=== PATIENT | male | born 1965 | race Caucasian/White ===

== ENCOUNTER → 2016-12-10 | Emergency (ER) | payer SELFPAY ==
[~2016-12-10] VITALS: Ht 172.7 cm; Wt 74.8 kg
[~2016-12-10] MED LIST: ATN50T; ATOR10TA PO; DEXAMETHASONE PF 10 MG/ML (DECADRON) VIAL IV ONE; ESOM5SUS PO; GBPN100C; INDERAL; LEXAPRO; LSRT50T; NS IV 1000 ML 1,000 ML IV SCH; ONDA8TAB9 PO; PRD20T PO; PRILOSEC OTC PO; PROC10TA23; PROCHLORPERAZINE 10 MG/2ML INJ (COMPAZINE) IV ONE; PROZAC; TRM50T PO; VRP80T; ZYPREXA PO; diphenhydrAMINE 50 MG/ML INJ (BENADRYL) IVP ONE; fentaNYL INJECTION 100 MCG/2 ML AMP IVP ONE
--- NOTE | 2016-12-10 17:06 | ED Headache ---
General Chief Complaint: Head/Cervical Problems Stated Complaint: MIGRANE Source: patient Exam Limitations: no limitations History of Present Illness Time seen by provider: 17:04 Initial Comments To ER with a global headache for 4 days worse in the frontal region. He has a history of chronic migraines and states that he has a headache nearly every day however this is worse than usual rated at 10 out of 10. The location and onset are typical of his past headaches. No fevers or chills. No head injury. He saw [facility] yesterday and received Toradol and Phenergan injection without any relief. Timing/Duration: other (4 days) Severity/Quality: severe Location: frontal, global Prior Headaches/Recent Trauma: frequent headaches Associated Symptoms: No confusion Allergies and Home Medications Allergies Coded Allergies: No Known Drug Allergies (Unverified , 08/09/13) Home Medications Atorvastatin Calcium 10 Mg Tablet, 10 MG PO DAILY, (Reported) Esomeprazole Magnesium 5 Mg Suspdr.pkt, 5 MG PO DAILY, (Reported) Ondansetron 8 Mg Tab.rapdis, 8 MG PO Q6H PRN for NAUSEA/VOMITING-2ND LINE, #30 Prescribed by: ALE ACEVEDO on 12/10/161822 [Inderal] , (Reported) [Prozac] , (Reported) [Zyprexa] , 10 MG PO BID, (Reported) Constitutional: see HPI Eyes: No Symptoms Reported Ears, Nose, Mouth, Throat: no symptoms reported Respiratory: no symptoms reported Cardiovascular: no symptoms reported Genitourinary: no symptoms reported Musculoskeletal: no symptoms reported Skin: no symptoms reported Psychiatric/Neurological: No Symptoms Reported Past Hebwsrl-Iwghjg-Twsytl Hx Patient Social History Recent Foreign Travel: No Contact w/Someone Who Travel: No Surgeries HX Surgeries: No Respiratory Hx Respiratory Disorders: Yes Respiratory Disorders: Pneumonia Cardiovascular Hx Cardiac Disorders: No Neurological Hx Neurological Disorders: Yes Reproductive System Hx Reproductive Disorders: No Genitourinary Hx Genitourinary Disorders: No Gastrointestinal Hx Gastrointestinal Disorders: No Musculoskeletal Hx Musculoskeletal Disorders: No Endocrine Hx Endocrine Disorders: No HEENT HX ENT Disorders: No Cancer Hx Cancer: No Psychosocial Hx Psychiatric Problems: Yes Blood Transfusions Hx Blood Disorders: No Physical Exam Vital Signs Vital Sign - Last 12Hours 12/10/16 17:17 Temp 98.1 Capillary Refill : General Appearance: WD/WN, no apparent distress HEENT: PERRL/EOMI, normal ENT inspection, TMs normal Neck: non-tender, full range of motion Respiratory: normal breath sounds, no respiratory distress, no accessory muscle use Gastrointestinal: normal bowel sounds, non tender, soft Extremities: normal range of motion, non-tender Psychiatric: alert, oriented x 3 Crainal Nerves: normal hearing, normal speech, PERRL Skin: normal color, warm/dry Progress/Results/Core Measures Results/Orders My Orders Orders - ALE ACEVEDO APRN Saline Lock/Iv-Start (12/10/16 17:02) Prochlorperazine Injection (Compazine In (12/10/16 17:15) Diphenhydramine Injection (Benadryl Inje (12/10/16 17:15) Ns Iv 1000 Ml (Sodium Chloride 0.9%) (12/10/16 17:15) Dexamethasone Pf Injection (Decadron Pf (12/10/16 17:15) Fentanyl Injection (Sublimaze Injection (12/10/16 17:15) Medications Given in ED Current Medications Medications Dose Ordered Sig/Bernard Route Start Time Stop Time Status Last Admin Dose Admin Dexamethasone Sodium Phosphate 10 mg ONCE ONCE IV 12/10/16 17:15 12/10/16 17:16 DC 12/10/16 17:18 10 MG Diphenhydramine HCl 25 mg ONCE ONCE IVP 12/10/16 17:15 12/10/16 17:16 DC 12/10/16 17:18 25 MG Fentanyl Citrate 50 mcg ONCE ONCE IVP 12/10/16 17:15 12/10/16 17:16 DC 12/10/16 17:17 50 MCG Prochlorperazine Edisylate 10 mg ONCE ONCE IV 12/10/16 17:15 12/10/16 17:16 DC 12/10/16 17:17 10 MG Vital Signs/I&O Vital Sign - Last 12Hours 12/10/16 17:17 Temp 98.1 Departure Communication Progress Notes 1824-patient states his headache is better in fact well enough that he would like to go home now. Impression Impression: Primary Impression: Headache Disposition: 01 HOME, SELF-CARE Condition: Improved Departure-Patient Inst. Decision time for Depature: 17:05 Referrals: [facility] (PCP/Family) Primary Care Physician Patient Instructions: Headache, Adult (DC) Add. Discharge Instructions: 1. Return to ER for any concerns 2. See your doctor next week All discharge instructions reviewed with patient and/or family. Voiced understanding. Scripts Ondansetron (Zofran Odt) 8 Mg Tab.rapdis 8 MG PO Q6H Y for NAUSEA/VOMITING-2ND LINE, #30 TAB Prov: ALE ACEVEDO APRN 12/10/16 Work/School Note: Work Release Form Date Seen in the Emergency Department: December 10, 2016 Return to Work: December 11, 2016 ALE ACEVEDO APRN December 10, 2016 17:05
[2016-12-10 18:50] VITALS: BP 128/72
== END | disposition home or self-care (01) ==
LOC: EDUNIT# 16:17 → ER 16:18
DX: R51 Headache (principal)
CPT/HCPCS: 96374; 96375

== ENCOUNTER 2019-02-21 14:19 | Emergency (ER) | payer SELFPAY, OTHER | END 2019-02-21 15:29 | disposition home or self-care (01) | LOC: ER 14:19 ==

== ENCOUNTER 2019-06-18 00:26 | Inpatient (IN) | payer SELFPAY ==
[~2019-06-18] VITALS: Ht 167 cm; Wt 61.1 kg
[2019-06-18] VITALS (8 sets, daily range): BP systolic 105–125; BP diastolic 63–88
[~2019-06-18 00:26] MED LIST changes: -DEXAMETHASONE PF 10 MG/ML (DECADRON) VIAL IV ONE; -NS IV 1000 ML 1,000 ML IV SCH; -PROCHLORPERAZINE 10 MG/2ML INJ (COMPAZINE) IV ONE; -diphenhydrAMINE 50 MG/ML INJ (BENADRYL) IVP ONE; -fentaNYL INJECTION 100 MCG/2 ML AMP IVP ONE
[2019-06-18] MEDS ORDERED: LACTATED RINGERS 1,000 ML IV ONE ×2 (02:07→03:56)
[2019-06-18] MEDS ORDERED: THIAMINE 100 MG (VITAMIN B-1) TAB PO ONE (02:15)
[2019-06-18] MEDS ORDERED: FOLIC ACID 1 MG TAB PO ONE (02:15)
[2019-06-18] MEDS ORDERED: ACETAMINOPHEN 500 MG TAB (TYLENOL) PO ONE (02:15)
--- NOTE | 2019-06-18 02:19 | ED Headache ---
General Chief Complaint: General Problems/Pain Stated Complaint: EAR PAIN, NECK AND BACK PAIN Source: patient Exam Limitations: no limitations History of Present Illness Date Seen by Provider: Jun 18, 2019 Time Seen by Provider: 01:56 Initial Comments Patient presents to ER by private conveyance with her significant other and chief complaint that she for the past month has been experiencing intermittent progressively worsening confusion headaches with a background history of migraines and nausea vomiting. He is not having any nausea now. He was recently put on Reglan by his primary care doctor, Darinel for his nausea and irritable bowel disease. He is on Bentyl. He's not having any abdominal pain, diarrhea presently or dysuria. He does complain of a sharp 89 out of 10 headache in the back of his neck radiating up into his occiput. This is different from his normal migraines. He's not having aura or photophobia/phonophobia. He frequently has sinus infection and sinus headaches and is having some axillary pain with discharge of a very dark mucus for the past week. He said the headache and sinus headache came on in the past week. His caregiver says last night when she was taking care of the first time she noticed that he was very confused and wanting to move the car to get out of their way but he was parked in front of them and he was not making any sense. They have not brought this up to primary care. He is not taking any opiates or benzos. He does use ibuprofen 800 mg every 4 hours and occasionally uses Tylenol. His last dose ibuprofen was at midnight. He does endorse night sweats the past week. No history of HIV, tuberculosis, hepatitis. No history of recent falls or trauma. No syncope weakness or weight loss. He is a daily drinker and and usually about a fifth a day. For the past 3 days he has not had any drinks. Allergies and Home Medications Allergies Coded Allergies: No Known Drug Allergies (Unverified , 08/09/13) Home Medications Atorvastatin Calcium 10 Mg Tablet, 10 MG PO DAILY, (Reported) Esomeprazole Magnesium 5 Mg Suspdr.pkt, 5 MG PO DAILY, (Reported) Ondansetron 8 Mg Tab.rapdis, 8 MG PO Q6H PRN for NAUSEA/VOMITING-2ND LINE Prescribed by: ALE ACEVEDO on 12/10/161822 [Zyprexa] , 10 MG PO BID, (Reported) Patient Home Medication List Home Medication List Reviewed: Yes Review of Systems Review of Systems Constitutional: No chills; diaphoresis; No fever; malaise Eyes: Denies Blindness, Denies Blurred Vision Ears, Nose, Mouth, Throat: denies ear pain, denies ear discharge Respiratory: cough; No phlegm, No short of breath, No wheezing Cardiovascular: No chest pain, No edema, No Hx of Intervention, No palpitations Gastrointestinal: No abdominal pain, No constipation, No diarrhea Genitourinary: No discharge, No dysuria Musculoskeletal: see HPI; No back pain; neck pain All Other Systems Reviewed Negative Unless Noted: Yes Past Qwnqlll-Fcxcfi-Xbtawj Hx Patient Social History Type Used: Cigarettes 2nd Hand Smoke Exposure: Yes Recent Foreign Travel: No Contact w/Someone Who Travel: No Recent Hopitalizations: Yes Seasonal Allergies Seasonal Allergies: Yes Past Medical History Surgeries: No Respiratory: Yes Pneumonia Cardiac: No Neurological: Yes Reproductive Disorders: No Gastrointestinal: No Musculoskeletal: No Endocrine: No Cancer: No Psychosocial: Yes Blood Disorders: No Physical Exam Vital Signs Vital Signs - First Documented 06/18/19 01:03 Temp 36.7 Pulse 116 Resp 18 B/P (MAP) 122/74 (90) Pulse Ox 97 O2 Delivery Room Air Capillary Refill : Height, Weight, BMI Height: 5'8.00" Weight: 165lbs. 0.2oz. 74.570089el; 32.48 BMI Method:Estimated General Appearance: mild distress, thin HEENT: PERRL/EOMI, normal ENT inspection, TMs normal, pharynx normal Neck: full range of motion, supple, normal inspection, tender lateral, tender midline Cardiovascular: normal peripheral pulses, regular rate, rhythm Respiratory: chest non-tender, lungs clear, normal breath sounds, no respiratory distress, no accessory muscle use Gastrointestinal: normal bowel sounds, non tender, soft Psychiatric: alert, oriented x 3 Crainal Nerves: normal hearing, normal speech, PERRL Coordination/Gait: normal finger to nose, normal gait Motor/Sensory: no motor deficit, no sensory deficit Skin: normal color, warm/dry Progress/Results/Core Measures Results/Orders Lab Results Laboratory Tests Test 06/18/19 02:33 06/18/19 02:40 06/18/19 04:00 Range/Units Urine Color YELLOW Urine Clarity CLEAR Urine pH 6.0 5-9 Urine Specific [place] 1.025 H 1.016-1.022 Urine Protein 2+ H NEGATIVE Urine Glucose (UA) NEGATIVE NEGATIVE Urine Ketones 2+ H NEGATIVE Urine Nitrite NEGATIVE NEGATIVE Urine Bilirubin 3+ H NEGATIVE Urine Urobilinogen 1.0 < = 1.0 MG/DL Urine Leukocyte Esterase NEGATIVE NEGATIVE Urine RBC (Auto) 2+ H NEGATIVE Urine RBC 10-25 H /HPF Urine WBC 0-2 /HPF Urine Squamous Epithelial Cells 0-2 /HPF Urine Crystals NONE /LPF Urine Bacteria FEW H /HPF Urine Casts NONE /LPF Urine Mucus SMALL H /LPF Urine Culture Indicated NO White Blood Count 27.0 H 4.3-11.0 10^3/uL Red Blood Count 3.68 L 4.35-5.85 10^6/uL Hemoglobin 12.3 L 13.3-17.7 G/DL Hematocrit 34 L 40-54 % Mean Corpuscular Volume 94 80-99 FL Mean Corpuscular Hemoglobin 33 25-34 PG Mean Corpuscular Hemoglobin Concent 36 32-36 G/DL Red Cell Distribution Width 15.2 H 10.0-14.5 % Platelet Count 290 130-400 10^3/uL Mean Platelet Volume 9.9 7.4-10.4 FL Neutrophils (%) (Auto) 90 H 42-75 % Lymphocytes (%) (Auto) 4 L 12-44 % Monocytes (%) (Auto) 6 0-12 % Eosinophils (%) (Auto) 0 0-10 % Basophils (%) (Auto) 0 0-10 % Neutrophils # (Auto) 24.3 H 1.8-7.8 X 10^3 Lymphocytes # (Auto) 1.1 1.0-4.0 X 10^3 Monocytes # (Auto) 1.6 H 0.0-1.0 X 10^3 Eosinophils # (Auto) 0.0 0.0-0.3 10^3/uL Basophils # (Auto) 0.0 0.0-0.1 10^3/uL Prothrombin Time 18.3 H 12.2-14.7 SEC INR Comment 1.5 H 0.8-1.4 Activated Partial Thromboplast Time 48 H 24-35 SEC Sodium Level 135 135-145 MMOL/L Potassium Level 2.8 L 3.6-5.0 MMOL/L Chloride Level 102 98-107 MMOL/L Carbon Dioxide Level 17 L 21-32 MMOL/L Anion Gap 16 H 5-14 MMOL/L Blood Urea Nitrogen 12 7-18 MG/DL Creatinine 0.90 0.60-1.30 MG/DL Estimat Glomerular Filtration Rate > 60 BUN/Creatinine Ratio 13 Glucose Level 157 H 70-105 MG/DL Calcium Level 10.1 8.5-10.1 MG/DL Corrected Calcium 10.5 H 8.5-10.1 MG/DL Total Bilirubin 0.8 0.1-1.0 MG/DL Aspartate Amino Transf (AST/SGOT) 44 H 5-34 U/L Alanine Aminotransferase (ALT/SGPT) 47 0-55 U/L Alkaline Phosphatase 197 H 40-136 U/L C-Reactive Protein High Sensitivity > 16.00 H 0.00-0.50 MG/DL Total Protein 7.7 6.4-8.2 GM/DL Albumin 3.5 3.2-4.5 GM/DL Lipase 49 8-78 U/L Lactic Acid Level 0.97 0.50-2.00 MMOL/L My Orders Orders - ALMAZ HUTCHINSON Chest Pa/Lat (2 View) (06/18/19 02:07) Ed Iv/Invasive Line Start (06/18/19 02:07) Lactated Ringers (Lr 1000 Ml Iv Solution (06/18/19 02:07) Thiamine Tablet (Vitamin B-1 Tablet) (06/18/19 02:15) Folic Acid Tablet (Folic Acid Tablet) (06/18/19 02:15) Acetaminophen Tablet (Tylenol Tablet) (06/18/19 02:15) Cbc With Automated Diff (06/18/19 02:07) Comprehensive Metabolic Panel (06/18/19 02:07) Lipase (06/18/19 02:07) Hs C Reactive Protein (06/18/19 02:07) Ua Culture If Indicated (06/18/19 02:07) Manual Differential (06/18/19 02:40) Ceftriaxone For Iv Use (Rocephin For I (06/18/19 04:00) Azithromycin Injection (Zithromax Inject (06/18/19 04:00) Ed Iv/Invasive Line Start (06/18/19 03:56) Lactated Ringers (Lr 1000 Ml Iv Solution (06/18/19 03:56) Fentanyl Injection (Sublimaze Injection (06/18/19 04:00) Blood Culture (06/18/19 03:56) Lactic Acid Analyzer (06/18/19 03:56) Sputum Culture (06/18/19 03:56) Urine Culture (06/18/19 03:56) Protime With Inr (06/18/19 03:56) Partial Thromboplastin Time (06/18/19 03:56) Ed Iv/Invasive Line Start (06/18/19 03:56) Vital Signs Adult Sepsis Patie Q15M (06/18/19 03:56) O2 (06/18/19 03:56) Remove Rings In Anticipation O (06/18/19 03:56) Potassium Chloride (Tablet) (K Dur Table (06/18/19 04:15) Potassium Cl 10meq/50ml Ivpb (Kcl 10 Meq (06/18/19 04:15) Medications Given in ED Current Medications Medications Dose Ordered Sig/Bernard Route Start Time Stop Time Status Last Admin Dose Admin Acetaminophen 1,000 mg ONCE ONCE PO 06/18/19 02:15 06/18/19 02:16 DC 06/18/19 04:09 1,000 MG Azithromycin 500 mg/Sodium Chloride 250 ml @ 250 mls/hr ONCE ONCE IV 06/18/19 04:00 06/18/19 04:59 DC 06/18/19 04:09 250 MLS/HR Ceftriaxone Sodium 1000 mg/ Sterile Water 10 ml @ 200 mls/hr ONCE ONCE IV 06/18/19 04:00 06/18/19 04:02 DC 06/18/19 04:09 200 MLS/HR Fentanyl Citrate 50 mcg ONCE ONCE IVP 06/18/19 04:00 06/18/19 04:01 DC 06/18/19 04:09 50 MCG Folic Acid 1 mg ONCE ONCE PO 06/18/19 02:15 06/18/19 02:16 DC 06/18/19 02:49 1 MG Lactated Ringer's 1,000 ml @ 0 mls/hr Q0M ONCE IV 06/18/19 02:07 06/18/19 02:13 DC 06/18/19 02:49 1,000 MLS/HR Lactated Ringer's 1,000 ml @ 0 mls/hr Q0M ONCE IV 06/18/19 03:56 06/18/19 03:59 DC 06/18/19 04:09 0 MLS/HR Thiamine HCl 100 mg ONCE ONCE PO 06/18/19 02:15 06/18/19 02:16 DC 06/18/19 02:49 100 MG Vital Signs/I&O 06/18/19 01:03 Temp 36.7 Pulse 116 Resp 18 B/P (MAP) 122/74 (90) Pulse Ox 97 O2 Delivery Room Air Progress Progress Note #1: Time: 02:19 Progress Note Clinically he appears to be mildly dry. We'll give him a liter fluid some folate and thiamine and if that does not improve his tachycardia we can try benzos since he's not been drinking over the past 3 days. We will get some labs and urinalysis to look for any signs of infection or blood disorders. Hyponatremia could explain his confusion. Progress Note #2: Time: 04:00 Progress Note Patient's white count is 27,000 and he has a large right pulmonary infiltrate. It could be contributing to his neck pain if it's body ache related. He is oriented plenty of NSAIDs so were going to give him some fentanyl and another liter fluids to bring him up over 30 mL/kg and Rocephin and azithromycin since he has no recent hospitalizations in the last 90 days. Blood cultures and septic workup. 10 of potassium IV and 20 oral. Diagnostic Imaging Diagonstic Imaging: Xray Plain Films/CT/US/NM/MRI: chest (2v) Comments Right infiltrate cannot rule out possible underlying malignancy. Reviewed: Reviewed by Me Departure Communication (Admissions) Time/Spoke to Admitting Phy: 04:10 Discussed case lab imaging's with Dr. Obrien and she agrees to admit the patient for sepsis, pneumonia, hypokalemia. Lactic is pending. Impression Primary Impression: Pneumonia Qualified Codes: J18.1 - Lobar pneumonia, unspecified organism Additional Impressions: Hypokalemia Myalgia Liver injury Qualified Codes: S36.119A - Unspecified injury of liver, initial encounter Severe sepsis Disposition: ADMITTED INPATIENT Condition: Stable Admissions Decision to Admit Reason: Admit from ER (General) Decision to Admit/Date: Jun 18, 2019 Time/Decision to Admit Time: 04:00 Departure-Patient Inst. Referrals: [facility] (PCP) Primary Care Physician EZEKIEL QUINTANA (Family) Primary Care Physician Focused Exam Sepsis Stage: Severe Sepsis Possible Source: Pulmonary Lactate Level 06/18/19 04:00: Lactic Acid Level 0.97 Time of Focused Exam: 04:46 Respiratory: No Accessory Muscle Use, No Respiratory Distress, Crackles (bilateral bases) Cardiovascular: Regular Rate, Rhythm, No Edema, Normal Peripheral Pulses Capillary Refill: Less Than 3 Seconds Peripheral Pulses: 2+ Radial Pulses (R), 2+ Radial Pulses (L) Skin: normal color, warm/dry Lactic Acid Level Laboratory Tests Test 06/18/19 04:00 Lactic Acid Level 0.97 MMOL/L (0.50-2.00) Within 3hrs of presentation: Admin fluids, Admin ABX, Blood cultures prior to ABX's, Focus exam, Lactate level, Other (severe sepsis because of evidence of liver dysfunction by elevated PT INR) ALMAZ HUTCHINSON Jun 18, 2019 02:19 POS
[2019-06-18 02:57] LABS: BASOPHILS % (AUTO) 0 % (0-10); EOSINOPHILS % (AUTO) 0 % (0-10); HEMATOCRIT 34 % (40-54); HEMOGLOBIN 12.3 G/DL (13.3-17.7); LYMPHOCYTES # (AUTO) 1.1 X 10^3 (1.0-4.0); LYMPHOCYTES % (AUTO) 4 % (12-44); MEAN CORPUSCULAR HEMOGLOBIN 33 PG (25-34); MEAN CORPUSCULAR HGB CONC 36 G/DL (32-36); MEAN CORPUSCULAR VOLUME 94 FL (80-99); MEAN PLATELET VOLUME 9.9 FL (7.4-10.4); MONOCYTES # (AUTO) 1.6 X 10^3 (0.0-1.0); MONOCYTES % (AUTO) 6 % (0-12); NEUTROPHILS # (AUTO) 24.3 X 10^3 (1.8-7.8); NEUTROPHILS % (AUTO) 90 % (42-75); PLATELET COUNT 290 10^3/uL (130-400); RED CELL DISTRIBUTION WIDTH 15.2 % (10.0-14.5)
[2019-06-18 03:00] LABS: CLARITY,URINE CLEAR; COLOR,URINE YELLOW; GLUCOSE, URINE (UA) NEGATIVE (NEGATIVE); KETONES,URINE 2+ (NEGATIVE); LEUKOCYTE ESTERASE ,URINE NEGATIVE (NEGATIVE); NITRITE,URINE NEGATIVE (NEGATIVE); PROTEIN,URINE 2+ (NEGATIVE)
[2019-06-18 03:16] LABS: ALANINE AMINOTRANSFERASE 47 U/L (0-55); ALBUMIN 3.5 GM/DL (3.2-4.5); ALKALINE PHOSPHATASE 197 U/L (40-136); BILIRUBIN,TOTAL 0.8 MG/DL (0.1-1.0); BUN/CREATININE RATIO 13; CALCIUM 10.1 MG/DL (8.5-10.1); CARBON DIOXIDE 17 MMOL/L (21-32); CHLORIDE 102 MMOL/L (98-107); GFR ESTIMATED > 60; GLUCOSE 157 MG/DL (70-105); LIPASE 49 U/L (8-78); POTASSIUM 2.8 MMOL/L (3.6-5.0); SODIUM 135 MMOL/L (135-145); TOTAL PROTEIN 7.7 GM/DL (6.4-8.2)
[2019-06-18 03:19] LABS: BILIRUBIN,URINE 3+ (NEGATIVE)
[2019-06-18 03:20] LABS: BACTERIA,URINE FEW /HPF; SQUAMOUS EPITHELIAL CELL,UR 0-2 /HPF; WBC,URINE 0-2 /HPF
[2019-06-18] MEDS ORDERED: AZITHROMYCIN INJECTION 500 MG in NS (IVPB) 250 ML IV ONE (04:00)
[2019-06-18] MEDS ORDERED: cefTRIAXone FOR IV USE 1,000 MG in WATER (STERILE) FOR INJECTION 10 ML IV ONE (04:00)
[2019-06-18] MEDS ORDERED: fentaNYL INJECTION 100 MCG/2 ML AMP IVP ONE (04:00)
[2019-06-18 04:11] LABS: INR 1.5 (0.8-1.4); PROTHROMBIN TIME PATIENT 18.3 SEC (12.2-14.7)
[2019-06-18] MEDS ORDERED: KCL 20 MEQ TAB (K-DUR) PO ONE (04:15)
[2019-06-18] MEDS ORDERED: POTASSIUM CL 10MEQ/50ML IVPB 50 ML IV ONE ×2 (04:15→21:15)
[2019-06-18] MEDS ORDERED: ACETAMINOPHEN 500 MG TAB (TYLENOL) PO PRN (06:00)
[2019-06-18] MEDS ORDERED: ONDANSETRON 4 MG/2 ML (SDV) Z0FRAN IV PRN (06:00)
[2019-06-18] MEDS ORDERED: ANTACID SUSP 30 ML UDC (MYLANTA) PO PRN (06:00)
--- NOTE | 2019-06-18 06:37 | Pulmonary Consultation ---
History of Present Illness History of Present Illness Date of Consultation 06/18/19 06:31 Date of Admission Allergies and Home Medications Allergies Coded Allergies: No Known Drug Allergies (Unverified , 08/09/13) Home Medications Atorvastatin Calcium 10 Mg Tablet, 10 MG PO DAILY, (Reported) Esomeprazole Magnesium 5 Mg Suspdr.pkt, 5 MG PO DAILY, (Reported) Ondansetron 8 Mg Tab.rapdis, 8 MG PO Q6H PRN for NAUSEA/VOMITING-2ND LINE Prescribed by: ALE ACEVEDO on 12/10/16 182 [Zyprexa] , 10 MG PO BID, (Reported) Past Rbhyuqf-Kvjsfe-Yvstef Hx Patient Social History Alcohol Use: Regular Use Alcohol Beverage of Choice: [place] Recreational Drug Use: No Smoking Status: Current Everyday Smoker Type Used: Cigarettes 2nd Hand Smoke Exposure: Yes Recent Foreign Travel: No Contact w/Someone Who Travel: No Recent Infectious Disease Expo: No Recent Hopitalizations: Yes Physical Abuse: No Sexual Abuse: No Mistreated: No Fear: No Immunizations Up To Date Tetanus Booster (TDap): Unknown PED Vaccines UTD: Yes Seasonal Allergies Seasonal Allergies: Yes Past Medical History Surgeries: No Respiratory: Yes Pneumonia Cardiac: No Neurological: Yes Reproductive Disorders: No Genitourinary: No Gastrointestinal: No Musculoskeletal: No Endocrine: No HEENT: No Cancer: No Psychosocial: Yes Anxiety Integumentary: No Blood Disorders: No Sepsis Event Evaluation Height, Weight, BMI Height: 5'8.00" Weight: 165lbs. 0.2oz. 74.613804jj; 22.26 BMI Method:Estimated Exam Exam Vital Signs Date Time Temp Pulse Resp B/P (MAP) Pulse Ox O2 Delivery O2 Flow Rate FiO2 06/18/19 06:00 88 32 105/85 (92) 96 Room Air 06/18/19 05:35 97 Room Air 06/18/19 05:16 37.1 92 26 109/63 97 Room Air 06/18/19 05:15 91 20 109/63 (78) 97 Room Air 06/18/19 05:15 91 06/18/19 04:09 36.7 06/18/19 04:09 36.7 06/18/19 01:03 36.7 116 18 122/74 (90) 97 Room Air I & O 06/18/19 07:00 Intake Total 2110 ml Output Total 0 ml Balance 2110 ml Height & Weight Height: 5'8.00" Weight: 165lbs. 0.2oz. 74.420374ia; 22.26 BMI Method:Estimated Respiratory: No Accessory Muscle Use, No Respiratory Distress, Crackles (bilateral bases) Cardiovascular: Regular Rate, Rhythm, No Edema, Normal Peripheral Pulses Capillary Refill: Less Than 3 Seconds Peripheral Pulses: 2+ Radial Pulses (R), 2+ Radial Pulses (L) Gastrointestinal: normal bowel sounds, non tender, soft Results Lab Laboratory Tests 06/18/19 02:40 Assessment/Plan Assessment/Plan Pneumonia with severe sepsis -Continue Rocephin Hypokalemia -Replace Severe HENAO with neck pain -Check CT of head and neck without and with contrast -Consider lumbar puncture Metabolic lactic acidosis -IVF LORNA SINGH DO Jun 18, 2019 06:37 POS
[2019-06-18] MEDS: LACTATED RINGERS 1,000 ML IV SCH ×4 (06:46→23:44)
[2019-06-18 06:48] LABS: LYMPHOCYTES % (MANUAL) 9 %; NEUTROPHILS % (MANUAL) 87 %
[2019-06-18 06:49] LABS: MONOCYTES % (MANUAL) 4 %
[2019-06-18 06:55] LABS: BASOPHILS % (AUTO) 0 % (0-10); EOSINOPHILS % (AUTO) 0 % (0-10); HEMATOCRIT 30 % (40-54); HEMOGLOBIN 10.8 G/DL (13.3-17.7); LYMPHOCYTES # (AUTO) 1.4 X 10^3 (1.0-4.0); LYMPHOCYTES % (AUTO) 6 % (12-44); MEAN CORPUSCULAR HEMOGLOBIN 34 PG (25-34); MEAN CORPUSCULAR HGB CONC 36 G/DL (32-36); MEAN CORPUSCULAR VOLUME 93 FL (80-99); MEAN PLATELET VOLUME 9.7 FL (7.4-10.4); MONOCYTES # (AUTO) 1.6 X 10^3 (0.0-1.0); MONOCYTES % (AUTO) 7 % (0-12); NEUTROPHILS # (AUTO) 20.4 X 10^3 (1.8-7.8); NEUTROPHILS % (AUTO) 87 % (42-75); PLATELET COUNT 248 10^3/uL (130-400); RED CELL DISTRIBUTION WIDTH 14.9 % (10.0-14.5); WHITE BLOOD COUNT 23.5 10^3/uL (4.3-11.0)
[2019-06-18 07:21] LABS: ALANINE AMINOTRANSFERASE 41 U/L (0-55); ALBUMIN 2.8 GM/DL (3.2-4.5); ALKALINE PHOSPHATASE 155 U/L (40-136); BILIRUBIN,TOTAL 0.5 MG/DL (0.1-1.0); BUN/CREATININE RATIO 16; CARBON DIOXIDE 17 MMOL/L (21-32); CHLORIDE 107 MMOL/L (98-107); CREATININE SERUM 0.67 MG/DL (0.60-1.30); GFR ESTIMATED > 60; GLUCOSE 115 MG/DL (70-105); MAGNESIUM 1.8 MG/DL (1.6-2.4); PHOSPHORUS 3.4 MG/DL (2.3-4.7); POTASSIUM 2.7 MMOL/L (3.6-5.0); SODIUM 136 MMOL/L (135-145); TOTAL PROTEIN 6.1 GM/DL (6.4-8.2)
--- NOTE | 2019-06-18 07:21 | Diagnostic Imaging Report ---
INDICATION: Ear, back and neck pain PA and lateral views of the chest are obtained with comparison made to study of 07/09/2008. There has been development of consolidation in the right middle lobe. Heart size and pulmonary vascularity are within normal limits. There is no evidence of pneumothorax or pleural fluid. IMPRESSION: Right middle lobe pneumonia. Radiographic follow-up would be useful to document resolution. Dictated by: Dictated on workstation # [id number]
[2019-06-18] MEDS ORDERED: NS 100 ML (IVPB) BAG IV ONE (07:45)
[2019-06-18] MEDS ORDERED: HOLD METFORMIN - RECEIVED CONTRAST 20 ML VIAL IV SCH (07:45)
[2019-06-18] MEDS ORDERED: IOHEXOL 350 MG/ML 100 ML (OMNIPAQUE 350) VIAL IV ONE (07:45)
[2019-06-18] MEDS ORDERED: CATHETER FLUSH 10 ML SYR IV PRN (07:45)
[2019-06-18] MEDS: fentaNYL INJECTION 100 MCG/2 ML AMP IV PRN ×2 (08:14→21:21)
[2019-06-18] MEDS: KCL 20 MEQ TAB (K-DUR) PO SCH ×2 (08:14→16:51)
[2019-06-18] MEDS: IBUPROFEN 800 MG (MOTRIN) TAB PO PRN ×2 (08:14→23:44)
--- NOTE | 2019-06-18 08:14 | Diagnostic Imaging Report ---
PROCEDURE: CT head with and without contrast. TECHNIQUE: Multiple contiguous axial images were obtained through the brain before and after the administration of intravenous contrast. Auto Exposure Controls were utilized during the CT exam to meet ALARA standards for radiation dose reduction. INDICATION: Severe headache and neck pain Comparison is made to study of 07/19/2014. Ventricles and sulci are within normal limits for size. There is no evidence of hemorrhage. There is no abnormal mass effect or shift of midline structures. After intravenous contrast administration, there is no evidence of abnormal contrast enhancement. IMPRESSION: Unremarkable CTof the brain Dictated by: Dictated on workstation # [id number]
[2019-06-18 08:15] LABS: AMPHETAMINE SCREEN, URINE NEGATIVE (NEGATIVE); BARBITURATE SCREEN URINE NEGATIVE (NEGATIVE); BENZODIAZEPINES SCREEN URINE POSITIVE (NEGATIVE); CANNABINOID SCREEN, URINE NEGATIVE (NEGATIVE); COCAINE SCREEN URINE NEGATIVE (NEGATIVE); METHADONE STAT NEGATIVE (NEGATIVE); METHAMPHETAMINE SCREEN URINE S NEGATIVE (NEGATIVE); OPIATE SCREEN URINE NEGATIVE (NEGATIVE); OXYCODONE STAT NEGATIVE (NEGATIVE); PROPOXYPHENE STAT NEGATIVE (NEGATIVE); TRICYCLIC ANTIDEPRESSANTS SCRE NEGATIVE (NEGATIVE)
[2019-06-18] MEDS ORDERED: RT-ALBUTEROL/IPRATROPIUM 3 ML (DUONEB) VIAL INH PRN (08:30)
[2019-06-18] MEDS ORDERED: PANTOPRAZOLE 40 MG (PROTONIX) TAB PO SCH (09:00)
--- NOTE | 2019-06-18 09:09 | Diagnostic Imaging Report ---
PROCEDURE: CT cervical spine without contrast. TECHNIQUE: Multiple contiguous axial images were obtained through the cervical spine without the use of intravenous contrast. Sagittal and coronal reformations were then performed. Auto Exposure Controls were utilized during the CT exam to meet ALARA standards for radiation dose reduction. INDICATION: Neck pain. Headache. COMPARISON: None FINDINGS: Evaluation static alignment shows straightening of normal lordotic curvature of cervical spine. There is however no significant anteroretrolisthesis. There is no evidence of jumped facets. Findings may be on the basis of underlying spasm, as well as patient positioning. Vertebral body heights are preserved. There is no acute fracture. No bony fragments are seen within the spinal canal. There are moderate multilevel degenerative changes consistent with intervertebral disc height loss with anterior posterior disc osteophyte complex formations. These changes appear greatest at the C5-C6 and C6-C7 levels. Pre and paravertebral soft tissue structures are unremarkable. Included portions of the lung bases are clear. IMPRESSION: 1. No acute fracture or dislocation of the cervical spine. 2. Moderate multilevel degenerative changes. Dictated by: Dictated on workstation # [id number]
[2019-06-18] MEDS: RT-ALBUTEROL/IPRATROPIUM 3 ML (DUONEB) VIAL INH SCH ×3 (09:35→20:17)
[2019-06-18] MEDS: POTASSIUM CL 10MEQ/50ML IVPB 50 ML IV SCH ×6 (10:42→23:38)
--- NOTE | 2019-06-18 10:49 | History & Physical ---
HPI History of Present Illness: 53 yo male presented to ER due to severe headache and body aches. Date seen by provider: Jun 18, 2019 Time Seen by Provider: 10:40 Attending Physician Sobia Brown MD [facility] Consult Date of Admission Jun 18, 2019 at 04:05 Home Medications Home Medications Reviewed patient Home Medication Reconciliation performed by pharmacy medication reconciliations classroom technology technician and/or nursing. Patients Allergies have been reviewed. Allergies Coded Allergies: No Known Drug Allergies (Unverified , 08/09/13) TLA-Fdexow-Zwnufw Hx Patient Social History Alcohol Use: Regular Use Recreational Drug Use: No Smoking Status: Current Everyday Smoker Type Used: Cigarettes 2nd Hand Smoke Exposure: Yes Recent Foreign Travel: No Contact w/other who traveled: No Recent Hopitalizations: Yes Recent Infectious Disease Expo: No Immunizations Up To Date Tetanus Booster (TDap): Unknown Past Medical History PMHx: IBS HTN Anxiety Review of Systems (CHC) Constitutional: malaise Gastrointestinal: vomiting Genitourinary: No hematuria Musculoskeletal: back pain, muscle pain Skin: no symptoms reported Psychiatric/Neurological: No Symptoms Reported Reviewed Test Results Reviewed Test Results Lab Laboratory Tests Test 06/18/19 02:33 06/18/19 02:40 06/18/19 04:00 06/18/19 06:40 Range/Units Urine Color YELLOW Urine Clarity CLEAR Urine pH 6.0 5-9 Urine Specific [place] 1.025 H 1.016-1.022 Urine Protein 2+ H NEGATIVE Urine Glucose (UA) NEGATIVE NEGATIVE Urine Ketones 2+ H NEGATIVE Urine Nitrite NEGATIVE NEGATIVE Urine Bilirubin 3+ H NEGATIVE Urine Urobilinogen 1.0 < = 1.0 MG/DL Urine Leukocyte Esterase NEGATIVE NEGATIVE Urine RBC (Auto) 2+ H NEGATIVE Urine RBC 10-25 H /HPF Urine WBC 0-2 /HPF Urine Squamous Epithelial Cells 0-2 /HPF Urine Crystals NONE /LPF Urine Bacteria FEW H /HPF Urine Casts NONE /LPF Urine Mucus SMALL H /LPF Urine Culture Indicated NO White Blood Count 27.0 H 23.5 H 4.3-11.0 10^3/uL Red Blood Count 3.68 L 3.21 L 4.35-5.85 10^6/uL Hemoglobin 12.3 L 10.8 L 13.3-17.7 G/DL Hematocrit 34 L 30 L 40-54 % Mean Corpuscular Volume 94 93 80-99 FL Mean Corpuscular Hemoglobin 33 34 25-34 PG Mean Corpuscular Hemoglobin Concent 36 36 32-36 G/DL Red Cell Distribution Width 15.2 H 14.9 H 10.0-14.5 % Platelet Count 290 248 130-400 10^3/uL Mean Platelet Volume 9.9 9.7 7.4-10.4 FL Neutrophils (%) (Auto) 90 H 87 H 42-75 % Lymphocytes (%) (Auto) 4 L 6 L 12-44 % Monocytes (%) (Auto) 6 7 0-12 % Eosinophils (%) (Auto) 0 0 0-10 % Basophils (%) (Auto) 0 0 0-10 % Neutrophils # (Auto) 24.3 H 20.4 H 1.8-7.8 X 10^3 Lymphocytes # (Auto) 1.1 1.4 1.0-4.0 X 10^3 Monocytes # (Auto) 1.6 H 1.6 H 0.0-1.0 X 10^3 Eosinophils # (Auto) 0.0 0.0 0.0-0.3 10^3/uL Basophils # (Auto) 0.0 0.0 0.0-0.1 10^3/uL Neutrophils % (Manual) 87 % Lymphocytes % (Manual) 9 % Monocytes % (Manual) 4 % Prothrombin Time 18.3 H 12.2-14.7 SEC INR Comment 1.5 H 0.8-1.4 Activated Partial Thromboplast Time 48 H 24-35 SEC Sodium Level 135 136 135-145 MMOL/L Potassium Level 2.8 L 2.7 L 3.6-5.0 MMOL/L Chloride Level 102 107 98-107 MMOL/L Carbon Dioxide Level 17 L 17 L 21-32 MMOL/L Anion Gap 16 H 12 5-14 MMOL/L Blood Urea Nitrogen 12 11 7-18 MG/DL Creatinine 0.90 0.67 0.60-1.30 MG/DL Estimat Glomerular Filtration Rate > 60 > 60 BUN/Creatinine Ratio 13 16 Glucose Level 157 H 115 H 70-105 MG/DL Calcium Level 10.1 9.0 8.5-10.1 MG/DL Corrected Calcium 10.5 H 10.0 8.5-10.1 MG/DL Total Bilirubin 0.8 0.5 0.1-1.0 MG/DL Aspartate Amino Transf (AST/SGOT) 44 H 40 H 5-34 U/L Alanine Aminotransferase (ALT/SGPT) 47 41 0-55 U/L Alkaline Phosphatase 197 H 155 H 40-136 U/L C-Reactive Protein High Sensitivity > 16.00 H 0.00-0.50 MG/DL Total Protein 7.7 6.1 L 6.4-8.2 GM/DL Albumin 3.5 2.8 L 3.2-4.5 GM/DL Lipase 49 8-78 U/L Lactic Acid Level 0.97 0.50-2.00 MMOL/L Phosphorus Level 3.4 2.3-4.7 MG/DL Magnesium Level 1.8 1.6-2.4 MG/DL B-Type Natriuretic Peptide 184.7 H <100.0 PG/ML Test 06/18/19 06:50 06/18/19 08:13 Range/Units Urine Opiates Screen NEGATIVE NEGATIVE Urine Oxycodone Screen NEGATIVE NEGATIVE Urine Methadone Screen NEGATIVE NEGATIVE Urine Propoxyphene Screen NEGATIVE NEGATIVE Urine Barbiturates Screen NEGATIVE NEGATIVE Ur Tricyclic Antidepressants Screen NEGATIVE NEGATIVE Urine Phencyclidine Screen NEGATIVE NEGATIVE Urine Amphetamines Screen NEGATIVE NEGATIVE Urine Methamphetamines Screen NEGATIVE NEGATIVE Urine Benzodiazepines Screen POSITIVE H NEGATIVE Urine Cocaine Screen NEGATIVE NEGATIVE Urine Cannabinoids Screen NEGATIVE NEGATIVE Lactic Acid Level 0.60 0.50-2.00 MMOL/L Radiology CXR 06/17- RML infiltrate CT head 06/17- no acute abnormalities CT cervical spine 06/17- moderate multilevel degenerative changes Physical Exam-(CHC) Physical Exam Vital Signs VS - Last 72 Hours, by Label POS 06/18/19 06/18/19 06/18/19 06/18/19 01:03 04:00 04:09 04:09 Temp 36.7 36.7 36.7 36.7 Pulse 116 116 Resp 18 18 B/P (MAP) 122/74 (90) 122/74 Pulse Ox 97 97 O2 Delivery Room Air 06/18/19 06/18/19 06/18/19 06/18/19 05:15 05:15 05:15 05:16 Temp 36.9 37.1 Pulse 100 91 91 92 Resp 26 20 26 B/P (MAP) 113/70 109/63 (78) 109/63 Pulse Ox 98 97 97 O2 Delivery Room Air Room Air Room Air 06/18/19 06/18/19 06/18/19 06/18/19 05:35 06:00 07:00 08:00 Pulse 88 87 Resp 32 B/P (MAP) 105/85 (92) Pulse Ox 97 96 98 O2 Delivery Room Air Room Air 06/18/19 06/18/19 06/18/19 06/18/19 08:00 09:00 09:35 12:00 Pulse 98 Resp 19 B/P (MAP) 117/88 (98) Pulse Ox 99 96 96 98 O2 Delivery Room Air Room Air Room Air Room Air 06/18/19 12:30 Pulse 80 Resp 20 B/P (MAP) 112/67 (82) O2 Delivery Room Air Capillary Refill : Less Than 3 Seconds General Appearance: WD/WN, no apparent distress Respiratory: lungs clear, normal breath sounds Cardiovascular: regular rate, rhythm, no murmur Gastrointestinal: normal bowel sounds, non tender, soft Neurologic/Psychiatric: alert, normal mood/affect Skin: normal color, warm/dry Assessment/Plan Assessment/Plan Admission Dx Severe sepsis Admission Status: Inpatient Order (span 2 midnights) Reason for Inpatient Admission: Severe sepsis with pneumonia, will require 2 nights or more for treatment. (1) Severe sepsis Status: Acute Assessment & Plan: Secondary to pneumonia. On azithromycin and ceftriaxone. (2) Headache Status: Acute Assessment & Plan: Has been being treated for chronic migraine and tension headaches outpatient, recently restarted on Reglan. Will hold reglan due to interaction with SSRI. (3) Liver injury Status: Acute Assessment & Plan: Elevated AST and INR, will check hep panel and liver US as well as CK given his myalgias and statin use. May be sepsis related. Qualifiers: Qualified Codes: S36.119A - Unspecified injury of liver, initial encounter (4) Myalgia Status: Acute Assessment & Plan: Check CK. (5) Hypokalemia Status: Acute Assessment & Plan: Replace and recheck. (6) Hematuria Status: Acute Assessment & Plan: Urine culture pending. Qualifiers: Qualified Codes: R31.21 - Asymptomatic microscopic hematuria (7) Pneumonia Status: Acute Qualifiers: Qualified Codes: J18.1 - Lobar pneumonia, unspecified organism (8) Confusion Status: Acute Assessment & Plan: Intermittent per report. Hold home ambien. CT head okay. (9) Neck pain Status: Acute Assessment & Plan: CT neck with moderate degenerative changes. (10) DVT prophylaxis Status: Acute Assessment & Plan: Enoxaparin Clinical Quality Measures DVT/VTE Risk/Contraindication: Risk Factor Score Per Nursin RFS Level Per Nursing on Admit: 3=High SOBIA BROWN MD Jun 18, 2019 10:48 POS
[2019-06-18] MEDS ORDERED: ONDA4TAB10 PO (14:05)
[2019-06-18] MEDS ORDERED: OMEP40CA36 PO (14:05)
[2019-06-18] MEDS ORDERED: FERR325T18 PO (14:05)
[2019-06-18] MEDS ORDERED: OMEG-160 PO (14:05)
[2019-06-18] MEDS ORDERED: ASEN10TA9 SL (14:05)
[2019-06-18] MEDS ORDERED: METO-395 PO (14:05)
[2019-06-18] MEDS ORDERED: ZOLP5TAB PO (14:05)
[2019-06-18] MEDS ORDERED: METO-310 PO (14:05)
[2019-06-18] MEDS ORDERED: DICY20TA10 PO (14:05)
[2019-06-18] MEDS ORDERED: TOPI100T PO (14:05)
[2019-06-18] MEDS ORDERED: SERT100T8 PO (14:05)
[2019-06-18] MEDS ORDERED: ATOR40TA70 PO (14:05)
[2019-06-18] MEDS ORDERED: RT-ALBUINH INH (14:05)
[2019-06-18 14:41] LABS: BUN/CREATININE RATIO 17; CALCIUM 8.8 MG/DL (8.5-10.1); CARBON DIOXIDE 16 MMOL/L (21-32); CHLORIDE 112 MMOL/L (98-107); CREATINE KINASE 62 U/L (30-200); CREATININE SERUM 0.59 MG/DL (0.60-1.30); GFR ESTIMATED > 60; GLUCOSE 108 MG/DL (70-105); POTASSIUM 3.2 MMOL/L (3.6-5.0); SODIUM 138 MMOL/L (135-145)
[2019-06-18] MEDS: ENOXAPARIN 40 MG/0.4 ML (LOVENOX) SYR SQ SCH (16:50)
[2019-06-18] MEDS: DICYCLOMINE 10 MG (BENTYL) CAP PO SCH ×2 (16:51→20:34)
[2019-06-18] MEDS ORDERED: NON-FORMULARY MEDICATION 1 EA EA (Dicyclomine HCl 20 MG) PO SCH (17:00)
[2019-06-18] MEDS: PANTOPRAZOLE 40 MG (PROTONIX) TAB PO SCH (20:34)
[2019-06-18] MEDS: toPIRamate 100 MG (TOPAMAX) TAB PO SCH (20:34)
[2019-06-18] MEDS ORDERED: TOPIRAMATE 100 MG PO SCH (21:00)
[2019-06-18] MEDS ORDERED: NON-FORMULARY MEDICATION 1 EA EA (Omeprazole 40 MG) PO SCH (21:00)
[2019-06-19] MEDS: POTASSIUM CL 10MEQ/50ML IVPB 50 ML IV SCH (00:45)
[2019-06-19 04:00] VITALS: BP 127/73
[2019-06-19] MEDS ORDERED: cefTRIAXone 1,000 MG IV (ROCEPHIN) VIAL ONE (05:00)
[2019-06-19] MEDS ORDERED: WATER (STERILE) FOR INJECTION 10 ML ONE (05:00)
[2019-06-19 05:02] LABS: BASOPHILS % (AUTO) 0 % (0-10); EOSINOPHILS # (AUTO) 0.1 10^3/uL (0.0-0.3); EOSINOPHILS % (AUTO) 0 % (0-10); HEMATOCRIT 26 % (40-54); LYMPHOCYTES # (AUTO) 2.1 X 10^3 (1.0-4.0); LYMPHOCYTES % (AUTO) 11 % (12-44); MEAN CORPUSCULAR HEMOGLOBIN 34 PG (25-34); MEAN CORPUSCULAR HGB CONC 35 G/DL (32-36); MEAN CORPUSCULAR VOLUME 96 FL (80-99); MEAN PLATELET VOLUME 10.1 FL (7.4-10.4); MONOCYTES # (AUTO) 0.8 X 10^3 (0.0-1.0); MONOCYTES % (AUTO) 4 % (0-12); NEUTROPHILS # (AUTO) 16.5 X 10^3 (1.8-7.8); NEUTROPHILS % (AUTO) 85 % (42-75); PLATELET COUNT 330 10^3/uL (130-400); RED CELL DISTRIBUTION WIDTH 15.4 % (10.0-14.5); WHITE BLOOD COUNT 19.5 10^3/uL (4.3-11.0)
[2019-06-19] MEDS: cefTRIAXone 1,000 MG/SWFI 10 ML IV PUSH IV SCH ×2 (05:09)
[2019-06-19 05:23] LABS: ALANINE AMINOTRANSFERASE 25 U/L (0-55); ALBUMIN 2.6 GM/DL (3.2-4.5); ALKALINE PHOSPHATASE 157 U/L (40-136); BILIRUBIN,DIRECT 0.2 MG/DL (0.0-0.3); BILIRUBIN,INDIRECT 0.1 MG/DL; BILIRUBIN,TOTAL 0.3 MG/DL (0.1-1.0); BUN/CREATININE RATIO 14; CALCIUM 8.7 MG/DL (8.5-10.1); CARBON DIOXIDE 15 MMOL/L (21-32); CHLORIDE 112 MMOL/L (98-107); CREATININE SERUM 0.59 MG/DL (0.60-1.30); GFR ESTIMATED > 60; GLUCOSE 86 MG/DL (70-105); MAGNESIUM 1.8 MG/DL (1.6-2.4); PHOSPHORUS 2.9 MG/DL (2.3-4.7); POTASSIUM 3.2 MMOL/L (3.6-5.0); SODIUM 139 MMOL/L (135-145); TOTAL PROTEIN 5.7 GM/DL (6.4-8.2)
--- NOTE | 2019-06-19 05:36 | Pulmonary Progress Note ---
BENJAMIN MCMAHON MED STUDENT 06/19/19 0536: Subjective Date Seen by a Provider: Jun 19, 2019 Time Seen by a Provider: 06:23 Subjective/Events-last exam No acute events overnight. Patient states that his headache and neck pain persist, despite pain medications provided. He states that his cough does seem to be worse today but denies that production of sputum and shortness of breath. He denies visual changes including double vision and blurred vision, fever, and chills. Sepsis Event Evaluation Height, Weight, BMI Height: 5'8.00" Weight: 165lbs. 0.2oz. 74.617191ye; 22.26 BMI Method:Estimated Focused Exam Lactate Level 06/18/19 04:00: Lactic Acid Level 0.97 06/18/19 08:13: Lactic Acid Level 0.60 Time of Focused Exam: 04:46 Exam Exam Vital Signs Date Time Temp Pulse Resp B/P (MAP) Pulse Ox O2 Delivery O2 Flow Rate FiO2 06/19/19 04:00 36.2 73 20 127/73 (91) 99 Room Air 06/18/19 23:59 36.1 83 18 125/72 (89) 99 Room Air 06/18/19 22:00 36.2 06/18/19 20:30 Room Air 06/18/19 20:18 96 Room Air 06/18/19 19:17 36.2 87 20 121/71 (88) 99 Room Air 06/18/19 16:00 36.0 72 20 116/69 (85) 99 Room Air 06/18/19 16:00 98 Room Air 06/18/19 14:54 96 Room Air 06/18/19 13:00 75 06/18/19 12:30 80 20 112/67 (82) Room Air 06/18/19 12:00 98 Room Air 06/18/19 09:35 96 Room Air 06/18/19 09:00 96 Room Air 06/18/19 08:00 98 19 117/88 (98) 99 Room Air 06/18/19 08:00 98 06/18/19 07:00 87 06/18/19 06:00 88 32 105/85 (92) 96 Room Air 06/18/19 05:35 97 Room Air I & O 06/19/19 07:00 Intake Total 1750 ml Balance 1750 ml Height & Weight Height: 5'8.00" Weight: 165lbs. 0.2oz. 74.937477hb; 22.26 BMI Method:Estimated General Appearance: No Apparent Distress, WD/WN HEENT: PERRL/EOMI, Normal ENT Inspection, Pharynx Normal Respiratory: No Accessory Muscle Use, No Respiratory Distress, Rhonci, Wheezing Cardiovascular: Regular Rate, Rhythm, No Edema, Normal Peripheral Pulses Capillary Refill: Less Than 3 Seconds Peripheral Pulses: 2+ Radial Pulses (R), 2+ Radial Pulses (L) Gastrointestinal: normal bowel sounds, non tender, soft Extremity: Normal Inspection, Normal Range of Motion, No Pedal Edema Results Lab Laboratory Tests 06/18/19 02:40 06/18/19 06:40 06/18/19 14:05 06/19/19 04:35 Radiology Chest Xray 06/18/19 IMPRESSION: Right middle lobe pneumonia. Radiographic follow-up would be useful to document resolution. CT Cervical Spine w/o contrast 06/18/19 IMPRESSION: 1. No acute fracture or dislocation of the cervical spine. 2. Moderate multilevel degenerative changes CT Head with and without contrast 06/18/19 IMPRESSION: Unremarkable CT of the brain. Assessment/Plan Assessment/Plan Pneumonia with severe sepsis -Continue Rocephin and Azithro -Blood cultures NGTD x2 -Pending Legionella and pneumo urine antigen Hypokalemia -Replace Severe HENAO with neck pain -CT head and neck 06/18/19 unremarkable -Motrin 800mg, Acetaminophen 1000mg Q8H PRN for mild pain -Fentanyl Q4H PRN for severe pain -Consider LP Metabolic lactic acidosis, improving -IVF LORNA BLUM DO 06/19/19 0733: Subjective Subjective/Events-last exam Still complains of HENAO. SOB is stable. Exam Exam General Appearance: No Apparent Distress, WD/WN HEENT: PERRL/EOMI, Normal ENT Inspection, Pharynx Normal Respiratory: No Accessory Muscle Use, No Respiratory Distress, Rhonci, Wheezing Cardiovascular: Regular Rate, Rhythm, No Edema, Normal Peripheral Pulses Gastrointestinal: normal bowel sounds, non tender, soft Extremity: Normal Inspection, Normal Range of Motion, No Pedal Edema Neurologic/Psychiatric: Alert, Oriented x3 Skin: Normal Color, Warm/Dry Assessment/Plan Assessment/Plan Pneumonia with severe sepsis -Continue Rocephin and Azithro -Blood cultures NGTD x2 -Pending Legionella and pneumo urine antigen Hypokalemia -Replace Severe HENAO with neck pain -CT head and neck 06/18/19 unremarkable -Motrin 800mg, Acetaminophen 1000mg Q8H PRN for mild pain -Consider LP Metabolic lactic acidosis, improving -IVF Supervisory-Addendum Brief Verification & Attestation Participated in pt care: history Personally performed: exam, history Care discussed with: Medical Student Procedures: n/a Verification and Attestation of Medical Student E/M Service A medical student performed and documented this service in my presence. I reviewed and verified all information documented by the medical student and made modifications to such information, when appropriate. I personally performed the physical exam and medical decision making. Lorna Blum, Jun 19, 2019,07:32 BENJAMIN MCMAHON MED STUDENT Jun 19, 2019 05:36 LORNA VICK DO Jun 19, 2019 07:33 POS
[2019-06-19] MEDS: KCL 20 MEQ TAB (K-DUR) PO SCH ×2 (06:36→18:23)
[2019-06-19] MEDS: PANTOPRAZOLE 40 MG (PROTONIX) TAB PO SCH ×2 (06:36→21:27)
[2019-06-19] MEDS: LACTATED RINGERS 1,000 ML IV SCH (06:36)
[2019-06-19] MEDS: RT-ALBUTEROL/IPRATROPIUM 3 ML (DUONEB) VIAL INH SCH ×3 (07:14→19:32)
[2019-06-19] MEDS ORDERED: KCL 20 MEQ TAB (K-DUR) PO ONE ×2 (07:30→08:30)
[2019-06-19 08:30] VITALS: BP 126/68
--- NOTE | 2019-06-19 08:42 | NUR ---
CALLED [facility] FOR A LIST OF RECENTLY FILLED MEDICATIONS. I WENT OVER THAT LIST WITH THE PATIENT AND HE VERIFIED HOW HE TAKES THEM. [facility] FILLED: 06-13-19 AMBIEN 5MG HS #28 06-13-19 REGLAN 10MG TID #90 (TAKES SCHEDULED) 06-13-19 ZOFRAN 4MG BID #60 (TAKES SCHEDULED) 06-13-19 DICYCLOMINE 20MG QID #360 (TAKES SCHEDULED) 06-05-19 TOPAMAX 100MG BID #60 05-18-19 METOPROLOL SUCCINATE 100MG DAILY #30 05-15-19 ZOLOFT 100MG DAILY #30 05-15-19 OMEPRAZOLE 40MG BID #60 04-18-19 LIPITOR 40MG DAILY #30 (ADMITS HE HAS BEEN OUT) 02-20-19 FERROUS SULFATE 325MG #55 (ADMITS HE HAS BEEN OUT, STATES HE DOES NOT BUY OTC) [facility] ALSO HAS A SCRIPT ON HOLD FOR SAPHRIS 10MG DAILY. THEY HAVE NOT DISPENSED ANYTHING THROUGH PALS. PATIENT STATES HE WAS GIVEN THE FIRST MONTH OF THIS MEDICATION IN THE OFFICE AND DID TAKE IT BUT HAS NOT BEEN ABLE TO GET IT THROUGH PATIENT ASSISTANCE YET AND ADMITS HE HAS BEEN OUT FOR A FEW WEEKS. HE TAKES FISH OIL OTC.
[2019-06-19] MEDS ORDERED: ASENAPINE MALEATE 10 MG SL SCH (09:00)
[2019-06-19] MEDS: AZITHROMYCIN 250 MG TAB (ZITHROMAX) PO SCH (09:04)
[2019-06-19] MEDS: DICYCLOMINE 10 MG (BENTYL) CAP PO SCH ×4 (09:05→21:30)
[2019-06-19] MEDS: toPIRamate 100 MG (TOPAMAX) TAB PO SCH ×2 (09:05→21:27)
[2019-06-19] MEDS: meTOprolol SUCCINATE 100 MG (TOPROL XL) TAB PO SCH (09:06)
[2019-06-19] MEDS: SERTRALINE 100 MG (ZOLOFT) TAB PO SCH (09:08)
[2019-06-19] MEDS: fentaNYL INJECTION 100 MCG/2 ML AMP IV PRN ×3 (09:09→21:31)
[2019-06-19] MEDS: 1/2 NS IV SOLUTION 1,000 ML IV SCH ×2 (09:10→19:18)
--- NOTE | 2019-06-19 09:29 | Diagnostic Imaging Report ---
INDICATION: Elevated liver function tests TECHNIQUE: Multiple grayscale sonographic images were obtained of the right upper quadrant of the abdomen. CORRELATION STUDY: None FINDINGS: LIVER: There is uniform echotexture within the visualized portions of the liver. There is normal, hepatopedal direction of flow within the main portal vein. Liver length 17 cm. GALLBLADDER: The gallbladder demonstrates no definitive shadowing gallstones. There is presence of abnormal gallbladder wall thickening at 4 mm. COMMON BILE DUCT: Nondilated at 4-5. PANCREAS: Visualized portions appearing unremarkable. RIGHT KIDNEY: Measures 11.1 x 5.0 x 6.0 cm. No hydronephrosis. AORTA/IVC: Not well visualized. OTHER: None. IMPRESSION: 1. Unremarkable ultrasound evaluation of the liver. 2. Abnormal gallbladder wall thickening without definitive shadowing stones or sludge. Nonspecific to etiology and/or significance. Dictated by: Dictated on workstation # [id number]
[2019-06-19 11:37] VITALS: BP 122/70
[2019-06-19 11:50] LABS: INR 1.6 (0.8-1.4); PROTHROMBIN TIME PATIENT 19.2 SEC (12.2-14.7)
--- NOTE | 2019-06-19 11:58 | NUR ---
DISCHARGE PLANNING: Visited with patient regarding possible needs at discharge..he reported that he is scheduled for a lumbar puncture today. He does not yet know of needs post discharge.
[2019-06-19] MEDS: ENOXAPARIN 40 MG/0.4 ML (LOVENOX) SYR SQ SCH (13:28)
[2019-06-19] MEDS: LOPERAMIDE 2 MG (IMODIUM) TABLET PO PRN ×2 (13:29→21:27)
[2019-06-19 13:54] LABS: HEPATITIS C ANTIBODY C Non-Reactive (Non-Reactive)
--- NOTE | 2019-06-19 14:41 | NUR ---
Initial visit by Desk Officerrobby Zuluaga: engaged is rapport building and introduced Spiritual Care services. No spiritual affiliation.
--- NOTE | 2019-06-19 14:49 | Progress Note ---
Subjective Subjective/Events-last exam Seen at 1025. Afebrile, no hypoxia. Continues to have severe headache and neck pain that he is concerned about. Also having diarrhea. Focused Exam Lactate Level 06/18/19 04:00: Lactic Acid Level 0.97 06/18/19 08:13: Lactic Acid Level 0.60 Time of Focused Exam: 04:46 Objective Exam Last Set of Vital Signs Vital Signs Date Time Temp Pulse Resp B/P (MAP) Pulse Ox O2 Delivery O2 Flow Rate FiO2 06/19/19 13:42 97 Room Air 06/19/19 11:37 36.2 80 20 122/70 (87) Capillary Refill : Less Than 3 Seconds I&O Intake and Output 06/19/19 00:00 Intake Total 3860 ml Output Total 0 ml Balance 3860 ml Intake Oral 1600 ml IV Total 2260 ml Output Urine Total 0 ml # Voids 9 # Bowel Movements 8 Daily Weight Change No No General: Alert, No Acute Distress HEENT: PERRLA, EOMI Lungs: Clear to Auscultation, Normal Air Movement Heart: Regular Rate, No Murmurs Neuro: Normal Speech, Strength at 5/5 X4 Ext, Cranial Nerves 3-12 NL Psych/Mental Status: Mental Status NL Results/Procedures Lab Laboratory Tests 06/19/19 04:35: White Blood Count 19.5H, Red Blood Count 2.67L, Hemoglobin 9.0L, Hematocrit 26L, Mean Corpuscular Volume 96, Mean Corpuscular Hemoglobin 34, Mean Corpuscular Hemoglobin Concent 35, Red Cell Distribution Width 15.4H, Platelet Count 330, Mean Platelet Volume 10.1, Neutrophils (%) (Auto) 85H, Lymphocytes (%) (Auto) 11L, Monocytes (%) (Auto) 4, Eosinophils (%) (Auto) 0, Basophils (%) (Auto) 0, Neutrophils # (Auto) 16.5H, Lymphocytes # (Auto) 2.1, Monocytes # (Auto) 0.8, Eosinophils # (Auto) 0.1, Basophils # (Auto) 0.0, Prothrombin Time 19.2H, INR Comment 1.6H, Sodium Level 139, Potassium Level 3.2L, Chloride Level 112H, Carbon Dioxide Level 15L, Anion Gap 12, Blood Urea Nitrogen 8, Creatinine 0.59L, Estimat Glomerular Filtration Rate > 60, BUN/Creatinine Ratio 14, Glucose Level 86, Calcium Level 8.7, Phosphorus Level 2.9, Magnesium Level 1.8, Total Bilirubin 0.3, Direct Bilirubin 0.2, Indirect Bilirubin 0.1, Aspartate Amino Tr ansf (AST/SGOT) 26, Alanine Aminotransferase (ALT/SGPT) 25, Alkaline Phosphatase 157H, Total Protein 5.7L, Albumin 2.6L Microbiology 06/18/19 Blood Culture - Preliminary, Resulted No growth 06/18/19 Urine Culture - Final, Complete 3 or more isolates Radiology CXR 06/17- RML infiltrate CT head 06/17- no acute abnormalities CT cervical spine 06/17- moderate multilevel degenerative changes Assessment/Plan Assessment/Plan (1) Severe sepsis Status: Acute Assessment & Plan: Secondary to pneumonia. On azithromycin and ceftriaxone. (2) Headache Status: Acute Assessment & Plan: Has been being treated for chronic migraine and tension headaches outpatient, recently restarted on Reglan. Will hold reglan due to interaction with SSRI. CT head okay. 06/19- persistent and severe along with neck pain, will consult Anesthesia for LP. (3) Liver injury Status: Acute Assessment & Plan: Elevated AST and INR, will check hep panel and liver US as well as CK given his myalgias and statin use. May be sepsis related. 06/19 Hep panel and liver US pending. CK okay. Qualifiers: Qualified Codes: S36.119A - Unspecified injury of liver, initial encounter (4) Myalgia Status: Acute Assessment & Plan: Check CK- normal. (5) Hypokalemia Status: Acute Assessment & Plan: Replace and recheck. (6) Hematuria Status: Acute Assessment & Plan: Urine culture pending. Qualifiers: Qualified Codes: R31.21 - Asymptomatic microscopic hematuria (7) Pneumonia Status: Acute Qualifiers: Qualified Codes: J18.1 - Lobar pneumonia, unspecified organism (8) Confusion Status: Acute Assessment & Plan: Intermittent per report. Hold home ambien. CT head okay. (9) Neck pain Status: Acute Assessment & Plan: CT neck with moderate degenerative changes. (10) DVT prophylaxis Status: Acute Assessment & Plan: 06/19 holding enoxaparin for LP Clinical Quality Measures DVT/VTE Risk/Contraindication: Risk Factor Score Per Nursin RFS Level Per Nursing on Admit: 3=High SOBIA SANCHEZ MD Jun 19, 2019 14:49 POS
[2019-06-19 16:00] VITALS: BP 120/65
[2019-06-19 19:59] VITALS: BP 125/79
[2019-06-19 23:25] VITALS: BP 147/77
[2019-06-20] MEDS ORDERED: WATER (STERILE) FOR INJECTION 10 ML ONE (04:28)
[2019-06-20] MEDS ORDERED: cefTRIAXone 1,000 MG IV (ROCEPHIN) VIAL ONE (04:28)
[2019-06-20] MEDS: cefTRIAXone 1,000 MG/SWFI 10 ML IV PUSH IV SCH ×2 (04:42)
[2019-06-20] MEDS: 1/2 NS IV SOLUTION 1,000 ML IV SCH (04:42)
[2019-06-20] MEDS: fentaNYL INJECTION 100 MCG/2 ML AMP IV PRN (05:08)
[2019-06-20 05:15] LABS: BASOPHILS % (AUTO) 0 % (0-10); EOSINOPHILS # (AUTO) 0.1 10^3/uL (0.0-0.3); EOSINOPHILS % (AUTO) 1 % (0-10); HEMATOCRIT 32 % (40-54); HEMOGLOBIN 10.9 G/DL (13.3-17.7); LYMPHOCYTES # (AUTO) 1.7 X 10^3 (1.0-4.0); LYMPHOCYTES % (AUTO) 17 % (12-44); MEAN CORPUSCULAR HEMOGLOBIN 33 PG (25-34); MEAN CORPUSCULAR HGB CONC 34 G/DL (32-36); MEAN CORPUSCULAR VOLUME 95 FL (80-99); MONOCYTES # (AUTO) 0.4 X 10^3 (0.0-1.0); MONOCYTES % (AUTO) 4 % (0-12); NEUTROPHILS # (AUTO) 7.9 X 10^3 (1.8-7.8); NEUTROPHILS % (AUTO) 78 % (42-75); PLATELET COUNT 309 10^3/uL (130-400); RED CELL DISTRIBUTION WIDTH 15.7 % (10.0-14.5); WHITE BLOOD COUNT 10.1 10^3/uL (4.3-11.0)
[2019-06-20 05:35] LABS: BUN/CREATININE RATIO 13; CALCIUM 8.9 MG/DL (8.5-10.1); CARBON DIOXIDE 14 MMOL/L (21-32); CHLORIDE 111 MMOL/L (98-107); CREATININE SERUM 0.54 MG/DL (0.60-1.30); GFR ESTIMATED > 60; GLUCOSE 78 MG/DL (70-105); MAGNESIUM 1.8 MG/DL (1.6-2.4); PHOSPHORUS 3.3 MG/DL (2.3-4.7); POTASSIUM 3.3 MMOL/L (3.6-5.0); SODIUM 137 MMOL/L (135-145)
--- NOTE | 2019-06-20 06:04 | Pulmonary Progress Note ---
VICKY SCHAEFER A MEDICAL STUDENT 06/20/19 0604: Subjective Date Seen by a Provider: Jun 20, 2019 Time Seen by a Provider: 05:59 Subjective/Events-last exam No acute events, overnight. Pt states that he gets slightly short of breath when he walks to the bathroom and has been having a continued non-productive cough. Pt states that he has continued to have neck pain and stiffness. Anesthesia was consulted for LP, lovonox was held yesterday. Sepsis Event Evaluation Height, Weight, BMI Height: 5'8.00" Weight: 165lbs. 0.2oz. 74.312263so; 22.26 BMI Method:Estimated Focused Exam Lactate Level 06/18/19 04:00: Lactic Acid Level 0.97 06/18/19 08:13: Lactic Acid Level 0.60 Time of Focused Exam: 04:46 Exam Exam Vital Signs Date Time Temp Pulse Resp B/P (MAP) Pulse Ox O2 Delivery O2 Flow Rate FiO2 06/19/19 23:25 36.4 74 20 147/77 (100) 99 Room Air 06/19/19 21:00 Room Air 06/19/19 19:59 36.0 75 20 125/79 (94) 100 Room Air 06/19/19 19:32 97 Room Air 06/19/19 16:00 36.5 72 20 120/65 (83) 97 Room Air 06/19/19 13:42 97 Room Air 06/19/19 11:37 36.2 80 20 122/70 (87) 99 Room Air 06/19/19 09:00 Room Air 06/19/19 08:30 36.4 96 20 126/68 (87) 99 Room Air 06/19/19 07:15 97 Room Air I & O 06/20/19 07:00 Intake Total 3600 ml Balance 3600 ml Height & Weight Height: 5'8.00" Weight: 165lbs. 0.2oz. 74.968508vb; 22.26 BMI Method:Estimated General Appearance: No Apparent Distress, WD/WN HEENT: PERRL/EOMI, Normal ENT Inspection, Pharynx Normal Neck: Full Range of Motion, Supple, Other (diffuse tenderness) Respiratory: No Accessory Muscle Use, No Respiratory Distress, Rhonci, Wheezing Cardiovascular: Regular Rate, Rhythm, No Edema, Normal Peripheral Pulses Capillary Refill: Less Than 3 Seconds Peripheral Pulses: 2+ Radial Pulses (R), 2+ Radial Pulses (L) Gastrointestinal: normal bowel sounds, non tender, soft Extremity: Normal Inspection, Normal Range of Motion, No Pedal Edema Neurologic/Psychiatric: Alert, Oriented x3 Skin: Normal Color, Warm/Dry Results Lab Laboratory Tests 06/18/19 06:40 06/18/19 14:05 06/19/19 04:35 06/20/19 04:50 Assessment/Plan Assessment/Plan Pneumonia with severe sepsis -Continue Rocephin and Azithro -Blood cultures NGTD x2 -Legionella and pneumo urine antigen negative Hypokalemia -Replace Severe HENAO with neck pain -CT head and neck 06/18/19 unremarkable -Motrin 800mg, Acetaminophen 1000mg Q8H PRN for mild pain -Lovonox held yesterday(06/19) for LP today (06/20) Metabolic lactic acidosis, resolved -Lactic 0.6 -IVF LORNA SINGH DO 06/20/19 0635: Assessment/Plan Assessment/Plan Pneumonia with severe sepsis - Rocephin and Azithro -Blood cultures NGTD x2 -Legionella and pneumo urine antigen negative Hypokalemia -Replace Severe HENAO with neck pain -CT head and neck 06/18/19 unremarkable -Motrin 800mg, Acetaminophen 1000mg Q8H PRN for mild pain -Lovonox held yesterday(06/19) for LP today (06/20) Metabolic lactic acidosis, resolved -Lactic 0.6 -IVF VICKY SCHAEFER MEDICAL STUDENT Jun 20, 2019 06:04 LORNA VICK DO Jun 20, 2019 06:35 POS
[2019-06-20] MEDS: PANTOPRAZOLE 40 MG (PROTONIX) TAB PO SCH (06:10)
[2019-06-20] MEDS: KCL 20 MEQ TAB (K-DUR) PO SCH (06:10)
[2019-06-20] MEDS: POTASSIUM CL 10MEQ/50ML IVPB 50 ML IV SCH ×6 (06:59→12:12)
[2019-06-20 08:00] VITALS: BP 143/79
[2019-06-20 08:20] LABS: INR 1.3 (0.8-1.4); PROTHROMBIN TIME PATIENT 16.9 SEC (12.2-14.7)
[2019-06-20] MEDS: SERTRALINE 100 MG (ZOLOFT) TAB PO SCH (08:32)
[2019-06-20] MEDS: meTOprolol SUCCINATE 100 MG (TOPROL XL) TAB PO SCH (08:32)
[2019-06-20] MEDS: toPIRamate 100 MG (TOPAMAX) TAB PO SCH (08:41)
[2019-06-20] MEDS: DICYCLOMINE 10 MG (BENTYL) CAP PO SCH ×2 (08:41→13:04)
[2019-06-20] MEDS: AZITHROMYCIN 250 MG TAB (ZITHROMAX) PO SCH (08:41)
[2019-06-20] MEDS: RT-ALBUTEROL/IPRATROPIUM 3 ML (DUONEB) VIAL INH SCH (09:44)
[2019-06-20] MEDS ORDERED: LIDOCAINE 1% INJ 20 ML 20 ML VIAL ONE (10:26)
--- NOTE | 2019-06-20 11:12 | Anesthesia-Procedure Note ---
Procedures/Interventions Procedure Start/Stop/Diagnosis Date of Procedure: Jun 20, 2019 Start Time: 10:30 Referring Physician: Kevin Preprocedural Diagnosis: Headache, neck pain Brief History Consulted by Dr. Brown for Lumbar Puncture for pt with c/o neck pain and H/A. Brief hx obtained from chart and RN. Verified pt's Lovenox dose was held yesterday and INR normal. Consent obtained after lengthy discussion. Pt turned to Rt side. Lumbar area prepped with betadine x3 and sterile drape applied. 3cc 1%lidocaine to skin. #22 G pencil point spinal needle attempted by SRNA x1 attempt without success. DIRECTOR EHS X1 attempt. Clear spinal fluid noted with opening pressure of 14.5 mmHG. 4 samples of fluid obtained and labeled. Needle withdrawn and site covered with band-aid. Advised pt to rest in bed for a few hours. VSS no complaints reported. Report to RN. ASA3 Stop Time: 10:50 Lumbar Puncture Discussed Risk,Benefits: Yes Patient Consents: Yes Position: Lying, L3-4, Right Sterile Technique: Yes Opening Pressure: 14.5 Fluid Color: clear, light yellow Spinal Needle Used: 22g Carey 3 1/2 inch GEORGE AVENDANO DIRECTOR EHS Jun 20, 2019 11:12 POS
--- NOTE | 2019-06-20 11:26 | NUR ---
CALLED DR. SANCHEZ TO SPECIFY WHICH LABS SHE WANTS ORDERED ON SPECIMEN FROM LUMBAR PUNCTURE. TO PUT IN ORDERS
[2019-06-20 11:42] LABS: APPEARANCE,CSF CLEAR; COLOR,CSF COLORLESS; CSF TUBE NUMBER 4; RED BLOOD CELL,CSF 0 CELLS (0-0)
[2019-06-20 11:43] LABS: WHITE BLOOD CELL,CSF 0 CELLS (0-5)
[2019-06-20] MEDS ORDERED: TIZA4TAB4 PO (11:50)
[2019-06-20] MEDS ORDERED: LOPE2CAP PO (11:50)
[2019-06-20] MEDS ORDERED: CEFD300C3 PO (11:50)
[2019-06-20] MEDS ORDERED: LACT1CAP7 PO (11:50)
[2019-06-20 11:59] LABS: CSF GLUCOSE 51 MG/DL (50-80); CSF TOTAL PROTEIN 61 MG/DL (15-40)
[2019-06-20] MEDS ORDERED: LACTOBACILLUS ACIDOPHILUS (PROBIOTIC) CAPSULE PO SCH (12:00)
--- NOTE | 2019-06-20 13:11 | Discharge Summary ---
Discharge Summary Hospital Course Problems/Diagnosis: (1) Severe sepsis Status: Resolved Resolution Date/Time: 06/20/19 @ 13:07 Assessment & Plan: Secondary to pneumonia. On azithromycin and ceftriaxone. Discharged on cefdinir to complete course of treatment for pneumonia. (2) Headache Status: Resolved Resolution Date/Time: 06/20/19 @ 13:08 Assessment & Plan: Has been being treated for chronic migraine and tension headaches outpatient, recently restarted on Reglan. Will hold reglan due to interaction with SSRI. CT head okay. 06/19- persistent and severe along with neck pain, will consult Anesthesia for LP. 06/20- LP done and had 0 WBC and nml glucose, slightly elevated protein. (3) Liver injury Status: Resolved Resolution Date/Time: 06/20/19 @ 13:08 Assessment & Plan: Elevated AST and INR, will check hep panel and liver US as well as CK given his myalgias and statin use. May be sepsis related. 06/19 Hep panel and liver US pending. CK okay. 06/20 hep negative, US showed gall bladder wall thickening without stones that will need further follow up outpatient. Qualifiers: Qualified Codes: S36.119A - Unspecified injury of liver, initial encounter (4) Myalgia Status: Resolved Resolution Date/Time: 06/20/19 @ 13:09 Assessment & Plan: Check CK- normal. (5) Hypokalemia Status: Resolved Resolution Date/Time: 06/20/19 @ 13:09 Assessment & Plan: Replace and recheck. (6) Hematuria Status: Acute Assessment & Plan: Urine culture with 3 or more isolates, recommend further work-up outpatient. Qualifiers: Qualified Codes: R31.21 - Asymptomatic microscopic hematuria (7) Pneumonia Status: Acute Qualifiers: Qualified Codes: J18.1 - Lobar pneumonia, unspecified organism (8) Confusion Status: Resolved Resolution Date/Time: 06/20/19 @ 13:09 Assessment & Plan: Intermittent per report. Hold home ambien. CT head okay. (9) Neck pain Status: Acute Assessment & Plan: CT neck with moderate degenerative changes. Started tizanidine due to persistent pain with essentially unremarkable LP. Hospital Course Date of Admission: Jun 18, 2019 at 04:05 Admission Diagnosis : See problem list Family Physician/Provider: Nelli Singer Date of Discharge: 06/20/19 Discharge Diagnosis: See problem list Hospital Course: See problem list Labs and Pending Lab Test: Laboratory Tests 06/20/19 04:50: White Blood Count 10.1, Red Blood Count 3.35L, Hemoglobin 10.9#L, Hematocrit 32L , Mean Corpuscular Volume 95, Mean Corpuscular Hemoglobin 33, Mean Corpuscular Hemoglobin Concent 34, Red Cell Distribution Width 15.7H, Platelet Count 309, Mean Platelet Volume 10.0, Neutrophils (%) (Auto) 78H, Lymphocytes (%) (Auto) 17, Monocytes (%) (Auto) 4, Eosinophils (%) (Auto) 1, Basophils (%) (Auto) 0, Neutrophils # (Auto) 7.9H, Lymphocytes # (Auto) 1.7, Monocytes # (Auto) 0.4, Eosinophils # (Auto) 0.1, Basophils # (Auto) 0.0, Prothrombin Time 16.9H, INR Comment 1.3, Sodium Level 137, Potassium Level 3.3L, Chloride Level 111H, Carbon Dioxide Level 14L, Anion Gap 12, Blood Urea Nitrogen 7, Creatinine 0.54L, Estimat Glomerular Filtration Rate > 60, BUN/Creatinine Ratio 13, Glucose Level 78, Calcium Level 8.9, Phosphorus Level 3.3, Magnesium Level 1.8 06/20/19 10:45: CSF Tube Number 4, CSF Appearance CLEAR, CSF Color COLORLESS, CSF WBC 0, CSF RBC 0, CSF Lymphocytes , CSF Mononuclear WBCs , CSF Polynuclear WBCs , CSF Glucose 51, CSF Total Protein 61H Microbiology 06/18/19 Blood Culture - Preliminary, Resulted No growth 06/20/19 Gram Stain - Final, Resulted 06/20/19 CSF Culture, Resulted Pending 06/18/19 Urine Culture - Final, Complete 3 or more isolates Home Meds Active Acidophilus-Pectin Capsule (Lactobacillus Acidophilus/Pect) 1 Each Capsule 2 Each PO TIDWM Cefdinir 300 Mg Capsule 300 Mg PO BID Loperamide (Loperamide HCl) 2 Mg Capsule 2 Mg PO NEEDED PRN Tizanidine HCl 4 Mg Tablet 4 Mg PO BID PRN Reported Ondansetron HCl 4 Mg Tablet 4 Mg PO BID Omeprazole 40 Mg Capsule.dr 40 Mg PO BID Ambien (Zolpidem Tartrate) 5 Mg Tablet 5 Mg PO HS Saphris (Asenapine Maleate) 10 Mg Tab.subl 10 Mg SL DAILY RECEIVED SAMPLES OF FIRST MONTH, HAS NOT BEEN ABLE TO GET PATIENT ASSISTANCE YET, HAS BEEN OUT FOR A FEW WEEKS. Sertraline HCl 100 Mg Tablet 100 Mg PO DAILY Topamax (Topiramate) 100 Mg Tablet 100 Mg PO BID Ferrous Sulfate 325 Mg Tablet 325 Mg PO BID LAST FILLED #55 02-20-19 Fish Oil 1,000 mg Softgel ([place]-3/Dha/Epa/Fish Oil) 1 Each Capsule 1,000 Mg PO BID Reglan (Metoclopramide HCl) 10 Mg Tablet 10 Mg PO TID Metoprolol Succinate 100 Mg Tab.er.24h 100 Mg PO DAILY Dicyclomine HCl 20 Mg Tablet 20 Mg PO QID Atorvastatin Calcium 40 Mg Tablet 40 Mg PO DAILY LAST FILLED #30 04-18-19 Assessment/Pt DC Instructions Follow up with Nelli Singer APRN on 06/25 at 1:20 pm. Orders-Post D/C & Referrals Pneu Vac Indicated: Yes Discharge Physical Examination Allergies: Coded Allergies: No Known Drug Allergies (Unverified , 08/09/13) General Appearance: No Apparent Distress, WD/WN Respiratory: Lungs Clear, Normal Breath Sounds Cardiovascular: Regular Rate, Rhythm, No Murmur Gastrointestinal: Normal Bowel Sounds, Non Tender, Soft Skin: Normal Color, Warm/Dry Neurologic/Psychiatric: Alert, Normal Mood/Affect Copy Copies To 1: Nelli Singer APRN Discharge Summary Date of Admission Jun 18, 2019 at 04:05 Date of Discharge Discharge Date: Jun 20, 2019 Clinical Quality Measures DVT/VTE Risk/Contraindication: Risk Factor Score Per Nursin RFS Level Per Nursing on Admit: 3=High SOBIA SANCHEZ MD Jun 20, 2019 13:11 POS
--- NOTE | 2019-06-20 14:37 | NUR ---
"RD ASSESSMENT PMHx: HTN; IBS PT INTERACTION: Pt was awake and pleasant during nutrition assessment. Pt states current appetite is horrible and has been for the last week and a half. Note pt avg PO intake of 38% x2d, per chart review. Pt states following a regular diet at home and currently has no issues with chewing/swallowing food. Pt states some issues with nausea but not vomiting over the last week. Pt states episodes of diarrhea during this timeframe as well. Pt states no recent wt changes. Note unable to determine recent wt hx, per chart review. ABNORMAL NUTRITION-RELATED LAB VALUES: K 3.3 (L); cr 0.59 (L); Cl 111 (H) Est. kcal needs: 7076-9963 kcal (25-30 kcal/kg) Est. Pro needs: 61-73 g Pro (1.0-1.2 g Pro/kg) PES STATEMENT: Inadequate oral intake (NI-2.1) related to loss of appetite | nausea | diarrhea as evidenced by pt interview | avg PO intake 38% x2d INTERVENTION: Continue with current diet order of Regular diet. Encouraged pt to eat when able. MONITOR/EVALUATE: PO Intake; Plan of Care; Hydration Status; Weight Status; Lab Values Jd Corcoran, MS, RD, LD"
== END 2019-06-20 14:10 | disposition home or self-care (01) | DRG 871 ==
LOC: EDUNIT# 00:26 → ER 00:28 → ICU 04:05 → 4TH 15:44
PROVIDERS: ADMIT Internal Medicine; ATTEND Family Medicine
PROC: 009U3ZX Drainage of Spinal Canal, Percutaneous Approach, Diagnostic (ICD-10-PCS; principal; 2019-06-20)
DX: A41.9 Sepsis, unspecified organism (principal); R65.20 Severe sepsis without septic shock; J18.1 Lobar pneumonia, unspecified organism; E87.2 Acidosis; K76.9 Liver disease, unspecified; I10 Essential (primary) hypertension; K58.9 Irritable bowel syndrome, unspecified; F17.210 Nicotine dependence, cigarettes, uncomplicated; E87.6 Hypokalemia; G43.909 Migraine, unspecified, not intractable, without status migrainosus; G44.209 Tension-type headache, unspecified, not intractable; F41.9 Anxiety disorder, unspecified; R31.21 Asymptomatic microscopic hematuria; R41.0 Disorientation, unspecified; M54.2 Cervicalgia; J30.2 Other seasonal allergic rhinitis; M79.10 Myalgia, unspecified site
CPT/HCPCS: 36415; 70470; 71046; 72125; 76705; 80048; 80053; 80074; 80076; 80306; 81000; 82550; 82945; 83605; 83690; 83735; 83880; 84100; 84157; 85007; 85025; 85027; 85610; 85730; 86141; 87040; 87070; 87088; 87205; 87449; 87899; 89051; 94640; 94664; 94760; 96361; 96374; 96375

== ENCOUNTER 2019-06-29 01:05 | Emergency (ER) | payer SELFPAY ==
[~2019-06-29] VITALS: Ht 167.7 cm; Wt 58.0 kg
[~2019-06-29 01:05] MED LIST changes: +ASEN10TA9 SL; +ATOR40TA70 PO; +CEFD300C3 PO; +DICY20TA10 PO; +FERR325T18 PO; +LACT1CAP7 PO; +LOPE2CAP PO; +METO-310 PO; +METO-395 PO; +OMEG-160 PO; +OMEP40CA36 PO; +ONDA4TAB10 PO; +RT-ALBUINH INH; +SERT100T8 PO; +TIZA4TAB4 PO; +TOPI100T PO; +ZOLP5TAB PO
[2019-06-29 01:25] LABS: BASOPHILS % (AUTO) 0 % (0-10); EOSINOPHILS % (AUTO) 0 % (0-10); HEMATOCRIT 41 % (40-54); HEMOGLOBIN 13.9 G/DL (13.3-17.7); LYMPHOCYTES # (AUTO) 4.2 X 10^3 (1.0-4.0); LYMPHOCYTES % (AUTO) 26 % (12-44); MEAN CORPUSCULAR HEMOGLOBIN 34 PG (25-34); MEAN CORPUSCULAR HGB CONC 34 G/DL (32-36); MEAN CORPUSCULAR VOLUME 98 FL (80-99); MEAN PLATELET VOLUME 8.7 FL (7.4-10.4); MONOCYTES # (AUTO) 0.7 X 10^3 (0.0-1.0); MONOCYTES % (AUTO) 5 % (0-12); NEUTROPHILS # (AUTO) 11.1 X 10^3 (1.8-7.8); NEUTROPHILS % (AUTO) 69 % (42-75); PLATELET COUNT 564 10^3/uL (130-400); RED CELL DISTRIBUTION WIDTH 14.8 % (10.0-14.5)
--- NOTE | 2019-06-29 01:27 | ED Chest Pain ---
General Stated Complaint: ABD PAIN, SHOOTING PAIN IN CHEST,SOB,BACK PAIN,NEC Source: patient, old records History of Present Illness Date Seen by Provider: Jun 29, 2019 Time Seen by Provider: 01:09 Initial Comments PT ARRIVES VIA POV FROM HOME C/O RIGHT MID CHEST PAIN THAT RADIATES TO MID STERNUM ALSO HAVING BILATERAL UPPER ABDOMINAL PAIN AND EPIGASTRIC PAIN PAIN BEGAN AROUND 2200 TONIGHT NOTHING WORSENS OR IMPROVES PAIN RATES PAIN "A TEN" SLIGHT SHORTNESS OF BREATH PT WAS ADMITTED LAST WEEK--CAME IN FOR CHRONIC NECK PAIN, BUT WAS DX WITH PNEUMONIA. ADMITTED 06/18/19-06/21/19 NO SIGNIFICANT COUGH NO FEVER NECK PAIN IS BETTER DENIES BACK PAIN NO PALPITATIONS NO SWEATS NO SWELLING IN LEGS/FEET OR PAIN IN CALVES STATES HE HAS BEEN OFF UNKNOWN ANTIBIOTIC FOR 2 DAYS--CEFDINIR, PER OLD CHART SAW MADELIN QUINTANA ON Tuesday06/25/19 FOR FOLLOW UP, NO MEDICATION CHANGES. AND HAS ANOTHER APPOINTMENT NEXT Tuesday07/02/19 DENIES ANY HISTORY OF CARDIAC OR OTHER LUNG PROBLEMS HAS NEVER HAD PNEUMONIA BEFORE PT HAS CHRONIC NAUSEA AND IS NO DIFFERENT TONIGHT HAS CHRONIC DIARRHEA AND IS NO DIFFERENT THAN NORMAL PT STATES HE HAS IBS-D PT SMOKES 1 1/2-2 PPD PT ALSO DRINKS AT LEAST A PINT TO A FIFTH OF LIQUOR/DAY. STATES HE "HASN'T HAD ANY" SINCE HE WAS HOSPITALIZED. LATER STATES HE HAD "1 DRINK" TONIGHT DENIES HISTORY OF ULCERS OR PANCREATITIS PCP: [facility], MADELIN QUINTANA Allergies and Home Medications Allergies Coded Allergies: No Known Drug Allergies (Unverified , 08/09/13) Home Medications Asenapine Maleate 10 Mg Tab.subl, 10 MG SL DAILY, (Reported) RECEIVED SAMPLES OF FIRST MONTH, HAS NOT BEEN ABLE TO GET PATIENT ASSISTANCE YET, HAS BEEN OUT FOR A FEW WEEKS. Atorvastatin Calcium 40 Mg Tablet, 40 MG PO DAILY, (Reported) LAST FILLED #30 04-18-19 Cefdinir 300 Mg Capsule, 300 MG PO BID Prescribed by: SOBIA SANCHEZ on 06/20/19 1150 Dicyclomine HCl 20 Mg Tablet, 20 MG PO QID, (Reported) Ferrous Sulfate 325 Mg Tablet, 325 MG PO BID, (Reported) LAST FILLED #55 02-20-19 Lactobacillus Acidophilus/Pect 1 Each Capsule, 2 EACH PO TIDWM Prescribed by: SOBIA SANCHEZ on 06/20/19 115 Loperamide HCl 2 Mg Capsule, 2 MG PO NEEDED PRN for DIARRHEA Prescribed by: SOBIA SANCHEZ on 06/20/19 1150 Metoclopramide HCl 10 Mg Tablet, 10 MG PO TID, (Reported) Metoprolol Succinate 100 Mg Tab.er.24h, 100 MG PO DAILY, (Reported) [place]-3/Dha/Epa/Fish Oil 1 Each Capsule, 1,000 MG PO BID, (Reported) Omeprazole 40 Mg Capsule.dr, 40 MG PO BID, (Reported) Ondansetron HCl 4 Mg Tablet, 4 MG PO BID, (Reported) Sertraline HCl 100 Mg Tablet, 100 MG PO DAILY, (Reported) Tizanidine HCl 4 Mg Tablet, 4 MG PO BID PRN for MUSCLE SPASMS Prescribed by: SOBIA SANCHEZ on 06/20/19 115 Topiramate 100 Mg Tablet, 100 MG PO BID, (Reported) Zolpidem Tartrate 5 Mg Tablet, 5 MG PO HS, (Reported) Patient Home Medication List Home Medication List Reviewed: Yes Review of Systems Review of Systems Constitutional: no symptoms reported; No chills, No diaphoresis, No dizziness, No fever EENTM: No Symptoms Reported Respiratory: See HPI, Shortness of Air Cardiovascular: See HPI, Chest Pain; Denies Edema, Denies Lightheadedness, Denies Palpitations, Denies Syncope Gastrointestinal: See HPI, Abdominal Pain, Diarrhea, Nausea; Denies Vomiting Genitourinary: No Symptoms Reported Musculoskeletal: see HPI; No back pain; neck pain Skin: no symptoms reported Psychiatric/Neurological: No Symptoms Reported; Denies Headache, Denies Numbness, Denies Paresthesia Endocrine: No Symptoms Reported Hematologic/Lymphatic: No Symptoms Reported Past Ibtuwpn-Vgsrnw-Qwqese Hx Patient Social History Alcohol Use: Regular Use (AT LEAST A PINT TO A FIFTH OF LIQUOR / DAY) Alcohol Beverage of Choice: [place] Recreational Drug Use: No Smoking Status: Current Everyday Smoker (1 1/2 - 2 PPD NOW, HAS SMOKED 4 PPD MOST OF LIFE) Type Used: Cigarettes (1 1/2 - 2 PPD NOW, BUT SMOKED 4 PPD MOST OF LIFE) 2nd Hand Smoke Exposure: Yes Recent Foreign Travel: No Contact w/Someone Who Travel: No Recent Hopitalizations: Yes Immunizations Up To Date Tetanus Booster (TDap): Unknown PED Vaccines UTD: Yes Seasonal Allergies Seasonal Allergies: Yes Past Medical History Surgeries: Yes (EGD 2006) Tonsillectomy Respiratory: Yes Pneumonia Cardiac: Yes Hypertension Neurological: Yes (CHRONIC DAILY HEADACHES) Headaches /Migraines Reproductive Disorders: No Genitourinary: No Gastrointestinal: Yes (CHRONIC NAUSEA, DIARRHEA, ABDOMINAL PAIN--SEEN MULTIPLE SPECIALISTS, INCLUDING [facility]--YET PT CLAIMS HE HAS NEVER HAD EGD OR COLONOSCOPY--PT HAD EGD HERE [address] BUENO--GASTRITIS; ) Gastroesophageal Reflux, Chronic Diarrhea, Irritable Bowel Musculoskeletal: Yes (CHRONIC NECK/BACK PAIN ) Chronic Back Pain Endocrine: No HEENT: Yes (CHRONIC SINUS PROBLEMS) Cancer: No Psychosocial: Yes Anxiety Integumentary: No Blood Disorders: No Physical Exam Vital Signs Vital Signs - First Documented 06/29/19 01:24 Temp 36.7 Pulse 86 Resp 18 B/P (MAP) 150/94 (112) Pulse Ox 96 O2 Delivery Room Air Capillary Refill : Height, Weight, BMI Height: 5'8.00" Weight: 165lbs. 0.2oz. 74.452165jl; 22.26 BMI Method:Estimated General Appearance: No Apparent Distress, WD/WN, Anxious, Other (CONSTANT MOVEMENTS, ESPECIALLY OF FEET) Neck: Full Range of Motion, Normal Inspection, Non Tender, Supple; No Carotid Bruit, No JVD Respiratory: Chest Non Tender, Normal Breath Sounds, No Accessory Muscle Use, No Respiratory Distress Cardiovascular: Regular Rate, Rhythm, No Edema, No JVD, No Murmur, Normal Peripheral Pulses Gastrointestinal: Normal Bowel Sounds, No Organomegaly, No Pulsatile Mass, Soft, Tenderness (DIFFUSE UPPER ABDOMINAL TENDERNESS) Extremity: Normal Capillary Refill, Normal Inspection, Normal Range of Motion, Non Tender, No Calf Tenderness, No Pedal Edema Neurologic/Psychiatric: Alert, Oriented x3, No Motor/Sensory Deficits, 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 Norm as Tested Skin: Normal Color, Warm/Dry; No Rash Focused Exam Lactate Level 06/29/19 04:20: Lactic Acid Level 0.78 Lactic Acid Level Laboratory Tests Test 06/29/19 04:20 Lactic Acid Level 0.78 MMOL/L (0.50-2.00) Progress/Results/Core Measures Results/Orders Lab Results Laboratory Tests Test 06/29/19 01:19 06/29/19 01:35 06/29/19 04:20 Range/Units White Blood Count 16.0 H 4.3-11.0 10^3/uL Red Blood Count 4.13 L 4.35-5.85 10^6/uL Hemoglobin 13.9 13.3-17.7 G/DL Hematocrit 41 40-54 % Mean Corpuscular Volume 98 80-99 FL Mean Corpuscular Hemoglobin 34 25-34 PG Mean Corpuscular Hemoglobin Concent 34 32-36 G/DL Red Cell Distribution Width 14.8 H 10.0-14.5 % Platelet Count 564 H 130-400 10^3/uL Mean Platelet Volume 8.7 7.4-10.4 FL Neutrophils (%) (Auto) 69 42-75 % Lymphocytes (%) (Auto) 26 12-44 % Monocytes (%) (Auto) 5 0-12 % Eosinophils (%) (Auto) 0 0-10 % Basophils (%) (Auto) 0 0-10 % Neutrophils # (Auto) 11.1 H 1.8-7.8 X 10^3 Lymphocytes # (Auto) 4.2 H 1.0-4.0 X 10^3 Monocytes # (Auto) 0.7 0.0-1.0 X 10^3 Eosinophils # (Auto) 0.0 0.0-0.3 10^3/uL Basophils # (Auto) 0.0 0.0-0.1 10^3/uL Neutrophils % (Manual) 71 % Lymphocytes % (Manual) 26 % Monocytes % (Manual) 3 % Prothrombin Time 12.6 12.2-14.7 SEC INR Comment 0.9 0.8-1.4 Activated Partial Thromboplast Time 28 24-35 SEC Sodium Level 141 135-145 MMOL/L Potassium Level 3.5 L 3.6-5.0 MMOL/L Chloride Level 107 98-107 MMOL/L Carbon Dioxide Level 19 L 21-32 MMOL/L Anion Gap 15 H 5-14 MMOL/L Blood Urea Nitrogen 20 H 7-18 MG/DL Creatinine 0.70 0.60-1.30 MG/DL Estimat Glomerular Filtration Rate > 60 BUN/Creatinine Ratio 29 Glucose Level 106 H 70-105 MG/DL Calcium Level 9.6 8.5-10.1 MG/DL Corrected Calcium 9.3 8.5-10.1 MG/DL Magnesium Level 2.2 1.6-2.4 MG/DL Total Bilirubin 0.1 0.1-1.0 MG/DL Aspartate Amino Transf (AST/SGOT) 20 5-34 U/L Alanine Aminotransferase (ALT/SGPT) 32 0-55 U/L Alkaline Phosphatase 108 40-136 U/L Total Creatine Kinase 9 L 30-200 U/L Creatine Kinase MB 0.8 <6.6 NG/ML Myoglobin 12.8 10.0-92.0 NG/ML Troponin I < 0.028 <0.028 NG/ML B-Type Natriuretic Peptide 35.0 <100.0 PG/ML Total Protein 7.8 6.4-8.2 GM/DL Albumin 4.4 3.2-4.5 GM/DL Amylase Level 2152 H 25-125 U/L Lipase 93893 H 8-78 U/L Serum Alcohol 41 H <10 MG/DL Urine Color YELLOW Urine Clarity CLEAR Urine pH 6.0 5-9 Urine Specific [place] 1.015 L 1.016-1.022 Urine Protein NEGATIVE NEGATIVE Urine Glucose (UA) NEGATIVE NEGATIVE Urine Ketones NEGATIVE NEGATIVE Urine Nitrite NEGATIVE NEGATIVE Urine Bilirubin NEGATIVE NEGATIVE Urine Urobilinogen 0.2 < = 1.0 MG/DL Urine Leukocyte Esterase NEGATIVE NEGATIVE Urine RBC (Auto) 1+ H NEGATIVE Urine RBC 0-2 /HPF Urine WBC NONE /HPF Urine Squamous Epithelial Cells RARE /HPF Urine Crystals NONE /LPF Urine Bacteria FEW H /HPF Urine Casts NONE /LPF Urine Mucus NEGATIVE /LPF Urine Culture Indicated NO Urine Opiates Screen NEGATIVE NEGATIVE Urine Oxycodone Screen NEGATIVE NEGATIVE Urine Methadone Screen NEGATIVE NEGATIVE Urine Propoxyphene Screen NEGATIVE NEGATIVE Urine Barbiturates Screen NEGATIVE NEGATIVE Ur Tricyclic Antidepressants Screen POSITIVE H NEGATIVE Urine Phencyclidine Screen NEGATIVE NEGATIVE Urine Amphetamines Screen NEGATIVE NEGATIVE Urine Methamphetamines Screen NEGATIVE NEGATIVE Urine Benzodiazepines Screen NEGATIVE NEGATIVE Urine Cocaine Screen NEGATIVE NEGATIVE Urine Cannabinoids Screen NEGATIVE NEGATIVE Lactic Acid Level 0.78 0.50-2.00 MMOL/L Micro Results Microbiology 06/29/19 Influenza Types A,B Antigen (BARBY) - Final, Complete My Orders Orders - RUSLAN MORRIS DO Cbc With Automated Diff (06/29/19 01:19) Magnesium (06/29/19 01:19) Chest 1 View, Ap/Pa Only (06/29/19:19) Ekg Tracing (06/29/19:19) Comprehensive Metabolic Panel (06/29/19:) Myoglobin Serum (06/29/19:) Protime With Inr (06/29/19:) Partial Thromboplastin Time (06/29/19:19) O2 (06/29/19:) Monitor-Rhythm Ecg Trace Only (06/29/19:) Lipid Panel (06/30/19 06:00) Ed Iv/Invasive Line Start (06/29/19:19) Creatine Kinase (06/29/19:) Creatine Kinase Mb (06/29/19) Lipase (06/29/19:) Amylase (06/29/19:) BNP (06/29/19:) Nitroglycerin 0.4 Mg Btl 25's (Nitrostat (06/29/19 01:30) Aspirin Chewable Tablet (Baby Aspirin Ch (06/29/19 01:30) Drug Screen Stat (Urine) (06/29/19:19) Ua Culture If Indicated (06/29/19:19) Alcohol (06/29/19:) Troponin I (06/29/19:) Manual Differential (06/29/19:19) Pantoprazole Injection (Protonix Injecti (06/29/19 02:00) Hyoscyamine Sl Tablet (Levsin Sl Tablet) (06/29/19 02:00) Ct Cira Chest/Noang Abd-Pelv W (06/29/19 01:54) Iohexol Injection (Omnipaque 350 Mg/Ml 1 (06/29/19 02:15) Received Contrast (Hold Metformin- Contr (06/29/19 02:15) Ns (Ivpb) (Sodium Chloride 0.9% Ivpb Bag (06/29/19 02:15) Piperacillin/Tazobactam (Bulk) (Zosyn In (06/29/19 03:15) Fentanyl Injection (Sublimaze Injection (06/29/19 03:15) Piperacillin Sodium/Tazobactam (Zosyn Vi (06/29/19 03:10) Lactic Acid Analyzer (06/29/19 03:26) Blood Culture (06/29/19 03:26) Influenza A And B Antigens (06/29/19 03:26) Medications Given in ED Current Medications Medications Dose Ordered Sig/Bernard Route Start Time Stop Time Status Last Admin Dose Admin Aspirin 324 mg ONCE ONCE PO 06/29/19 01:30 06/29/19 01:31 DC 06/29/19 01:37 324 MG Fentanyl Citrate 50 mcg ONCE ONCE IVP 06/29/19 03:15 06/29/19 03:16 DC 06/29/19 03:23 50 MCG Hyoscyamine Sulfate 0.25 mg ONCE ONCE PO 06/29/19 02:00 06/29/19 02:01 DC 06/29/19 02:36 0.25 MG Iohexol 100 ml ONCE ONCE IV 06/29/19 02:15 06/29/19 02:16 DC 06/29/19 02:15 100 ML Nitroglycerin 0.4 mg UD PRN SL 06/29/19 01:30 06/29/19 01:37 0.4 MG Pantoprazole 40 mg ONCE ONCE IV 06/29/19 02:00 06/29/19 02:01 DC 06/29/19 02:34 40 MG Piperacillin Sod/ Tazobactam Sod 4.5 gm/Sodium Chloride 120 ml @ 240 mls/hr ONCE ONCE IV 06/29/19 03:15 06/29/19 03:44 DC 06/29/19 03:23 240 MLS/HR Sodium Chloride 100 ml ONCE ONCE IV 06/29/19 02:15 06/29/19 02:16 DC 06/29/19 02:15 80 ML Vital Signs/I&O 06/29/19 06/29/19 01:24 01:31 Temp 36.7 Pulse 86 Resp 18 B/P (MAP) 150/94 (112) Pulse Ox 96 96 O2 Delivery Room Air Room Air Progress Progress Note : Progress Note GIVEN ASPIRIN AND NTG X 1--STATES HIS CHEST PAIN IS GONE, BUT STILL HAS "SEVERE" PAIN IN ABDOMEN--RATES PAIN 5/10 NO DETERIORATION IN PT'S CONDITION DURING ER STAY VITALS REMAINED STABLE ABDOMINAL PAIN IMPROVED WITH FENTANYL AND LEVSIN NAUSEA IMPROVED WITH ZOFRAN GIVEN ZOSYN Initial ECG Impression Date: Jun 29, 2019 Initial ECG Impression Time: 01:14 Initial ECG Rate: 81 Initial ECG Rhythm: Normal Sinus Diagnostic Imaging Comments CXR--RLL INFILTRATE, PENDING RADIOLOGIST REVIEW CT CHEST ANGIOGRAM/ ABDOMEN-PELVIS--NO P.E. OR DISSECTION. + RML INFILTRATE. PANCREATITIS, NO ABSCESS OR PSEUDOCYST. PER [facility] VIA FAX AT [id number] Reviewed: Reviewed by Oh Departure Communication (Admissions) 031--SPOKE WITH DR. VALENTIN, HOSPITALIST FOR [facility]. ADVISES TO TRANSFER, WE ARE ON ICU DIVERSION 322--CALLED [facility] HOSPITALIST 032--SPOKE WITH DR. CERVANTES, ACCEPTS PT FOR ADMIT/TRANSFER Impression Primary Impression: Pancreatitis Additional Impressions: PERSISTENT RLL PNEUMONIA Chest pain Alcoholism Very heavy cigarette smoker (40 or more per day) Disposition: 02 XFER SHT-TRM HOSP Condition: Stable Transfer Transfer Reason: Diversion (ICU DIVERSION) Transfer Facility: [facility] Method of Transfer: EMS Departure-Patient Inst. Referrals: [facility] (PCP) Primary Care Physician EZEKIEL QUINTANA (Family) Primary Care Physician RUSLAN MORRIS DO Jun 29, 2019 01:27 POS
[2019-06-29] MEDS ORDERED: NITROGLYCERIN 0.4 MG SL TABS BTL 25'S SL PRN (01:30)
[2019-06-29] MEDS ORDERED: ASPIRIN 81 MG CHEW (CHILDREN'S ASA) PO ONE (01:30)
[2019-06-29 01:40] LABS: INR 0.9 (0.8-1.4); PROTHROMBIN TIME PATIENT 12.6 SEC (12.2-14.7)
[2019-06-29 01:44] LABS: BILIRUBIN,URINE NEGATIVE (NEGATIVE); CLARITY,URINE CLEAR; COLOR,URINE YELLOW; GLUCOSE, URINE (UA) NEGATIVE (NEGATIVE); KETONES,URINE NEGATIVE (NEGATIVE); LEUKOCYTE ESTERASE ,URINE NEGATIVE (NEGATIVE); NITRITE,URINE NEGATIVE (NEGATIVE); PROTEIN,URINE NEGATIVE (NEGATIVE)
[2019-06-29 01:50] LABS: ALANINE AMINOTRANSFERASE 32 U/L (0-55); ALBUMIN 4.4 GM/DL (3.2-4.5); ALKALINE PHOSPHATASE 108 U/L (40-136); AMYLASE 2152 U/L (25-125); BILIRUBIN,TOTAL 0.1 MG/DL (0.1-1.0); BUN/CREATININE RATIO 29; CALCIUM 9.6 MG/DL (8.5-10.1); CARBON DIOXIDE 19 MMOL/L (21-32); CHLORIDE 107 MMOL/L (98-107); CREATINE KINASE 9 U/L (30-200); GFR ESTIMATED > 60; GLUCOSE 106 MG/DL (70-105); MAGNESIUM 2.2 MG/DL (1.6-2.4); POTASSIUM 3.5 MMOL/L (3.6-5.0); SODIUM 141 MMOL/L (135-145); TOTAL PROTEIN 7.8 GM/DL (6.4-8.2)
[2019-06-29 01:56] LABS: AMPHETAMINE SCREEN, URINE NEGATIVE (NEGATIVE); BACTERIA,URINE FEW /HPF; BARBITURATE SCREEN URINE NEGATIVE (NEGATIVE); BENZODIAZEPINES SCREEN URINE NEGATIVE (NEGATIVE); CANNABINOID SCREEN, URINE NEGATIVE (NEGATIVE); COCAINE SCREEN URINE NEGATIVE (NEGATIVE); METHAMPHETAMINE SCREEN URINE S NEGATIVE (NEGATIVE); OPIATE SCREEN URINE NEGATIVE (NEGATIVE); RBC,URINE 0-2 /HPF; SQUAMOUS EPITHELIAL CELL,UR RARE /HPF
[2019-06-29 01:57] LABS: METHADONE STAT NEGATIVE (NEGATIVE); OXYCODONE STAT NEGATIVE (NEGATIVE); PROPOXYPHENE STAT NEGATIVE (NEGATIVE); TRICYCLIC ANTIDEPRESSANTS SCRE POSITIVE (NEGATIVE)
[2019-06-29 01:58] LABS: CREATINE KINASE MB 0.8 NG/ML (<6.6)
[2019-06-29] MEDS ORDERED: PANTOPRAZOLE 40 MG (PROTONIX) VIAL IV ONE (02:00)
[2019-06-29] MEDS ORDERED: HYOSCYAMINE 0.125 MG (LEVSIN) TAB PO ONE (02:00)
[2019-06-29] MEDS ORDERED: IOHEXOL 350 MG/ML 100 ML (OMNIPAQUE 350) VIAL IV ONE (02:15)
[2019-06-29] MEDS ORDERED: HOLD METFORMIN - RECEIVED CONTRAST 20 ML VIAL IV SCH (02:15)
[2019-06-29] MEDS ORDERED: NS 100 ML (IVPB) BAG IV ONE (02:15)
[2019-06-29] MEDS ORDERED: PIPERACILLIN/TAZO 4.5 GM VIAL (ZOSYN) IV ONE (03:10)
[2019-06-29] MEDS ORDERED: fentaNYL INJECTION 100 MCG/2 ML AMP IVP ONE (03:15)
[2019-06-29] MEDS ORDERED: PIPERACILLIN/TAZOBACTAM (BULK) 4.5 GM in NS (IVPB) 100 ML IV ONE (03:15)
[2019-06-29 03:17] LABS: LIPASE 11550 U/L (8-78)
[2019-06-29 04:45] LABS: LYMPHOCYTES % (MANUAL) 26 %; MONOCYTES % (MANUAL) 3 %; NEUTROPHILS % (MANUAL) 71 %
[2019-06-29 05:20] VITALS: BP 155/77
--- NOTE | 2019-06-29 07:07 | Diagnostic Imaging Report ---
INDICATION: Right lower lobe infiltrate follow-up Portable chest 2:26 AM The previously described infiltrate from chest x-ray 06/18/2019 has nearly completely resolved. Left lung is clear. There is no effusion or pneumothorax. IMPRESSION: Near-complete resolution of the previously seen right lower lobe infiltrate. Dictated by: Dictated on workstation # [id number]
--- NOTE | 2019-06-29 07:09 | Diagnostic Imaging Report ---
INDICATION: Chest pain and shortness of breath. TECHNIQUE: Multiple contiguous axial images were obtained through the chest, abdomen and pelvis after the uneventful bolus administration of intravenous contrast. MIP reconstructions were then performed. No prior examination available for comparison. FINDINGS: There is some right middle lobe atelectasis and/or pneumonitis. There is no pleural or pericardial fluid. There is no pneumothorax. Thoracic aorta is normal in caliber without evidence of dissection. There are no filling defects within the pulmonary arteries to suggest pulmonary embolism. There is no pathologically enlarged adenopathy in the chest. There are mild degenerative changes in the spine. The liver is normal in size without focal lesions. Gallbladder is unremarkable. There is no biliary ductal dilatation. Spleen is normal. There is some mild peripancreatic stranding particularly the pancreatic head which is nonspecific. The adrenal glands are unremarkable. Kidneys normal in appearance. Aorta is nonaneurysmal. Bowel gas pattern is nonspecific. There is no free air. No ascites. Bladder is normal. There is no pelvic mass, adenopathy or free fluid. The osseous structures are unremarkable. There is no pathologically enlarged central retroperitoneal mesenteric adenopathy. IMPRESSION: No evidence of pulmonary embolism or aortic dissection. Right middle lobe atelectasis and/or pneumonitis. Questionable mild inflammatory stranding about the pancreatic head. Early pancreatitis cannot be excluded. Recommend clinical correlation. No other acute abnormality in the abdomen or pelvis. Dictated by: Dictated on workstation # [id number]
== END 2019-06-29 05:25 | disposition short-term general hospital (02) ==
LOC: EDUNIT# 01:05 → ER 01:08
DX: K85.90 Acute pancreatitis without necrosis or infection, unspecified (principal); J18.1 Lobar pneumonia, unspecified organism; R07.9 Chest pain, unspecified; I10 Essential (primary) hypertension; G43.909 Migraine, unspecified, not intractable, without status migrainosus; K21.9 Gastro-esophageal reflux disease without esophagitis; K58.9 Irritable bowel syndrome, unspecified; F41.9 Anxiety disorder, unspecified; F10.20 Alcohol dependence, uncomplicated; F17.210 Nicotine dependence, cigarettes, uncomplicated; Z90.89 Acquired absence of other organs
CPT/HCPCS: 36415; 71045; 71275; 74177; 80053; 80306; 80320; 81000; 82150; 82550; 82553; 83605; 83690; 83735; 83874; 83880; 84484; 85007; 85027; 85610; 85730; 87040; 87804; 93005; 93041; 96365; 96375

== ENCOUNTER 2019-11-09 19:09 | Emergency (ER) | payer SELFPAY ==
[~2019-11-09] VITALS: Ht 165 cm; Wt 58.0 kg
[~2019-11-09 19:09] MED LIST changes: -METO-395 PO; +MTP100TCR PO; +OMEP40CA27 PO; -OMEP40CA36 PO; +ONDA-105 PO; -ONDA4TAB10 PO
--- OUTSIDE RECORDS SUMMARY | 2019-11-09 19:14 | XMS REPORT | Clinical Summary ---
Author Author [facility] Organization [facility] Address Unknown Phone Unavailable Care Team Providers Care Geophysical Computer Name Role Phone Unverified, Unverified PCP Unavailable Marcus Marin MD Unavailable Source Comments Some departments are not documenting in the electronic medical record. If you d o not see the information that you expected, contact Release of Information in [facility] Health Information Management department at [phone] for further assistan ce in locating additional records.[facility] Allergies Not on File Medications Not on file Active Problems Not on file Social History Date Tobacco Use Types Packs/Day Years Used Never Assessed Sex Assigned at Date Recorded Not on file Industry Job Start Date Occupation Not on file Not on file Not on file Travel End Travel History Travel Start No recent travel history available. Last Filed Vital Signs Not on file Plan of Treatment Health Maintenance Due Date Last Done Comments HEPATITIS C SCREENING 1964 DTAP/TDAP VACCINES (1 - 1975 Tdap) HIV SCREENING 1979 PHYSICAL (COMPREHENSIVE) 1982 EXAM COLORECTAL CANCER 2014 SCREENING SHINGLES RECOMBINANT 2014 VACCINE (1 of 2) INFLUENZA VACCINE 03/08/2019 Results Not on filefrom Last 3 Months
[2019-11-09] MEDS ORDERED: ASPIRIN 81 MG CHEW (CHILDREN'S ASA) PO ONE (19:15)
[2019-11-09] MEDS ORDERED: ANTACID SUSP 30 ML UDC (MYLANTA) PO ONE (19:15)
[2019-11-09] MEDS ORDERED: LIDOCAINE 2% VISCOUS 15 ML UDC PO ONE (19:15)
--- OUTSIDE RECORDS SUMMARY | 2019-11-09 19:17 | XMS REPORT ---
Author Author Waqas QUINTANA Organization [facility] Address [address] [place] [address] Care Team Providers Care Supervisor Kennel Name Role Phone EZEKIEL QUINTANA Unavailable PROBLEMS Type Condition ICD9-CM Code [id number] Code Onset Dates Condition S tatus SNOMED Code Problem Mild intermittent asthma, uncomplicated J45.20 Active 014883041 Problem Gastro-esophageal reflux disease without esophagitis K21.9 Active 407065089 Problem Migraine without aura, intractable, with status migrainosu s G43.011 Active 01139192 Problem Insomnia, unspecified G47.00 Active 912777991 Problem Hypertriglyceridemia E78.1 Active 489221541 Problem Microcytic anemia D50.9 Active 23 3704466 Problem Dysthymia F34.1 Active 96454100 Problem Essential hypertension I10 Active 34022510 Problem Tension headache G44.209 Active 398 205488 Problem Chronic fatigue R53.82 Active 5270 2003 Problem Primary insomnia F51.01 Active 397 2004 Problem Psychophysiological insomnia F51.04 A ctive 954698503 Problem Seasonal allergic rhinitis due to pollen J30.1 Active 83909931 Problem Anxiety F41.9 Active 96832773 Problem Other chronic gastritis without hemorrhage K29.50 Active 3420261 Problem Environmental allergies Z91.09 Active 113284998 Problem Seasonal allergies J30.2 Active 4 45201273 Problem Irritable bowel syndrome with diarrhea K58.0 Active 328681582 Problem Night terrors, adult F51.4 Active 39999188 ALLERGIES No Information ENCOUNTERS Encounter Location Date Diagnosis [facility] [address] [id number] [place] [address] Nov, [facility] [address] [id number] [place] [id number] Oct, [facility] [address] [id number] Oct, Dental examination Z01.20 and Caries K02 .9 [place] [address] [address] Sep, Seasonal allergic rhinitis due to pollen J30.1 [place] [address] [address] Jul, [place] [address] [address] Jul, [place] [address] [place] [address] Jul, [place] [address] [address] Jun, Anxiety F41.9 [place] [address] [address] Jun, Alcohol-induced acute pancreatitis, unsp ecified complication status K85.20 and Insomnia, unspecified G47.00 [place] [address] [address] Jun, Pneumonia due to infectious organism, un specified laterality, unspecified part of lung J18.9 ; Cervicalgia M54.2 ; Sudden idiopathic hearing loss of left ear with restricted hearing of right ear H91.22 ; Impacted cerumen, right ear H61.21 ; Generalized abdominal pain R10.84 and Psychophysiological insomnia F51.04 [place] [address] [address] Jun, [facility] [address] [facility] [id number] [address] [place] [address] Jun, Bilateral impacted cerumen H 61.23 and Tobacco abuse Z72.[address] [address] Jun, Nausea R11.0 and Insomnia, unspecified G 47.00 [place] [address] [address] Jun, [place] [address] [address] May, [facility] [address] [place] [address] May, [place] [address] [address] Apr, Seasonal allergies J30.[address] [address] Apr, Hematuria R31.9 [place] [address] [address] Apr, [address] [address] Apr, [address] [address] Apr, Anxiety F41.9 ; Polyuria R35.8 ; General ized abdominal pain R10.84 and Psychophysiological insomnia F51.[address] [address] Apr, [address] [address] Apr, Anxiety F41.9 ; Generalized abdominal pa in R10.84 ; Psychophysiological insomnia F51.04 and Polyuria R35.[address] [address] Mar, [address] [address] Feb, Lateral epicondylitis of left elbow M77. 12 and Night terrors, adult F51.[address] [address] Jan, Seasonal allergies J30.2 ; Acute non-rec urrent maxillary sinusitis J01.00 ; Acute gastritis without hemorrhage, unspecified gastritis type K29.00 and Irritable bowel syndrome with diarrhea K58.0 [address] [place] [address] December, [place] [address] [address] Nov, Nausea R11.0 [place] [address] [address] Sep, [place] [address] [address] Sep, Cough R05 ; Functional diarrhea K59.1 ; Primary insomnia F51.01 and Gastro-esophageal reflux disease without esophagitis K21.9 [place] [address] [address] Jul, Costochondral chest pain R07.1 ; Acute b ilateral low back pain without sciatica M54.5 and Essential hypertension I10 [place] [address] [address] Jul, [place] [address] [address] Jul, Microcytic anemia D50.9 [place] [address] [address] Jul, [place] [address] [address] Jun, Microcytic anemia D50.9 and LUQ abdomina l pain R10.12 [place] [address] [address] Jun, Microcytic anemia D50.9 [place] [address] [address] Jun, Microcytic anemia D50.9 and LUQ abdomina l pain R10.12 [place] [address] [address] Jun, [place] [address] [address] Jun, Essential hypertension I10 ; Tension hea dache G44.209 ; Nausea R11.0 ; Left upper quadrant abdominal pain of unknown etiology R10.12 and Chronic fatigue R53.82 [place] [address] [place] [id number] May, Gastro-esophageal reflux disease without esophagitis K21.9 [place] [address] [address] 17 Apr, 2018 Seasonal allergic rhinitis due to pollen J30.1 ; Migraine without aura, intractable, with status migrainosus G43.011 and Gastro-esophageal reflux disease without esophagitis K21.9 [place] [address] [address] Nov, Other chronic gastritis without hemorrha ge K29.50 [place] [address] [address] 12 Sep, 2017 Sinus congestion R09.81 ; Bilateral impa cted cerumen H61.23 ; Insomnia, unspecified G47.00 and Nausea R11.0 [place] [address] [address] Aug, Insomnia, unspecified G47.00 [place] [address] [address] Aug, Bronchitis J40 [facility] [address] [facility] [id number] [address] [place] [address] Jul, Acute non-recurrent pansinus itis J01.40 [place] [address] [address] Jul, Insomnia, unspecified G47.00 [place] [address] [address] Jul, Insomnia, unspecified G47.00 ; Migraine without aura, intractable, with status migrainosus G43.011 and Nausea R11.0 [place] [address] [address] Jun, [place] [address] [address] May, [place] [address] [address] Feb, Hypertriglyceridemia E78.1 [place] [address] [address] Jan, Migraine without aura, intractable, with status migrainosus G43.011 ; Hypertriglyceridemia E78.1 ; Nausea R11.0 ; Essential hypertension I10 ; Insomnia, unspecified G47.00 ; Gastro-esophageal reflux disease without esophagitis K21.9 and Dysthymia F34.1 [place] [address] [address] Jan, Acute back pain, unspecified back locati on, unspecified back pain laterality M54.9 [place] [address] [address] Jan, Bronchitis J40 and Wheezing R06.2 [place] [address] [address] December, Migraine without aura, intractable, with status migrainosus G43.011 [place] [address] [address] December, [place] [address] [address] Nov, [place] [address] [address] Nov, Bronchitis J40 [place] [address] [address] Sep, Nausea R11.0 and Acute bronchitis, unspe cified organism J20.9 [place] [address] [address] Aug, [place] [address] [address] Jun, Bronchitis J40 [place] [address] [place] [id number] [place] [address] May, Acute back pain, unspecified back locati on, unspecified back pain laterality M54.9 [facility] [address] [address] Apr, [facility] [address] [address] Apr, [facility] [address] [address] Mar, [facility] [address] [address] Mar, [facility] [address] [address] Jan, Migraine without aura, intractable, with status migrainosus G43.011 [facility] [address] [address] December, [facility] [address] [address] Oct, [facility] [address] [address] Sep, Upper respiratory infection J06.9 [facility] [address] [address] Aug, [facility] [address] [address] Jul, Cough R05 and Intractable migraine with status migrainosus, unspecified migraine type G43.911 [facility] [address] [address] Jul, [facility] [address] [address] Jul, [facility] [address] [address] Jul, [facility] [address] [address] May, [facility] [address] [address] May, Migraine without aura, intractable, with status migrainosus G43.011 [facility] [address] [place] [id number] [place] [address] May, Migraine without aura, intractable, with status migrainosus G43.011 ; Migraine 346.90 and Hypertriglyceridemia E78.1 [facility] [address] [address] Apr, [facility] [address] [address] Apr, Migraine 346.90 [facility] [address] [address] Mar, [facility] [address] [address] Mar, [facility] [address] [address] Mar, [facility] [address] [address] Feb, Sinusitis 473.9 and Migraine 346.90 [facility] [address] [address] Jan, [facility] [address] [address] Jan, Sinusitis 473.9 ; Insomnia 780.52 and Mi graine 346.90 [facility] [address] [address] December, [facility] [address] [address] December, [facility] [address] [address] December, [facility] [address] [address] 30 Nov, 2014 [facility] [place] [facility] [address] [facility] [id number] [facility] [place] [address] 14 Nov, 2014 [facility] [place] [facility] [address] [facility] [id number] [facility] [place] [address] 13 Nov, 2014 [facility] [place] [facility] [address] [facility] [id number] [facility] [place] [address] 30 Oct, 2014 [facility] [place] [facility] [address] [facility] [id number] [facility] [place] [address] 30 Oct, 2014 [facility] [place] [facility] [address] [facility] [id number] [place] [address] Oct, [facility] [place] [facility] [address] [id number] [facility] [place] [address] Oct, [facility] [place] [facility] [address] [id number] [place] [address] Oct, [facility] [place] [facility] [address] [id number] [place] [address] Oct, [facility] [place] [facility] [address] [facility] [id number] [facility] [place] [address] Oct, [facility] [place] [facility] [address] [id number] [place] [address] Oct, [facility] [place] [facility] [address] [id number] [place] [address] Oct, [facility] [place] [facility] [address] [id number] [place] [address] Oct, [facility] [place] [facility] [address] [facility] [id number] [facility] [place] [address] Sep, [facility] [place] [facility] [address] [facility] [id number] [place] [address] Sep, [facility] [place] [facility] [address] [facility] [id number] [place] [address] Sep, [facility] [place] [facility] [address] [id number] [place] [address] Sep, [facility] [place] [facility] [address] [id number] [place] [address] Aug, [facility] [place] [facility] [address] [id number] [place] [address] Aug, [facility] [place] [facility] [address] [id number] [place] [address] Aug, [facility] [place] [facility] [address] [id number] [place] [address] 15 Aug, 2014 [facility] [place] [facility] [address] [id number] [place] [address] Aug, [facility] [place] [facility] [address] [id number] [place] [address] Aug, [facility] [place] [facility] [address] [id number] [place] [address] Aug, [facility] [place] [facility] [address] [id number] [place] [address] Jul, [facility] [place] [facility] [address] [id number] [place] [address] Jul, [facility] [place] [facility] [address] [id number] [place] [address] Jul, [facility] [place] [facility] [address] [id number] [place] [address] Jul, [facility] [place] [facility] [address] [id number] [place] [address] Jul, [facility] [place] [facility] [address] [id number] [place] [address] Jul, [facility] [place] [facility] [address] [id number] [place] [address] Jun, [facility] [place] [facility] [address] [id number] [place] [address] Jun, [facility] [place] [facility] [address] [id number] [place] [address] Jun, [facility] [place] [facility] [address] [id number] [place] [address] Jun, [facility] [place] [facility] [address] [facility] [id number] [place] [address] Jun, [facility] [place] [facility] [address] [id number] [place] [address] Jun, [facility] [place] [facility] [address] [id number] [place] [address] May, [facility] [place] [facility] [address] [id number] [place] [address] May, [facility] [place] [facility] [address] [facility] [id number] [place] [address] May, [facility] [place] [facility] [address] [id number] [place] [address] May, [facility] [place] [facility] [address] [id number] [place] [address] May, [facility] [place] [facility] [address] [id number] [place] [address] 24 Apr, 2014 [facility] [place] [facility] [address] [id number] [place] [address] 24 Apr, 2014 [facility] [place] [facility] [address] [id number] [place] [address] 16 Apr, 2014 [facility] [place] [facility] [address] [id number] [place] [address] 16 Apr, 2014 [facility] [place] [facility] [address] [id number] [place] [address] 10 Apr, 2014 [facility] [place] [facility] [address] [id number] [place] [address] Apr, [facility] [place] [facility] [address] [id number] [place] [address] Mar, [facility] [place] [facility] [address] [id number] [place] [address] Mar, [facility] [place] [facility] [address] [id number] [place] [address] Mar, [facility] [place] [facility] [address] [id number] [place] [address] Mar, [facility] [place] [facility] [address] [facility] [id number] [place] [address] Jan, [facility] [place] [facility] [address] [facility] [id number] [place] [address] Jan, [facility] [place] [facility] [address] [id number] [place] [address] Jan, [facility] [place] [facility] [address] [id number] [place] [address] Jan, [facility] [place] [facility] [address] [facility] [id number] [place] [address] December, [facility] [place] [facility] [address] [id number] [place] [address] December, [facility] [place] [facility] [address] [id number] [place] [address] December, [facility] [place] [facility] [address] [id number] [place] [address] December, [facility] [place] [facility] [address] [id number] [place] [address] December, [facility] [place] [facility] [address] [id number] [place] [address] December, [facility] [place] [facility] [address] [id number] [place] [address] December, [facility] [place] [facility] [address] [id number] [place] [address] December, [facility] [place] [facility] [address] [id number] [place] [address] Nov, [facility] [place] [facility] [address] [id number] [place] [address] Nov, [facility] [place] [facility] [address] [id number] [place] [address] Oct, [facility] [place] [facility] [address] [id number] [place] [address] Oct, [facility] [place] [facility] [address] [id number] [place] [address] Sep, [facility] [place] [facility] [address] [facility] [id number] [place] [address] Sep, [facility] [place] [facility] [address] [id number] [place] [address] Aug, [facility] [place] [facility] [address] [id number] [place] [address] Aug, [facility] [place] [facility] [address] [id number] [place] [address] Aug, [facility] [place] [facility] [address] [id number] [place] [address] Aug, [facility] [place] [facility] [address] [id number] [place] [address] Jun, [facility] [place] [facility] [address] [id number] [place] [address] Jun, [facility] [place] [facility] [address] [id number] [place] [address] Jun, [facility] [place] [facility] [address] [id number] [place] [address] Jun, [facility] [place] [facility] [address] [id number] [place] [address] May, [facility] [place] [facility] [address] [id number] [place] [address] May, [facility] [place] [facility] [address] [id number] [place] [address] May, [facility] [place] [facility] [address] [id number] [place] [address] May, [facility] [place] [facility] [address] [id number] [place] [address] May, [facility] [place] [facility] [address] [id number] [place] [address] Mar, [facility] [place] [facility] [address] [id number] [place] [address] Mar, [facility] [address] [id number] [place] [address] Feb, [facility] [place] [facility] [address] [id number] [place] [address] Jan, [facility] [place] [facility] [address] [id number] [place] [address] December, [facility] [place] [facility] [address] [id number] [place] [address] December, [facility] [place] [facility] [address] [id number] [place] [address] Oct, [facility] [place] [facility] [address] [id number] [place] [address] Aug, [facility] [place] [facility] [address] [id number] [place] [address] Aug, [facility] [id number] [place] [address] Aug, [facility] [address] [id number] [place] [address] Aug, [facility] [address] [id number] [place] [address] Aug, [facility] [address] [id number] [place] [address] Jul, [facility] [address] [id number] [place] [address] Jul, [facility] [address] [id number] [place] [address] Jun, [facility] [address] [id number] [place] [address] Jun, [facility] [address] [id number] [place] [address] Jun, [facility] [address] [id number] [place] [address] Jun, [facility] [address] [id number] [place] [address] 16 May, 2012 [facility] [address] [facility] [id number] [place] [address] May, [facility] [address] [id number] [place] [address] May, [facility] [address] [id number] [place] [address] Apr, [facility] [address] [id number] [place] [address] Mar, [facility] [address] [facility] [id number] [facility] [place] [address] Mar, [facility] [address] [id number] [place] [address] Mar, [facility] [address] [id number] [place] [address] Mar, [facility] [address] [id number] [place] [address] Nov, [facility] [address] [id number] [place] [address] Nov, [facility] [address] [id number] [place] [address] Jul, [facility] [address] [id number] [place] [address] Jun, [facility] [address] [id number] [place] [address] Jul, [facility] [address] [id number] [place] [address] May, [facility] [address] [id number] [place] [address] Mar, [facility] [address] [id number] [place] [address] Jul, [facility] [address] [id number] [place] [address] Jul, [facility] [address] [id number] [place] [address] Jun, [facility] [address] [id number] [place] [address] Jun, [facility] [id number] [place] [address] Jun, [facility] [id number] [place] [address] May, [facility] [id number] [place] [address] May, [facility] [id number] [place] [address] May, [facility] [id number] [place] [address] May, [facility] [id number] [place] [address] May, [facility] [id number] [place] [address] Apr, [facility] [id number] [place] [address] Sep, [facility] [id number] [place] [address] Jul, [facility] [id number] [place] [address] May, IMMUNIZATIONS No Known Immunizations SOCIAL HISTORY Never Assessed REASON FOR VISIT PLAN OF CARE VITAL SIGNS Height 66 in 2013-08-30 Weight 165 lbs 2013-08-30 Temperature 97.6 degrees Fahrenheit 2013-08-30 Heart Rate 72 bpm 2013-08-30 Respiratory Rate 20 2013-08-30 Blood pressure systolic 132 mmHg 2013-08-30 Blood pressure diastolic 90 mmHg 2013-08-30 MEDICATIONS Unknown Medications RESULTS No Results PROCEDURES No Known procedures INSTRUCTIONS MEDICATIONS ADMINISTERED No Known Medications MEDICAL (GENERAL) HISTORY Type Description Date Medical History Reflux Medical History Hypertension Medical History Asthma Medical History Migraine Medical History Hyperlipidemia Medical History lower back pain Medical History chest pain Medical History History of Sepsis Medical History Hypokalemia Medical History Hematuria Surgical History tonsillectomy Hospitalization History surgery Hospitalization History right lobe pn 06/17-06/20 Hospitalization History pancreatitis 06/28-07/01
--- OUTSIDE RECORDS SUMMARY | 2019-11-09 19:17 | XMS REPORT ---
Author Author Waqas QUINTANA Organization [facility] Address [address] [place] [address] Care Team Providers Care Steeler Name Role Phone EZEKIEL QUINTANA Unavailable PROBLEMS Type Condition ICD9-CM Code OPY81-CQ Code Onset Dates Condition S tatus SNOMED Code Problem Mild intermittent asthma, uncomplicated J45.20 Active 847131630 Problem Gastro-esophageal reflux disease without esophagitis K21.9 Active 207703186 Problem Migraine without aura, intractable, with status migrainosu s G43.011 Active 89557880 Problem Insomnia, unspecified G47.00 Active 514388966 Problem Hypertriglyceridemia E78.1 Active 747084673 Problem Microcytic anemia D50.9 Active 23 8471178 Problem Dysthymia F34.1 Active 07614707 Problem Essential hypertension I10 Active 22444374 Problem Tension headache G44.209 Active 398 283277 Problem Chronic fatigue R53.82 Active 5270 2003 Problem Primary insomnia F51.01 Active 397 2004 Problem Psychophysiological insomnia F51.04 A ctive 668169294 Problem Seasonal allergic rhinitis due to pollen J30.1 Active 06738376 Problem Anxiety F41.9 Active 88960922 Problem Other chronic gastritis without hemorrhage K29.50 Active 4918468 Problem Environmental allergies Z91.09 Active 608998874 Problem Seasonal allergies J30.2 Active 4 67609620 Problem Irritable bowel syndrome with diarrhea K58.0 Active 437900833 Problem Night terrors, adult F51.4 Active 83907880 ALLERGIES No Information ENCOUNTERS Encounter Location Date Diagnosis [facility] [address] [id number] [place] [address] Nov, [facility] [address] [id number] [place] [id number] Oct, Caries K02.9 and Pulpal necrosis K04.1 [facility] [address] [id number] [place] [id number] Oct, Dental examination Z01.20 and Caries K02 .9 [place] [address] [address] Sep, Seasonal allergic rhinitis due to pollen J30.1 [place] [address] [place] [id number] [place] [address] Jul, [place] [address] [address] Jul, [place] [address] [address] Jul, [place] [address] [address] Jun, Anxiety F41.[address] [address] Jun, Alcohol-induced acute pancreatitis, unsp ecified complication status K85.20 and Insomnia, unspecified G47.[address] [address] Jun, Pneumonia due to infectious organism, un specified laterality, unspecified part of lung J18.9 ; Cervicalgia M54.2 ; Sudden idiopathic hearing loss of left ear with restricted hearing of right ear H91.22 ; Impacted cerumen, right ear H61.21 ; Generalized abdominal pain R10.84 and Psychophysiological insomnia F51.04 [place] [id number] [place] [address] Jun, [facility] [address] [id number] [place] [address] Jun, Bilateral impacted cerumen H 61.23 and Tobacco abuse Z72.[address] [address] Jun, Nausea R11.0 and Insomnia, unspecified G 47.[address] [address] Jun, [place] [address] [address] May, [facility] [address] [place] [address] May, [facility] [address] [address] Apr, Seasonal allergies J30.2 [place] [address] [address] Apr, Hematuria R31.9 [place] [address] [address] Apr, [address] [address] Apr, [place] [address] [address] Apr, Anxiety F41.9 ; Polyuria R35.8 ; General ized abdominal pain R10.84 and Psychophysiological insomnia F51.04 [place] [address] [address] Apr, [address] [address] Apr, Anxiety F41.9 ; Generalized abdominal pa in R10.84 ; Psychophysiological insomnia F51.04 and Polyuria R35.[address] [address] Mar, [address] [address] Feb, Lateral epicondylitis of left elbow M77. 12 and Night terrors, adult F51.[address] [address] Jan, Seasonal allergies J30.2 ; Acute non-rec urrent maxillary sinusitis J01.00 ; Acute gastritis without hemorrhage, unspecified gastritis type K29.00 and Irritable bowel syndrome with diarrhea K58.0 [place] [address] [address] December, [place] [address] [address] Nov, Nausea R11.0 [place] [address] [address] Sep, [place] [address] [address] Sep, Cough R05 ; Functional diarrhea K59.1 ; Primary insomnia F51.01 and Gastro-esophageal reflux disease without esophagitis K21.9 [place] [address] [address] Jul, Costochondral chest pain R07.1 ; Acute b ilateral low back pain without sciatica M54.5 and Essential hypertension I10 [place] [address] [address] Jul, [place] [address] [address] Jul, Microcytic anemia D50.9 [place] [address] [address] Jul, [place] [address] [address] Jun, Microcytic anemia D50.9 and LUQ abdomina l pain R10.12 [place] [address] [address] Jun, Microcytic anemia D50.9 [place] [address] [address] Jun, Microcytic anemia D50.9 and LUQ abdomina l pain R10.12 [place] [address] [address] Jun, [place] [address] [address] Jun, Essential hypertension I10 ; Tension hea dache G44.209 ; Nausea R11.0 ; Left upper quadrant abdominal pain of unknown etiology R10.12 and Chronic fatigue R53.82 [place] [address] [place] [id number] May, Gastro-esophageal reflux disease without esophagitis K21.9 [place] [address] [address] 17 Apr, 2018 Seasonal allergic rhinitis due to pollen J30.1 ; Migraine without aura, intractable, with status migrainosus G43.011 and Gastro-esophageal reflux disease without esophagitis K21.9 [place] [address] [place] [id number] Nov, Other chronic gastritis without hemorrha ge K29.50 [place] [address] [address] 12 Sep, 2017 Sinus congestion R09.81 ; Bilateral impa cted cerumen H61.23 ; Insomnia, unspecified G47.00 and Nausea R11.0 [place] [address] [address] Aug, Insomnia, unspecified G47.00 [place] [address] [address] Aug, Bronchitis J40 [facility] [address] [facility] [id number] [address] [place] [address] Jul, Acute non-recurrent pansinus itis J01.40 [place] [address] [address] Jul, Insomnia, unspecified G47.00 [place] [address] [address] Jul, Insomnia, unspecified G47.00 ; Migraine without aura, intractable, with status migrainosus G43.011 and Nausea R11.0 [place] [address] [address] Jun, [place] [address] [address] May, [place] [address] [place] [id number] Feb, Hypertriglyceridemia E78.1 [place] [address] [address] Jan, Migraine without aura, intractable, with status migrainosus G43.011 ; Hypertriglyceridemia E78.1 ; Nausea R11.0 ; Essential hypertension I10 ; Insomnia, unspecified G47.00 ; Gastro-esophageal reflux disease without esophagitis K21.9 and Dysthymia F34.1 [place] [address] [address] Jan, 2017 Acute back pain, unspecified back locati on, unspecified back pain laterality M54.9 [place] [address] [address] Jan, Bronchitis J40 and Wheezing R06.[address] [address] December, Migraine without aura, intractable, with status migrainosus G43.011 [place] [address] [address] December, [place] [address] [address] Nov, [place] [address] [address] Nov, Bronchitis J40 [address] [address] Sep, Nausea R11.0 and Acute bronchitis, unspe cified organism J20.9 [place] [address] [address] Aug, [place] [address] [address] Jun, Bronchitis J40 [facility] [address] [address] May, Acute back pain, unspecified back locati on, unspecified back pain laterality M54.9 [facility] [address] [address] Apr, [facility] [address] [address] Apr, [facility] [address] [address] Mar, [facility] [address] [address] Mar, [facility] [address] [address] Jan, Migraine without aura, intractable, with status migrainosus G43.011 [facility] [address] [address] December, [facility] [address] [address] Oct, [facility] [address] [address] Sep, Upper respiratory infection J06.9 [facility] [address] [address] Aug, [facility] [address] [address] Jul, Cough R05 and Intractable migraine with status migrainosus, unspecified migraine type G43.911 [facility] [address] [address] Jul, [facility] [address] [address] Jul, [facility] [address] [address] Jul, [facility] [address] [address] May, [facility] [address] [address] May, Migraine without aura, intractable, with status migrainosus G43.011 [facility] [address] [address] May, Migraine without aura, intractable, with status migrainosus G43.011 ; Migraine 346.90 and Hypertriglyceridemia E78.1 [facility] [address] [address] Apr, [facility] [address] [address] Apr, Migraine 346.90 [facility] [address] [address] Mar, [facility] [address] [address] Mar, [facility] [address] [address] Mar, [facility] [address] [address] Feb, Sinusitis 473.9 and Migraine 346.90 [facility] [address] [address] Jan, [facility] [address] [address] Jan, Sinusitis 473.9 ; Insomnia 780.52 and Mi graine 346.90 [facility] [address] [address] December, [facility] [address] [address] December, [facility] [address] [address] December, [facility] [address] [place] [place] [address] 30 Nov, 2014 [facility] [address] [facility] [id number] [facility] [address] 14 Nov, 2014 [facility] [address] [id number] [place] [address] 13 Nov, 2014 [facility] [address] [id number] [place] [address] 30 Oct, 2014 [facility] [address] [id number] [place] [address] 30 Oct, 2014 [facility] [address] [id number] [place] [address] Oct, [facility] [address] [id number] [place] [address] Oct, [facility] [address] [id number] [place] [address] Oct, [facility] [address] [id number] [place] [address] Oct, [facility] [address] [id number] [place] [address] Oct, [facility] [address] [id number] [place] [address] Oct, [facility] [address] [id number] [place] [address] Oct, [facility] [address] [id number] [place] [address] Oct, [facility] [address] [id number] [place] [address] Sep, [facility] [address] [id number] [place] [address] Sep, [facility] [address] [id number] [place] [address] Sep, [facility] [address] [id number] [place] [address] Sep, [facility] [address] [id number] [place] [address] Aug, [facility] [address] [id number] [place] [address] Aug, [facility] [address] [id number] [place] [address] Aug, [facility] [address] [id number] [place] [address] Aug, [facility] [address] [id number] [place] [address] Aug, [facility] [address] [id number] [place] [address] Aug, [facility] [address] [id number] [place] [address] Aug, [facility] [address] [id number] [place] [address] Jul, [facility] [address] [id number] [place] [address] Jul, [facility] [address] [id number] [place] [address] Jul, [facility] [address] [id number] [place] [address] Jul, [facility] [address] [id number] [place] [address] Jul, [facility] [address] [id number] [place] [address] Jul, [facility] [address] [id number] [place] [address] Jun, [facility] [address] [id number] [place] [address] Jun, [facility] [address] [id number] [place] [address] Jun, [facility] [address] [id number] [place] [address] Jun, [facility] [address] [id number] [place] [address] Jun, [facility] [address] [facility] [id number] [place] [address] Jun, [facility] [address] [id number] [place] [address] May, [facility] [address] [facility] [id number] [place] [address] May, [facility] [address] [facility] [facility] [id number] [place] [address] May, [facility] [address] [id number] [place] [address] May, [facility] [address] [id number] [place] [address] May, [facility] [address] [id number] [place] [address] 24 Apr, 2014 [facility] [address] [facility] [id number] [place] [address] 24 Apr, 2014 [facility] [address] [id number] [place] [address] 16 Apr, 2014 [facility] [address] [id number] [place] [address] 16 Apr, 2014 [facility] [address] [id number] [place] [address] 10 Apr, 2014 [facility] [address] [facility] [id number] [place] [address] Apr, [facility] [address] [id number] [place] [address] Mar, [facility] [address] [id number] [place] [address] Mar, [facility] [address] [id number] [place] [address] Mar, [facility] [address] [facility] [id number] [place] [address] Mar, [facility] [address] [id number] [place] [address] Jan, [facility] [address] [facility] [id number] [place] [address] Jan, [facility] [address] [id number] [place] [address] Jan, [facility] [address] [facility] [id number] [place] [address] Jan, [facility] [address] [id number] [place] [address] December, [facility] [address] [id number] [place] [address] December, [facility] [address] [id number] [place] [address] December, [facility] [address] [id number] [place] [address] December, [facility] [address] [id number] [place] [address] December, [facility] [address] [id number] [place] [address] December, [facility] [address] [id number] [place] [address] December, [facility] [address] [id number] [place] [address] December, [facility] [address] [facility] [id number] [place] [address] Nov, [facility] [address] [id number] [place] [address] Nov, [facility] [address] [id number] [place] [address] Oct, [facility] [address] [id number] [place] [address] Oct, [facility] [address] [id number] [place] [address] Sep, [facility] [address] [id number] [place] [address] Sep, [facility] [address] [id number] [place] [address] Aug, [facility] [address] [id number] [place] [address] Aug, [facility] [address] [id number] [place] [address] Aug, [facility] [address] [id number] [place] [address] Aug, [facility] [address] [id number] [place] [address] Jun, [facility] [address] [id number] [place] [address] Jun, [facility] [address] [id number] [place] [address] Jun, [facility] [address] [id number] [place] [address] Jun, [facility] [address] [id number] [place] [address] May, [facility] [address] [id number] [place] [address] May, [facility] [address] [id number] [place] [address] May, [facility] [address] [id number] [place] [address] May, [facility] [address] [id number] [place] [address] May, [facility] [address] [id number] [place] [address] Mar, [facility] [address] [id number] [place] [address] Mar, [facility] [address] [facility] [id number] [facility] [place] [address] Feb, [facility] [address] [id number] [place] [address] Jan, [facility] [address] [id number] [place] [address] December, [facility] [address] [id number] [place] [address] December, [facility] [address] [id number] [place] [address] Oct, [facility] [address] [id number] [place] [address] Aug, [facility] [address] [id number] [place] [address] Aug, [facility] [address] [id number] [place] [address] Aug, [facility] [address] [id number] [place] [address] Aug, [facility] [address] [id number] [place] [address] Aug, [facility] [address] [id number] [place] [address] Jul, [facility] [address] [id number] [place] [address] Jul, [facility] [address] [id number] [place] [address] Jun, [facility] [address] [id number] [place] [address] Jun, [facility] [address] [id number] [place] [address] Jun, [facility] [address] [id number] [place] [address] Jun, [facility] [address] [id number] [place] [address] 16 May, 2012 [facility] [address] [id number] [place] [address] 16 May, 2012 [facility] [address] [id number] [place] [address] 09 May, 2012 [facility] [address] [id number] [place] [address] Apr, [facility] [address] [id number] [place] [address] Mar, [facility] [address] [id number] [place] [address] Mar, [facility] [address] [id number] [place] [address] Mar, [facility] [address] [id number] [place] [address] Mar, [facility] [address] [id number] [place] [address] Nov, [facility] [address] [id number] [place] [address] Nov, [facility] [address] [id number] [place] [address] Jul, [facility] [address] [id number] [place] [address] Jun, [facility] [address] [id number] [place] [address] 30 Jul, 2010 [facility] [address] [id number] [place] [address] May, [facility] [address] [id number] [place] [address] Mar, [facility] [address] [id number] [place] [address] Jul, [facility] [address] [id number] [place] [address] Jul, [facility] [address] [id number] [place] [address] Jun, [facility] [address] [id number] [place] [address] Jun, [facility] [address] [id number] [place] [address] Jun, [facility] [address] [id number] [place] [address] May, [facility] [address] [id number] [place] [address] May, [facility] [id number] [place] [address] May, [facility] [address] [id number] [place] [address] May, [facility] [id number] [place] [address] May, [facility] [address] [id number] [place] [address] Apr, [facility] [address] [id number] [place] [address] Sep, [facility] [address] [id number] [place] [address] Jul, [facility] [address] [id number] [place] [address] May, IMMUNIZATIONS No Known Immunizations SOCIAL HISTORY Never Assessed REASON FOR VISIT PLAN OF CARE VITAL SIGNS MEDICATIONS Unknown Medications RESULTS No Results PROCEDURES [...]
--- OUTSIDE RECORDS SUMMARY | 2019-11-09 19:17 | XMS REPORT ---
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 Name Role Phone EZEKIEL QUINTANA Unavailable PROBLEMS Type Condition ICD9-CM Code FYQ23-OZ Code Onset Dates Condition S tatus SNOMED Code Problem Mild intermittent asthma, uncomplicated J45.20 Active 537347186 Problem Gastro-esophageal reflux disease without esophagitis K21.9 Active 666072272 Problem Migraine without aura, intractable, with status migrainosu s G43.011 Active 23071506 Problem Insomnia, unspecified G47.00 Active 959214635 Problem Hypertriglyceridemia E78.1 Active 726669809 Problem Microcytic anemia D50.9 Active 23 7509823 Problem Dysthymia F34.1 Active 27848037 Problem Essential hypertension I10 Active 17283983 Problem Tension headache G44.209 Active 398 907014 Problem Chronic fatigue R53.82 Active 5270 2003 Problem Primary insomnia F51.01 Active 397 2004 Problem Psychophysiological insomnia F51.04 A ctive 919110620 Problem Seasonal allergic rhinitis due to pollen J30.1 Active 86848761 Problem Anxiety F41.9 Active 40914980 Problem Other chronic gastritis without hemorrhage K29.50 Active 9667051 Problem Environmental allergies Z91.09 Active 687261188 Problem Seasonal allergies J30.2 Active 4 08715897 Problem Irritable bowel syndrome with diarrhea K58.0 Active 396943756 Problem Night terrors, adult F51.4 Active 81243161 ALLERGIES No Information ENCOUNTERS Encounter Location Date Diagnosis [facility] [address] [id number] [place] [address] Sep, Seasonal allergic rhinitis due to pollen J30.1 [facility] [address] [facility] [id number] [place] [address] Jul, [facility] [id number] [place] [address] Jul, [facility] [address] [address] Jul, [facility] [address] [address] Jun, Anxiety F41.9 [facility] [address] [address] Jun, Alcohol-induced acute pancreatitis, unsp ecified complication status K85.20 and Insomnia, unspecified G47.00 [place] [address] [address] Jun, Pneumonia due to infectious organism, un specified laterality, unspecified part of lung J18.9 ; Cervicalgia M54.2 ; Sudden idiopathic hearing loss of left ear with restricted hearing of right ear H91.22 ; Impacted cerumen, right ear H61.21 ; Generalized abdominal pain R10.84 and Psychophysiological insomnia F51.04 [place] [id number] [place] [address] Jun, [facility] [address] [facility] [id number] [place] [address] Jun, Bilateral impacted cerumen H 61.23 and Tobacco abuse Z72.0 [place] [id number] [place] [address] Jun, Nausea R11.0 and Insomnia, unspecified G 47.00 [place] [id number] [place] [address] Jun, [facility] [address] [address] May, [place] [place] [address] May, [facility] [id number] [place] [address] Apr, Seasonal allergies J30.2 [place] [address] [address] Apr, Hematuria R31.9 [facility] [address] [address] Apr, [facility] [address] [address] Apr, [facility] [address] [address] Apr, Anxiety F41.9 ; Polyuria R35.8 ; General ized abdominal pain R10.84 and Psychophysiological insomnia F51.04 [place] [address] [address] Apr, [place] [address] [address] Apr, Anxiety F41.9 ; Generalized abdominal pa in R10.84 ; Psychophysiological insomnia F51.04 and Polyuria R35.8 [place] [address] [address] Mar, [place] [address] [address] Feb, Lateral epicondylitis of left elbow M77. 12 and Night terrors, adult F51.4 [place] [address] [address] Jan, Seasonal allergies J30.2 ; Acute non-rec urrent maxillary sinusitis J01.00 ; Acute gastritis without hemorrhage, unspecified gastritis type K29.00 and Irritable bowel syndrome with diarrhea K58.0 [place] [address] [address] December, [place] [address] [address] Nov, Nausea R11.0 [place] [address] [address] Sep, [place] [address] [address] 11 Sep, 2018 Cough R05 ; Functional diarrhea K59.1 ; Primary insomnia F51.01 and Gastro-esophageal reflux disease without esophagitis K21.9 [place] [address] [place] [id number] Jul, Costochondral chest pain R07.1 ; Acute b ilateral low back pain without sciatica M54.5 and Essential hypertension I10 [place] [address] [address] Jul, [place] [address] [place] [address] Jul, Microcytic anemia D50.9 [place] [address] [address] Jul, [place] [address] [address] Jun, Microcytic anemia D50.9 and LUQ abdomina l pain R10.12 [place] [address] [address] Jun, Microcytic anemia D50.9 [place] [address] [address] Jun, Microcytic anemia D50.9 and LUQ abdomina l pain R10.12 [place] [address] [address] Jun, [address] [address] Jun, Essential hypertension I10 ; Tension hea dache G44.209 ; Nausea R11.0 ; Left upper quadrant abdominal pain of unknown etiology R10.12 and Chronic fatigue R53.[address] [address] May, Gastro-esophageal reflux disease without esophagitis K21.9 [place] [address] [address] Apr, Seasonal allergic rhinitis due to pollen J30.1 ; Migraine without aura, intractable, with status migrainosus G43.011 and Gastro-esophageal reflux disease without esophagitis K21.9 [place] [address] [place] [id number] Nov, Other chronic gastritis without hemorrha ge K29.50 [place] [address] [address] Sep, Sinus congestion R09.81 ; Bilateral impa cted cerumen H61.23 ; Insomnia, unspecified G47.00 and Nausea R11.0 [place] [address] [address] Aug, Insomnia, unspecified G47.00 [place] [address] [address] Aug, Bronchitis J40 [facility] [address] [facility]NOTE [address]] [id number] [address] [address] Jul, Acute non-recurrent pansinus itis J01.40 [place] [address] [address] Jul, Insomnia, unspecified G47.[address] [address] Jul, Insomnia, unspecified G47.00 ; Migraine without aura, intractable, with status migrainosus G43.011 and Nausea R11.0 [place] [address] [address] Jun, [address] [address] May, [address] [address] Feb, Hypertriglyceridemia E78.[address] [address] Jan, Migraine without aura, intractable, with status migrainosus G43.011 ; Hypertriglyceridemia E78.1 ; Nausea R11.0 ; Essential hypertension I10 ; Insomnia, unspecified G47.00 ; Gastro-esophageal reflux disease without esophagitis K21.9 and Dysthymia F34.1 [place] [address] [address] 15 Jan, 2017 Acute back pain, unspecified back locati on, unspecified back pain laterality M54.9 [place] [address] [address] 07 Jan, 2017 Bronchitis J40 and Wheezing R06.[address] [address] December, Migraine without aura, intractable, with status migrainosus G43.011 [place] [address] [address] December, [address] [address] Nov, [place] [address] [address] Nov, Bronchitis J40 [address] [address] 02 Sep, 2016 Nausea R11.0 and Acute bronchitis, unspe cified organism J20.[address] [address] Aug, [address] [address] Jun, Bronchitis J40 [address] [address] May, Acute back pain, unspecified back locati on, unspecified back pain laterality M54.9 [place] [address] [address] Apr, [address] [address] Apr, [facility] [id number] [place] [address] Mar, [facility] [address] [address] Mar, [facility] [address] [address] Jan, Migraine without aura, intractable, with status migrainosus G43.011 [facility] [address] [address] December, [facility] [address] [address] Oct, [facility] [address] [address] Sep, Upper respiratory infection J06.9 [facility] [address] [address] Aug, [facility] [address] [address] Jul, Cough R05 and Intractable migraine with status migrainosus, unspecified migraine type G43.911 [facility] [address] [address] Jul, [facility] [address] [address] Jul, [facility] [address] [address] Jul, [facility] [address] [address] May, [facility] [address] [address] May, Migraine without aura, intractable, with status migrainosus G43.011 [facility] [address] [address] May, Migraine without aura, intractable, with status migrainosus G43.011 ; Migraine 346.90 and Hypertriglyceridemia E78.1 [facility] [id number] [place] [address] Apr, [facility] [address] [address] Apr, Migraine 346.90 [facility] [address] [address] Mar, [facility] [address] [address] Mar, [facility] [address] [address] Mar, [facility] [address] [address] Feb, Sinusitis 473.9 and Migraine 346.90 [facility] [address] [address] Jan, [facility] [address] [address] Jan, Sinusitis 473.9 ; Insomnia 780.52 and Mi graine 346.90 [facility] [address] [address] December, [facility] [address] [address] December, [facility] [address] [address] December, [facility] [address] [address] Nov, [facility] [address] [address] Nov, [facility] [address] [address] Nov, [facility] [address] [address] Oct, [facility] [address] [facility]] [id number] [place] [address] Oct, [facility] [address] [id number] [place] [address] Oct, [facility] [address] [id number] [place] [address] Oct, [facility] [address] [id number] [place] [address] Oct, [facility] [address] [id number] [place] [address] Oct, [facility] [address] [id number] [place] [address] Oct, [facility] [address] [id number] [place] [address] Oct, [facility] [address] [id number] [place] [address] Oct, [facility] [address] [id number] [place] [address] Oct, [facility] [address] [id number] [place] [address] Sep, [facility] [address] [id number] [place] [address] Sep, [facility] [address] [id number] [place] [address] Sep, [facility] [address] [id number] [place] [address] Sep, [facility] [address] [facility] [address]] [id number] [place] [address] Aug, [facility] [address] [id number] [place] [address] Aug, [facility] [address] [id number] [place] [address] Aug, [facility] [address] [id number] [place] [address] 15 Aug, 2014 [facility] [address] [id number] [place] [address] Aug, [facility] [address] [id number] [place] [address] Aug, [facility] [address] [id number] [place] [address] Aug, [facility] [address] [id number] [place] [address] Jul, [facility] [address] [id number] [place] [address] Jul, [facility] [address] [id number] [place] [address] Jul, [facility] [address] [id number] [place] [address] Jul, [facility] [address] [id number] [place] [address] Jul, [facility] [address] [id number] [place] [address] Jul, [facility] [address] [id number] [place] [address] Jun, [facility] [address] [id number] [place] [address] Jun, [facility] [address] [id number] [place] [address] Jun, [facility] [address] [id number] [place] [address] Jun, [facility] [address] [id number] [place] [address] Jun, [facility] [address] [id number] [place] [address] Jun, [facility] [address] [id number] [place] [address] May, [facility] [address] [id number] [place] [address] 31 May, 2014 [facility] [address] [id number] [place] [address] May, [facility] [address] [facility] [address]] [id number] [place] [address] May, [facility] [address] [facility]] [id number] [place] [address] May, [facility] [address] [facility]] [id number] [place] [address] 24 Apr, 2014 [facility] [address] [facility] [address]] [id number] [place] [address] 24 Apr, 2014 [facility] [address] [id number] [place] [address] 16 Apr, 2014 [facility] [address] [id number] [place] [address] 16 Apr, 2014 [facility] [address] [id number] [place] [address] Apr, [facility] [address] [facility] [address]] [id number] [place] [address] Apr, [facility] [address] [id number] [place] [address] Mar, [facility] [address] [id number] [place] [address] Mar, [facility] [address] [id number] [place] [address] Mar, [facility] [address] [facility] [address]] [id number] [place] [address] Mar, [facility] [address] [id number] [place] [address] Jan, [facility] [address] [id number] [place] [address] Jan, [facility] [address] [id number] [place] [address] Jan, [facility] [address] [id number] [place] [address] Jan, [facility] [address] [id number] [place] [address] December, [facility] [address] [id number] [place] [address] December, [facility] [address] [id number] [place] [address] December, [facility] [address] [id number] [place] [address] December, [facility] [address] [id number] [place] [address] December, [facility] [address] [id number] [place] [address] December, [facility] [address] [id number] [place] [address] December, [facility] [address] [id number] [place] [address] December, [facility] [address] [id number] [place] [address] Nov, [facility] [address] [id number] [place] [address] Nov, [facility] [address] [id number] [place] [address] Oct, [facility] [address] [id number] [place] [address] Oct, [facility] [address] [id number] [place] [address] Sep, [facility] [address] [id number] [place] [address] Sep, [facility] [address] [id number] [place] [address] Aug, [facility] [address] [id number] [place] [address] Aug, [facility] [address] [facility]] [id number] [place] [address] Aug, [facility] [address] [id number] [place] [address] Aug, [facility] [address] [id number] [place] [address] Jun, [facility] [address] [id number] [place] [address] Jun, [facility] [address] [id number] [place] [address] Jun, [facility] [address] [id number] [place] [address] Jun, [facility] [address] [id number] [place] [address] May, [facility] [address] [id number] [place] [address] May, [facility] [address] [id number] [place] [address] May, [facility] [address] [id number] [place] [address] May, [facility] [address] [id number] [place] [address] May, [facility] [address] [id number] [place] [address] Mar, [facility] [address] [id number] [place] [address] Mar, [facility] [address] [id number] [place] [address] Feb, [facility] [address] [id number] [place] [address] Jan, [facility] [address] [id number] [place] [address] December, [facility] [address] [id number] [place] [address] December, [facility] [address] [id number] [place] [address] Oct, [facility] [address] [id number] [place] [address] Aug, [facility] [address] [id number] [place] [address] Aug, [facility] [address] [id number] [place] [address] Aug, [facility] [address] [id number] [place] [address] Aug, [facility] [address] [id number] [place] [address] Aug, [facility] [address] [id number] [place] [address] 10 Jul, 2012 [facility] [address] [id number] [place] [address] Jul, [facility] [address] [id number] [place] [address] Jun, [facility] [address] [id number] [place] [address] Jun, [facility] [address] [id number] [place] [address] Jun, [facility] [address] [id number] [place] [address] Jun, [facility] [address] [id number] [place] [address] May, [facility] [id number] [place] [address] May, [facility] [address] [id number] [place] [address] May, [facility] [address] [id number] [place] [address] Apr, [facility] [address] [id number] [place] [address] Mar, [facility] [address] [id number] [place] [address] Mar, [facility] [address] [id number] [place] [address] Mar, [facility] [address] [id number] [place] [address] Mar, [facility] [address] [id number] [place] [address] Nov, [facility] [address] [id number] [place] [address] Nov, [facility] [address] [id number] [place] [address] Jul, [facility] [address] [id number] [place] [address] Jun, [facility] [address] [id number] [place] [address] Jul, [facility] [address] [id number] [place] [address] May, [facility] [address] [id number] [place] [address] Mar, [facility] [address] [id number] [place] [address] Jul, [facility] [address] [id number] [place] [address] Jul, [facility] [address] [id number] [place] [address] 24 Jun, 2009 [facility] [address] [id number] [place] [address] Jun, [facility] [address] [id number] [place] [address] Jun, [facility] [address] [id number] [place] [address] May, [facility] [address] [id number] [place] [address] May, [facility] [address] [facility] [id number] [place] [address] May, [facility] [address] [id number] [place] [address] 15 May, 2009 [facility] [address] [id number] [place] [address] May, [facility] [address] [id number] [place] [address] Apr, [facility] [address] [id number] [place] [address] Sep, [facility] [address] [facility] [id number] [place] [address] Jul, [facility] [address] [id number] [place] [address] May, IMMUNIZATIONS No Known Immunizations SOCIAL HISTORY [...]
--- OUTSIDE RECORDS SUMMARY | 2019-11-09 19:17 | XMS REPORT ---
Author Author Waqas QUINTANA Organization [facility] Address [address] [place] [address] Care Team Providers Care Senior Project Architect Name Role Phone EZEKIEL QUINTANA Unavailable PROBLEMS Type Condition ICD9-CM Code EKH99-KC Code Onset Dates Condition S tatus SNOMED Code Problem Mild intermittent asthma, uncomplicated J45.20 Active 841613029 Problem Gastro-esophageal reflux disease without esophagitis K21.9 Active 714855157 Problem Migraine without aura, intractable, with status migrainosu s G43.011 Active 46457671 Problem Insomnia, unspecified G47.00 Active 103545993 Problem Hypertriglyceridemia E78.1 Active 919075999 Problem Microcytic anemia D50.9 Active 23 0805038 Problem Dysthymia F34.1 Active 15683809 Problem Essential hypertension I10 Active 05096832 Problem Tension headache G44.209 Active 398 821750 Problem Chronic fatigue R53.82 Active 5270 2003 Problem Primary insomnia F51.01 Active 397 2004 Problem Psychophysiological insomnia F51.04 A ctive 331828676 Problem Seasonal allergic rhinitis due to pollen J30.1 Active 21437194 Problem Anxiety F41.9 Active 56203769 Problem Other chronic gastritis without hemorrhage K29.50 Active 2363993 Problem Environmental allergies Z91.09 Active 459062127 Problem Seasonal allergies J30.2 Active 4 98561477 Problem Irritable bowel syndrome with diarrhea K58.0 Active 233206500 Problem Night terrors, adult F51.4 Active 83832811 ALLERGIES No Information ENCOUNTERS Encounter Location Date Diagnosis [facility] [address] [id number] [place] [address] Nov, [facility] [address] [id number] [place], [place] [id number] Oct, Caries K02.9 and Pulpal necrosis K04.1 [facility] [address] [id number] [place] [id number] Oct, Dental examination Z01.20 and Caries K02 .9 [place] [address] [address] Sep, Seasonal allergic rhinitis due to pollen J30.1 [place] [address] [id number] [place] [address] Jul, [place] [address] [address] Jul, [place] [address] [address] Jul, [place] [address] [address] Jun, Anxiety F41.[address] [address] Jun, Alcohol-induced acute pancreatitis, unsp ecified complication status K85.20 and Insomnia, unspecified G47.[address] [address] Jun, Pneumonia due to infectious organism, un specified laterality, unspecified part of lung J18.9 ; Cervicalgia M54.2 ; Sudden idiopathic hearing loss of left ear with restricted hearing of right ear H91.22 ; Impacted cerumen, right ear H61.21 ; Generalized abdominal pain R10.84 and Psychophysiological insomnia F51.04 [place] [id number] [place] [address] Jun, [facility] [address] [facility] [id number] [address] [place] [address] Jun, Bilateral impacted cerumen H 61.23 and Tobacco abuse Z72.[address] [address] Jun, Nausea R11.0 and Insomnia, unspecified G 47.[address] [address] Jun, [place] [address] [address] May, [facility] [address] [place] [address] May, [facility] [address] [address] Apr, Seasonal allergies J30.2 [place] [address] [address] Apr, Hematuria R31.9 [place] [address] [address] Apr, [address] [address] Apr, [place] [address] [address] Apr, Anxiety F41.9 ; Polyuria R35.8 ; General ized abdominal pain R10.84 and Psychophysiological insomnia F51.04 [place] [address] [address] Apr, [address] [address] Apr, Anxiety F41.9 ; Generalized abdominal pa in R10.84 ; Psychophysiological insomnia F51.04 and Polyuria R35.[address] [address] Mar, [address] [address] Feb, Lateral epicondylitis of left elbow M77. 12 and Night terrors, adult F51.[address] [address] Jan, Seasonal allergies J30.2 ; Acute non-rec urrent maxillary sinusitis J01.00 ; Acute gastritis without hemorrhage, unspecified gastritis type K29.00 and Irritable bowel syndrome with diarrhea K58.0 [place] [address] [address] December, [place] [address] [address] Nov, Nausea R11.0 [place] [address] [address] Sep, [place] [address] [address] Sep, Cough R05 ; Functional diarrhea K59.1 ; Primary insomnia F51.01 and Gastro-esophageal reflux disease without esophagitis K21.9 [place] [address] [address] Jul, Costochondral chest pain R07.1 ; Acute b ilateral low back pain without sciatica M54.5 and Essential hypertension I10 [place] [address] [address] Jul, [place] [address] [address] Jul, Microcytic anemia D50.9 [place] [address] [address] Jul, [place] [address] [address] Jun, Microcytic anemia D50.9 and LUQ abdomina l pain R10.12 [place] [address] [address] Jun, Microcytic anemia D50.9 [place] [address] [address] Jun, Microcytic anemia D50.9 and LUQ abdomina l pain R10.12 [place] [address] [address] Jun, [place] [address] [address] Jun, Essential hypertension I10 ; Tension hea dache G44.209 ; Nausea R11.0 ; Left upper quadrant abdominal pain of unknown etiology R10.12 and Chronic fatigue R53.82 [place] [address] [place] [id number] May, Gastro-esophageal reflux disease without esophagitis K21.9 [place] [address] [address] 17 Apr, 2018 Seasonal allergic rhinitis due to pollen J30.1 ; Migraine without aura, intractable, with status migrainosus G43.011 and Gastro-esophageal reflux disease without esophagitis K21.9 [place] [address] [place] [id number] Nov, Other chronic gastritis without hemorrha ge K29.50 [place] [address] [address] 12 Sep, 2017 Sinus congestion R09.81 ; Bilateral impa cted cerumen H61.23 ; Insomnia, unspecified G47.00 and Nausea R11.0 [place] [address] [address] Aug, Insomnia, unspecified G47.00 [place] [address] [address] Aug, Bronchitis J40 [facility] [address] [facility] [id number] [address] [place] [address] Jul, Acute non-recurrent pansinus itis J01.40 [place] [address] [address] Jul, Insomnia, unspecified G47.00 [place] [address] [address] Jul, Insomnia, unspecified G47.00 ; Migraine without aura, intractable, with status migrainosus G43.011 and Nausea R11.0 [place] [address] [address] Jun, [place] [address] [address] May, [place] [address] [place] [id number] Feb, Hypertriglyceridemia E78.1 [place] [address] [address] Jan, Migraine without aura, intractable, with status migrainosus G43.011 ; Hypertriglyceridemia E78.1 ; Nausea R11.0 ; Essential hypertension I10 ; Insomnia, unspecified G47.00 ; Gastro-esophageal reflux disease without esophagitis K21.9 and Dysthymia F34.1 [place] [address] [address] 15 Jan, 2017 Acute back pain, unspecified back locati on, unspecified back pain laterality M54.9 [place] [address] [address] Jan, Bronchitis J40 and Wheezing R06.[address] [address] December, Migraine without aura, intractable, with status migrainosus G43.011 [place] [address] [address] December, [place] [address] [address] Nov, [place] [address] [address] Nov, Bronchitis J40 [address] [address] Sep, Nausea R11.0 and Acute bronchitis, unspe cified organism J20.9 [place] [address] [address] Aug, [place] [address] [address] Jun, Bronchitis J40 [facility] [address] [address] May, Acute back pain, unspecified back locati on, unspecified back pain laterality M54.9 [facility] [address] [address] Apr, [facility] [address] [address] Apr, [facility] [address] [address] Mar, [facility] [address] [address] Mar, [facility] [address] [address] Jan, Migraine without aura, intractable, with status migrainosus G43.011 [facility] [address] [address] December, [facility] [address] [address] Oct, [facility] [address] [address] Sep, Upper respiratory infection J06.9 [facility] [address] [address] Aug, [facility] [address] [address] Jul, Cough R05 and Intractable migraine with status migrainosus, unspecified migraine type G43.911 [facility] [address] [address] Jul, [facility] [address] [address] Jul, [facility] [address] [address] Jul, [facility] [address] [address] May, [facility] [address] [address] May, Migraine without aura, intractable, with status migrainosus G43.011 [facility] [address] [address] May, Migraine without aura, intractable, with status migrainosus G43.011 ; Migraine 346.90 and Hypertriglyceridemia E78.1 [facility] [address] [address] Apr, [facility] [address] [address] Apr, Migraine 346.90 [facility] [address] [address] Mar, [facility] [address] [address] Mar, [facility] [address] [address] Mar, [facility] [address] [address] Feb, Sinusitis 473.9 and Migraine 346.90 [facility] [address] [address] Jan, [facility] [address] [address] Jan, Sinusitis 473.9 ; Insomnia 780.52 and Mi graine 346.90 [facility] [address] [address] December, [facility] [address] [address] December, [facility] [address] [address] December, [facility] [address] [place] [address] [place] [address] 30 Nov, 2014 [facility] [address] [facility] [id number] [place] [address] 14 Nov, 2014 [facility] [address] [id number] [place] [address] 13 Nov, 2014 [facility] [address] [id number] [place] [address] 30 Oct, 2014 [facility] [address] [id number] [place] [address] 30 Oct, 2014 [facility] [address] [id number] [place] [address] Oct, [facility] [address] [id number] [place] [address] Oct, [facility] [address] [id number] [place] [address] Oct, [facility] [address] [id number] [place] [address] Oct, [facility] [address] [id number] [place] [address] Oct, [facility] [address] [id number] [place] [address] Oct, [facility] [address] [id number] [place] [address] Oct, [facility] [address] [id number] [place] [address] Oct, [facility] [address] [id number] [place] [address] Sep, [facility] [address] [id number] [place] [address] Sep, [facility] [address] [id number] [place] [address] Sep, [facility] [address] [id number] [place] [address] Sep, [facility] [address] [id number] [place] [address] Aug, [facility] [address] [id number] [place] [address] Aug, [facility] [address] [id number] [place] [address] Aug, [facility] [address] [id number] [place] [address] Aug, [facility] [address] [id number] [place] [address] Aug, [facility] [address] [id number] [place] [address] Aug, [facility] [address] [id number] [place] [address] Aug, [facility] [address] [id number] [place] [address] Jul, [facility] [address] [id number] [place] [address] Jul, [facility] [address] [id number] [place] [address] Jul, [facility] [address] [id number] [place] [address] Jul, [facility] [address] [id number] [place] [address] Jul, [facility] [address] [id number] [place] [address] Jul, [facility] [address] [id number] [place] [address] Jun, [facility] [address] [id number] [place] [address] Jun, [facility] [address] [id number] [place] [address] Jun, [facility] [address] [id number] [place] [address] Jun, [facility] [address] [facility] [id number] [place] [address] Jun, [facility] [address] [facility] [id number] [place] [address] Jun, [facility] [address] [id number] [place] [address] May, [facility] [address] [facility] [id number] [place] [address] May, [facility] [address] [facility] [id number] [place] [address] May, [facility] [address] [id number] [place] [address] May, [facility] [address] [id number] [place] [address] May, [facility] [address] [id number] [place] [address] 24 Apr, 2014 [facility] [address] [facility] [id number] [place] [address] 24 Apr, 2014 [facility] [address] [id number] [place] [address] 16 Apr, 2014 [facility] [address] [id number] [place] [address] 16 Apr, 2014 [facility] [address] [id number] [place] [address] 10 Apr, 2014 [facility] [address] [facility] [id number] [place] [address] Apr, [facility] [address] [id number] [place] [address] Mar, [facility] [address] [id number] [place] [address] Mar, [facility] [address] [id number] [place] [address] Mar, [facility] [address] [facility] [id number] [place] [address] Mar, [facility] [address] [id number] [place] [address] Jan, [facility] [address] [facility] [id number] [place] [address] Jan, [facility] [address] [id number] [place] [address] Jan, [facility] [address] [facility] [id number] [place] [address] Jan, [facility] [address] [id number] [place] [address] December, [facility] [address] [id number] [place] [address] December, [facility] [address] [id number] [place] [address] December, [facility] [address] [id number] [place] [address] December, [facility] [address] [id number] [place] [address] December, [facility] [address] [id number] [place] [address] December, [facility] [address] [id number] [place] [address] December, [facility] [address] [id number] [place] [address] December, [facility] [address] [facility] [id number] [place] [address] Nov, [facility] [address] [id number] [place] [address] Nov, [facility] [address] [id number] [place] [address] Oct, [facility] [address] [id number] [place] [address] Oct, [facility] [address] [id number] [place] [address] Sep, [facility] [address] [id number] [place] [address] Sep, [facility] [address] [id number] [place] [address] Aug, [facility] [address] [id number] [place] [address] Aug, [facility] [address] [id number] [place] [address] Aug, [facility] [address] [id number] [place] [address] Aug, [facility] [address] [id number] [place] [address] Jun, [facility] [address] [place] [id number] [place] [address] Jun, [facility] [address] [id number] [place] [address] Jun, [facility] [address] [id number] [place] [address] Jun, [facility] [address] [id number] [place] [address] May, [facility] [address] [id number] [place] [address] May, [facility] [address] [id number] [place] [address] May, [facility] [address] [id number] [place] [address] May, [facility] [address] [id number] [place] [address] May, [facility] [address] [id number] [place] [address] Mar, [facility] [address] [id number] [place] [address] Mar, [facility] [address] [facility] [id number] [place] [address] Feb, [facility] [address] [id number] [place] [address] Jan, [facility] [address] [id number] [place] [address] December, [facility] [address] [id number] [place] [address] December, [facility] [address] [id number] [place] [address] Oct, [facility] [address] [id number] [place] [address] Aug, [facility] [address] [id number] [place] [address] Aug, [facility] [address] [id number] [place] [address] Aug, [facility] [address] [id number] [place] [address] Aug, [facility] [address] [id number] [place] [address] Aug, [facility] [address] [id number] [place] [address] Jul, [facility] [address] [id number] [place] [address] Jul, [facility] [address] [id number] [place] [address] Jun, [facility] [address] [id number] [place] [address] Jun, [facility] [address] [id number] [place] [address] Jun, [facility] [address] [id number] [place] [address] Jun, [facility] [address] [id number] [place] [address] 16 May, 2012 [facility] [address] [id number] [place] [address] 16 May, 2012 [facility] [address] [id number] [place] [address] 09 May, 2012 [facility] [address] [id number] [place] [address] Apr, [facility] [address] [id number] [place] [address] Mar, [facility] [address] [id number] [place] [address] Mar, [facility] [address] [id number] [place] [address] Mar, [facility] [address] [id number] [place] [address] Mar, [facility] [address] [id number] [place] [address] Nov, [facility] [address] [id number] [place] [address] Nov, [facility] [address] [id number] [place] [address] Jul, [facility] [address] [id number] [place] [address] Jun, [facility] [address] [id number] [place] [address] 30 Jul, 2010 [facility] [address] [id number] [place] [address] May, [facility] [address] [id number] [place] [address] Mar, [facility] [address] [id number] [place] [address] Jul, [facility] [address] [id number] [place] [address] Jul, [facility] [address] [id number] [place] [address] Jun, [facility] [address] [id number] [place] [address] Jun, [facility] [address] [id number] [place] [address] Jun, [facility] [id number] [place] [address] May, [facility] [address] [id number] [place] [address] May, [facility] [id number] [place] [address] May, [facility] [address] [id number] [place] [address] May, [facility] [id number] [place] [address] May, [facility] [address] [id number] [place] [address] Apr, [facility] [address] [id number] [place] [address] Sep, [facility] [address] [id number] [place] [address] Jul, [facility] [address] [id number] [place] [address] May, IMMUNIZATIONS No Known Immunizations SOCIAL HISTORY [...]
--- OUTSIDE RECORDS SUMMARY | 2019-11-09 19:18 | XMS REPORT ---
Author Author Waqas QUINTANA Organization [facility] Address [address] [place] [address] Care Team Providers Care Aquatics Manager Name Role Phone EZEKIEL QUINTANA Unavailable PROBLEMS Type Condition ICD9-CM Code [id number] Code Onset Dates Condition S tatus SNOMED Code Problem Mild intermittent asthma, uncomplicated J45.20 Active 451881497 Problem Gastro-esophageal reflux disease without esophagitis K21.9 Active 619036361 Problem Migraine without aura, intractable, with status migrainosu s G43.011 Active 13648107 Problem Insomnia, unspecified G47.00 Active 204586780 Problem Hypertriglyceridemia E78.1 Active 065913146 Problem Microcytic anemia D50.9 Active 23 5797224 Problem Dysthymia F34.1 Active 05324730 Problem Essential hypertension I10 Active 12638715 Problem Tension headache G44.209 Active 398 901551 Problem Chronic fatigue R53.82 Active 5270 2003 Problem Primary insomnia F51.01 Active 397 2004 Problem Psychophysiological insomnia F51.04 A ctive 903209111 Problem Seasonal allergic rhinitis due to pollen J30.1 Active 07949321 Problem Anxiety F41.9 Active 04964117 Problem Other chronic gastritis without hemorrhage K29.50 Active 8795280 Problem Environmental allergies Z91.09 Active 595593163 Problem Seasonal allergies J30.2 Active 4 84294792 Problem Irritable bowel syndrome with diarrhea K58.0 Active 077011264 Problem Night terrors, adult F51.4 Active 96644621 ALLERGIES No Information ENCOUNTERS Encounter Location Date Diagnosis [facility] [address] [facility] [id number] [place] [address] 18 Sep, 2019 [facility] [address] [facility] [id number] [place] [address] Jul, [facility] [address] [facility] [id number] [place] [address] Jul, [place] [address] [address] Jul, [place] [address] [address] Jun, Anxiety F41.9 [place] [address] [address] Jun, Alcohol-induced acute pancreatitis, unsp ecified complication status K85.20 and Insomnia, unspecified G47.00 [place] [address] [address] Jun, Pneumonia due to infectious organism, un specified laterality, unspecified part of lung J18.9 ; Cervicalgia M54.2 ; Sudden idiopathic hearing loss of left ear with restricted hearing of right ear H91.22 ; Impacted cerumen, right ear H61.21 ; Generalized abdominal pain R10.84 and Psychophysiological insomnia F51.04 [place] [address] [address] Jun, [facility] [address] [facility] [id number] [address] [place] [address] Jun, Bilateral impacted cerumen H 61.23 and Tobacco abuse Z72.0 [place] [id number] [place] [address] Jun, Nausea R11.0 and Insomnia, unspecified G 47.00 [place] [address] [address] Jun, [place] [address] [address] May, [place] [address] [place] [address] May, [place] [address] [place] [id number] [place] [address] Apr, Seasonal allergies J30.[address] [address] Apr, Hematuria R31.9 [place] [address] [address] Apr, [place] [address] [address] Apr, [place] [address] [address] Apr, Anxiety F41.9 ; Polyuria R35.8 ; General ized abdominal pain R10.84 and Psychophysiological insomnia F51.04 [place] [address] [address] Apr, [place] [address] [address] Apr, Anxiety F41.9 ; Generalized abdominal pa in R10.84 ; Psychophysiological insomnia F51.04 and Polyuria R35.8 [place] [address] [address] Mar, [place] [address] [address] Feb, Lateral epicondylitis of left elbow M77. 12 and Night terrors, adult F51.[address] [address] Jan, Seasonal allergies J30.2 ; Acute non-rec urrent maxillary sinusitis J01.00 ; Acute gastritis without hemorrhage, unspecified gastritis type K29.00 and Irritable bowel syndrome with diarrhea K58.0 [place] [address] [address] December, [place] [address] [address] Nov, Nausea R11.0 [place] [address] [address] Sep, [place] [address] [address] Sep, Cough R05 ; Functional diarrhea K59.1 ; Primary insomnia F51.01 and Gastro-esophageal reflux disease without esophagitis K21.9 [place] [address] [place] [id number] Jul, Costochondral chest pain R07.1 ; Acute b ilateral low back pain without sciatica M54.5 and Essential hypertension I10 [place] [address] [place] [id number] Jul, [place] [address] [place] [address] Jul, Microcytic anemia D50.9 [place] [address] [address] Jul, [place] [address] [address] Jun, Microcytic anemia D50.9 and LUQ abdomina l pain R10.12 [place] [address] [address] Jun, Microcytic anemia D50.9 [place] [address] [address] Jun, Microcytic anemia D50.9 and LUQ abdomina l pain R10.12 [place] [address] [address] Jun, [address] [address] Jun, Essential hypertension I10 ; Tension hea dache G44.209 ; Nausea R11.0 ; Left upper quadrant abdominal pain of unknown etiology R10.12 and Chronic fatigue R53.[address] [address] May, Gastro-esophageal reflux disease without esophagitis K21.9 [place] [address] [address] 17 Sep, 2018 Seasonal allergic rhinitis due to pollen J30.1 ; Migraine without aura, intractable, with status migrainosus G43.011 and Gastro-esophageal reflux disease without esophagitis K21.9 [place] [address] [place] [id number] Nov, Other chronic gastritis without hemorrha ge K29.50 [place] [address] [address] Sep, Sinus congestion R09.81 ; Bilateral impa cted cerumen H61.23 ; Insomnia, unspecified G47.00 and Nausea R11.0 [place] [address] [address] Aug, Insomnia, unspecified G47.00 [place] [address] [address] Aug, Bronchitis J40 [facility] [address] [facility] [id number] [address] [address] Jul, Acute non-recurrent pansinus itis J01.40 [place] [address] [address] Jul, Insomnia, unspecified G47.00 [place] [address] [address] Jul, Insomnia, unspecified G47.00 ; Migraine without aura, intractable, with status migrainosus G43.011 and Nausea R11.0 [place] [address] [address] Jun, [place] [address] [address] May, [address] [address] Feb, Hypertriglyceridemia E78.1 [place] [address] [address] Jan, Migraine without aura, intractable, with status migrainosus G43.011 ; Hypertriglyceridemia E78.1 ; Nausea R11.0 ; Essential hypertension I10 ; Insomnia, unspecified G47.00 ; Gastro-esophageal reflux disease without esophagitis K21.9 and Dysthymia F34.1 [place] [address] [address] 15 Jan, 2017 Acute back pain, unspecified back locati on, unspecified back pain laterality M54.9 [place] [address] [address] Jan, Bronchitis J40 and Wheezing R06.[address] [address] December, Migraine without aura, intractable, with status migrainosus G43.011 [place] [address] [address] December, [place] [address] [address] Nov, [place] [address] [address] Nov, Bronchitis J40 [place] [address] [address] 02 Sep, 2016 Nausea R11.0 and Acute bronchitis, unspe cified organism J20.9 [place] [address] [address] Aug, [address] [address] Jun, Bronchitis J40 [place] [address] [address] May, Acute back pain, unspecified back locati on, unspecified back pain laterality M54.9 [place] [address] [address] Apr, [place] [address] [address] Apr, [facility] [address] [place] [id number] [place] [address] Mar, [facility] [address] [address] Mar, [facility] [address] [address] Jan, Migraine without aura, intractable, with status migrainosus G43.011 [facility] [address] [address] December, [facility] [address] [address] Oct, [facility] [address] [address] Sep, Upper respiratory infection J06.9 [facility] [address] [address] Aug, [facility] [address] [address] Jul, Cough R05 and Intractable migraine with status migrainosus, unspecified migraine type G43.911 [facility] [address] [address] Jul, [facility] [address] [address] Jul, [facility] [address] [address] Jul, [facility] [address] [address] May, [facility] [address] [address] May, Migraine without aura, intractable, with status migrainosus G43.011 [facility] [address] [address] 05 May, 2015 Migraine without aura, intractable, with status migrainosus G43.011 ; Migraine 346.90 and Hypertriglyceridemia E78.1 [facility] [address] [place] [id number] [place] [address] Apr, [facility] [address] [place] [id number] [place] [address] Apr, Migraine 346.90 [facility] [address] [place] [id number] [place] [address] Mar, [facility] [address] [place] [id number] [place] [address] Mar, [facility] [address] [place] [address] [id number] [place] [address] Mar, [facility] [address] [place] [id number] [place] [address] Feb, Sinusitis 473.9 and Migraine 346.90 [facility] [address] [place] [id number] [place] [address] Jan, [facility] [address] [place] [address] [id number] [place] [address] Jan, Sinusitis 473.9 ; Insomnia 780.52 and Mi graine 346.90 [facility] [address] [place] [id number] [place] [address] December, [facility] [address] [place] [address] [id number] [place] [address] December, [facility] [address] [id number] [place] [address] December, [facility] [address] [place] [address] [id number] [place] [address] Nov, [facility] [address] [address] [id number] [place] [address] Nov, [facility] [address] [place] [address] [id number] [place] [address] Nov, [facility] [address] [address] [id number] [place] [address] Oct, [facility] [address] [address] [id number] [place] [address] Oct, [facility] [address] [facility] [id number] [place] [address] Oct, [facility] [address] [facility] [id number] [place] [address] Oct, [facility] [address] [id number] [place] [address] Oct, [facility] [address] [id number] [place] [address] Oct, [facility] [address] [id number] [place] [address] Oct, [facility] [address] [id number] [place] [address] Oct, [facility] [address] [id number] [place] [address] Oct, [facility] [address] [id number] [place] [address] Oct, [facility] [address] [id number] [place] [address] Sep, [facility] [address] [id number] [place] [address] Sep, [facility] [address] [id number] [place] [address] Sep, [facility] [address] [id number] [place] [address] Sep, [facility] [address] [id number] [place] [address] Aug, [facility] [address] [id number] [place] [address] Aug, [facility] [address] [id number] [place] [address] Aug, [facility] [address] [id number] [place] [address] Aug, [facility] [address] [id number] [place] [address] Aug, [facility] [address] [id number] [place] [address] Aug, [facility] [address] [facility] [id number] [place] [address] Aug, [facility] [address] [id number] [place] [address] Jul, [facility] [address] [id number] [place] [address] Jul, [facility] [address] [id number] [place] [address] Jul, [facility] [address] [id number] [place] [address] Jul, [facility] [address] [place] [id number] [place] [address] Jul, [facility] [address] [facility] [id number] [place] [address] Jul, [facility] [address] [facility] [id number] [place] [address] Jun, [facility] [address] [id number] [place] [address] Jun, [facility] [address] [facility] [id number] [place] [address] Jun, [facility] [address] [facility] [id number] [place] [address] Jun, [facility] [address] [id number] [place] [address] Jun, [facility] [address] [facility] [id number] [place] [address] Jun, [facility] [address] [facility] [id number] [place] [address] May, [facility] [address] [facility] [id number] [place] [address] May, [facility] [address] [facility] [id number] [place] [address] May, [facility] [address] [facility] [facility] [id number] [facility] [place] [address] May, [facility] [address] [facility] [id number] [place] [address] May, [facility] [address] [facility] [id number] [facility] [place] [address] Apr, [facility] [address] [facility] [facility] [id number] [facility] [place] [address] Apr, [facility] [address] [facility] [id number] [place] [address] Apr, [facility] [address] [facility] [id number] [place] [address] Apr, [facility] [address] [id number] [place] [address] Apr, [facility] [address] [facility] [id number] [place] [address] Apr, [facility] [address] [facility] [id number] [place] [address] Mar, [facility] [address] [facility] [id number] [place] [address] Mar, [facility] [address] [facility] [id number] [place] [address] Mar, [facility] [address] [facility] [id number] [place] [address] Mar, [facility] [address] [facility] [id number] [place] [address] Jan, [facility] [address] [facility] [id number] [place] [address] Jan, [facility] [address] [facility] [id number] [place] [address] Jan, [facility] [address] [facility] [id number] [place] [address] Jan, [facility] [address] [id number] [place] [address] December, [facility] [address] [facility] [id number] [place] [address] December, [facility] [address] [id number] [place] [address] December, [facility] [address] [facility] [id number] [place] [address] December, [facility] [address] [facility] [id number] [place] [address] December, [facility] [address] [id number] [place] [address] December, [facility] [address] [id number] [place] [address] December, [facility] [address] [id number] [place] [address] December, [facility] [address] [id number] [place] [address] Nov, [facility] [address] [id number] [place] [address] Nov, [facility] [address] [id number] [place] [address] Oct, [facility] [address] [id number] [place] [address] Oct, [facility] [address] [facility] [id number] [place] [address] Sep, [facility] [address] [id number] [place] [address] Sep, [facility] [address] [id number] [place] [address] Aug, [facility] [address] [id number] [place] [address] Aug, [facility] [address] [id number] [place] [address] Aug, [facility] [address] [id number] [place] [address] Aug, [facility] [address] [id number] [place] [address] Jun, [facility] [address] [id number] [place] [address] Jun, [facility] [address] [id number] [place] [address] Jun, [facility] [address] [id number] [place] [address] Jun, [facility] [address] [id number] [place] [address] May, [facility] [address] [id number] [place] [address] May, [facility] [address] [id number] [place] [address] May, [facility] [address] [id number] [place] [address] May, [facility] [address] [id number] [place] [address] May, [facility] [address] [id number] [place] [address] Mar, [facility] [address] [id number] [place] [address] Mar, [facility] [address] [id number] [place] [address] Feb, [facility] [address] [id number] [place] [address] Jan, [facility] [address] [id number] [place] [address] December, [facility] [address] [id number] [place] [address] December, [facility] [address] [id number] [place] [address] Oct, [facility] [address] [id number] [place] [address] Aug, [facility] [address] [id number] [place] [address] Aug, [facility] [address] [id number] [place] [address] Aug, [facility] [address] [id number] [place] [address] Aug, [facility] [address] [id number] [place] [address] Aug, [facility] [address] [id number] [place] [address] Jul, [facility] [address] [id number] [place] [address] Jul, [facility] [address] [id number] [place] [address] Jun, [facility] [address] [id number] [place] [address] Jun, [facility] [address] [id number] [place] [address] Jun, [facility] [address] [id number] [place] [address] Jun, [facility] [address] [id number] [place] [address] May, [facility] [address] [id number] [place] [address] May, [facility] [address] [id number] [place] [address] May, [facility] [address] [id number] [place] [address] Apr, [facility] [address] [id number] [place] [address] Mar, [facility] [address] [id number] [place] [address] Mar, [facility] [address] [id number] [place] [address] Mar, [facility] [address] [id number] [place] [address] Mar, [facility] [address] [id number] [place] [address] Nov, [facility] [address] [id number] [place] [address] Nov, [facility] [address] [id number] [place] [address] Jul, [facility] [address] [id number] [place] [address] Jun, [facility] [address] [id number] [place] [address] 30 Jul, 2010 [facility] [address] [id number] [place] [address] May, [facility] [address] [id number] [place] [address] Mar, [facility] [address] [id number] [place] [address] Jul, [facility] [address] [id number] [place] [address] Jul, [facility] [address] [id number] [place] [address] Jun, [facility] [address] [id number] [place] [address] Jun, [facility] [address] [id number] [place] [address] Jun, [facility] [address] [id number] [place] [address] May, [facility] [address] [id number] [place] [address] May, [facility] [address] [id number] [place] [address] May, [facility] [address] [id number] [place] [address] May, [facility] [id number] [place] [address] May, [facility] [address] [id number] [place] [address] Apr, [facility] [id number] [place] [address] Sep, [facility] [address] [id number] [place] [address] Jul, [facility] [address] [id number] [place] [address] May, IMMUNIZATIONS No Known Immunizations SOCIAL HISTORY Never Assessed REASON FOR VISIT PLAN OF CARE VITAL SIGNS MEDICATIONS Unknown Medications RESULTS No Results PROCEDURES Procedure Date Ordered Result Body Site COMPLETE CBC W/AUTO DIFF WBC December 18, 2013 LIPID PANEL December 18, 2013 COMPREHEN METABOLIC PANEL December 18, 2013 VENIPUNCT, ROUTINE* December 18, 2013 INSTRUCTIONS MEDICATIONS ADMINISTERED No Known Medications MEDICAL [...]
--- OUTSIDE RECORDS SUMMARY | 2019-11-09 19:18 | XMS REPORT ---
Author Author Waqas QUINTANA Organization [facility] Address [address] [place] [address] Care Team Providers Care Scientist Engineer Name Role Phone EZEKIEL QUINTANA Unavailable PROBLEMS Type Condition ICD9-CM Code [id number] Code Onset Dates Condition S tatus SNOMED Code Problem Mild intermittent asthma, uncomplicated J45.20 Active 114869862 Problem Gastro-esophageal reflux disease without esophagitis K21.9 Active 633438582 Problem Migraine without aura, intractable, with status migrainosu s G43.011 Active 72382980 Problem Insomnia, unspecified G47.00 Active 130772235 Problem Hypertriglyceridemia E78.1 Active 152318299 Problem Microcytic anemia D50.9 Active 23 8153442 Problem Dysthymia F34.1 Active 69186687 Problem Essential hypertension I10 Active 62305955 Problem Tension headache G44.209 Active 398 019634 Problem Chronic fatigue R53.82 Active 5270 2003 Problem Primary insomnia F51.01 Active 397 2004 Problem Psychophysiological insomnia F51.04 A ctive 946843661 Problem Seasonal allergic rhinitis due to pollen J30.1 Active 55696334 Problem Anxiety F41.9 Active 52547779 Problem Other chronic gastritis without hemorrhage K29.50 Active 9178520 Problem Environmental allergies Z91.09 Active 636313941 Problem Seasonal allergies J30.2 Active 4 16737013 Problem Irritable bowel syndrome with diarrhea K58.0 Active 580119903 Problem Night terrors, adult F51.4 Active 39514253 ALLERGIES No Information ENCOUNTERS Encounter Location Date Diagnosis [facility] [address] [id number] [place] [address] Sep, Seasonal allergic rhinitis due to pollen J30.1 [facility] [address] [id number] [place] [address] Jul, [facility] [id number] [place] [address] Jul, [facility] [address] [address] Jul, [facility] [address] [address] Jun, Anxiety F41.9 [facility] [address] [address] Jun, Alcohol-induced acute pancreatitis, unsp ecified complication status K85.20 and Insomnia, unspecified G47.00 [place] [address] [address] Jun, Pneumonia due to infectious organism, un specified laterality, unspecified part of lung J18.9 ; Cervicalgia M54.2 ; Sudden idiopathic hearing loss of left ear with restricted hearing of right ear H91.22 ; Impacted cerumen, right ear H61.21 ; Generalized abdominal pain R10.84 and Psychophysiological insomnia F51.04 [place] [id number] [place] [address] Jun, [facility] [address] [facility] [id number] [address] [place] [address] Jun, Bilateral impacted cerumen H 61.23 and Tobacco abuse Z72.0 [place] [id number] [place] [address] Jun, Nausea R11.0 and Insomnia, unspecified G 47.00 [place] [id number] [place] [address] Jun, [facility] [address] [address] May, [place] [address] [place] [address] May, [facility] [id number] [place] [address] Apr, Seasonal allergies J30.2 [place] [address] [address] Apr, Hematuria R31.9 [facility] [address] [address] Apr, [facility] [address] [address] Apr, [facility] [address] [address] Apr, Anxiety F41.9 ; Polyuria R35.8 ; General ized abdominal pain R10.84 and Psychophysiological insomnia F51.04 [place] [address] [address] Apr, [place] [address] [address] Apr, Anxiety F41.9 ; Generalized abdominal pa in R10.84 ; Psychophysiological insomnia F51.04 and Polyuria R35.8 [place] [address] [address] Mar, [place] [address] [address] Feb, Lateral epicondylitis of left elbow M77. 12 and Night terrors, adult F51.4 [place] [address] [address] Jan, Seasonal allergies J30.2 ; Acute non-rec urrent maxillary sinusitis J01.00 ; Acute gastritis without hemorrhage, unspecified gastritis type K29.00 and Irritable bowel syndrome with diarrhea K58.0 [place] [address] [address] December, [place] [address] [address] Nov, Nausea R11.0 [place] [address] [address] Sep, [place] [address] [address] 11 Sep, 2018 Cough R05 ; Functional diarrhea K59.1 ; Primary insomnia F51.01 and Gastro-esophageal reflux disease without esophagitis K21.9 [place] [address] [place] [address] [id number] Jul, Costochondral chest pain R07.1 ; Acute b ilateral low back pain without sciatica M54.5 and Essential hypertension I10 [place] [address] [address] Jul, [place] [address] [place] [address] Jul, Microcytic anemia D50.9 [place] [address] [address] Jul, [place] [address] [address] Jun, Microcytic anemia D50.9 and LUQ abdomina l pain R10.12 [place] [address] [address] Jun, Microcytic anemia D50.9 [place] [address] [address] Jun, Microcytic anemia D50.9 and LUQ abdomina l pain R10.12 [place] [address] [address] Jun, [address] [address] Jun, Essential hypertension I10 ; Tension hea dache G44.209 ; Nausea R11.0 ; Left upper quadrant abdominal pain of unknown etiology R10.12 and Chronic fatigue R53.[address] [address] May, Gastro-esophageal reflux disease without esophagitis K21.9 [place] [address] [address] Apr, Seasonal allergic rhinitis due to pollen J30.1 ; Migraine without aura, intractable, with status migrainosus G43.011 and Gastro-esophageal reflux disease without esophagitis K21.9 [place] [address] [place] [id number] Nov, Other chronic gastritis without hemorrha ge K29.50 [place] [address] [address] Sep, Sinus congestion R09.81 ; Bilateral impa cted cerumen H61.23 ; Insomnia, unspecified G47.00 and Nausea R11.0 [place] [address] [address] Aug, Insomnia, unspecified G47.00 [place] [address] [address] Aug, Bronchitis J40 [facility] [address] [facility] [id number] [place] [address] Jul, Acute non-recurrent pansinus itis J01.40 [place] [address] [address] Jul, Insomnia, unspecified G47.[address] [address] Jul, Insomnia, unspecified G47.00 ; Migraine without aura, intractable, with status migrainosus G43.011 and Nausea R11.0 [place] [address] [address] Jun, [address] [address] May, [address] [address] Feb, Hypertriglyceridemia E78.[address] [address] Jan, Migraine without aura, intractable, with status migrainosus G43.011 ; Hypertriglyceridemia E78.1 ; Nausea R11.0 ; Essential hypertension I10 ; Insomnia, unspecified G47.00 ; Gastro-esophageal reflux disease without esophagitis K21.9 and Dysthymia F34.1 [place] [address] [address] 15 Jan, 2017 Acute back pain, unspecified back locati on, unspecified back pain laterality M54.9 [place] [address] [address] 07 Jan, 2017 Bronchitis J40 and Wheezing R06.[address] [address] December, Migraine without aura, intractable, with status migrainosus G43.011 [place] [address] [address] December, [address] [address] Nov, [place] [address] [address] Nov, Bronchitis J40 [address] [address] 02 Sep, 2016 Nausea R11.0 and Acute bronchitis, unspe cified organism J20.[address] [address] Aug, [address] [address] Jun, Bronchitis J40 [address] [address] May, Acute back pain, unspecified back locati on, unspecified back pain laterality M54.9 [place] [address] [address] Apr, [address] [address] Apr, [facility] [id number] [place] [address] Mar, [facility] [address] [address] Mar, [facility] [address] [address] Jan, Migraine without aura, intractable, with status migrainosus G43.011 [facility] [address] [address] December, [facility] [address] [address] Oct, [facility] [address] [address] Sep, Upper respiratory infection J06.9 [facility] [address] [address] Aug, [facility] [address] [address] Jul, Cough R05 and Intractable migraine with status migrainosus, unspecified migraine type G43.911 [facility] [address] [address] Jul, [facility] [address] [address] Jul, [facility] [address] [address] Jul, [facility] [address] [address] May, [facility] [address] [address] May, Migraine without aura, intractable, with status migrainosus G43.011 [facility] [address] [address] May, Migraine without aura, intractable, with status migrainosus G43.011 ; Migraine 346.90 and Hypertriglyceridemia E78.1 [facility] [id number] [place] [address] Apr, [facility] [address] [address] Apr, Migraine 346.90 [facility] [address] [address] Mar, [facility] [address] [address] Mar, [facility] [address] [address] Mar, [facility] [address] [address] Feb, Sinusitis 473.9 and Migraine 346.90 [facility] [address] [address] Jan, [facility] [address] [address] Jan, Sinusitis 473.9 ; Insomnia 780.52 and Mi graine 346.90 [facility] [address] [address] December, [facility] [address] [address] December, [facility] [address] [address] December, [facility] [address] [address] Nov, [facility] [address] [address] Nov, [facility] [address] [address] Nov, [facility] [address] [address] Oct, [facility] [address] [facility] [id number] [place] [address] Oct, [facility] [address] [id number] [place] [address] Oct, [facility] [address] [facility] [id number] [place] [address] Oct, [facility] [address] [id number] [place] [address] Oct, [facility] [address] [id number] [place] [address] Oct, [facility] [address] [facility] [id number] [place] [address] Oct, [facility] [address] [facility] [id number] [place] [address] Oct, [facility] [address] [facility] [id number] [place] [address] Oct, [facility] [address] [facility] [id number] [place] [address] Oct, [facility] [address] [facility] [id number] [place] [address] Sep, [facility] [address] [facility] [id number] [place] [address] Sep, [facility] [address] [facility] [id number] [place] [address] Sep, [facility] [address] [facility] [id number] [place] [address] Sep, [facility] [address] [facility] [id number] [place] [address] Aug, [facility] [address] [id number] [place] [address] Aug, [facility] [address] [facility] [id number] [place] [address] Aug, [facility] [address] [id number] [place] [address] 15 Aug, 2014 [facility] [address] [facility] [id number] [place] [address] Aug, [facility] [address] [facility] [facility] [id number] [place] [address] Aug, [facility] [address] [facility] [facility] [id number] [place] [address] Aug, [facility] [address] [facility] [id number] [place] [address] Jul, [facility] [address] [facility] [id number] [place] [address] Jul, [facility] [address] [facility] [id number] [place] [address] Jul, [facility] [address] [id number] [place] [address] Jul, [facility] [address] [id number] [place] [address] Jul, [facility] [address] [facility] [id number] [place] [address] Jul, [facility] [address] [id number] [place] [address] Jun, [facility] [address] [id number] [place] [address] Jun, [facility] [address] [id number] [place] [address] Jun, [facility] [address] [id number] [place] [address] Jun, [facility] [address] [id number] [place] [address] Jun, [facility] [address] [id number] [place] [address] Jun, [facility] [address] [id number] [place] [address] May, [facility] [address] [id number] [place] [address] 31 May, 2014 [facility] [address] [id number] [place] [address] May, [facility] [address] [facility] [id number] [place] [address] May, [facility] [address] [facility] [id number] [place] [address] May, [facility] [address] [facility] [id number] [place] [address] 24 Apr, 2014 [facility] [address] [facility] [id number] [place] [address] 24 Apr, 2014 [facility] [address] [id number] [place] [address] 16 Apr, 2014 [facility] [address] [id number] [place] [address] 16 Apr, 2014 [facility] [address] [id number] [place] [address] Apr, [facility] [address] [facility] [id number] [place] [address] Apr, [facility] [address] [id number] [place] [address] Mar, [facility] [address] [id number] [place] [address] Mar, [facility] [address] [facility] [id number] [place] [address] Mar, [facility] [address] [facility] [id number] [place] [address] Mar, [facility] [address] [id number] [place] [address] Jan, [facility] [address] [id number] [place] [address] Jan, [facility] [address] [id number] [place] [address] Jan, [facility] [address] [id number] [place] [address] Jan, [facility] [address] [id number] [place] [address] December, [facility] [address] [id number] [place] [address] December, [facility] [address] [id number] [place] [address] December, [facility] [address] [id number] [place] [address] December, [facility] [address] [id number] [place] [address] December, [facility] [address] [id number] [place] [address] December, [facility] [address] [id number] [place] [address] December, [facility] [address] [id number] [place] [address] December, [facility] [address] [id number] [place] [address] Nov, [facility] [address] [id number] [place] [address] Nov, [facility] [address] [id number] [place] [address] Oct, [facility] [address] [id number] [place] [address] Oct, [facility] [address] [id number] [place] [address] Sep, [facility] [address] [id number] [place] [address] Sep, [facility] [address] [id number] [place] [address] Aug, [facility] [address] [id number] [place] [address] Aug, [facility] [address] [facility] [id number] [place] [address] Aug, [facility] [address] [id number] [place] [address] Aug, [facility] [address] [id number] [place] [address] Jun, [facility] [address] [id number] [place] [address] Jun, [facility] [address] [id number] [place] [address] Jun, [facility] [address] [id number] [place] [address] Jun, [facility] [address] [id number] [place] [address] May, [facility] [address] [id number] [place] [address] May, [facility] [address] [id number] [place] [address] May, [facility] [address] [id number] [place] [address] May, [facility] [address] [id number] [place] [address] May, [facility] [address] [id number] [place] [address] Mar, [facility] [address] [id number] [place] [address] Mar, [facility] [address] [id number] [place] [address] Feb, [facility] [address] [id number] [place] [address] Jan, [facility] [address] [id number] [place] [address] December, [facility] [address] [id number] [place] [address] December, [facility] [address] [id number] [place] [address] Oct, [facility] [address] [id number] [place] [address] Aug, [facility] [address] [id number] [place] [address] Aug, [facility] [address] [id number] [place] [address] Aug, [facility] [address] [id number] [place] [address] Aug, [facility] [address] [id number] [place] [address] Aug, [facility] [address] [id number] [place] [address] 10 Jul, 2012 [facility] [address] [id number] [place] [address] Jul, [facility] [address] [id number] [place] [address] Jun, [facility] [address] [id number] [place] [address] Jun, [facility] [address] [id number] [place] [address] Jun, [facility] [address] [id number] [place] [address] Jun, [facility] [address] [id number] [place] [address] May, [facility] [id number] [place] [address] May, [facility] [address] [id number] [place] [address] May, [facility] [address] [id number] [place] [address] Apr, [facility] [address] [id number] [place] [address] Mar, [facility] [address] [id number] [place] [address] Mar, [facility] [address] [id number] [place] [address] Mar, [facility] [address] [id number] [place] [address] Mar, [facility] [address] [id number] [place] [address] Nov, [facility] [address] [facility] [id number] [place] [address] Nov, [facility] [address] [facility] [address] [id number] [place] [address] Jul, [facility] [address] [facility] [id number] [place] [address] Jun, [facility] [address] [facility] [id number] [place] [address] Jul, [facility] [address] [facility] [id number] [place] [address] May, [facility] [address] [facility] [id number] [place] [address] Mar, [facility] [address] [facility] [address] [id number] [place] [address] Jul, [facility] [address] [facility] [id number] [place] [address] Jul, [facility] [address] [facility] [id number] [place] [address] 24 Jun, 2009 [facility] [address] [facility] [id number] [place] [address] Jun, [facility] [address] [facility] [address] [id number] [place] [address] Jun, [facility] [address] [facility] [id number] [place] [address] May, [facility] [id number] [place] [address] May, [facility] [id number] [place] [address] May, [facility] [id number] [place] [address] May, [facility] [id number] [place] [address] May, [facility] [id number] [place] [address] Apr, [facility] [id number] [place] [address] Sep, [facility] [id number] [place] [address] Jul, [facility] [id number] [place] [address] May, IMMUNIZATIONS No Known Immunizations SOCIAL HISTORY Never Assessed REASON FOR VISIT PLAN OF CARE VITAL SIGNS Height 66 in 2013-12-04 Weight 175 lbs 2013-12-04 Temperature 96.5 degrees Fahrenheit 2013-12-04 Heart Rate 80 bpm 2013-12-04 Respiratory Rate 18 2013-12-04 Blood pressure systolic 150 mmHg 2013-12-04 Blood pressure diastolic 84 mmHg 2013-12-04 MEDICATIONS Unknown Medications RESULTS No Results PROCEDURES [...]
--- OUTSIDE RECORDS SUMMARY | 2019-11-09 19:18 | XMS REPORT ---
Author Author Waqas QUINTANA Organization [facility] Address [address] [place] [address] Care Team Providers Care Digital Marketer Name Role Phone EZEKIEL QUINTANA Unavailable PROBLEMS Type Condition ICD9-CM Code BYT47-AA Code Onset Dates Condition S tatus SNOMED Code Problem Mild intermittent asthma, uncomplicated J45.20 Active 264575828 Problem Gastro-esophageal reflux disease without esophagitis K21.9 Active 575231350 Problem Migraine without aura, intractable, with status migrainosu s G43.011 Active 19905502 Problem Insomnia, unspecified G47.00 Active 266020712 Problem Hypertriglyceridemia E78.1 Active 301973318 Problem Microcytic anemia D50.9 Active 23 9412637 Problem Dysthymia F34.1 Active 40699921 Problem Essential hypertension I10 Active 82641377 Problem Tension headache G44.209 Active 398 007881 Problem Chronic fatigue R53.82 Active 5270 2003 Problem Primary insomnia F51.01 Active 397 2004 Problem Psychophysiological insomnia F51.04 A ctive 139889239 Problem Seasonal allergic rhinitis due to pollen J30.1 Active 55759713 Problem Anxiety F41.9 Active 29970211 Problem Other chronic gastritis without hemorrhage K29.50 Active 6122006 Problem Environmental allergies Z91.09 Active 758503703 Problem Seasonal allergies J30.2 Active 4 60532827 Problem Irritable bowel syndrome with diarrhea K58.0 Active 744897941 Problem Night terrors, adult F51.4 Active 14155355 ALLERGIES No Information ENCOUNTERS Encounter Location Date Diagnosis [facility] [address] [id number] [place] [address] Jul, [facility] [address] [id number] [place] [address] Jul, [facility] [address] [id number] [place] [address] Jul, [place] [address] [address] Jun, Anxiety F41.9 [place] [address] [address] Jun, Alcohol-induced acute pancreatitis, unsp ecified complication status K85.20 and Insomnia, unspecified G47.00 [place] [address] [address] Jun, Pneumonia due to infectious organism, un specified laterality, unspecified part of lung J18.9 ; Cervicalgia M54.2 ; Sudden idiopathic hearing loss of left ear with restricted hearing of right ear H91.22 ; Impacted cerumen, right ear H61.21 ; Generalized abdominal pain R10.84 and Psychophysiological insomnia F51.04 [place] [address] [address] Jun, [facility] [address] [facility] [id number] [address] [place] [address] Jun, Bilateral impacted cerumen H 61.23 and Tobacco abuse Z72.0 [place] [address] [address] Jun, Nausea R11.0 and Insomnia, unspecified G 47.00 [place] [address] [address] Jun, [place] [address] [address] May, [address] [place] [address] May, [place] [address] [address] Apr, Seasonal allergies J30.2 [place] [address] [address] Apr, Hematuria R31.9 [place] [address] [address] Apr, [place] [address] [address] Apr, [place] [address] [address] Apr, Anxiety F41.9 ; Polyuria R35.8 ; General ized abdominal pain R10.84 and Psychophysiological insomnia F51.04 [place] [address] [address] Apr, [place] [address] [address] Apr, Anxiety F41.9 ; Generalized abdominal pa in R10.84 ; Psychophysiological insomnia F51.04 and Polyuria R35.[address] [address] Mar, [address] [address] Feb, Lateral epicondylitis of left elbow M77. 12 and Night terrors, adult F51.[address] [address] Jan, Seasonal allergies J30.2 ; Acute non-rec urrent maxillary sinusitis J01.00 ; Acute gastritis without hemorrhage, unspecified gastritis type K29.00 and Irritable bowel syndrome with diarrhea K58.0 [place] [address] [address] December, [address] [address] Nov, Nausea R11.0 [place] [address] [address] Sep, [address] [address] Sep, Cough R05 ; Functional diarrhea K59.1 ; Primary insomnia F51.01 and Gastro-esophageal reflux disease without esophagitis K21.9 [place] [address] [address] Jul, Costochondral chest pain R07.1 ; Acute b ilateral low back pain without sciatica M54.5 and Essential hypertension I10 [place] [address] [address] Jul, [place] [address] [place] [address] Jul, Microcytic anemia D50.9 [place] [address] [address] Jul, [place] [address] [address] Jun, Microcytic anemia D50.9 and LUQ abdomina l pain R10.12 [place] [address] [address] Jun, Microcytic anemia D50.9 [place] [address] [address] Jun, Microcytic anemia D50.9 and LUQ abdomina l pain R10.12 [place] [address] [address] Jun, [place] [address] [address] Jun, Essential hypertension I10 ; Tension hea dache G44.209 ; Nausea R11.0 ; Left upper quadrant abdominal pain of unknown etiology R10.12 and Chronic fatigue R53.82 [place] [address] [address] May, Gastro-esophageal reflux disease without esophagitis K21.9 [place] [address] [address] 17 Apr, 2018 Seasonal allergic rhinitis due to pollen J30.1 ; Migraine without aura, intractable, with status migrainosus G43.011 and Gastro-esophageal reflux disease without esophagitis K21.9 [place] [address] [address] Nov, Other chronic gastritis without hemorrha ge K29.50 [place] [address] [address] Sep, Sinus congestion R09.81 ; Bilateral impa cted cerumen H61.23 ; Insomnia, unspecified G47.00 and Nausea R11.0 [place] [address] [address] Aug, Insomnia, unspecified G47.00 [place] [address] [address] Aug, Bronchitis J40 [facility] [address] [facility] [id number] [address] [place] [address] Jul, Acute non-recurrent pansinus itis J01.40 [place] [address] [address] Jul, Insomnia, unspecified G47.00 [place] [address] [address] Jul, Insomnia, unspecified G47.00 ; Migraine without aura, intractable, with status migrainosus G43.011 and Nausea R11.0 [place] [address] [address] Jun, [place] [address] [address] May, [place] [address] [address] Feb, Hypertriglyceridemia E78.[address] [address] Jan, Migraine without aura, intractable, with status migrainosus G43.011 ; Hypertriglyceridemia E78.1 ; Nausea R11.0 ; Essential hypertension I10 ; Insomnia, unspecified G47.00 ; Gastro-esophageal reflux disease without esophagitis K21.9 and Dysthymia F34.1 [place] [address] [address] 15 Jan, 2017 Acute back pain, unspecified back locati on, unspecified back pain laterality M54.9 [place] [address] [address] 07 Jan, 2017 Bronchitis J40 and Wheezing R06.2 [place] [address] [address] December, Migraine without aura, intractable, with status migrainosus G43.011 [place] [address] [address] December, [place] [address] [address] Nov, [place] [address] [address] Nov, Bronchitis J40 [place] [address] [address] Sep, Nausea R11.0 and Acute bronchitis, unspe cified organism J20.9 [place] [address] [address] Aug, [place] [address] [address] Jun, Bronchitis J40 [place] [address] [address] May, Acute back pain, unspecified back locati on, unspecified back pain laterality M54.9 [place] [address] [address] Apr, [place] [address] [address] Apr, [place] [address] [address] Mar, [place] [id number] [address] Mar, [facility] [address] [address] Jan, Migraine without aura, intractable, with status migrainosus G43.011 [facility] [address] [address] December, [facility] [address] [address] Oct, [facility] [address] [address] Sep, Upper respiratory infection J06.9 [facility] [address] [address] Aug, [facility] [address] [address] Jul, Cough R05 and Intractable migraine with status migrainosus, unspecified migraine type G43.911 [facility] [address] [address] Jul, [facility] [address] [address] Jul, [facility] [address] [address] Jul, [facility] [address] [address] May, [facility] [address] [address] May, Migraine without aura, intractable, with status migrainosus G43.011 [facility] [address] [address] May, Migraine without aura, intractable, with status migrainosus G43.011 ; Migraine 346.90 and Hypertriglyceridemia E78.1 [facility] [address] [address] Apr, [facility] [address] [id number] [place] [address] Apr, Migraine 346.90 [facility] [address] [place] [id number] [place] [address] Mar, [facility] [address] [place] [id number] [place] [address] Mar, [facility] [address] [place] [id number] [place] [address] Mar, [facility] [address] [place] [id number] [place] [address] Feb, Sinusitis 473.9 and Migraine 346.90 [facility] [address] [place] [id number] [place] [address] Jan, [facility] [address] [place] [id number] [place] [address] Jan, Sinusitis 473.9 ; Insomnia 780.52 and Mi graine 346.90 [facility] [address] [place] [id number] [place] [address] December, [facility] [address] [place] [id number] [place] [address] December, [facility] [address] [place] [id number] [place] [address] December, [facility] [address] [place] [id number] [place] [address] Nov, [facility] [address] [place] [id number] [place] [address] Nov, [facility] [address] [place] [id number] [place] [address] Nov, [facility] [address] [place] [id number] [place] [address] Oct, [facility] [address] [place] [id number] [place] [address] Oct, [facility] [address] [place] [id number] [place] [address] Oct, [facility] [place] [facility] [address] [facility] [id number] [facility] [address] Oct, [facility] [place] [facility] [address] [id number] [place] [address] Oct, [facility] [place] [facility] [address] [id number] [place] [address] Oct, [facility] [place] [address] [id number] [place] [address] Oct, [facility] [place] [facility] [address] [facility] [id number] [place] [address] Oct, [facility] [place] [facility] [address] [id number] [place] [address] Oct, [facility] [place] [facility] [address] [id number] [place] [address] Oct, [facility] [place] [facility] [address] [id number] [place] [address] Sep, [facility] [place] [facility] [address] [id number] [place] [address] Sep, [facility] [place] [facility] [address] [id number] [place] [address] Sep, [facility] [place] [facility] [address] [id number] [place] [address] Sep, [facility] [place] [facility] [address] [id number] [place] [address] Aug, [facility] [place] [facility] [address] [id number] [place] [address] Aug, [facility] [place] [facility] [address] [id number] [place] [address] Aug, [facility] [place] [facility] [address] [id number] [place] [address] Aug, [facility] [place] [facility] [address] [id number] [place] [address] Aug, [facility] [place] [facility] [address] [id number] [place] [address] Aug, [facility] [place] [facility] [address] [id number] [place] [address] Aug, [facility] [place] [facility] [address] [id number] [place] [address] Jul, [facility] [place] [address] [id number] [place] [address] Jul, [facility] [place] [facility] [address] [id number] [place] [address] Jul, [facility] [place] [facility] [address] [id number] [place] [address] Jul, [facility] [place] [address] [id number] [place] [address] Jul, [facility] [address] [id number] [place] [address] Jul, [facility] [address] [id number] [place] [address] Jun, [facility] [place] [facility] [address] [id number] [place] [address] Jun, [facility] [place] [address] [id number] [place] [address] Jun, [facility] [address] [id number] [place] [address] Jun, [facility] [address] [id number] [place] [address] Jun, [facility] [address] [id number] [place] [address] Jun, [facility] [place] [facility] [address] [id number] [place] [address] May, [facility] [address] [id number] [place] [address] May, [facility] [place] [address] [id number] [place] [address] May, [facility] [place] [facility] [address] [facility] [id number] [place] [address] May, [facility] [place] [address] [facility] [id number] [place] [address] May, [facility] [address] [id number] [place] [address] Apr, [facility] [address] [facility] [id number] [facility] [address] Apr, [facility] [address] [facility] [id number] [place] [address] Apr, [facility] [address] [facility] [id number] [place] [address] Apr, [facility] [address] [id number] [place] [address] Apr, [facility] [address] [id number] [place] [address] Apr, [facility] [address] [id number] [place] [address] Mar, [facility] [address] [id number] [place] [address] Mar, [facility] [address] [id number] [place] [address] Mar, [facility] [address] [id number] [place] [address] Mar, [facility] [address] [id number] [place] [address] Jan, [facility] [address] [id number] [place] [address] Jan, [facility] [address] [id number] [place] [address] Jan, [facility] [address] [id number] [place] [address] Jan, [facility] [address] [id number] [facility] [address] December, [facility] [address] [id number] [place] [address] December, [facility] [address] [facility] [id number] [place] [address] December, [facility] [address] [id number] [place] [address] December, [facility] [address] [id number] [place] [address] December, [facility] [address] [facility] [id number] [place] [address] December, [facility] [address] [id number] [place] [address] December, [facility] [address] [id number] [place] [address] December, [facility] [address] [id number] [place] [address] Nov, [facility] [address] [facility] [id number] [place] [address] Nov, [facility] [address] [id number] [place] [address] Oct, [facility] [place] [facility] [address] [id number] [place] [address] Oct, [facility] [place] [address] [id number] [place] [address] Sep, [facility] [address] [facility] [id number] [place] [address] Sep, [facility] [address] [id number] [place] [address] Aug, [facility] [address] [id number] [place] [address] Aug, [facility] [address] [id number] [place] [address] Aug, [facility] [address] [id number] [place] [address] Aug, [facility] [address] [id number] [place] [address] Jun, [facility] [address] [id number] [place] [address] Jun, [facility] [address] [id number] [place] [address] Jun, [facility] [address] [id number] [place] [address] Jun, [facility] [address] [id number] [place] [address] May, [facility] [address] [id number] [place] [address] May, [facility] [id number] [place] [address] May, [facility] [address] [id number] [place] [address] May, [facility] [address] [id number] [place] [address] May, [facility] [address] [id number] [place] [address] Mar, [facility] [address] [id number] [place] [address] Mar, [facility] [address] [id number] [place] [address] Feb, [facility] [address] [id number] [place] [address] Jan, [facility] [address] [id number] [place] [address] December, [facility] [address] [id number] [place] [address] December, [facility] [address] [id number] [place] [address] Oct, [facility] [address] [id number] [place] [address] Aug, [facility] [address] [id number] [place] [address] 29 Aug, 2012 [facility] [address] [id number] [place] [address] 17 Aug, 2012 [facility] [address] [id number] [place] [address] 16 Aug, 2012 [facility] [address] [id number] [place] [address] Aug, [facility] [address] [id number] [place] [address] Jul, [facility] [address] [id number] [place] [address] Jul, [facility] [address] [id number] [place] [address] Jun, [facility] [address] [id number] [place] [address] Jun, [facility] [place] [facility] [address] [id number] [place] [address] Jun, [facility] [place] [facility] [address] [id number] [place] [address] Jun, [facility] [place] [facility] [address] [id number] [place] [address] May, [facility] [place] [facility] [address] [id number] [place] [address] May, [facility] [place] [facility] [address] [id number] [place] [address] May, [facility] [place] [facility] [address] [id number] [place] [address] Apr, [facility] [place] [facility] [address] [id number] [place] [address] Mar, [facility] [place] [facility] [address] [id number] [place] [address] Mar, [facility] [place] [facility] [address] [id number] [place] [address] Mar, [facility] [place] [facility] [address] [id number] [place] [address] Mar, [facility] [place] [facility] [address] [id number] [place] [address] Nov, [facility] [place] [facility] [address] [id number] [place] [address] Nov, [facility] [place] [facility] [address] [id number] [place] [address] Jul, [facility] [place] [facility] [address] [id number] [place] [address] Jun, [facility] [place] [facility] [address] [id number] [place] [address] 30 Jul, 2010 [facility] [place] [facility] [address] [id number] [place] [address] May, [facility] [place] [facility] [address] [id number] [place] [address] Mar, [facility] [place] [facility] [address] [id number] [place] [address] Jul, [facility] [place] [facility] [address] [id number] [place] [address] Jul, [facility] [place] [facility] [address] [id number] [place] [address] Jun, [facility] [place] [facility] [address] [id number] [place] [address] Jun, [facility] [place] [facility] [address] [id number] [place] [address] Jun, [facility] [place] [facility] [address] [id number] [place] [address] May, [facility] [place] [facility] [address] [id number] [place] [address] May, [facility] [address] [id number] [place] [address] May, [facility] [address] [id number] [place] [address] May, [facility] [address] [id number] [place] [address] May, [facility] [address] [id number] [place] [address] Apr, [facility] [address] [id number] [place] [address] Sep, [facility] [address] [id number] [place] [address] Jul, [facility] [address] [id number] [place] [address] May, IMMUNIZATIONS No Known Immunizations SOCIAL HISTORY [...]
--- OUTSIDE RECORDS SUMMARY | 2019-11-09 19:18 | XMS REPORT ---
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 Name Role Phone EZEKIEL QUINTANA Unavailable PROBLEMS Type Condition ICD9-CM Code DOF46-JF Code Onset Dates Condition S tatus SNOMED Code Problem Mild intermittent asthma, uncomplicated J45.20 Active 932867903 Problem Gastro-esophageal reflux disease without esophagitis K21.9 Active 727673729 Problem Migraine without aura, intractable, with status migrainosu s G43.011 Active 25190548 Problem Insomnia, unspecified G47.00 Active 274831619 Problem Hypertriglyceridemia E78.1 Active 149173818 Problem Microcytic anemia D50.9 Active 23 4416757 Problem Dysthymia F34.1 Active 30032213 Problem Essential hypertension I10 Active 47857452 Problem Tension headache G44.209 Active 398 416496 Problem Chronic fatigue R53.82 Active 5270 2003 Problem Primary insomnia F51.01 Active 397 2004 Problem Psychophysiological insomnia F51.04 A ctive 683093206 Problem Seasonal allergic rhinitis due to pollen J30.1 Active 73751307 Problem Anxiety F41.9 Active 22129187 Problem Other chronic gastritis without hemorrhage K29.50 Active 0844118 Problem Environmental allergies Z91.09 Active 972230249 Problem Seasonal allergies J30.2 Active 4 56340887 Problem Irritable bowel syndrome with diarrhea K58.0 Active 435333550 Problem Night terrors, adult F51.4 Active 04827040 ALLERGIES No Information ENCOUNTERS Encounter Location Date Diagnosis [facility] [address] [id number] [place] [address] Sep, Seasonal allergic rhinitis due to pollen J30.1 [facility] [address] [id number] [place] [address] Jul, [facility] [id number] [place] [address] Jul, [facility] [address] [address] Jul, [facility] [address] [address] Jun, Anxiety F41.9 [facility] [address] [address] Jun, Alcohol-induced acute pancreatitis, unsp ecified complication status K85.20 and Insomnia, unspecified G47.00 [place] [address] [address] Jun, Pneumonia due to infectious organism, un specified laterality, unspecified part of lung J18.9 ; Cervicalgia M54.2 ; Sudden idiopathic hearing loss of left ear with restricted hearing of right ear H91.22 ; Impacted cerumen, right ear H61.21 ; Generalized abdominal pain R10.84 and Psychophysiological insomnia F51.04 [place] [id number] [place] [address] Jun, [facility] [address] [facility] [id number] [address] [place] [address] Jun, Bilateral impacted cerumen H 61.23 and Tobacco abuse Z72.0 [place] [id number] [place] [address] Jun, Nausea R11.0 and Insomnia, unspecified G 47.00 [place] [id number] [place] [address] Jun, [facility] [address] [address] May, [place] [address] [place] [address] May, [facility] [id number] [place] [address] Apr, Seasonal allergies J30.2 [place] [address] [address] Apr, Hematuria R31.9 [facility] [address] [address] Apr, [facility] [address] [address] Apr, [facility] [address] [address] Apr, Anxiety F41.9 ; Polyuria R35.8 ; General ized abdominal pain R10.84 and Psychophysiological insomnia F51.04 [place] [address] [address] Apr, [place] [address] [address] Apr, Anxiety F41.9 ; Generalized abdominal pa in R10.84 ; Psychophysiological insomnia F51.04 and Polyuria R35.8 [place] [address] [address] Mar, [place] [address] [address] Feb, Lateral epicondylitis of left elbow M77. 12 and Night terrors, adult F51.4 [place] [address] [address] Jan, Seasonal allergies J30.2 ; Acute non-rec urrent maxillary sinusitis J01.00 ; Acute gastritis without hemorrhage, unspecified gastritis type K29.00 and Irritable bowel syndrome with diarrhea K58.0 [place] [address] [address] December, [place] [address] [address] Nov, Nausea R11.0 [place] [address] [address] Sep, [place] [address] [address] 11 Sep, 2018 Cough R05 ; Functional diarrhea K59.1 ; Primary insomnia F51.01 and Gastro-esophageal reflux disease without esophagitis K21.9 [place] [address] [place] [id number] Jul, Costochondral chest pain R07.1 ; Acute b ilateral low back pain without sciatica M54.5 and Essential hypertension I10 [place] [address] [address] Jul, [place] [address] [place] [address] Jul, Microcytic anemia D50.9 [place] [address] [address] Jul, [place] [address] [address] Jun, Microcytic anemia D50.9 and LUQ abdomina l pain R10.12 [place] [address] [address] Jun, Microcytic anemia D50.9 [place] [address] [address] Jun, Microcytic anemia D50.9 and LUQ abdomina l pain R10.12 [place] [address] [address] Jun, [address] [address] Jun, Essential hypertension I10 ; Tension hea dache G44.209 ; Nausea R11.0 ; Left upper quadrant abdominal pain of unknown etiology R10.12 and Chronic fatigue R53.[address] [address] May, Gastro-esophageal reflux disease without esophagitis K21.9 [place] [address] [address] Apr, Seasonal allergic rhinitis due to pollen J30.1 ; Migraine without aura, intractable, with status migrainosus G43.011 and Gastro-esophageal reflux disease without esophagitis K21.9 [place] [address] [place] [id number] Nov, Other chronic gastritis without hemorrha ge K29.50 [place] [address] [address] Sep, Sinus congestion R09.81 ; Bilateral impa cted cerumen H61.23 ; Insomnia, unspecified G47.00 and Nausea R11.0 [place] [address] [address] Aug, Insomnia, unspecified G47.00 [place] [address] [address] Aug, Bronchitis J40 [facility] [address] [facility] [id number] [place] [address] Jul, Acute non-recurrent pansinus itis J01.40 [place] [address] [address] Jul, Insomnia, unspecified G47.[address] [address] Jul, Insomnia, unspecified G47.00 ; Migraine without aura, intractable, with status migrainosus G43.011 and Nausea R11.0 [place] [address] [address] Jun, [address] [address] May, [address] [address] Feb, Hypertriglyceridemia E78.[address] [address] Jan, Migraine without aura, intractable, with status migrainosus G43.011 ; Hypertriglyceridemia E78.1 ; Nausea R11.0 ; Essential hypertension I10 ; Insomnia, unspecified G47.00 ; Gastro-esophageal reflux disease without esophagitis K21.9 and Dysthymia F34.1 [place] [address] [address] 15 Jan, 2017 Acute back pain, unspecified back locati on, unspecified back pain laterality M54.9 [place] [address] [address] 07 Jan, 2017 Bronchitis J40 and Wheezing R06.[address] [address] December, Migraine without aura, intractable, with status migrainosus G43.011 [place] [address] [address] December, [address] [address] Nov, [place] [address] [address] Nov, Bronchitis J40 [address] [address] 02 Sep, 2016 Nausea R11.0 and Acute bronchitis, unspe cified organism J20.[address] [address] Aug, [address] [address] Jun, Bronchitis J40 [address] [address] May, Acute back pain, unspecified back locati on, unspecified back pain laterality M54.9 [place] [address] [address] Apr, [address] [address] Apr, [facility] [id number] [place] [address] Mar, [facility] [address] [address] Mar, [facility] [address] [address] Jan, Migraine without aura, intractable, with status migrainosus G43.011 [facility] [address] [address] December, [facility] [address] [address] Oct, [facility] [address] [address] Sep, Upper respiratory infection J06.9 [facility] [address] [address] Aug, [facility] [address] [address] Jul, Cough R05 and Intractable migraine with status migrainosus, unspecified migraine type G43.911 [facility] [address] [address] Jul, [facility] [address] [address] Jul, [facility] [address] [address] Jul, [facility] [address] [address] May, [facility] [address] [address] May, Migraine without aura, intractable, with status migrainosus G43.011 [facility] [address] [address] May, Migraine without aura, intractable, with status migrainosus G43.011 ; Migraine 346.90 and Hypertriglyceridemia E78.1 [facility] [id number] [place] [address] Apr, [facility] [address] [address] Apr, Migraine 346.90 [facility] [address] [address] Mar, [facility] [address] [address] Mar, [facility] [address] [address] Mar, [facility] [address] [address] Feb, Sinusitis 473.9 and Migraine 346.90 [facility] [address] [address] Jan, [facility] [address] [address] Jan, Sinusitis 473.9 ; Insomnia 780.52 and Mi graine 346.90 [facility] [address] [address] December, [facility] [address] [address] December, [facility] [address] [address] December, [facility] [address] [address] Nov, [facility] [address] [address] Nov, [facility] [address] [address] Nov, [facility] [address] [address] Oct, [facility] [address] [facility] [id number] [place] [address] Oct, [facility] [address] [id number] [place] [address] Oct, [facility] [address] [id number] [place] [address] Oct, [facility] [address] [id number] [place] [address] Oct, [facility] [address] [id number] [place] [address] Oct, [facility] [address] [id number] [place] [address] Oct, [facility] [address] [id number] [place] [address] Oct, [facility] [address] [id number] [place] [address] Oct, [facility] [address] [id number] [place] [address] Oct, [facility] [address] [id number] [place] [address] Sep, [facility] [address] [id number] [place] [address] Sep, [facility] [address] [id number] [place] [address] Sep, [facility] [address] [id number] [place] [address] Sep, [facility] [address] [facility] [id number] [place] [address] Aug, [facility] [address] [id number] [place] [address] Aug, [facility] [address] [id number] [place] [address] Aug, [facility] [address] [id number] [place] [address] 15 Aug, 2014 [facility] [address] [id number] [place] [address] Aug, [facility] [address] [id number] [place] [address] Aug, [facility] [address] [id number] [place] [address] Aug, [facility] [address] [id number] [place] [address] Jul, [facility] [address] [id number] [place] [address] Jul, [facility] [address] [id number] [place] [address] Jul, [facility] [address] [id number] [place] [address] Jul, [facility] [address] [id number] [place] [address] Jul, [facility] [address] [id number] [place] [address] Jul, [facility] [address] [id number] [place] [address] Jun, [facility] [address] [id number] [place] [address] Jun, [facility] [address] [id number] [place] [address] Jun, [facility] [address] [id number] [place] [address] Jun, [facility] [address] [id number] [place] [address] Jun, [facility] [address] [id number] [place] [address] Jun, [facility] [address] [id number] [place] [address] May, [facility] [address] [id number] [place] [address] 31 May, 2014 [facility] [address] [id number] [place] [address] May, [facility] [address] [facility] [id number] [place] [address] May, [facility] [address] [facility] [id number] [place] [address] May, [facility] [address] [facility] [id number] [place] [address] 24 Apr, 2014 [facility] [address] [facility] [id number] [place] [address] 24 Apr, 2014 [facility] [address] [id number] [place] [address] 16 Apr, 2014 [facility] [address] [id number] [place] [address] 16 Apr, 2014 [facility] [address] [id number] [place] [address] Apr, [facility] [address] [facility] [id number] [place] [address] Apr, [facility] [address] [id number] [place] [address] Mar, [facility] [address] [id number] [place] [address] Mar, [facility] [address] [id number] [place] [address] Mar, [facility] [address] [facility] [id number] [place] [address] Mar, [facility] [address] [id number] [place] [address] Jan, [facility] [address] [id number] [place] [address] Jan, [facility] [address] [id number] [place] [address] Jan, [facility] [address] [id number] [place] [address] Jan, [facility] [address] [id number] [place] [address] December, [facility] [address] [id number] [place] [address] December, [facility] [address] [id number] [place] [address] December, [facility] [address] [id number] [place] [address] December, [facility] [address] [id number] [place] [address] December, [facility] [address] [id number] [place] [address] December, [facility] [address] [id number] [place] [address] December, [facility] [address] [id number] [place] [address] December, [facility] [address] [id number] [place] [address] Nov, [facility] [address] [id number] [place] [address] Nov, [facility] [address] [id number] [place] [address] Oct, [facility] [address] [id number] [place] [address] Oct, [facility] [address] [id number] [place] [address] Sep, [facility] [address] [id number] [place] [address] Sep, [facility] [address] [id number] [place] [address] Aug, [facility] [address] [id number] [place] [address] Aug, [facility] [address] [facility] [id number] [place] [address] Aug, [facility] [address] [id number] [place] [address] Aug, [facility] [address] [id number] [place] [address] Jun, [facility] [address] [id number] [place] [address] Jun, [facility] [address] [id number] [place] [address] Jun, [facility] [address] [id number] [place] [address] Jun, [facility] [address] [id number] [place] [address] May, [facility] [address] [id number] [place] [address] May, [facility] [address] [id number] [place] [address] May, [facility] [address] [id number] [place] [address] May, [facility] [address] [id number] [place] [address] May, [facility] [address] [id number] [place] [address] Mar, [facility] [address] [id number] [place] [address] Mar, [facility] [address] [id number] [place] [address] Feb, [facility] [address] [id number] [place] [address] Jan, [facility] [address] [id number] [place] [address] December, [facility] [address] [id number] [place] [address] December, [facility] [address] [id number] [place] [address] Oct, [facility] [address] [id number] [place] [address] Aug, [facility] [address] [id number] [place] [address] Aug, [facility] [address] [id number] [place] [address] Aug, [facility] [address] [id number] [place] [address] Aug, [facility] [address] [id number] [place] [address] Aug, [facility] [address] [id number] [place] [address] 10 Jul, 2012 [facility] [address] [id number] [place] [address] Jul, [facility] [address] [id number] [place] [address] Jun, [facility] [address] [id number] [place] [address] Jun, [facility] [address] [id number] [place] [address] Jun, [facility] [address] [id number] [place] [address] Jun, [facility] [address] [id number] [place] [address] May, [facility] [id number] [place] [address] May, [facility] [address] [id number] [place] [address] May, [facility] [address] [id number] [place] [address] Apr, [facility] [address] [id number] [place] [address] Mar, [facility] [address] [id number] [place] [address] Mar, [facility] [address] [id number] [place] [address] Mar, [facility] [address] [id number] [place] [address] Mar, [facility] [address] [id number] [place] [address] Nov, [facility] [address] [id number] [place] [address] Nov, [facility] [address] [id number] [place] [address] Jul, [facility] [address] [id number] [place] [address] Jun, [facility] [address] [id number] [place] [address] Jul, [facility] [address] [id number] [place] [address] May, [facility] [address] [id number] [place] [address] Mar, [facility] [address] [id number] [place] [address] Jul, [facility] [address] [id number] [place] [address] Jul, [facility] [address] [id number] [place] [address] 24 Jun, 2009 [facility] [address] [id number] [place] [address] Jun, [facility] [address] [id number] [place] [address] Jun, [facility] [address] [id number] [place] [address] May, [facility] [address] [id number] [place] [address] May, [facility] [address] [id number] [place] [address] May, [facility] [address] [id number] [place] [address] 15 May, 2009 [facility] [address] [id number] [place] [address] May, [facility] [address] [id number] [place] [address] Apr, [facility] [address] [id number] [place] [address] Sep, [facility] [address] [id number] [place] [address] Jul, [facility] [address] [id number] [place] [address] May, IMMUNIZATIONS No Known Immunizations SOCIAL HISTORY [...]
--- OUTSIDE RECORDS SUMMARY | 2019-11-09 19:19 | XMS REPORT ---
Author Author Waqas QUINTANA Organization [facility] [place] Address [address] [place] [address] Care Team Providers Care Market Risk Analyst Name Role Phone EZEKIEL QUINTANA Unavailable PROBLEMS Type Condition ICD9-CM Code JPY90-VB Code Onset Dates Condition S tatus SNOMED Code Problem Mild intermittent asthma, uncomplicated J45.20 Active 149512395 Problem Gastro-esophageal reflux disease without esophagitis K21.9 Active 107735636 Problem Migraine without aura, intractable, with status migrainosu s G43.011 Active 70346478 Problem Insomnia, unspecified G47.00 Active 384033760 Problem Hypertriglyceridemia E78.1 Active 073693953 Problem Microcytic anemia D50.9 Active 23 3612968 Problem Dysthymia F34.1 Active 18399865 Problem Essential hypertension I10 Active 98868838 Problem Tension headache G44.209 Active 398 782429 Problem Chronic fatigue R53.82 Active 5270 2003 Problem Primary insomnia F51.01 Active 397 2004 Problem Psychophysiological insomnia F51.04 A ctive 396827231 Problem Seasonal allergic rhinitis due to pollen J30.1 Active 38534234 Problem Anxiety F41.9 Active 11083841 Problem Other chronic gastritis without hemorrhage K29.50 Active 9568258 Problem Environmental allergies Z91.09 Active 583980994 Problem Seasonal allergies J30.2 Active 4 17769867 Problem Irritable bowel syndrome with diarrhea K58.0 Active 201680027 Problem Night terrors, adult F51.4 Active 91239318 ALLERGIES No Information ENCOUNTERS Encounter Location Date Diagnosis [facility] [place] [address] [id number] [place] [address] Jul, [facility] [place] [address] [id number] [place] [address] Jul, [facility] [place] [address] [id number] [place] [address] Jul, [place] [address] [address] Jun, Anxiety F41.9 [place] [address] [address] Jun, Alcohol-induced acute pancreatitis, unsp ecified complication status K85.20 and Insomnia, unspecified G47.00 [place] [address] [address] Jun, Pneumonia due to infectious organism, un specified laterality, unspecified part of lung J18.9 ; Cervicalgia M54.2 ; Sudden idiopathic hearing loss of left ear with restricted hearing of right ear H91.22 ; Impacted cerumen, right ear H61.21 ; Generalized abdominal pain R10.84 and Psychophysiological insomnia F51.04 [place] [address] [address] Jun, [facility] [address] [facility] [id number] [address] [place] [address] Jun, Bilateral impacted cerumen H 61.23 and Tobacco abuse Z72.0 [place] [address] [address] Jun, Nausea R11.0 and Insomnia, unspecified G 47.00 [place] [address] [address] Jun, [place] [address] [address] May, [address] [place] [address] May, [place] [address] [address] Apr, Seasonal allergies J30.2 [place] [address] [address] Apr, Hematuria R31.9 [place] [address] [address] Apr, [place] [address] [address] Apr, [place] [address] [address] Apr, Anxiety F41.9 ; Polyuria R35.8 ; General ized abdominal pain R10.84 and Psychophysiological insomnia F51.04 [place] [address] [address] Apr, [place] [address] [address] Apr, Anxiety F41.9 ; Generalized abdominal pa in R10.84 ; Psychophysiological insomnia F51.04 and Polyuria R35.[address] [address] Mar, [address] [address] Feb, Lateral epicondylitis of left elbow M77. 12 and Night terrors, adult F51.[address] [address] Jan, Seasonal allergies J30.2 ; Acute non-rec urrent maxillary sinusitis J01.00 ; Acute gastritis without hemorrhage, unspecified gastritis type K29.00 and Irritable bowel syndrome with diarrhea K58.0 [place] [address] [address] December, [address] [address] Nov, Nausea R11.0 [place] [address] [address] Sep, [address] [address] Sep, Cough R05 ; Functional diarrhea K59.1 ; Primary insomnia F51.01 and Gastro-esophageal reflux disease without esophagitis K21.9 [place] [address] [address] Jul, Costochondral chest pain R07.1 ; Acute b ilateral low back pain without sciatica M54.5 and Essential hypertension I10 [place] [address] [address] Jul, [place] [address] [place] [id number] Jul, Microcytic anemia D50.9 [place] [address] [address] Jul, [place] [address] [address] Jun, Microcytic anemia D50.9 and LUQ abdomina l pain R10.12 [place] [address] [address] Jun, Microcytic anemia D50.9 [place] [address] [address] Jun, Microcytic anemia D50.9 and LUQ abdomina l pain R10.12 [place] [address] [address] Jun, [place] [address] [address] Jun, Essential hypertension I10 ; Tension hea dache G44.209 ; Nausea R11.0 ; Left upper quadrant abdominal pain of unknown etiology R10.12 and Chronic fatigue R53.82 [place] [address] [address] May, Gastro-esophageal reflux disease without esophagitis K21.9 [place] [address] [address] 17 Apr, 2018 Seasonal allergic rhinitis due to pollen J30.1 ; Migraine without aura, intractable, with status migrainosus G43.011 and Gastro-esophageal reflux disease without esophagitis K21.9 [place] [address] [address] Nov, Other chronic gastritis without hemorrha ge K29.50 [place] [address] [address] Sep, Sinus congestion R09.81 ; Bilateral impa cted cerumen H61.23 ; Insomnia, unspecified G47.00 and Nausea R11.0 [place] [address] [address] Aug, Insomnia, unspecified G47.00 [place] [address] [address] Aug, Bronchitis J40 [facility] [address] [facility] [id number] [address] [place] [address] Jul, Acute non-recurrent pansinus itis J01.40 [place] [address] [address] Jul, Insomnia, unspecified G47.00 [place] [address] [address] Jul, Insomnia, unspecified G47.00 ; Migraine without aura, intractable, with status migrainosus G43.011 and Nausea R11.0 [place] [address] [address] Jun, [place] [address] [address] May, [place] [address] [address] Feb, Hypertriglyceridemia E78.[address] [address] Jan, Migraine without aura, intractable, with status migrainosus G43.011 ; Hypertriglyceridemia E78.1 ; Nausea R11.0 ; Essential hypertension I10 ; Insomnia, unspecified G47.00 ; Gastro-esophageal reflux disease without esophagitis K21.9 and Dysthymia F34.1 [place] [address] [address] 15 Jan, 2017 Acute back pain, unspecified back locati on, unspecified back pain laterality M54.9 [place] [address] [address] 07 Jan, 2017 Bronchitis J40 and Wheezing R06.2 [place] [address] [address] December, Migraine without aura, intractable, with status migrainosus G43.011 [place] [address] [address] December, [place] [address] [address] Nov, [place] [address] [address] Nov, Bronchitis J40 [place] [address] [address] Sep, Nausea R11.0 and Acute bronchitis, unspe cified organism J20.9 [place] [address] [address] Aug, [place] [address] [address] Jun, Bronchitis J40 [place] [address] [address] May, Acute back pain, unspecified back locati on, unspecified back pain laterality M54.9 [place] [address] [address] Apr, [place] [address] [address] Apr, [place] [address] [address] Mar, [place] [address] [address] Mar, [facility] [place] [address] [address] Jan, Migraine without aura, intractable, with status migrainosus G43.011 [facility] [place] [address] [address] December, [facility] [place] [address] [address] Oct, [facility] [place] [address] [address] Sep, Upper respiratory infection J06.9 [facility] [place] [address] [address] Aug, [facility] [place] [address] [address] Jul, Cough R05 and Intractable migraine with status migrainosus, unspecified migraine type G43.911 [facility] [place] [address] [address] Jul, [facility] [place] [address] [address] Jul, [facility] [place] [address] [address] Jul, [facility] [place] [address] [address] May, [facility] [place] [address] [address] May, Migraine without aura, intractable, with status migrainosus G43.011 [facility] [place] [address] [address] May, Migraine without aura, intractable, with status migrainosus G43.011 ; Migraine 346.90 and Hypertriglyceridemia E78.1 [facility] [place] [address] [address] Apr, [facility] [address] [id number] [place] [address] Apr, Migraine 346.90 [facility] [address] [place] [id number] [place] [address] Mar, [facility] [address] [place] [id number] [place] [address] Mar, [facility] [address] [place] [id number] [place] [address] Mar, [facility] [address] [place] [id number] [place] [address] Feb, Sinusitis 473.9 and Migraine 346.90 [facility] [address] [place] [id number] [place] [address] Jan, [facility] [address] [place] [id number] [place] [address] Jan, Sinusitis 473.9 ; Insomnia 780.52 and Mi graine 346.90 [facility] [address] [place] [id number] [place] [address] December, [facility] [address] [place] [id number] [place] [address] December, [facility] [address] [place] [id number] [place] [address] December, [facility] [address] [place] [id number] [place] [address] Nov, [facility] [address] [place] [id number] [place] [address] Nov, [facility] [address] [place] [id number] [place] [address] Nov, [facility] [address] [place] [id number] [place] [address] Oct, [facility] [address] [place] [id number] [place] [address] Oct, [facility] [address] [place] [id number] [place] [address] Oct, [facility] [address] [facility] [id number] [place] [address] Oct, [facility] [address] [id number] [place] [address] Oct, [facility] [address] [id number] [place] [address] Oct, [facility] [address] [id number] [place] [address] Oct, [facility] [address] [facility] [id number] [place] [address] Oct, [facility] [address] [id number] [place] [address] Oct, [facility] [address] [id number] [place] [address] Oct, [facility] [address] [id number] [place] [address] Sep, [facility] [address] [id number] [place] [address] Sep, [facility] [address] [id number] [place] [address] Sep, [facility] [address] [id number] [place] [address] Sep, [facility] [address] [id number] [place] [address] Aug, [facility] [address] [id number] [place] [address] Aug, [facility] [address] [id number] [place] [address] Aug, [facility] [address] [id number] [place] [address] Aug, [facility] [address] [id number] [place] [address] Aug, [facility] [address] [id number] [place] [address] Aug, [facility] [address] [id number] [place] [address] Aug, [facility] [address] [id number] [place] [address] Jul, [facility] [address] [id number] [place] [address] Jul, [facility] [address] [id number] [place] [address] Jul, [facility] [address] [id number] [place] [address] Jul, [facility] [address] [id number] [place] [address] Jul, [facility] [address] [id number] [place] [address] Jul, [facility] [address] [id number] [place] [address] Jun, [facility] [address] [id number] [place] [address] Jun, [facility] [address] [id number] [place] [address] Jun, [facility] [address] [id number] [place] [address] Jun, [facility] [address] [id number] [place] [address] Jun, [facility] [address] [id number] [place] [address] Jun, [facility] [address] [id number] [place] [address] May, [facility] [address] [id number] [place] [address] May, [facility] [address] [id number] [place] [address] May, [facility] [address] [facility] [id number] [place] [address] May, [facility] [address] [facility] [id number] [place] [address] May, [facility] [address] [id number] [place] [address] Apr, [facility] [address] [facility] [id number] [place] [address] Apr, [facility] [address] [facility] [id number] [place] [address] Apr, [facility] [address] [facility] [id number] [place] [address] Apr, [facility] [address] [id number] [place] [address] Apr, [facility] [address] [id number] [place] [address] Apr, [facility] [address] [id number] [place] [address] Mar, [facility] [address] [id number] [place] [address] Mar, [facility] [address] [id number] [place] [address] Mar, [facility] [address] [id number] [place] [address] Mar, [facility] [address] [id number] [place] [address] Jan, [facility] [address] [id number] [place] [address] Jan, [facility] [address] [id number] [place] [address] Jan, [facility] [address] [id number] [place] [address] Jan, [facility] [address] [id number] [place] [address] December, [facility] [address] [id number] [place] [address] December, [facility] [address] [facility] [id number] [place] [address] December, [facility] [address] [id number] [place] [address] December, [facility] [address] [id number] [place] [address] December, [facility] [address] [facility] [id number] [place] [address] December, [facility] [address] [id number] [place] [address] December, [facility] [address] [id number] [place] [address] December, [facility] [address] [id number] [place] [address] Nov, [facility] [address] [facility] [id number] [place] [address] Nov, [facility] [address] [id number] [place] [address] Oct, [facility] [address] [id number] [place] [address] Oct, [facility] [address] [id number] [place] [address] Sep, [facility] [address] [facility] [id number] [place] [address] Sep, [facility] [address] [id number] [place] [address] Aug, [facility] [address] [id number] [place] [address] Aug, [facility] [address] [id number] [place] [address] Aug, [facility] [address] [id number] [place] [address] Aug, [facility] [address] [id number] [place] [address] Jun, [facility] [address] [id number] [place] [address] Jun, [facility] [address] [id number] [place] [address] Jun, [facility] [address] [id number] [place] [address] Jun, [facility] [address] [id number] [place] [address] May, [facility] [address] [id number] [place] [address] May, [facility] [address] [place] [id number] [place] [address] May, [facility] [address] [id number] [place] [address] May, [facility] [address] [id number] [place] [address] May, [facility] [address] [id number] [place] [address] Mar, [facility] [address] [id number] [place] [address] Mar, [facility] [address] [id number] [place] [address] Feb, [facility] [address] [id number] [place] [address] Jan, [facility] [address] [id number] [place] [address] December, [facility] [address] [id number] [place] [address] December, [facility] [address] [id number] [place] [address] Oct, [facility] [address] [id number] [place] [address] Aug, [facility] [address] [id number] [place] [address] 29 Aug, 2012 [facility] [address] [id number] [place] [address] 17 Aug, 2012 [facility] [address] [id number] [place] [address] 16 Aug, 2012 [facility] [address] [id number] [place] [address] Aug, [facility] [address] [id number] [place] [address] Jul, [facility] [address] [id number] [place] [address] Jul, [facility] [address] [id number] [place] [address] Jun, [facility] [address] [id number] [place] [address] Jun, [facility] [address] [id number] [place] [address] Jun, [facility] [address] [id number] [place] [address] Jun, [facility] [address] [id number] [place] [address] May, [facility] [address] [id number] [place] [address] May, [facility] [address] [id number] [place] [address] May, [facility] [address] [id number] [place] [address] Apr, [facility] [address] [id number] [place] [address] Mar, [facility] [address] [id number] [place] [address] Mar, [facility] [address] [id number] [place] [address] Mar, [facility] [address] [id number] [place] [address] Mar, [facility] [address] [id number] [place] [address] Nov, [facility] [address] [id number] [place] [address] Nov, [facility] [address] [id number] [place] [address] Jul, [facility] [address] [id number] [place] [address] Jun, [facility] [address] [id number] [place] [address] 30 Jul, 2010 [facility] [address] [id number] [place] [address] May, [facility] [address] [id number] [place] [address] Mar, [facility] [address] [id number] [place] [address] Jul, [facility] [address] [id number] [place] [address] Jul, [facility] [address] [id number] [place] [address] Jun, [facility] [address] [id number] [place] [address] Jun, [facility] [address] [id number] [place] [address] Jun, [facility] [address] [id number] [place] [address] May, [facility] [address] [id number] [place] [address] May, [facility] [place] [address] [id number] [place] [address] May, [facility] [place] [address] [id number] [place] [address] May, [facility] [place] [address] [id number] [place] [address] May, [facility] [place] [address] [id number] [place] [address] Apr, [facility] [place] [address] [id number] [place] [address] Sep, [facility] [place] [address] [id number] [place] [address] Jul, [facility] [place] [address] [id number] [place] [address] May, IMMUNIZATIONS No Known Immunizations SOCIAL HISTORY Never Assessed REASON FOR VISIT PLAN OF CARE VITAL SIGNS Height 66 in 2014-01-21 Weight 170 lbs 2014-01-21 Temperature 98 degrees Fahrenheit 2014-01-21 Heart Rate 74 bpm 2014-01-21 Respiratory Rate 20 2014-01-21 Blood pressure systolic 146 mmHg 2014-01-21 Blood pressure diastolic 80 mmHg 2014-01-21 MEDICATIONS Unknown Medications RESULTS No Results PROCEDURES [...]
--- OUTSIDE RECORDS SUMMARY | 2019-11-09 19:19 | XMS REPORT ---
Author Author LAURA Waqas RAMSAY [facility] Address [address] [place] [address] Care Team Providers Care Cms Expert Name Role Phone LAURASOBIA DYER Unavailable PROBLEMS Type Condition ICD9-CM Code LSF58-RY Code Onset Dates Condition S tatus SNOMED Code Problem Mild intermittent asthma, uncomplicated J45.20 Active 631911253 Problem Gastro-esophageal reflux disease without esophagitis K21.9 Active 945972933 Problem Migraine without aura, intractable, with status migrainosu s G43.011 Active 13239566 Problem Insomnia, unspecified G47.00 Active 579955316 Problem Hypertriglyceridemia E78.1 Active 273573342 Problem Microcytic anemia D50.9 Active 23 8269048 Problem Dysthymia F34.1 Active 54652676 Problem Essential hypertension I10 Active 14572886 Problem Tension headache G44.209 Active 398 660174 Problem Chronic fatigue R53.82 Active 5270 2003 Problem Primary insomnia F51.01 Active 397 2004 Problem Psychophysiological insomnia F51.04 A ctive 096937826 Problem Seasonal allergic rhinitis due to pollen J30.1 Active 85492447 Problem Anxiety F41.9 Active 22721741 Problem Other chronic gastritis without hemorrhage K29.50 Active 0559096 Problem Environmental allergies Z91.09 Active 037178991 Problem Seasonal allergies J30.2 Active 4 75982935 Problem Irritable bowel syndrome with diarrhea K58.0 Active 519305244 Problem Night terrors, adult F51.4 Active 11965044 ALLERGIES No Information ENCOUNTERS Encounter Location Date Diagnosis [facility] [address] [id number] [place] [address] Jul, [facility] [address] [id number] [place] [address] Jul, [facility] [address] [id number] [place] [address] Jul, [place] [address] [address] Jun, Anxiety F41.9 [place] [address] [address] Jun, Alcohol-induced acute pancreatitis, unsp ecified complication status K85.20 and Insomnia, unspecified G47.00 [place] [address] [address] Jun, Pneumonia due to infectious organism, un specified laterality, unspecified part of lung J18.9 ; Cervicalgia M54.2 ; Sudden idiopathic hearing loss of left ear with restricted hearing of right ear H91.22 ; Impacted cerumen, right ear H61.21 ; Generalized abdominal pain R10.84 and Psychophysiological insomnia F51.04 [place] [address] [address] Jun, [facility] [address] [facility] [id number] [address] [place] [address] Jun, Bilateral impacted cerumen H 61.23 and Tobacco abuse Z72.[address] [address] Jun, Nausea R11.0 and Insomnia, unspecified G 47.00 [place] [address] [address] Jun, [place] [address] [address] May, [address] [place] [address] May, [place] [address] [address] Apr, Seasonal allergies J30.2 [place] [address] [address] Apr, Hematuria R31.9 [place] [address] [address] Apr, [place] [address] [address] Apr, [place] [address] [address] Apr, Anxiety F41.9 ; Polyuria R35.8 ; General ized abdominal pain R10.84 and Psychophysiological insomnia F51.04 [place] [address] [address] Apr, [place] [address] [address] Apr, Anxiety F41.9 ; Generalized abdominal pa in R10.84 ; Psychophysiological insomnia F51.04 and Polyuria R35.8 [place] [address] [address] Mar, [place] [address] [address] Feb, Lateral epicondylitis of left elbow M77. 12 and Night terrors, adult F51.[address] [address] Jan, Seasonal allergies J30.2 ; Acute non-rec urrent maxillary sinusitis J01.00 ; Acute gastritis without hemorrhage, unspecified gastritis type K29.00 and Irritable bowel syndrome with diarrhea K58.0 [place] [address] [address] December, [address] [address] Nov, Nausea R11.0 [place] [address] [address] Sep, [address] [address] Sep, Cough R05 ; Functional diarrhea K59.1 ; Primary insomnia F51.01 and Gastro-esophageal reflux disease without esophagitis K21.9 [place] [address] [address] Jul, Costochondral chest pain R07.1 ; Acute b ilateral low back pain without sciatica M54.5 and Essential hypertension I10 [place] [address] [address] Jul, [place] [address] [place] [id number] Jul, Microcytic anemia D50.9 [place] [address] [address] Jul, [place] [address] [address] Jun, Microcytic anemia D50.9 and LUQ abdomina l pain R10.12 [place] [address] [address] Jun, Microcytic anemia D50.9 [place] [address] [address] Jun, Microcytic anemia D50.9 and LUQ abdomina l pain R10.12 [place] [address] [address] Jun, [place] [address] [address] Jun, Essential hypertension I10 ; Tension hea dache G44.209 ; Nausea R11.0 ; Left upper quadrant abdominal pain of unknown etiology R10.12 and Chronic fatigue R53.82 [place] [address] [address] May, Gastro-esophageal reflux disease without esophagitis K21.9 [place] [address] [address] Apr, Seasonal allergic rhinitis due to pollen J30.1 ; Migraine without aura, intractable, with status migrainosus G43.011 and Gastro-esophageal reflux disease without esophagitis K21.9 [place] [address] [address] Nov, Other chronic gastritis without hemorrha ge K29.50 [place] [address] [address] Sep, Sinus congestion R09.81 ; Bilateral impa cted cerumen H61.23 ; Insomnia, unspecified G47.00 and Nausea R11.0 [place] [address] [address] Aug, Insomnia, unspecified G47.[address] [address] Aug, Bronchitis J40 [facility] [place] [address] [facility] [id number] [address] [place] [address] Jul, Acute non-recurrent pansinus itis J01.[address] [address] Jul, Insomnia, unspecified G47.[address] [address] Jul, Insomnia, unspecified G47.00 ; Migraine without aura, intractable, with status migrainosus G43.011 and Nausea R11.0 [place] [address] [address] Jun, [address] [address] May, [address] [address] Feb, Hypertriglyceridemia E78.[address] [address] Jan, Migraine without aura, intractable, with status migrainosus G43.011 ; Hypertriglyceridemia E78.1 ; Nausea R11.0 ; Essential hypertension I10 ; Insomnia, unspecified G47.00 ; Gastro-esophageal reflux disease without esophagitis K21.9 and Dysthymia F34.1 [place] [address] [address] 15 Jan, 2017 Acute back pain, unspecified back locati on, unspecified back pain laterality M54.9 [place] [address] [address] 07 Jan, 2017 Bronchitis J40 and Wheezing R06.2 [place] [address] [address] December, Migraine without aura, intractable, with status migrainosus G43.011 [place] [address] [address] December, [place] [address] [address] Nov, [place] [address] [address] Nov, Bronchitis J40 [place] [address] [address] Sep, Nausea R11.0 and Acute bronchitis, unspe cified organism J20.9 [place] [address] [address] Aug, [place] [address] [address] Jun, Bronchitis J40 [place] [address] [address] May, Acute back pain, unspecified back locati on, unspecified back pain laterality M54.9 [place] [address] [address] Apr, [place] [address] [address] Apr, [place] [address] [address] Mar, [place] [address] [address] Mar, [facility] [address] [address] Jan, Migraine without aura, intractable, with status migrainosus G43.011 [facility] [address] [address] December, [facility] [address] [address] Oct, [facility] [address] [address] Sep, Upper respiratory infection J06.9 [facility] [address] [address] Aug, [facility] [address] [address] Jul, Cough R05 and Intractable migraine with status migrainosus, unspecified migraine type G43.911 [facility] [address] [address] Jul, [facility] [address] [address] Jul, [facility] [address] [address] Jul, [facility] [address] [address] May, [facility] [address] [address] May, Migraine without aura, intractable, with status migrainosus G43.011 [facility] [address] [address] May, Migraine without aura, intractable, with status migrainosus G43.011 ; Migraine 346.90 and Hypertriglyceridemia E78.1 [facility] [address] [address] Apr, [facility] [address] [place] [id number] [place] [address] Apr, Migraine 346.90 [facility] [address] [place] [id number] [place] [address] Mar, [facility] [address] [place] [id number] [place] [address] Mar, [facility] [address] [place] [id number] [place] [address] Mar, [facility] [address] [place] [id number] [place] [address] Feb, Sinusitis 473.9 and Migraine 346.90 [facility] [address] [place] [id number] [place] [address] Jan, [facility] [address] [address] Jan, Sinusitis 473.9 ; Insomnia 780.52 and Mi graine 346.90 [facility] [address] [place] [id number] [place] [address] December, [facility] [address] [place] [id number] [place] [address] December, [facility] [address] [place] [id number] [place] [address] December, [facility] [address] [place] [id number] [place] [address] Nov, [facility] [address] [place] [id number] [place] [address] Nov, [facility] [address] [place] [id number] [place] [address] Nov, [facility] [address] [place] [id number] [place] [address] Oct, [facility] [address] [place] [id number] [place] [address] Oct, [facility] [address] [place] [id number] [place] [address] Oct, [facility] [address] [facility] [id number] [facility] [address] Oct, [facility] [address] [facility] [id number] [facility] [address] Oct, [facility] [address] [id number] [place] [address] Oct, [facility] [address] [id number] [place] [address] Oct, [facility] [address] [facility] [id number] [facility] [address] Oct, [facility] [address] [id number] [place] [address] Oct, [facility] [address] [id number] [place] [address] Oct, [facility] [address] [id number] [place] [address] Sep, [facility] [address] [id number] [place] [address] Sep, [facility] [address] [id number] [place] [address] Sep, [facility] [address] [id number] [place] [address] Sep, [facility] [address] [id number] [place] [address] Aug, [facility] [address] [facility] [id number] [place] [address] Aug, [facility] [address] [id number] [place] [address] Aug, [facility] [address] [id number] [place] [address] Aug, [facility] [address] [id number] [place] [address] Aug, [facility] [address] [id number] [place] [address] Aug, [facility] [address] [id number] [place] [address] Aug, [facility] [address] [id number] [place] [address] Jul, [facility] [address] [id number] [place] [address] Jul, [facility] [address] [id number] [place] [address] Jul, [facility] [address] [id number] [place] [address] Jul, [facility] [address] [id number] [place] [address] Jul, [facility] [address] [id number] [place] [address] Jul, [facility] [address] [id number] [place] [address] Jun, [facility] [address] [id number] [place] [address] Jun, [facility] [address] [id number] [place] [address] Jun, [facility] [address] [id number] [place] [address] Jun, [facility] [address] [id number] [place] [address] Jun, [facility] [address] [id number] [place] [address] Jun, [facility] [address] [id number] [place] [address] May, [facility] [address] [id number] [place] [address] May, [facility] [address] [id number] [place] [address] May, [facility] [address] [id number] [place] [address] May, [facility] [address] [facility] [id number] [facility] [address] May, [facility] [address] [facility] [id number] [place] [address] Apr, [facility] [address] [id number] [place] [address] Apr, [facility] [address] [facility] [id number] [place] [address] 16 Apr, 2014 [facility] [address] [id number] [place] [address] Apr, [facility] [address] [id number] [place] [address] Apr, [facility] [address] [id number] [place] [address] Apr, [facility] [address] [facility] [id number] [place] [address] Mar, [facility] [address] [facility] [id number] [place] [address] Mar, [facility] [address] [facility] [id number] [place] [address] Mar, [facility] [address] [id number] [place] [address] Mar, [facility] [address] [facility] [id number] [place] [address] Jan, [facility] [address] [id number] [place] [address] Jan, [facility] [address] [facility] [id number] [place] [address] Jan, [facility] [address] [id number] [place] [address] Jan, [facility] [address] [id number] [place] [address] December, [facility] [address] [id number] [place] [address] December, [facility] [address] [id number] [place] [address] December, [facility] [address] [id number] [place] [address] December, [facility] [address] [id number] [place] [address] December, [facility] [address] [id number] [place] [address] December, [facility] [address] [id number] [place] [address] December, [facility] [address] [id number] [place] [address] December, [facility] [address] [id number] [place] [address] Nov, [facility] [address] [id number] [place] [address] Nov, [facility] [address] [id number] [place] [address] Oct, [facility] [address] [id number] [place] [address] Oct, [facility] [address] [id number] [place] [address] Sep, [facility] [address] [id number] [place] [address] Sep, [facility] [address] [id number] [place] [address] Aug, [facility] [address] [id number] [place] [address] Aug, [facility] [address] [id number] [place] [address] Aug, [facility] [address] [id number] [place] [address] Aug, [facility] [address] [id number] [place] [address] Jun, [facility] [address] [id number] [place] [address] Jun, [facility] [address] [id number] [place] [address] Jun, [facility] [address] [id number] [place] [address] Jun, [facility] [address] [id number] [place] [address] May, [facility] [address] [id number] [place] [address] May, [facility] [address] [place] [id number] [place] [address] May, [facility] [address] [id number] [place] [address] May, [facility] [address] [id number] [place] [address] May, [facility] [address] [id number] [place] [address] Mar, [facility] [address] [id number] [place] [address] Mar, [facility] [address] [id number] [place] [address] Feb, [facility] [address] [id number] [place] [address] Jan, [facility] [address] [id number] [place] [address] December, [facility] [address] [id number] [place] [address] December, [facility] [address] [id number] [place] [address] Oct, [facility] [address] [id number] [place] [address] 30 Aug, 2012 [facility] [address] [id number] [place] [address] 29 Aug, 2012 [facility] [address] [id number] [place] [address] 17 Aug, 2012 [facility] [address] [id number] [place] [address] 16 Aug, 2012 [facility] [address] [id number] [place] [address] Aug, [facility] [address] [id number] [place] [address] Jul, [facility] [address] [id number] [place] [address] Jul, [facility] [address] [id number] [place] [address] Jun, [facility] [address] [id number] [place] [address] Jun, [facility] [address] [id number] [place] [address] Jun, [facility] [address] [id number] [place] [address] Jun, [facility] [address] [id number] [place] [address] May, [facility] [address] [id number] [place] [address] May, [facility] [address] [id number] [place] [address] May, [facility] [address] [id number] [place] [address] Apr, [facility] [address] [id number] [place] [address] Mar, [facility] [address] [id number] [place] [address] 20 Mar, 2012 [facility] [address] [id number] [place] [address] Mar, [facility] [address] [id number] [place] [address] 15 Mar, 2012 [facility] [address] [id number] [place] [address] Nov, [facility] [address] [id number] [place] [address] Nov, [facility] [address] [id number] [place] [address] Jul, [facility] [address] [id number] [place] [address] Jun, [facility] [address] [id number] [place] [address] 30 Jul, 2010 [facility] [address] [id number] [place] [address] May, [facility] [address] [id number] [place] [address] Mar, [facility] [address] [id number] [place] [address] Jul, [facility] [address] [id number] [place] [address] Jul, [facility] [address] [id number] [place] [address] Jun, [facility] [address] [id number] [place] [address] Jun, [facility] [address] [id number] [place] [address] Jun, [facility] [address] [id number] [place] [address] May, [facility] [address] [id number] [place] [address] May, [facility] [address] [id number] [place] [address] May, [facility] [address] [id number] [place] [address] May, [facility] [address] [id number] [place] [address] May, [facility] [address] [id number] [place] [address] Apr, [facility] [address] [id number] [place] [address] Sep, [facility] [address] [id number] [place] [address] Jul, [facility] [address] [id number] [place] [address] May, IMMUNIZATIONS No Known Immunizations SOCIAL HISTORY Never Assessed REASON FOR VISIT PLAN OF CARE VITAL SIGNS Height 66 in 2014-01-29 Weight 172.6 lbs 2014-01-29 Temperature 96.2 degrees Fahrenheit 2014-01-29 Heart Rate 72 bpm 2014-01-29 Respiratory Rate 24 2014-01-29 Blood pressure systolic 142 mmHg 2014-01-29 Blood pressure diastolic 90 mmHg 2014-01-29 MEDICATIONS Unknown Medications RESULTS No Results PROCEDURES [...]
--- OUTSIDE RECORDS SUMMARY | 2019-11-09 19:24 | XMS REPORT | Continuity of Care Document ---
Author Organization Unknown Address Unknown Phone Unavailable Allergies Active Description Code Type Severity Reaction Onset Reported/Identified Relationship to Patient Clinical Status Yes No Known Drug Allergies [id number] Drug Allergy Unknown N/A 08/09/2013 Medications There is no data. Problems Date Dx Coded Attending Type Code Diagnosis Diagnosed By 02/13/2008 272.4 HYPE RLIPIDEMIA UNSPECIFIED 02/13/2008 401.1 ESSE NTIAL HYPERTENSION BENIGN 02/13/2008 535.50 GAS TRITIS 02/13/2008 780.52 INS OMNIA RELATED KNOWN AXIS III FACTOR 02/13/2008 784.0 KATIE GN HEADACHE SYNDROMES 02/13/2008 [facility] [facility], EZEKIEL S 272.4 HYPERLIPIDEMIA UNSPECIFIED 02/13/2008 MAR[facility] [facility], EZEKIEL S 401.1 ESSENTIAL HYPERTENSION BENIGN 02/13/2008 MAR[facility] [facility], EZEKIEL S 535.50 GASTRITIS 02/13/2008 MAR[facility] [facility], EZEKIEL S 780.52 INSOMNIA RELATED KNOWN AXIS III FACTOR 02/13/2008 MAR[facility] [facility], EZEKIEL S 784.0 BENIGN HEADACHE SYNDROMES 02/13/2008 MAR[facility] [facility], EZEKIEL S 272.4 HYPERLIPIDEMIA UNSPECIFIED 02/13/2008 MARIAN[facility] [facility], EZEKIEL S 401.1 ESSENTIAL HYPERTENSION BENIGN 02/13/2008 MARIANO [facility] [facility], EZEKIEL S 535.50 GASTRITIS 02/13/2008 MARIAN[facility] [facility], EZEKIEL S 780.52 INSOMNIA RELATED KNOWN AXIS III FACTOR 02/13/2008 MARIAN[facility] [facility], EZEKIEL S 784.0 BENIGN HEADACHE SYNDROMES 02/13/2008 MARIAN[facility] [facility], EZEKIEL S 272.4 HYPERLIPIDEMIA UNSPECIFIED 02/13/2008 MAR[facility] [facility], EZEKIEL S 401.1 ESSENTIAL HYPERTENSION BENIGN 02/13/2008 MARIANO [facility] [facility], EZEKIEL S 535.50 GASTRITIS 02/13/2008 MARIANO CHAVEZ, EZEKIEL S 780.52 INSOMNIA RELATED KNOWN AXIS III FACTOR 02/13/2008 MAR[facility] [facility], EZEKIEL S 784.0 BENIGN HEADACHE SYNDROMES 02/13/2008 LONG DO, AGNIESZKA K 272.4 HYPERLIPIDEMIA UNSPECIFIED 02/13/2008 LONG DO, AGNIESZKA K 401.1 ESSENTIAL HYPERTENSION BENIGN 02/13/2008 LONG DO, AGNIESZKA K 535.50 GASTRITIS 02/13/2008 LONG DO, AGNIESZKA K 780.52 INSOMNIA RELATED KNOWN AXIS III FACTOR 02/13/2008 LONG DO, AGNIESZKA K 784.0 BENIGN HEADACHE SYNDROMES 02/13/2008 [facility], EZEKIEL S 272.4 HYPERLIPIDEMIA UNSPECIFIED 02/13/2008 MARIANO [facility] [facility], EZEKIEL S 401.1 ESSENTIAL HYPERTENSION BENIGN 02/13/2008 MARIAN[facility], EZEKIEL S 535.50 GASTRITIS 02/13/2008 MAR[facility], EZEKIEL S 780.52 INSOMNIA RELATED KNOWN AXIS III FACTOR 02/13/2008 MAR[facility] [facility], EZEKIEL S 784.0 BENIGN HEADACHE SYNDROMES 02/13/2008 MARIANO MOELLERN EZEKIEL S 272.4 HYPERLIPIDEMIA UNSPECIFIED 02/13/2008 MARIAN[facility], EZEKIEL S 401.1 ESSENTIAL HYPERTENSION BENIGN 02/13/2008 MARIANO [facility] [facility], EZEKIEL S 535.50 GASTRITIS 02/13/2008 MARIANO [facility] [facility], EZEKIEL S 780.52 INSOMNIA RELATED KNOWN AXIS III FACTOR 02/13/2008 MARIAN[facility], EZEKIEL S 784.0 BENIGN HEADACHE SYNDROMES 02/13/2008 MARIAN[facility] [facility], EZEKIEL S 272.4 HYPERLIPIDEMIA UNSPECIFIED 02/13/2008 MARIANO CHAVEZ EZEKIEL S 401.1 ESSENTIAL HYPERTENSION BENIGN 02/13/2008 MAR[facility], EZEKIEL S 535.50 GASTRITIS 02/13/2008 MARIANO [facility] [facility], EZEKIEL S 780.52 INSOMNIA RELATED KNOWN AXIS III FACTOR 02/13/2008 MARIANO [facility], EZEKIEL S 784.0 BENIGN HEADACHE SYNDROMES 02/13/2008 MARIANO [facility], EZEKIEL S 272.4 HYPERLIPIDEMIA UNSPECIFIED 02/13/2008 MARIANO [facility] [facility], EZEKIEL S 401.1 ESSENTIAL HYPERTENSION BENIGN 02/13/2008 MARIANO [facility], EZEKIEL S 535.50 GASTRITIS 02/13/2008 BLESSING QUINTANA APRNNDA S 780.52 INSOMNIA RELATED KNOWN AXIS III FACTOR 02/13/2008 BLESSING QUINTANA APRNNDA S 784.0 BENIGN HEADACHE SYNDROMES 02/13/2008 SOBIA SANCHEZ MD N 272 .4 HYPERLIPIDEMIA UNSPECIFIED 02/13/2008 SOBIA SANCHEZ MD N 401 .1 ESSENTIAL HYPERTENSION BENIGN 02/13/2008 SOBIA SANCHEZ MD N 535 .50 GASTRITIS 02/13/2008 SOBIA SANCHEZ MD N 780 .52 INSOMNIA RELATED KNOWN AXIS III FACTOR 02/13/2008 SOBIA SANCHEZ MD N 784 .0 BENIGN HEADACHE SYNDROMES 02/13/2008 BLESSING QUINTANA APRNNDA S 272.4 HYPERLIPIDEMIA UNSPECIFIED 02/13/2008 BLESSING QUINTANA APRNNDA S 401.1 ESSENTIAL HYPERTENSION BENIGN 02/13/2008 BLESSING QUINTANA APRNNDA S 535.50 GASTRITIS 02/13/2008 BLESSING QUINTANA APRNNDA S 780.52 INSOMNIA RELATED KNOWN AXIS III FACTOR 02/13/2008 BLESSING QUINTANA APRNNDA S 784.0 BENIGN HEADACHE SYNDROMES 02/13/2008 BLESSING QUINTANA APRNNDA S 272.4 HYPERLIPIDEMIA UNSPECIFIED 02/13/2008 BLESSING QUINTANA APRNNDA S 401.1 ESSENTIAL HYPERTENSION BENIGN 02/13/2008 MARIANO CHAVEZ EZEKIEL S 535.50 GASTRITIS 02/13/2008 BLESSING QUINTANA APRNNDA S 780.52 INSOMNIA RELATED KNOWN AXIS III FACTOR 02/13/2008 BLESSING QUINTANA APRNNDA S 784.0 BENIGN HEADACHE SYNDROMES 02/13/2008 LONG DO, AGNIESZKA K 272.4 HYPERLIPIDEMIA UNSPECIFIED 02/13/2008 LONG DO, AGNIESZKA K 401.1 ESSENTIAL HYPERTENSION BENIGN 02/13/2008 LONG DO, AGNIESZKA K 535.50 GASTRITIS 02/13/2008 LONG DO, AGNIESZKA K 780.52 INSOMNIA RELATED KNOWN AXIS III FACTOR 02/13/2008 LONG DO, AGNIESZKA K 784.0 BENIGN HEADACHE SYNDROMES 02/13/2008 MARIANO CHAVEZ EZEKIEL S 272.4 HYPERLIPIDEMIA UNSPECIFIED 02/13/2008 MARIANO CHAVEZ EZEKIEL S 401.1 ESSENTIAL HYPERTENSION BENIGN 02/13/2008 MARIANO CHAVEZ EZEKIEL S 535.50 GASTRITIS 02/13/2008 MAR[facility], EZEKIEL S 780.52 INSOMNIA RELATED KNOWN AXIS III FACTOR 02/13/2008 MARIANO [facility], EZEKIEL S 784.0 BENIGN HEADACHE SYNDROMES 02/13/2008 MARIANO MFG ASS[facility], EZEKIEL S 272.4 HYPERLIPIDEMIA UNSPECIFIED 02/13/2008 MARIANO [facility]FG [facility], EZEKIEL S 401.1 ESSENTIAL HYPERTENSION BENIGN 02/13/2008 MARIANO [facility], EZEKIEL S 535.50 GASTRITIS 02/13/2008 MARIANO [facility], EZEKIEL S 780.52 INSOMNIA RELATED KNOWN AXIS III FACTOR 02/13/2008 MARIANO [facility], EZEKIEL S 784.0 BENIGN HEADACHE SYNDROMES 02/13/2008 MARIANO [facility], EZEKIEL S 272.4 HYPERLIPIDEMIA UNSPECIFIED 02/13/2008 MARIANO M[facility], EZEKIEL S 401.1 ESSENTIAL HYPERTENSION BENIGN 02/13/2008 MARIANO [facility], EZEKIEL S 535.50 GASTRITIS 02/13/2008 MARIANO M[facility], EZEKIEL S 780.52 INSOMNIA RELATED KNOWN AXIS III FACTOR 02/13/2008 MARIANO M[facility], EZEKIEL S 784.0 BENIGN HEADACHE SYNDROMES 02/13/2008 MARIANO MFG ASS[facility], EZEKIEL S 272.4 HYPERLIPIDEMIA UNSPECIFIED 02/13/2008 MARIANO MFG ASS[facility], EZEKIEL S 401.1 ESSENTIAL HYPERTENSION BENIGN 02/13/2008 MARIANO MFG ASS[facility], EZEKIEL S 535.50 GASTRITIS 02/13/2008 MARIANO [facility], EZEKIEL S 780.52 INSOMNIA RELATED KNOWN AXIS III FACTOR 02/13/2008 MARIANO [facility], EZEKIEL S 784.0 BENIGN HEADACHE SYNDROMES 05/16/2008 787.02 nausea 05/16/2008 MARIANO [facility], EZEKIEL S 787.02 nausea 05/16/2008 MARIAN[facility], EZEKIEL S 787.02 nausea 05/16/2008 MARIANO M[facility], EZEKIEL S 787.02 nausea 05/16/2008 AGNIESZKA LONG DO 787.02 nausea 05/16/2008 MARIANO [facility], EZEKIEL S 787.02 nausea 05/16/2008 MARIANO [facility], EZEKIEL S 787.02 nausea 05/16/2008 MARIANO CHAVEZ, EZEKIEL S 787.02 nausea 05/16/2008 MARIANO CHAVEZ, EZEKIEL S 787.02 nausea 05/16/2008 SOBIA SANCHEZ MD 787 .02 NAUSEA 05/16/2008 MARIANO CHAVEZ, EZEKIEL S 787.02 NAUSEA 05/16/2008 MARIANO CHAVEZ, EZEKIEL S 787.02 NAUSEA 05/16/2008 MERCEDES FLORES AGNIESZKA K 787.02 NAUSEA 05/16/2008 MARIANO CHAVEZ, EZEKIEL S 787.02 NAUSEA 05/16/2008 MARIANO CHAVEZ, EZEKIEL S 787.02 NAUSEA 05/16/2008 MARIANO CHAVEZ, EZEKIEL S 787.02 NAUSEA 05/16/2008 MARIANO CHAVEZ, EZEKIEL S 787.02 nausea 05/20/2008 783.21 rec ent weight loss (___ lbs) [reported] 05/20/2008 BLESSING QUINTANA APRNNDA S 783.21 recent weight loss (___ lbs) [reported] 05/20/2008 BLESSING QUINTANA APRNNDA S 783.21 recent weight loss (___ lbs) [reported] 05/20/2008 BLESSING QUINTANA APRNNDA S 783.21 recent weight loss (___ lbs) [reported] 05/20/2008 AGNIESZKA LONG DO K 783.21 recent weight loss (___ lbs) [reported] 05/20/2008 BLESSING QUINTANA APRNNDA S 783.21 recent weight loss (___ lbs) [reported] 05/20/2008 BLESSING QUINTANA APRNNDA S 783.21 recent weight loss (___ lbs) [reported] 05/20/2008 BLESSING QUINTANA APRNNDA S 783.21 recent weight loss (___ lbs) [reported] 05/20/2008 MARIANO CHAVEZ EZEKIEL S 783.21 recent weight loss (___ lbs) [reported] 05/20/2008 SOBIA SANCHEZ MD 783 .21 recent weight loss (___ lbs) [reported] 05/20/2008 BLESSING QUINTANA APRNNDA S 783.21 recent weight loss (___ lbs) [reported] 05/20/2008 GEMA QUINTANA APRNA S 783.21 recent weight loss (___ lbs) [reported] 05/20/2008 AGNIESZKA LONG DO K 783.21 recent weight loss (___ lbs) [reported] 05/20/2008 GEMA QUINTANA APRNA S 783.21 recent weight loss (___ lbs) [reported] 05/20/2008 BLESSING QUINTANA APRNNDA S 783.21 recent weight loss (___ lbs) [reported] 05/20/2008 BLESSING QUINTANA APRNNDA S 783.21 recent weight loss (___ lbs) [reported] 05/20/2008 BLESSING QUINTANA APRNNDA S 783.21 recent weight loss (___ lbs) [reported] 07/24/2008 787.01 jennifer sea with vomiting 07/24/2008 GEMA QUINTANA APRNA S 787.01 nausea with vomiting 07/24/2008 BLESSING QUINTANA APRNNDA S 787.01 nausea with vomiting 07/24/2008 BLESSING QUINTANA APRNNDA S 787.01 nausea with vomiting 07/24/2008 LEEANNE LONG DOA K 787.01 nausea with vomiting 07/24/2008 BLESSING QUINTANA APRNNDA S 787.01 nausea with vomiting 07/24/2008 BLESSING QUINTANA APRNNDA S 787.01 nausea with vomiting 07/24/2008 BLESSING QUINTANA APRNNDA S 787.01 nausea with vomiting 07/24/2008 MARIANO CHAVEZ EZEKIEL S 787.01 nausea with vomiting 07/24/2008 SOBIA SANCHEZ MD 787 .01 nausea with vomiting 07/24/2008 MARIANO CHAVEZ EZEKIEL S 787.01 nausea with vomiting 07/24/2008 MARIANO CHAVEZ EZEKIEL S 787.01 nausea with vomiting 07/24/2008 LEEANNE LONG DOA K 787.01 nausea with vomiting 07/24/2008 BLESSING QUINTANA APRNNDA S 787.01 nausea with vomiting 07/24/2008 MARIANO MOELLERNBLESSINGEZEKIEL S 787.01 nausea with vomiting 07/24/2008 MARIAN[facility], EZEKIEL S 787.01 nausea with vomiting 07/24/2008 MARIANO [facility], EZEKIEL S 787.01 nausea with vomiting 09/25/2008 276.50 VOL UME DEPLETION 09/25/2008 MARIANO [facility], EZEKIEL S 276.50 VOLUME DEPLETION 09/25/2008 MARIANO M[facility], EZEKIEL S 276.50 VOLUME DEPLETION 09/25/2008 MARIANO MFG ASSOCBLESSINGEZEKIEL S 276.50 VOLUME DEPLETION 09/25/2008 LONG DO, AGNIESZKA K 276.50 VOLUME DEPLETION 09/25/2008 MARIANO M[employer] [facility], EZEKIEL S 276.50 VOLUME DEPLETION 09/25/2008 MARIANO M[facility], EZEKIEL S 276.50 VOLUME DEPLETION 09/25/2008 MARIANO MOELLERN, EZEKIEL S 276.50 VOLUME DEPLETION 09/25/2008 MARIANO CHAVEZ EZEKIEL S 276.50 VOLUME DEPLETION 09/25/2008 SOBIA SANCHEZ MD 276 .50 VOLUME DEPLETION 09/25/2008 MARIANO [facility], EZEKIEL S 276.50 VOLUME DEPLETION 09/25/2008 MARIANO MOELLERN, EZEKIEL S 276.50 VOLUME DEPLETION 09/25/2008 LONG DO, AGNIESZKA K 276.50 VOLUME DEPLETION 09/25/2008 MARIANO [facility], EZEKIEL S 276.50 VOLUME DEPLETION 09/25/2008 MARIANO CHAVEZ, EZEKIEL S 276.50 VOLUME DEPLETION 09/25/2008 MARIANO MOELLERN, EZEKIEL S 276.50 VOLUME DEPLETION 09/25/2008 MARIANO [facility], EZEKIEL S 276.50 VOLUME DEPLETION 05/22/2009 300.00 anxiety 05/22/2009 MARIANO MOELLERN, EZEKIEL S 300.00 anxiety 05/22/2009 MARIANO MFG ASSOC EZEKIEL S 300.00 anxiety 05/22/2009 MARIANO [facility], EZEKIEL S 300.00 anxiety 05/22/2009 LONG DO, AGNIESZKA K 300.00 anxiety 05/22/2009 MARIANO MOELLERN EZEKIEL S 300.00 anxiety 05/22/2009 MARIANO MFG ASS[facility], EZEKIEL S 300.00 anxiety 05/22/2009 MARIANO MFG [facility], EZEKIEL S 300.00 anxiety 05/22/2009 MARIANO MFG ASSOC, EZEKIEL S 300.00 anxiety 05/22/2009 SOBIA SANCHEZ MD N 300 .00 anxiety 05/22/2009 MARIANO M[facility], EZEKIEL S 300.00 anxiety 05/22/2009 MARIANO MFG [facility], EZEKIEL S 300.00 anxiety 05/22/2009 LONG DO, AGNIESZKA K 300.00 anxiety 05/22/2009 MARIANO MFG ASSOC, EZEKIEL S 300.00 anxiety 05/22/2009 MARIANO MFG ASSOC, EZEKIEL S 300.00 anxiety 05/22/2009 MARIANO M[facility], EZEKIEL S 300.00 anxiety 05/22/2009 MARIANO MFG [facility], EZEKIEL S 300.00 anxiety 07/19/2009 300.02 GEN ERALIZED ANXIETY DISORDER 07/19/2009 MARIANO MFG [facility], EZEKIEL S 300.02 GENERALIZED ANXIETY DISORDER 07/19/2009 MARIANO MFG ASS[facility], EZEKIEL S 300.02 GENERALIZED ANXIETY DISORDER 07/19/2009 MARIANO MFG ASSOC, EZEKIEL S 300.02 GENERALIZED ANXIETY DISORDER 07/19/2009 LONG DO, AGNIESZKA K 300.02 GENERALIZED ANXIETY DISORDER 07/19/2009 MARIANO MFG ASSOC, EZEKIEL S 300.02 GENERALIZED ANXIETY DISORDER 07/19/2009 MARIANO MFG ASSOC, EZEKIEL S 300.02 GENERALIZED ANXIETY DISORDER 07/19/2009 MARIANO MFG ASSOC, EZEKIEL S 300.02 GENERALIZED ANXIETY DISORDER 07/19/2009 MARIANO MFG ASSOC, EZEKIEL S 300.02 GENERALIZED ANXIETY DISORDER 07/19/2009 SOBIA SANCHEZ MD N 300 .02 GENERALIZED ANXIETY DISORDER 07/19/2009 MARIANO MFG [facility], EZEKIEL S 300.02 GENERALIZED ANXIETY DISORDER 07/19/2009 MARIANO MFG ASSOC, EZEKIEL S 300.02 GENERALIZED ANXIETY DISORDER 07/19/2009 LONG DO, AGNIESZKA K 300.02 GENERALIZED ANXIETY DISORDER 07/19/2009 MARIANO MFG ASSOC, EZEKIEL S 300.02 GENERALIZED ANXIETY DISORDER 07/19/2009 MARIANO MFG ASSOC, EZEKIEL S 300.02 GENERALIZED ANXIETY DISORDER 07/19/2009 MARIANO MFG ASSOC, EZEKIEL S 300.02 GENERALIZED ANXIETY DISORDER 07/19/2009 MARIANO MFG ASSOC, EZEKIEL S 300.02 GENERALIZED ANXIETY DISORDER 09/24/2009 307.47 NIG HTMARE DISORDER 09/24/2009 MARIANO MFG ASSOC, EZEKIEL S 307.47 NIGHTMARE DISORDER 09/24/2009 MARIANO MFG ASSOC, EZEKIEL S 307.47 NIGHTMARE DISORDER 09/24/2009 MARIANO MFG ASSOC, EZEKIEL S 307.47 NIGHTMARE DISORDER 09/24/2009 AGNIESZKA LONG DO 307.47 NIGHTMARE DISORDER 09/24/2009 MARIANO MFG ASSOC, EZEKIEL S 307.47 NIGHTMARE DISORDER 09/24/2009 MARIANO MFG ASSOC, EZEKIEL S 307.47 NIGHTMARE DISORDER 09/24/2009 MARIANO MFG ASSOC, EZEKIEL S 307.47 NIGHTMARE DISORDER 09/24/2009 MARIANO MFG ASSOC, EZEKIEL S 307.47 NIGHTMARE DISORDER 09/24/2009 LAURA ACOSTA, SOBIA Orellana 307 .47 NIGHTMARE DISORDER 09/24/2009 MARIANO MFG ASSOC, EZEKIEL S 307.47 NIGHTMARE DISORDER 09/24/2009 MARIANO MFG ASSOC, EZEKIEL S 307.47 NIGHTMARE DISORDER 09/24/2009 AGNIESZKA LONG DO K 307.47 NIGHTMARE DISORDER 09/24/2009 MARIANO MFG ASSOC, EZEKIEL S 307.47 NIGHTMARE DISORDER 09/24/2009 MARIANO MFG ASSOC, EZEKIEL S 307.47 NIGHTMARE DISORDER 09/24/2009 MARIANO MFG ASSOC, EZEKIEL S 307.47 NIGHTMARE DISORDER 09/24/2009 MARIANO MFG ASSOC, EZEKIEL S 307.47 NIGHTMARE DISORDER 04/02/2011 558.9 OTONIEL ROENTERITIS 04/02/2011 MARIANO MFG ASSOC, EZEKIEL S 558.9 GASTROENTERITIS 04/02/2011 MARIANO MFG ASSOC, EZEKIEL S 558.9 GASTROENTERITIS 04/02/2011 MARIANO MFG ASSOC, EZEKIEL S 558.9 GASTROENTERITIS 04/02/2011 AGNIESZKA LONG DO K 558.9 GASTROENTERITIS 04/02/2011 MARIANO MFG ASSOC, EZEKIEL S 558.9 GASTROENTERITIS 04/02/2011 MARIANO MFG ASSOC, EZEKIEL S 558.9 GASTROENTERITIS 04/02/2011 MARIANO MFG ASSOC, EZEKIEL S 558.9 GASTROENTERITIS 04/02/2011 MARIANO MFG ASSOC, EZEKIEL S 558.9 GASTROENTERITIS 04/02/2011 LAURA ACOSTA, SOBIA N 558 .9 GASTROENTERITIS 04/02/2011 MARIANO MFG ASSOC, EZEKIEL S 558.9 GASTROENTERITIS 04/02/2011 MARIANO MFG ASSOC, EZEKIEL S 558.9 GASTROENTERITIS 04/02/2011 LONG DO, AGNIESZKA K 558.9 GASTROENTERITIS 04/02/2011 MARIANO MFG ASSOC, EZEKIEL S 558.9 GASTROENTERITIS 04/02/2011 MARIANO MFG ASSOC, EZEKIEL S 558.9 GASTROENTERITIS 04/02/2011 MARIANO MFG ASSOC, EZEKIEL S 558.9 GASTROENTERITIS 04/02/2011 MARIANO MFG ASSOC, EZEKIEL S 558.9 GASTROENTERITIS 03/22/2012 466.0 BRON CHITIS, ACUTE 03/22/2012 MARIANO MFG ASSOC, EZEKIEL S 466.0 BRONCHITIS, ACUTE 03/22/2012 MARIANO MFG ASSOC, EZEKIEL S 466.0 BRONCHITIS, ACUTE 03/22/2012 MARIANO MFG ASSOC, EZEKIEL S 466.0 BRONCHITIS, ACUTE 03/22/2012 LONG , AGNIESZKA K 466.0 BRONCHITIS, ACUTE 03/22/2012 MARIANO MFG ASSOC, EZEKIEL S 466.0 BRONCHITIS, ACUTE 03/22/2012 MARIANO MFG ASSOC, EZEKIEL S 466.0 BRONCHITIS, ACUTE 03/22/2012 MARIANO MFG ASSOC, EZEKIEL S 466.0 BRONCHITIS, ACUTE 03/22/2012 MARIANO MFG ASSOC, EZEKIEL S 466.0 BRONCHITIS, ACUTE 03/22/2012 SOBIA SANCHEZ MD N 466 .0 BRONCHITIS, ACUTE 03/22/2012 MARIANO MFG ASSOC, EZEKIEL S 466.0 BRONCHITIS, ACUTE 03/22/2012 MARIANO MFG ASSOC, EZEKIEL S 466.0 BRONCHITIS, ACUTE 03/22/2012 LONG DO AGNIESZKA K 466.0 BRONCHITIS, ACUTE 03/22/2012 MARIANO MFG ASSOC, EZEKIEL S 466.0 BRONCHITIS, ACUTE 03/22/2012 MARIANO MFG ASSOC, EZEKIEL S 466.0 BRONCHITIS, ACUTE 03/22/2012 MARIANO MFG ASSOC, EZEKIEL S 466.0 BRONCHITIS, ACUTE 03/22/2012 MARIANO MFG ASSOC, EZEKIEL S 466.0 BRONCHITIS, ACUTE 05/23/2012 477.0 CHICA RGIC RHINITIS DUE TO POLLEN 05/23/2012 530.81 GERD 05/23/2012 MARIANO MFG ASSOC, EZEKIEL S 477.0 ALLERGIC RHINITIS DUE TO POLLEN 05/23/2012 MARIANO MFG ASSOC, EZEKIEL S 530.81 GERD 05/23/2012 MARIANO MFG ASSOC, EZEKIEL S 477.0 ALLERGIC RHINITIS DUE TO POLLEN 05/23/2012 MARIANO MFG ASSOC, EZEKIEL S 530.81 GERD 05/23/2012 MARIANO MFG ASSOC, EZEKIEL S 477.0 ALLERGIC RHINITIS DUE TO POLLEN 05/23/2012 MARIANO MFG ASSOC, EZEKIEL S 530.81 GERD 05/23/2012 LONG DO, AGNIESZKA K 477.0 ALLERGIC RHINITIS DUE TO POLLEN 05/23/2012 LONG DO, AGNIESZKA K 530.81 GERD 05/23/2012 MARIANO MFG ASSOC, EZEKIEL S 477.0 ALLERGIC RHINITIS DUE TO POLLEN 05/23/2012 MARIANO MFG ASSOC, EZEKIEL S 530.81 GERD 05/23/2012 MARIANO MFG ASSOC, EZEKIEL S 477.0 ALLERGIC RHINITIS DUE TO POLLEN 05/23/2012 MARIANO MFG ASSOC, EZEKIEL S 530.81 GERD 05/23/2012 MARIANO MFG ASSOC, EZEKIEL S 477.0 ALLERGIC RHINITIS DUE TO POLLEN 05/23/2012 MARIANO MFG ASSOC, EZEKIEL S 530.81 GERD 05/23/2012 MARIANO MFG ASSOC, EZEKIEL S 477.0 ALLERGIC RHINITIS DUE TO POLLEN 05/23/2012 MARIANO MFG ASSOC, EZEKIEL S 530.81 GERD 05/23/2012 SOBIA SANCHEZ MD N 477 .0 ALLERGIC RHINITIS DUE TO POLLEN 05/23/2012 SOBIA SANCHEZ MD N 530 .81 GERD 05/23/2012 MARIANO MFG ASSOC, EZEKIEL S 477.0 ALLERGIC RHINITIS DUE TO POLLEN 05/23/2012 MARIANO MFG ASSOC, EZEKIEL S 530.81 GERD 05/23/2012 MARIANO MFG ASSOC, EZEKIEL S 477.0 ALLERGIC RHINITIS DUE TO POLLEN 05/23/2012 MARIANO MFG ASSOC, EZEKIEL S 530.81 GERD 05/23/2012 LONG DO, AGNIESZKA K 477.0 ALLERGIC RHINITIS DUE TO POLLEN 05/23/2012 LONG DO, AGNIESZKA K 530.81 GERD 05/23/2012 MARIANO MFG ASSOC, EZEKIEL S 477.0 ALLERGIC RHINITIS DUE TO POLLEN 05/23/2012 MARIANO MFG ASSOC, EZEKIEL S 530.81 GERD 05/23/2012 MARIANO MFG ASSOC, EZEKIEL S 477.0 ALLERGIC RHINITIS DUE TO POLLEN 05/23/2012 MARIANO MFG ASSOC, EZEKIEL S 530.81 GERD 05/23/2012 MARIANO MFG ASSOC, EZEKIEL S 477.0 ALLERGIC RHINITIS DUE TO POLLEN 05/23/2012 MARIANO MFG ASSOC, EZEKIEL S 530.81 GERD 05/23/2012 MARIANO MFG ASSOC, EZEKIEL S 477.0 ALLERGIC RHINITIS DUE TO POLLEN 05/23/2012 MARIANO MFG ASSOC, EZEKIEL S 530.81 GERD 08/22/2012 MARIANO MFG ASSOC, EZEKIEL S 780.79 fatigue 08/22/2012 MARIANO MFG ASSOC, EZEKIEL S 780.79 fatigue 08/22/2012 MARIANO MFG ASSOC, EZEKIEL S 780.79 fatigue 08/22/2012 LONG DO, AGNIESZKA K 780.79 fatigue 08/22/2012 MARIANO MFG ASSOC, EZEKIEL S 780.79 fatigue 08/22/2012 MARIANO MFG ASSOC, EZEKIEL S 780.79 fatigue 08/22/2012 MARIANO MFG ASSOC, EZEKIEL S 780.79 fatigue 08/22/2012 MARIANO MFG ASSOC, EZEKIEL S 780.79 fatigue 08/22/2012 SOBIA SANCHEZ MD 780 .79 fatigue 08/22/2012 MARIANO MFG ASSOC, EZEKIEL S 780.79 fatigue 08/22/2012 MARIANO MFG ASSOC, EZEKIEL S 780.79 fatigue 08/22/2012 LONG DO AGNIESZKA K 780.79 fatigue 08/22/2012 MARIANO MFG ASSOC, EZEKIEL S 780.79 FATIGUE 08/22/2012 MARIANO MFG ASSOC, EZEKIEL S 780.79 FATIGUE 08/22/2012 MARIANO MFG ASSOC, EZEKIEL S 780.79 FATIGUE 09/05/2012 MAIRANO MFG ASSOC, EZEKIEL S 307.42 PERSISTENT DISORDER OF INITIATING OR MAINTAINING SLEEP 09/05/2012 MARIANO MFG ASSOC, EZEKIEL S 307.42 PERSISTENT DISORDER OF INITIATING OR MAINTAINING SLEEP 09/05/2012 AGNIESZKA LONG DO K 307.42 PERSISTENT DISORDER OF INITIATING OR MAINTAINING SLEEP 09/05/2012 MARIANO MFG ASSOC, EZEKIEL S 307.42 PERSISTENT DISORDER OF INITIATING OR MAINTAINING SLEEP 09/05/2012 MARIANO MFG ASSOC, EZEKIEL S 307.42 PERSISTENT DISORDER OF INITIATING OR MAINTAINING SLEEP 09/05/2012 MARIANO MFG ASSOC, EZEKIEL S 307.42 PERSISTENT DISORDER OF INITIATING OR MAINTAINING SLEEP 09/05/2012 MARIANO MFG ASSOC, EZEKIEL S 307.42 PERSISTENT DISORDER OF INITIATING OR MAINTAINING SLEEP 09/05/2012 SOBIA SANCHEZ MD 307 .42 PERSISTENT DISORDER OF INITIATING OR MAINTAINING SLEEP 09/05/2012 MAR[facility], EZEKIEL S 307.42 PERSISTENT DISORDER OF INITIATING OR MAINTAINING SLEEP 09/05/2012 MARIANO MFG ASSOC, EZEKIEL S 307.42 PERSISTENT DISORDER OF INITIATING OR MAINTAINING SLEEP 09/05/2012 AGNIESZKA LONG DO K 307.42 PERSISTENT DISORDER OF INITIATING OR MAINTAINING SLEEP 09/05/2012 MARIANO MFG [facility]OC, EZEKIEL S 307.42 PERSISTENT DISORDER OF INITIATING OR MAINTAINING SLEEP 09/05/2012 MARIANO MFG ASSOC, EZEKIEL S 307.42 PERSISTENT DISORDER OF INITIATING OR MAINTAINING SLEEP 09/05/2012 MARIANO MFG ASSOC, EZEKIEL S 307.42 PERSISTENT DISORDER OF INITIATING OR MAINTAINING SLEEP 03/13/2013 MARIANO MFG ASSOC, EZEKIEL S V15.82 Nicotine abuse 03/13/2013 AGNIESZKA LONG DO K V15.82 Nicotine abuse 03/13/2013 MARIANO MFG ASSOC, EZEKIEL S V15.82 Nicotine abuse 03/13/2013 MARIANO MFG ASSOC, EZEKIEL S V15.82 Nicotine abuse 03/13/2013 MARIANO MFG ASSOC, EZEKIEL S V15.82 Nicotine abuse 03/13/2013 MARIANO CHAVEZ, EZEKIEL S V15.82 Nicotine abuse 03/13/2013 SOBIA SANCHEZ MD V15 .82 Nicotine abuse 03/13/2013 MARIANO MFG ASSOC, EZEKIEL S V15.82 Nicotine abuse 03/13/2013 MARIANO MFG ASSOC, EZEKIEL S V15.82 Nicotine abuse 03/13/2013 LONG DO, AGNIESZKA K V15.82 Nicotine abuse 03/13/2013 MARIANO MFG ASSOC, EZEKIEL S V15.82 NICOTINE ABUSE 03/13/2013 MARIANO MFG ASSOC, EZEKIEL S V15.82 NICOTINE ABUSE 03/13/2013 MARIANO MFG ASSOC, EZEKIEL S V15.82 NICOTINE ABUSE 06/07/2013 LONG DO, AGNIESZKA K 786.2 COUGH 06/07/2013 MARIANO MFG ASSOC, EZEKIEL S 786.2 COUGH 06/07/2013 MARIANO MFG ASSOC, EZEKIEL S 786.2 COUGH 06/07/2013 MARIANO MFG ASSOC, EZEKIEL S 786.2 COUGH 06/07/2013 MARIANO MFG ASSOC, EZEKIEL S 786.2 COUGH 06/07/2013 SOBIA SANCHEZ MD N 786 .2 COUGH 06/07/2013 MARIANO MFG ASSOC, EZEKIEL S 786.2 COUGH 06/07/2013 MARIANO MFG ASSOC, EZEKIEL S 786.2 COUGH 06/07/2013 LONG DO, AGNIESZKA K 786.2 COUGH 06/07/2013 MARIANO MFG ASSOC, EZEKIEL S 786.2 COUGH 06/07/2013 MARIANO MFG ASSOC, EZEKIEL S 786.2 COUGH 06/07/2013 MARIANO MFG ASSOC, EZEKIEL S 786.2 COUGH 06/13/2013 LONG DO, AGNIESZKA K 786.2 COUGH 06/13/2013 MARIANO MFG ASSOC, EZEKIEL S 786.2 COUGH 06/13/2013 MARIANO MFG ASSOC, EZEKIEL S 786.2 COUGH 06/13/2013 MARIANO MFG ASSOC, EZEKIEL S 786.2 COUGH 06/13/2013 MARIANO MFG ASSOC, EZEKIEL S 786.2 COUGH 06/13/2013 SOBIA SANCHEZ MD N 786 .2 COUGH 06/13/2013 MARIANO MFG ASSOC, EZEKIEL S 786.2 COUGH 06/13/2013 MARIANO MFG ASSOC, EZEKIEL S 786.2 COUGH 06/13/2013 LONG DO, AGNIESZKA K 786.2 COUGH 06/13/2013 MARIANO MOELLERN, EZEKIEL S 786.2 COUGH 06/13/2013 MARIANO MFG ASSOC, EZEKIEL S 786.2 COUGH 06/13/2013 MARIANO MFG ASSOC, EZEKIEL S 786.2 COUGH 08/09/2013 ALE ACEVEDO MFG ASSOC Ot 724 .2 LUMBAGO 08/09/2013 ALE ACEVEDO MFG ASSOC Ot 847 .2 SPRAIN LUMBAR REGION 08/09/2013 ALE ACEVEDO MFG ASSOC Ot E000.8 OTHER EXTERNAL CAUSE STATUS 08/09/2013 ALE ACEVEDO MFG ASSOC Ot E849.0 ACCIDENT IN HOME 08/09/2013 ALE ACEVEDO MFG ASSOC Ot E927.0 OVEREXERTION FROM SUDDEN STRENUOUS MOVEM 08/11/2013 KEVIN ACOSTA, STACI T Ot 720.2 SACROILIITIS NEC 08/11/2013 KEVIN ACOSTA, STACI T Ot 724.2 LUMBAGO 08/11/2013 KEVIN ACOSTA, STACI T Ot 847.9 SPRAIN OF BACK NOS 08/11/2013 KEVIN ACOSTA, STACI T Ot E000.8 OTHER EXTERNAL CAUSE STATUS 08/11/2013 KEVIN ACOSTA, STACI T Ot E849.0 ACCIDENT IN HOME 08/11/2013 STACI BROWN MD T Ot E927.0 OVEREXERTION FROM SUDDEN STRENUOUS MOVEM 08/30/2013 MARIANO CHAVEZ, EZEKIEL S 724.4 BACK PAIN WITH RADIATION 08/30/2013 MARIANO MOELLERN, EZEKIEL S 724.4 BACK PAIN WITH RADIATION 08/30/2013 MARIANO MFG ASSOC, EZEKIEL S 724.4 BACK PAIN WITH RADIATION 08/30/2013 MARIANO MFG ASSOC, EZEKIEL S 724.4 BACK PAIN WITH RADIATION 08/30/2013 SOBIA SANCHEZ MD 724 .4 BACK PAIN WITH RADIATION 08/30/2013 MARIANO MFG ASSOC, EZEKIEL S 724.4 BACK PAIN WITH RADIATION 08/30/2013 MARIANO MFG ASSOC, EZEKIEL S 724.4 BACK PAIN WITH RADIATION 08/30/2013 AGNIESZKA LONG DO 724.4 BACK PAIN WITH RADIATION 08/30/2013 GEMA QUINTANA APRNA S 724.4 BACK PAIN WITH RADIATION 08/30/2013 MARIANO MFG ASSOC, EZEKIEL S 724.4 BACK PAIN WITH RADIATION 08/30/2013 MARIANO MFG ASSOCGEMA OrellanaA S 724.4 BACK PAIN WITH RADIATION 12/04/2013 MARIANO MFG ASSOCBLESSING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 monocytes/100 leukocytes 5 % 0-12 Automated blood eosinophils/100 leukocytes 0 % 0-10 Automated blood basophils/100 leukocytes 0 % 0-10 Blood neutrophils automated count (number/volume) 11.1 10*3 1.8-7.8 Blood lymphocytes automated count (number/volume) 4.2 10*3 1.0-4.0 Blood monocytes automated count (number/volume) 0. 7 10*3 0.0-1.0 Automated eosinophil count 0.0 10*3/uL 0 .0-0.3 Automated blood basophil count (count/volume) 0.0 10*3/uL 0.0-0.1 Comprehensive metabolic panel - 06/29/19 01:19 Serum or plasma sodium measurement (moles/volume) 141 mmol/L 135-145 Serum or plasma potassium measurement (moles/volume) 3.5 mmol/L 3.6-5.0 Serum or plasma chloride measurement (moles/volume) 107 mmol/L 98-107 Carbon dioxide 19 mmol/L 21-32 Serum or plasma anion gap determination (moles/volume) 15 mmol/L 5-14 Serum or plasma urea nitrogen measurement (mass/volume ) 20 mg/dL 7-18 Serum or plasma creatinine measurement (mass/volume) 0.70 mg/dL 0.60-1.30 Serum or plasma urea nitrogen/creatinine mass ratio 29 NRG Serum or plasma creatinine measurement w ith calculation of estimated glomerular filtration rate > NRG Serum or plasma glucose measurement (mass/volume) 106 mg/dL 70-105 Serum or plasma calcium measurement (mass/volume) 9.6 mg/dL 8.5-10.1 Serum or plasma total bilirubin measurement (mass/volu me) 0.1 mg/dL 0.1-1.0 Serum or plasma alkaline phosphatase michelle surement (enzymatic activity/volume) 108 U/L 40-136 Serum or plasma aspartate aminotransfera se measurement (enzymatic activity/volume) 20 U/L 5-34 Serum or plasma alanine aminotransferase measurement (enzymatic activity/volume) 32 U/L 0-55 Serum or plasma protein measurement (mass/volume) 7.8 g/dL 6.4-8.2 Serum or plasma albumin measurement (mass/volume) 4.4 g/dL 3.2-4.5 CALCIUM CORRECTED 9.3 mg/dL 8.5-10.1 Magnesium - 06/29/19 01:19 Magnesium 2.2 mg/dL 1.6-2.4 Serum or plasma creatine kinase measurem ent (enzymatic activity/volume) - 06/29/19 01:19 Serum or plasma creatine kinase measurem ent (enzymatic activity/volume) 9 U/L 30-200 Serum or plasma lithium measurement (mol es/volume) - 06/29/19 01:19 BNP PT 35.0 pg/mL <100.0 PT panel in platelet poor plasma by coag ulation assay - 06/29/19 01:19 Prothrombin time (PT) in platelet poor plasma by coagu lation assay 12.6 s 12.2-14.7 INR in platelet poor plasma or blood by coagulation as say 0.9 0.8-1.4 Activated partial thromboplastin time (a PTT) in platelet poor plasma bycoagulation assay - 06/29/19 01:19 Activated partial thromboplastin time (a PTT) in platelet poor plasma bycoagulation assay 28 s 24-35 Serum or plasma creatine kinase MB measu rement (enzymatic activity/volume) - 06/29/19 01:19 Serum or plasma creatine kinase MB measu rement (enzymatic activity/volume) 0.8 ng/mL <6.6 Serum or plasma troponin i.cardiac measu rement (mass/volume) - 06/29/19 01:19 Serum or plasma troponin i.cardiac measurement (mass/v olume) < ng/mL <0.028 Myoglobin, serum - 06/29/19 01:19 Myoglobin, serum 12.8 ng/mL 10.0-92.0 Serum or plasma amylase measurement (enz ymatic activity/volume) - 06/29/19 01:19 Serum or plasma amylase measurement (enzymatic activit y/volume) 2152 U/L 25-125 Lipase - 06/29/19 01:19 Lipase 29927 U/L 8-78 Serum or plasma ethanol measurement (mas s/volume) - 06/29/19 01:19 Serum or plasma ethanol measurement (mass/volume) 41 mg/dL <10 Manual absolute plasma cell count - 06/09 09/26 01:19 Blood monocytes/100 leukocytes 3 % NRG Manual blood segmented neutrophils/100 leukocytes 71 % NRG Manual blood lymphocytes/100 leukocytes 26 % NRG Complete urinalysis with reflex to cultu re - 06/29/19 01:35 Urine color determination YELLOW NRG Urine clarity determination CLEAR NR G Urine pH measurement by test strip 6.0 5-9 Specific gravity of urine by test strip 1.015 1.016-1.022 Urine protein assay by test strip, semi-quantitative NEGATIVE NEGATIVE Urine glucose detection by automated test strip NE GATIVE NEGATIVE Erythrocytes detection in urine sediment by light micr oscopy 1+ NEGATIVE Urine ketones detection by automated test strip NE GATIVE NEGATIVE Urine nitrite detection by test strip NEGATIVE NEGATIVE Urine total bilirubin detection by test strip NEGA TIVE NEGATIVE Urine urobilinogen measurement by automated test strip (mass/volume) 0.2 mg/dL < = 1.0 Urine leukocyte esterase detection by dipstick NEG ATIVE NEGATIVE Automated urine sediment erythrocyte cou nt by microscopy (number/high power field) [HPF] NRG Automated urine sediment leukocyte count by microscopy (number/high power field) NONE NRG Bacteria detection in urine sediment by light microsco py FEW NRG Squamous epithelial cells detection in u rine sediment by light microscopy RARE NRG Crystals detection in urine sediment by light microsco py NONE NRG Casts detection in urine sediment by light microscopy NONE NRG Mucus detection in urine sediment by light microscopy NEGATIVE NRG Complete urinalysis with reflex to culture NO NRG Urine drug screening test - 06/29/19 01: 35 Urine phencyclidine detection by screening method NEGATIVE NEGATIVE Urine benzodiazepines detection by screening method NEGATIVE NEGATIVE Urine cocaine detection NEGATIVE NEGATI VE Urine amphetamines detection by screening method N EGATIVE NEGATIVE Urine methamphetamine detection by screening method NEGATIVE NEGATIVE Urine cannabinoids detection by screening method N EGATIVE NEGATIVE Urine opiates detection by screening method NEGATI VE NEGATIVE Urine barbiturates detection NEGATIVE N EGATIVE Screening urine tricyclic antidepressants detection POSITIVE NEGATIVE Urine methadone detection by screening method NEGA TIVE NEGATIVE Urine oxycodone detection NEGATIVE NEGA TIVE Urine propoxyphene detection NEGATIVE N EGATIVE Influenza virus A and B antigen detectio n - 06/29/19 03:28 FLU RESULT NEGATIVE FOR INFLUENZA A AND B ANTIGENS BY IA NRG Blood lactic acid measurement (moles/vol ume) - 06/29/19 04:20 Blood lactic acid measurement (moles/volume) 0.78 mmol/L 0.50-2.00 Bacterial blood culture - 06/29/19 04:20 Bacterial blood culture NG NRG Bacterial blood culture - 06/29/19 04:25 Bacterial blood culture NG NRG Encounters ACCT No. Visit Date/Time Discharge Status Pt. Type Provider Facility Loc./Unit Complaint [id number] 11/07/2019 11:20:00 ACT Outpatient EZEKIEL QUINTANA APRN [facility] [id number] 07/05/2018 13:00:00 Document Registration [id number] 06/26/2018 10:40:00 Document Registration [id number] 06/29/2019 01:08:00 019 05:25:00 DIS Emergency ALEXANDRA RUSLAN FLORES a [facility] ER ABD PAIN, SHOOTING PAIN IN CHEST,SOB,BACK PAIN,NEC [id number] 06/18/2019 04:05:00 019 14:10:00 DIS Inpatient SOBIA SANCHEZ MD [facility] 4TH DNA, SEPSIS, HYPOKALEMI S [id number] 02/21/2019 14:19:00 019 15:29:00 DIS Outpatient MAURIZIO CHESTER [facility] ER FALL [id number] 12/10/2016 16:18:00 017 18:50:00 DIS Emergency ALE ACEVEDO APRN [facility] ER MIGRANE [id number] 07/19/2014 15:14:00 014 16:48:00 DIS Emergency ALE ACEVEDO [employer] [facility] ER MIGRAINE [id number] 08/11/2013 10:56:00 014 12:13:00 DIS Emergency STACI BROWN MD [facility] ER BACK PAIN [id number] 08/09/2013 14:58:00 014 15:45:00 DIS Emergency ALE ACEVEDO [employer] [facility] ER BACK PAIN [id number] 04/15/2010 10:43:00 Document Registration [id number] 08/07/2014 13:29:00 08/07/2014 23:59: 59 CLS Outpatient EZEKIEL QUINTANA APRN [id number] 07/17/2014 13:20:00 07/17/2014 23:59: 59 CLS Outpatient EZEKIEL QUINTANA APRN S [id number] 06/25/2014 11:07:00 06/25/2014 23:59: 59 CLS Outpatient EZEKIEL QUINTANA APRN S [id number] 05/30/2014 15:24:00 05/30/2014 23:59: 59 CLS Outpatient MERCEDES FLORES AGNIES[place] K [id number] 04/23/2014 09:49:00 04/23/2014 23:59: 59 CLS Outpatient EZEKIEL QUINTANA APRN [id number] 03/23/2014 09:16:00 03/23/2014 23:59: 59 CLS Outpatient EZEKIEL QUINTANA APRN S [id number] 01/29/2014 08:32:00 01/29/2014 23:59: 59 CLS Outpatient SOBIA SANCHEZ MD [id number] 01/21/2014 14:28:00 01/21/2014 23:59: 59 CLS Outpatient EZEKIEL QUINTANA APRN [id number] 12/18/2013 09:00:00 12/18/2013 23:59: 59 CLS Outpatient EZEKIEL QUINTANA APRN [id number] 12/04/2013 11:27:00 12/04/2013 23:59: 59 CLS Outpatient EZEKIEL QUINTANA APRN S [id number] 08/30/2013 13:32:00 08/30/2013 23:59: 59 CLS Outpatient EZEKIEL QUINTANA APRN [id number] 06/13/2013 12:44:00 06/13/2013 23:59: 59 CLS Outpatient MERCEDES AGNIESZKA FLORES [place] [id number] 03/13/2013 09:49:00 03/13/2013 23:59: 59 CLS Outpatient EZEKIEL QUINTANA APRN [id number] 09/05/2012 09:50:00 09/05/2012 23:59: 59 CLS Outpatient EZEKIEL QUINTANA APRN [id number] 08/22/2012 10:46:00 08/22/2012 23:59: 59 CLS Outpatient EZEKIEL QUINTANA APRN [id number] 05/23/2012 13:58:00 05/23/2012 23:59:5 9 CLS Outpatient EZEKIEL QUINTANA APRN [id number] 05/23/2012 13:58:00 05/23/2012 23:59: 59 CLS Outpatient
[2019-11-09 19:26] LABS: BASOPHILS % (AUTO) 0 % (0-10); EOSINOPHILS # (AUTO) 0.2 10^3/uL (0.0-0.3); EOSINOPHILS % (AUTO) 1 % (0-10); HEMATOCRIT 48 % (40-54); HEMOGLOBIN 16.5 G/DL (13.3-17.7); LYMPHOCYTES # (AUTO) 3.5 X 10^3 (1.0-4.0); LYMPHOCYTES % (AUTO) 20 % (12-44); MEAN CORPUSCULAR HEMOGLOBIN 32 PG (25-34); MEAN CORPUSCULAR HGB CONC 34 G/DL (32-36); MEAN CORPUSCULAR VOLUME 94 FL (80-99); MEAN PLATELET VOLUME 9.4 FL (7.4-10.4); MONOCYTES # (AUTO) 1.1 X 10^3 (0.0-1.0); MONOCYTES % (AUTO) 6 % (0-12); NEUTROPHILS # (AUTO) 12.6 X 10^3 (1.8-7.8); NEUTROPHILS % (AUTO) 73 % (42-75); PLATELET COUNT 243 10^3/uL (130-400); RED CELL DISTRIBUTION WIDTH 14.3 % (10.0-14.5); WHITE BLOOD COUNT 17.4 10^3/uL (4.3-11.0)
--- NOTE | 2019-11-09 19:29 | ED Chest Pain ---
General Chief Complaint: Chest Pain Stated Complaint: CHEST PAIN Source: patient Exam Limitations: no limitations History of Present Illness Date Seen by Provider: Nov 09, 2019 Time Seen by Provider: 19:11 Initial Comments Here with report of onset of central chest pain that is sharp in intensity and persistent over the last hour. Has history of reflux but states this is much worse and his ever had. Has nausea but no vomiting. Did have an episode of diarrhea but he has irritable bowel syndrome. States he's had a history of pancreatitis. He smokes 2 packs of cigarettes daily as well as drinking 5 or 6 beers. He was just started on gabapentin for sleep and states that is not helping. He is taken 2 doses so far over the last 2 evenings and it has not helped. Denies sweating. Denies breathing problems. Tender when touching the epigastric region. Denies fever or chills. Denies upper respiratory symptoms or contact with anybody that is sick. Works at [employer]. Timing/Duration: 1 hour Severity/Quality: moderate, severe, burning, sharp Location: central Radiation: no radiation Activities at Onset: none Prior CP/Workup: no prior cardiac workup Modifying Factors: improves with rest ASA po MACHINE FOLDER: No NTG SL MACHINE FOLDER: No Associated Symptoms: No back pain, No diaphoresis, No fever/chills; heartburn; No shortness of breath, No weakness Allergies and Home Medications Allergies Coded Allergies: No Known Drug Allergies (Unverified , 08/09/13) Home Medications Asenapine Maleate 10 Mg Tab.subl, 10 MG SL DAILY, (Reported) RECEIVED SAMPLES OF FIRST MONTH, HAS NOT BEEN ABLE TO GET PATIENT ASSISTANCE YET, HAS BEEN OUT FOR A FEW WEEKS. Atorvastatin Calcium 40 Mg Tablet, 40 MG PO DAILY, (Reported) LAST FILLED #30 04-18-19 Cefdinir 300 Mg Capsule, 300 MG PO BID Prescribed by: SOBIA SANCHEZ on 06/20/19 1150 Dicyclomine HCl 20 Mg Tablet, 20 MG PO QID, (Reported) Ferrous Sulfate 325 Mg Tablet, 325 MG PO BID, (Reported) LAST FILLED #55 02-20-19 Hydrocodone/Acetaminophen 1 Each Tablet, 1 TAB PO Q6H Prescribed by: NIKO BRAR on 11/09/192124 Lactobacillus Acidophilus/Pect 1 Each Capsule, 2 EACH PO TIDWM Prescribed by: SOBIA SANCHEZ on 06/20/19 115 Loperamide HCl 2 Mg Capsule, 2 MG PO NEEDED PRN for DIARRHEA Prescribed by: SOBIA SANCHEZ on 06/20/19 1150 Metoclopramide HCl 10 Mg Tablet, 10 MG PO TID, (Reported) Metoprolol Succinate 100 Mg Tab.er.24h, 100 MG PO DAILY, (Reported) [facility]-3/Dha/Epa/Fish Oil 1 Each Capsule, 1,000 MG PO BID, (Reported) Omeprazole 40 Mg Capsule.dr, 40 MG PO BID, (Reported) Ondansetron HCl 4 Mg Tablet, 4 MG PO BID, (Reported) Sertraline HCl 100 Mg Tablet, 100 MG PO DAILY, (Reported) Tizanidine HCl 4 Mg Tablet, 4 MG PO BID PRN for MUSCLE SPASMS Prescribed by: SOBIA SANCHEZ on 06/20/19 115 Topiramate 100 Mg Tablet, 100 MG PO BID, (Reported) Zolpidem Tartrate 5 Mg Tablet, 5 MG PO HS, (Reported) Patient Home Medication List Home Medication List Reviewed: Yes Review of Systems Review of Systems Constitutional: see HPI; No chills, No fever EENTM: No Symptoms Reported Respiratory: No Symptoms Reported Cardiovascular: See HPI, Chest Pain; Denies Edema Gastrointestinal: Abdominal Pain, Diarrhea, Nausea Genitourinary: No Symptoms Reported Musculoskeletal: no symptoms reported Skin: no symptoms reported Psychiatric/Neurological: No Symptoms Reported All Other Systems Reviewed Negative Unless Noted: Yes Past Ugabbbq-Pkquhv-Kcwxla Hx Past Med/Social Hx: Reviewed Nursing Past Med/Soc Hx Patient Social History Alcohol Use: Regular Use Alcohol Beverage of Choice: Beer, [place] Recreational Drug Use: No Smoking Status: Current Everyday Smoker Type Used: Cigarettes 2nd Hand Smoke Exposure: Yes Recent Foreign Travel: No Contact w/Someone Who Travel: No Recent Hopitalizations: Yes Immunizations Up To Date Tetanus Booster (TDap): Unknown PED Vaccines UTD: No Date of Pneumonia Vaccine: Jun 22, 2019 Seasonal Allergies Seasonal Allergies: Yes Past Medical History Surgeries: Yes (EGD 2006) Tonsillectomy Respiratory: Yes Pneumonia Currently Using CPAP: No Currently Using BIPAP: No Cardiac: Yes Hypertension Neurological: Yes (CHRONIC DAILY HEADACHES) Headaches /Migraines Reproductive Disorders: No Sexually Transmitted Disease: No HIV/AIDS: No Genitourinary: No Gastrointestinal: Yes Gastroesophageal Reflux, Chronic Diarrhea, Irritable Bowel Musculoskeletal: Yes (CHRONIC NECK/BACK PAIN ) Chronic Back Pain Endocrine: No HEENT: Yes (CHRONIC SINUS PROBLEMS) Cancer: No Psychosocial: Yes Anxiety Integumentary: No Blood Disorders: No Family Medical History Reviewed Nursing Family Hx No Pertinent Family Hx Physical Exam Vital Signs Vital Signs - First Documented 11/09/19 21:58 Pulse Ox 95 Capillary Refill : Height, Weight, BMI Height: 5'8.00" Weight: 165lbs. 0.2oz. 74.674256xo; 20.00 BMI Method:Estimated General Appearance: WD/WN, Mild Distress HEENT: PERRL/EOMI, Pharynx Normal, Other (poor dentition overall) Neck: Full Range of Motion, Normal Inspection, Non Tender, Supple Respiratory: Lungs Clear, Normal Breath Sounds Cardiovascular: Regular Rate, Rhythm, No Murmur Gastrointestinal: Normal Bowel Sounds, No Organomegaly, No Pulsatile Mass, Soft, Tenderness (mild epigastric) Extremity: Normal Range of Motion, Non Tender Neurologic/Psychiatric: Alert, Oriented x3 Skin: Normal Color, Warm/Dry Progress/Results/Core Measures Results/Orders Lab Results Laboratory Tests Test 11/09/19 19:13 Range/Units White Blood Count 17.4 H 4.3-11.0 10^3/uL Red Blood Count 5.12 4.35-5.85 10^6/uL Hemoglobin 16.5 13.3-17.7 G/DL Hematocrit 48 40-54 % Mean Corpuscular Volume 94 80-99 FL Mean Corpuscular Hemoglobin 32 25-34 PG Mean Corpuscular Hemoglobin Concent 34 32-36 G/DL Red Cell Distribution Width 14.3 10.0-14.5 % Platelet Count 243 130-400 10^3/uL Mean Platelet Volume 9.4 7.4-10.4 FL Neutrophils (%) (Auto) 73 42-75 % Lymphocytes (%) (Auto) 20 12-44 % Monocytes (%) (Auto) 6 0-12 % Eosinophils (%) (Auto) 1 0-10 % Basophils (%) (Auto) 0 0-10 % Neutrophils # (Auto) 12.6 H 1.8-7.8 X 10^3 Lymphocytes # (Auto) 3.5 1.0-4.0 X 10^3 Monocytes # (Auto) 1.1 H 0.0-1.0 X 10^3 Eosinophils # (Auto) 0.2 0.0-0.3 10^3/uL Basophils # (Auto) 0.0 0.0-0.1 10^3/uL Neutrophils % (Manual) 72 % Lymphocytes % (Manual) 22 % Monocytes % (Manual) 4 % Eosinophils % (Manual) 1 % Band Neutrophils 1 % Blood Morphology Comment NORMAL Prothrombin Time 12.8 12.2-14.7 SEC INR Comment 0.9 0.8-1.4 Activated Partial Thromboplast Time 31 24-35 SEC D-Dimer 0.29 0.00-0.49 UG/ML Sodium Level 140 135-145 MMOL/L Potassium Level 5.0 3.6-5.0 MMOL/L Chloride Level 109 H 98-107 MMOL/L Carbon Dioxide Level 19 L 21-32 MMOL/L Anion Gap 12 5-14 MMOL/L Blood Urea Nitrogen 16 7-18 MG/DL Creatinine 0.91 0.60-1.30 MG/DL Estimat Glomerular Filtration Rate > 60 BUN/Creatinine Ratio 18 Glucose Level 134 H 70-105 MG/DL Calcium Level 9.2 8.5-10.1 MG/DL Corrected Calcium 8.8 8.5-10.1 MG/DL Magnesium Level 2.2 1.6-2.4 MG/DL Total Bilirubin 0.2 0.1-1.0 MG/DL Aspartate Amino Transf (AST/SGOT) 40 H 5-34 U/L Alanine Aminotransferase (ALT/SGPT) 21 0-55 U/L Alkaline Phosphatase 95 40-136 U/L Myoglobin 15.8 10.0-92.0 NG/ML Troponin I < 0.028 <0.028 NG/ML B-Type Natriuretic Peptide < 10.0 <100.0 PG/ML Total Protein 7.9 6.4-8.2 GM/DL Albumin 4.5 3.2-4.5 GM/DL Lipase 33153 H 8-78 U/L Serum Alcohol < 10 <10 MG/DL My Orders Orders - NIKO BRAR MD Ct Abdomen/Pelvis W (11/09/19 20:11) Lactated Ringers (Lr 1000 Ml Iv Solution (11/09/19 20:11) Iohexol Injection (Omnipaque 350 Mg/Ml 1 (11/09/19 20:15) Received Contrast (Hold Metformin- Contr (11/09/19 20:15) Sodium Chloride Flush (Catheter Flush Sy (11/09/19 20:15) Ns (Ivpb) (Sodium Chloride 0.9% Ivpb Bag (11/09/19 20:15) Ketorolac Injection (Toradol Injection) (11/09/19 20:18) Medications Given in ED Current Medications Medications Dose Ordered Sig/Bernard Route Start Time Stop Time Status Last Admin Dose Admin Al Hydrox/Mg Hydrox/Simethicone 30 ml ONCE ONCE PO 11/09/19 19:15 11/09/19 19:16 DC 11/09/19 19:24 30 ML Aspirin 324 mg ONCE ONCE PO 11/09/19 19:15 11/09/19 19:16 DC 11/09/19 19:23 324 MG Iohexol 100 ml ONCE ONCE IV 11/09/19 20:15 11/09/19 20:16 DC 11/09/19 20:28 73 ML Lidocaine HCl 5 ml ONCE ONCE PO 11/09/19 19:15 11/09/19 19:16 DC 11/09/19 19:24 5 ML Nitroglycerin 1 TAB Q 5 MIN X 3 NEEDED PRN SL 11/09/19 19:30 11/09/19 19:24 0.4 MG Sodium Chloride 10 ml NEEDED PRN IV 11/09/19 20:15 11/09/19 20:29 10 ML Sodium Chloride 100 ml ONCE ONCE IV 11/09/19 20:15 11/09/19 20:16 DC 11/09/19 20:28 80 ML Vital Signs/I&O 11/09/19 11/09/19 11/09/19 19:10 19:10 21:58 Temp 36.3 36.3 Pulse 86 91 Resp 20 18 B/P (MAP) 159/81 (107) 153/86 (107) Pulse Ox 95 O2 Delivery Room Air Room Air Room Air Progress Progress Note : Progress Note Seen and evaluated. IV, labs, EKG and chest x-ray ordered. ASA 324 mg by mouth ordered. Nitroglycerin sublingual ordered about chest pain and hypertension. We will give GI cocktail given his reflux history. Monitor patient. CT abdomen pelvis ordered due to lipase too high to read without dilution. Pending lipase status. Her enzymes negative. Patient was given Toradol 30 mg IV and LR [address] abdomen and pelvis ordered. 2114: CT complete and does show pancreatitis. I did discuss at length with the patient regarding disposition decision and I have encouraged admission given lipase of greater than 18,000 but he has declined admission. We will continue fluid and then discharge home AGAINST MEDICAL ADVICE. I will write a small prescription for pain medicine and I have given him explicit instructions on clear liquid diet and return precautions. Patient verbalize understanding. I did express my concern that he will fail at home and this could be worsening. Include significant worsening. States he needs to go home to get set up to have somebody watch his dog. I have instructed him to go ahead and make that plan because I believe he will be returning. He verbalizes understanding. 2204: Fluids complete patient is feeling better. Discharged AGAINST MEDICAL ADVICE. Discharge instructions given. Patient verbalize understanding instructions and agreement with plan. Initial ECG Impression Date: Nov 09, 2019 Initial ECG Impression Time: 19:11 Initial ECG Rate: 74 Initial ECG Rhythm: Normal Sinus Comment Sinus rhythm with normal axis. No evidence of ST elevation MT. Similar to previous of 06/29/19. Interpreted by me. Diagnostic Imaging Diagonstic Imaging: Xray Plain Films/CT/US/NM/MRI: chest Comments [facility] [place], [place] NAME: REHANA PULLIAM [facility] REC#: [id number] PT STATUS: REG ER : 1965 PHYSICIAN: ALE ACEVEDO SALESPERSON FURS ADMIT DATE: 11/09/19/ER Draft Date of Exam:11/09/19 CHEST 1 VIEW, AP/PA ONLY INDICATION: Chest pain. COMPARISON: 06/29/2019. EXAMINATION: Portable chest. FINDINGS: The lungs are well-aerated and clear. Heart is not enlarged. No pulmonary edema or hilar adenopathy. No pneumothorax or pleural effusion. No bony abnormality. IMPRESSION: Normal portable chest. Dictated on workstation # [id number] Dict: 11/09/191957 Trans: 11/09/19[address] [facility] [id number] Interpreted by: DEDRA MANDUJANO MD Electronically signed by: Diagonstic Imaging: CT Plain Films/CT/US/NM/MRI: abdomen, pelvis Comments [facility] [place], [place] NAME: REHANA PULLIAM [facility] REC#: [id number] PT STATUS: REG ER : 1965 PHYSICIAN: NIKO BRAR MD ADMIT DATE: 11/09/19/ER Signed Date of Exam:11/09/19 CT ABDOMEN/PELVIS W PROCEDURE: CT abdomen and pelvis with contrast. TECHNIQUE: Multiple contiguous axial images were obtained through the abdomen and pelvis after administration of intravenous contrast. Auto Exposure Controls were utilized during the CT exam to meet ALARA standards for radiation dose reduction. INDICATION: Nausea and vomiting. COMPARISON: 06/29/2019. FINDINGS: The lung bases are clear. There is mild hepatomegaly with hepatic steatosis. Gallbladder is nondistended. Bile ducts are not dilated. Pancreas is edematous throughout. There is considerable peripancreatic fluid especially around the head and body of the pancreas. The duodenal loop is distended showing mild thickening of the bowel wall. There is no evidence of duodenal obstruction. Fluid fills the distal small bowel as well without obstructive process. The colon shows normal stool and gas pattern. No evidence of colitis or diverticulitis. The spleen appears normal. The kidneys are normal with symmetrical enhancement following IV contrast. The adrenal glands are not enlarged. Normal enhancement of the aorta and abdominal vessels following IV contrast. There is atherosclerotic disease without evidence of aneurysm or dissection. There is no bony lesion. There is no free air or free fluid. IMPRESSION: 1. Abnormal findings of the pancreas consistent with pancreatitis. 2. Distended fluid-filled duodenum and jejunum consistent with ileus. 3. Hepatic steatosis. Dictated by: Dictated on workstation # [id number] Dict: 11/09/192039 Trans: 11/09/192053 [facility] [phone] Interpreted by: DEDRA MANDUJANO MD Electronically signed by: DEDRA MANDUJANO MD 11/09/192053 Departure Impression Primary Impression: Acute pancreatitis Qualified Codes: K85.20 - Alcohol induced acute pancreatitis without necrosis or infection Disposition: AGAINST MEDICAL ADVICE Condition: Stable Departure-Patient Inst. Decision time for Depature: 21:08 Referrals: [facility] (PCP) Primary Care Physician EZEKIEL QUINTANA (Family) Primary Care Physician Patient Instructions: Pancreatitis (DC) Add. Discharge Instructions: All discharge instructions reviewed with patient and/or family. Voiced understanding. You are leaving AGAINST MEDICAL ADVICE but please return if you're having any worsening of symptoms. Take medications as directed. You should be on a clear l iquid diet for the next couple of days and then advance as tolerated. The pancreatitis is likely related to alcohol intake and he should try to decrease this as much as possible. Please call your doctor for appointment early next week. Return for worse pain, fever, vomiting, weakness, breathing problems, inability to drink fluids or other concerns as needed. Scripts Hydrocodone/Acetaminophen (Hydrocodone/Acetaminophen 5 MG/325 MG TAB) 1 Each Tablet 1 TAB PO Q6H for Pain MDD 10 TABS for 3 Days, #12 TAB 0 Refills Prov: NIKO BRAR MD 11/09/19 NIKO BRAR MD Nov 09, 2019 19:29
[2019-11-09] MEDS ORDERED: NITROGLYCERIN 0.4 MG SL TABS BTL 25'S SL PRN (19:30)
[2019-11-09 19:38] LABS: FIBRIN DEGRADATION PRODUCTS 0.29 UG/ML (0.00-0.49); INR 0.9 (0.8-1.4); PROTHROMBIN TIME PATIENT 12.8 SEC (12.2-14.7)
[2019-11-09 19:53] LABS: ALANINE AMINOTRANSFERASE 21 U/L (0-55); ALBUMIN 4.5 GM/DL (3.2-4.5); ALKALINE PHOSPHATASE 95 U/L (40-136); BILIRUBIN,TOTAL 0.2 MG/DL (0.1-1.0); BUN/CREATININE RATIO 18; CALCIUM 9.2 MG/DL (8.5-10.1); CARBON DIOXIDE 19 MMOL/L (21-32); CHLORIDE 109 MMOL/L (98-107); CREATININE SERUM 0.91 MG/DL (0.60-1.30); GFR ESTIMATED > 60; GLUCOSE 134 MG/DL (70-105); MAGNESIUM 2.2 MG/DL (1.6-2.4); SODIUM 140 MMOL/L (135-145); TOTAL PROTEIN 7.9 GM/DL (6.4-8.2)
[2019-11-09 19:56] LABS: BAND NEUTROPHILS 1 %; EOSINOPHILS % (MANUAL) 1 %; LYMPHOCYTES % (MANUAL) 22 %; MONOCYTES % (MANUAL) 4 %; NEUTROPHILS % (MANUAL) 72 %; RBC MORPH NORMAL
--- NOTE | 2019-11-09 20:03 | Diagnostic Imaging Report ---
INDICATION: Chest pain. COMPARISON: 06/29/2019. EXAMINATION: Portable chest. FINDINGS: The lungs are well-aerated and clear. Heart is not enlarged. No pulmonary edema or hilar adenopathy. No pneumothorax or pleural effusion. No bony abnormality. IMPRESSION: Normal portable chest. Dictated by: Dictated on workstation # [id number]
[2019-11-09] MEDS ORDERED: LACTATED RINGERS 1,000 ML IV STA (20:11)
[2019-11-09] MEDS ORDERED: HOLD METFORMIN - RECEIVED CONTRAST 20 ML VIAL IV SCH (20:15)
[2019-11-09] MEDS ORDERED: IOHEXOL 350 MG/ML 100 ML (OMNIPAQUE 350) VIAL IV ONE (20:15)
[2019-11-09] MEDS ORDERED: NS 100 ML (IVPB) BAG IV ONE (20:15)
[2019-11-09] MEDS ORDERED: CATHETER FLUSH 10 ML SYR IV PRN (20:15)
[2019-11-09] MEDS ORDERED: KETOROLAC 30 MG/ML VIAL IVP STA (20:18)
--- NOTE | 2019-11-09 20:52 | Diagnostic Imaging Report ---
PROCEDURE: CT abdomen and pelvis with contrast. TECHNIQUE: Multiple contiguous axial images were obtained through the abdomen and pelvis after administration of intravenous contrast. Auto Exposure Controls were utilized during the CT exam to meet ALARA standards for radiation dose reduction. INDICATION: Nausea and vomiting. COMPARISON: 06/29/2019. FINDINGS: The lung bases are clear. There is mild hepatomegaly with hepatic steatosis. Gallbladder is nondistended. Bile ducts are not dilated. Pancreas is edematous throughout. There is considerable peripancreatic fluid especially around the head and body of the pancreas. The duodenal loop is distended showing mild thickening of the bowel wall. There is no evidence of duodenal obstruction. Fluid fills the distal small bowel as well without obstructive process. The colon shows normal stool and gas pattern. No evidence of colitis or diverticulitis. The spleen appears normal. The kidneys are normal with symmetrical enhancement following IV contrast. The adrenal glands are not enlarged. Normal enhancement of the aorta and abdominal vessels following IV contrast. There is atherosclerotic disease without evidence of aneurysm or dissection. There is no bony lesion. There is no free air or free fluid. IMPRESSION: 1. Abnormal findings of the pancreas consistent with pancreatitis. 2. Distended fluid-filled duodenum and jejunum consistent with ileus. 3. Hepatic steatosis. Dictated by: Dictated on workstation # [id number]
[2019-11-09 20:56] LABS: LIPASE 18064 U/L (8-78)
[2019-11-09] MEDS ORDERED: HYDR-4226 PO (21:17)
[2019-11-09 21:58] VITALS: BP 153/86
== END 2019-11-09 21:58 | disposition left against medical advice (07) ==
LOC: EDUNIT# 19:09 → ER 19:11
DX: K85.20 Alcohol induced acute pancreatitis without necrosis or infection (principal); I10 Essential (primary) hypertension; K21.9 Gastro-esophageal reflux disease without esophagitis; K58.0 Irritable bowel syndrome with diarrhea; F41.9 Anxiety disorder, unspecified; K76.0 Fatty (change of) liver, not elsewhere classified; F17.210 Nicotine dependence, cigarettes, uncomplicated; Z79.899 Other long term (current) drug therapy
CPT/HCPCS: 36415; 71045; 74177; 80053; 80320; 83690; 83735; 83874; 83880; 84484; 85007; 85027; 85379; 85610; 85730; 93005; 93041

== ENCOUNTER 2020-05-19 09:29 | Emergency (ER) | payer SELFPAY ==
[~2020-05-19] VITALS: Ht 162 cm; Wt 63.0 kg
[~2020-05-19 09:29] MED LIST changes: +HYDR-4226 PO
[2020-05-19] MEDS ORDERED: LACTATED RINGERS 1,000 ML IV STA (09:44)
[2020-05-19] MEDS ORDERED: ANTACID SUSP 30 ML UDC (MYLANTA) PO ONE (09:45)
[2020-05-19] MEDS ORDERED: PANTOPRAZOLE 40 MG (PROTONIX) VIAL IV ONE (09:45)
[2020-05-19] MEDS ORDERED: ASPIRIN 81 MG CHEW (CHILDREN'S ASA) PO ONE (09:45)
[2020-05-19] MEDS ORDERED: LIDOCAINE 2% VISCOUS 15 ML UDC PO ONE (09:45)
[2020-05-19] MEDS ORDERED: BSS 15 ML IR ONE (10:00)
[2020-05-19 10:13] LABS: BASOPHILS % (AUTO) 0 % (0-10); EOSINOPHILS # (AUTO) 0.2 10^3/uL (0.0-0.3); EOSINOPHILS % (AUTO) 1 % (0-10); HEMATOCRIT 49 % (40-54); HEMOGLOBIN 16.1 g/dL (13.3-17.7); LYMPHOCYTES # (AUTO) 3.1 10^3/uL (1.0-4.0); LYMPHOCYTES % (AUTO) 22 % (12-44); MEAN CORPUSCULAR HEMOGLOBIN 33 pg (25-34); MEAN CORPUSCULAR HGB CONC 33 g/dL (32-36); MEAN CORPUSCULAR VOLUME 99 fL (80-99); MEAN PLATELET VOLUME 9.8 fL (9.0-12.2); MONOCYTES # (AUTO) 0.8 10^3/uL (0.0-1.0); MONOCYTES % (AUTO) 6 % (0-12); NEUTROPHILS # (AUTO) 9.9 10^3/uL (1.8-7.8); NEUTROPHILS % (AUTO) 70 % (42-75); PLATELET COUNT 222 10^3/uL (130-400); WHITE BLOOD COUNT 14.1 10^3/uL (4.3-11.0)
[2020-05-19 10:16] LABS: ALBUMIN 4.1 GM/DL (3.2-4.5); CHLORIDE 110 MMOL/L (98-107); SODIUM 139 MMOL/L (135-145)
--- NOTE | 2020-05-19 10:16 | Diagnostic Imaging Report ---
INDICATION: Epigastric pain. Comparison made with prior examination 11/09/2019. FINDINGS: The heart size, mediastinal configuration, and pulmonary vascularity are within normal limits. There is no pleural effusion, pneumothorax, or pneumonia. The osseous structures are unremarkable. IMPRESSION: No acute cardiopulmonary abnormality. Dictated by: Dictated on workstation # [id number]
[2020-05-19 10:17] LABS: CALCIUM 9.5 MG/DL (8.5-10.1)
[2020-05-19 10:18] LABS: GLUCOSE 143 MG/DL (70-105); PROTHROMBIN TIME PATIENT 13.3 SEC (12.2-14.7)
[2020-05-19 10:19] LABS: TOTAL PROTEIN 6.9 GM/DL (6.4-8.2)
[2020-05-19 10:20] LABS: BILIRUBIN,TOTAL 0.4 MG/DL (0.1-1.0); CARBON DIOXIDE 19 MMOL/L (21-32)
[2020-05-19 10:22] LABS: ALKALINE PHOSPHATASE 89 U/L (40-136); BAND NEUTROPHILS 2 %; CREATININE SERUM 0.87 MG/DL (0.60-1.30); GFR ESTIMATED > 60; LYMPHOCYTES % (MANUAL) 18 %; MONOCYTES % (MANUAL) 6 %; NEUTROPHILS % (MANUAL) 74 %; RBC MORPH NORMAL
[2020-05-19 10:23] LABS: BUN/CREATININE RATIO 25
[2020-05-19 10:25] LABS: ALANINE AMINOTRANSFERASE 18 U/L (0-55); MAGNESIUM 1.6 MG/DL (1.6-2.4)
[2020-05-19] MEDS ORDERED: fentaNYL INJECTION 100 MCG/2 ML AMP IVP ONE ×2 (10:30→12:00)
--- NOTE | 2020-05-19 10:36 | ED Abdominal Pain ---
General Chief Complaint: Abdominal/GI Problems Stated Complaint: ABD PAIN;ACID REFLUX Nursing Triage Note: PT CO OF EPIGASTRIC PAIN, STATES STARTED HAVING REFLUX LAST NIGHT, STATES DRANK A BUNCH OF ALCHOL THIS WEEKEND AND HAS HX OF PANCREATITIS. PT STATES MIGHT FEEL LIKE HEART ATTACK, DENIES SOA OR DIAPHORESIS. STATES STARTED AT 0430 THIS AM Sepsis Screen: No Definite Risk Source of Information: Patient Exam Limitations: No Limitations History of Present Illness Date Seen by Provider: May 19, 2020 Time Seen by Provider: 10:34 Initial Comments To ER with reports of upper midline abdominal pain that awakened him from sleep at 4:30 AM this morning. History of pancreatitis and this feels similar. He did drink some alcohol over the weekend but assures me he does not drink daily. Timing/Duration: 4-6 Hours Severity/Quality: Moderate Location: Epigastric Radiation: No Radiation Activities at Onset: None Allergies and Home Medications Allergies Coded Allergies: No Known Drug Allergies (Unverified , 08/09/13) Home Medications Asenapine Maleate 10 Mg Tab.subl, 10 MG SL DAILY, (Reported) RECEIVED SAMPLES OF FIRST MONTH, HAS NOT BEEN ABLE TO GET PATIENT ASSISTANCE YET, HAS BEEN OUT FOR A FEW WEEKS. Atorvastatin Calcium 40 Mg Tablet, 40 MG PO DAILY, (Reported) LAST FILLED #30 04-18-19 Cefdinir 300 Mg Capsule, 300 MG PO BID Prescribed by: SOBIA SANCHEZ on 06/20/19 1150 Dicyclomine HCl 20 Mg Tablet, 20 MG PO QID, (Reported) Ferrous Sulfate 325 Mg Tablet, 325 MG PO BID, (Reported) LAST FILLED #55 02-20-19 Hydrocodone/Acetaminophen 1 Each Tablet, 1 TAB PO Q6H Prescribed by: NIKO BRAR on 11/09/192124 Lactobacillus Acidophilus/Pect 1 Each Capsule, 2 EACH PO TIDWM Prescribed by: SOBIA SANCHEZ on 06/20/19 115 Loperamide HCl 2 Mg Capsule, 2 MG PO NEEDED PRN for DIARRHEA Prescribed by: SOBIA SANCHEZ on 06/20/19 115 Metoclopramide HCl 10 Mg Tablet, 10 MG PO TID, (Reported) Metoprolol Succinate 100 Mg Tab.er.24h, 100 MG PO DAILY, (Reported) Leivasy-3/Dha/Epa/Fish Oil 1 Each Capsule, 1,000 MG PO BID, (Reported) Omeprazole 40 Mg Capsule.dr, 40 MG PO BID, (Reported) Ondansetron 4 Mg Tab.rapdis, 8 MG PO Q6H PRN for NAUSEA/VOMITING Prescribed by: ALE ACEVEDO on 05/19/20 1210 Ondansetron HCl 4 Mg Tablet, 4 MG PO BID, (Reported) Oxycodone HCl/Acetaminophen 1 Each Tablet, 1 TAB PO Q4H PRN for PAIN-SEVERE (8- 10) Prescribed by: ALE ACEVEDO on 05/19/20 1211 Sertraline HCl 100 Mg Tablet, 100 MG PO DAILY, (Reported) Tizanidine HCl 4 Mg Tablet, 4 MG PO BID PRN for MUSCLE SPASMS Prescribed by: SOBIA SANCHEZ on 06/20/19 1150 Topiramate 100 Mg Tablet, 100 MG PO BID, (Reported) Zolpidem Tartrate 5 Mg Tablet, 5 MG PO HS, (Reported) Patient Home Medication List Home Medication List Reviewed: Yes Review of Systems Review of Systems Constitutional: see HPI EENTM: No Symptoms Reported Respiratory: No Symptoms Reported Cardiovascular: No Symptoms Reported Gastrointestinal: See HPI, Abdominal Pain Genitourinary: No Symptoms Reported Musculoskeletal: no symptoms reported Skin: no symptoms reported Psychiatric/Neurological: No Symptoms Reported Endocrine: No Symptoms Reported Hematologic/Lymphatic: No Symptoms Reported Past Omlnobh-Vvyegl-Nkuebs Hx Patient Social History Alcohol Use: Regular Use Number of Drinks Today: 0 Alcohol Beverage of Choice: Beer, [place] Recreational Drug Use: No Smoking Status: Current Everyday Smoker Type Used: Cigarettes 2nd Hand Smoke Exposure: Yes Recent Foreign Travel: No Contact w/Someone Who Travel: No Recent Infectious Disease Expo: No Recent Hopitalizations: No Physical Abuse: No Sexual Abuse: No Immunizations Up To Date Tetanus Booster (TDap): Unknown PED Vaccines UTD: No Date of Pneumonia Vaccine: Jun 22, 2019 Seasonal Allergies Seasonal Allergies: Yes Past Medical History Surgeries: Yes (EGD 2006) Tonsillectomy Respiratory: Yes Pneumonia Currently Using CPAP: No Currently Using BIPAP: No Cardiac: Yes High Cholesterol, Hypertension Neurological: Yes (CHRONIC DAILY HEADACHES) Headaches /Migraines Reproductive Disorders: No Sexually Transmitted Disease: No HIV/AIDS: No Genitourinary: No Gastrointestinal: Yes Gastroesophageal Reflux, Pancreatitis, Chronic Diarrhea, Irritable Bowel Musculoskeletal: Yes (CHRONIC NECK/BACK PAIN ) Chronic Back Pain Endocrine: No HEENT: Yes (CHRONIC SINUS PROBLEMS) Cancer: No Psychosocial: Yes Anxiety Integumentary: No Blood Disorders: No Family Medical History No Pertinent Family Hx Physical Exam Vital Signs Vital Signs - First Documented 05/19/20 09:35 Temp 36.5 Pulse 82 Resp 21 B/P (MAP) 165/86 (112) Pulse Ox 97 Capillary Refill : Less Than 3 Seconds Height/Weight/BMI Height: 5'8.00" Weight: 165lbs. 0.2oz. 74.429296wu; 24.00 BMI Method:Estimated General Appearance: WD/WN, no apparent distress HEENT: PERRL/EOMI Respiratory: no respiratory distress, no accessory muscle use Cardiovascular: tachycardia (rate of 101) Gastrointestinal: normal bowel sounds, non tender, soft Extremities: normal range of motion, non-tender Neurologic/Psychiatric: alert, normal mood/affect, oriented x 3 Skin: normal color, warm/dry Progress/Results/Core Measures Results/Orders Lab Results Laboratory Tests Test 05/19/20 09:45 Range/Units White Blood Count 14.1 H 4.3-11.0 10^3/uL Red Blood Count 4.88 4.30-5.52 10^6/uL Hemoglobin 16.1 13.3-17.7 g/dL Hematocrit 49 40-54 % Mean Corpuscular Volume 99 80-99 fL Mean Corpuscular Hemoglobin 33 25-34 pg Mean Corpuscular Hemoglobin Concent 33 32-36 g/dL Red Cell Distribution Width 13.4 10.0-14.5 % Platelet Count 222 130-400 10^3/uL Mean Platelet Volume 9.8 9.0-12.2 fL Immature Granulocyte % (Auto) 1 % Neutrophils (%) (Auto) 70 42-75 % Lymphocytes (%) (Auto) 22 12-44 % Monocytes (%) (Auto) 6 0-12 % Eosinophils (%) (Auto) 1 0-10 % Basophils (%) (Auto) 0 0-10 % Neutrophils # (Auto) 9.9 H 1.8-7.8 10^3/uL Lymphocytes # (Auto) 3.1 1.0-4.0 10^3/uL Monocytes # (Auto) 0.8 0.0-1.0 10^3/uL Eosinophils # (Auto) 0.2 0.0-0.3 10^3/uL Basophils # (Auto) 0.0 0.0-0.1 10^3/uL Immature Granulocyte # (Auto) 0.1 0.0-0.1 10^3/uL Neutrophils % (Manual) 74 % Lymphocytes % (Manual) 18 % Monocytes % (Manual) 6 % Band Neutrophils 2 % Blood Morphology Comment NORMAL Prothrombin Time 13.3 12.2-14.7 SEC INR Comment 1.0 0.8-1.4 Activated Partial Thromboplast Time 27 24-35 SEC Sodium Level 139 135-145 MMOL/L Potassium Level 4.0 3.6-5.0 MMOL/L Chloride Level 110 H 98-107 MMOL/L Carbon Dioxide Level 19 L 21-32 MMOL/L Anion Gap 10 5-14 MMOL/L Blood Urea Nitrogen 22 H 7-18 MG/DL Creatinine 0.87 0.60-1.30 MG/DL Estimat Glomerular Filtration Rate > 60 BUN/Creatinine Ratio 25 Glucose Level 143 H 70-105 MG/DL Calcium Level 9.5 8.5-10.1 MG/DL Corrected Calcium 9.4 8.5-10.1 MG/DL Magnesium Level 1.6 1.6-2.4 MG/DL Total Bilirubin 0.4 0.1-1.0 MG/DL Aspartate Amino Transf (AST/SGOT) 23 5-34 U/L Alanine Aminotransferase (ALT/SGPT) 18 0-55 U/L Alkaline Phosphatase 89 40-136 U/L Myoglobin 20.8 10.0-92.0 NG/ML Troponin I < 0.028 <0.028 NG/ML Total Protein 6.9 6.4-8.2 GM/DL Albumin 4.1 3.2-4.5 GM/DL Lipase 3287 H 8-78 U/L Serum Alcohol < 10 <10 MG/DL My Orders Orders - ALE ACEVEDO APRN Fentanyl Injection (Sublimaze Injection (05/19/20 10:30) Ct Abdomen/Pelvis W (05/19/20 10:30) Iohexol Injection (Omnipaque 350 Mg/Ml 1 (05/19/20 10:45) Received Contrast (Hold Metformin- Contr (05/19/20 10:45) Ns (Ivpb) (Sodium Chloride 0.9% Ivpb Bag (05/19/20 10:45) Hydrocodone/Apap 5/325 Tablet (Lortab 5 (05/19/20 12:00) Ketorolac Injection (Toradol Injection) (05/19/20 12:00) Fentanyl Injection (Sublimaze Injection (05/19/20 12:00) Medications Given in ED Current Medications Medications Dose Ordered Sig/Bernard Route Start Time Stop Time Status Last Admin Dose Admin Acetaminophen/ Hydrocodone Bitart 1 tab ONCE ONCE PO 05/19/20 12:00 05/19/20 12:01 DC 05/19/20 12:11 1 TAB Al Hydrox/Mg Hydrox/Simethicone 30 ml ONCE ONCE PO 05/19/20 09:45 05/19/20 09:46 DC 05/19/20 10:01 30 ML Aspirin 324 mg ONCE ONCE PO 05/19/20 09:45 05/19/20 09:46 DC 05/19/20 10:01 324 MG Fentanyl Citrate 50 mcg ONCE ONCE IVP 05/19/20 10:30 05/19/20 10:31 DC 05/19/20 10:55 50 MCG Fentanyl Citrate 50 mcg ONCE ONCE IVP 05/19/20 12:00 05/19/20 12:01 DC 05/19/20 12:08 50 MCG Iohexol 100 ml ONCE ONCE IV 05/19/20 10:45 05/19/20 10:46 DC 05/19/20 10:44 100 ML Ketorolac Tromethamine 15 mg ONCE ONCE IVP 05/19/20 12:00 05/19/20 12:01 DC 05/19/20 12:11 15 MG Lidocaine HCl 15 ml ONCE ONCE PO 05/19/20 09:45 05/19/20 09:46 DC 05/19/20 10:01 15 ML Pantoprazole 40 mg ONCE ONCE IV 05/19/20 09:45 05/19/20 09:46 DC 05/19/20 10:02 40 MG Sodium Chloride 100 ml ONCE ONCE IV 05/19/20 10:45 05/19/20 10:46 DC 05/19/20 10:44 80 ML Vital Signs/I&O 05/19/20 09:35 Temp 36.5 Pulse 82 Resp 21 B/P (MAP) 165/86 (112) Pulse Ox 97 Blood Pressure Mean: 112 Diagnostic Imaging Diagonstic Imaging: Xray Comments NAME: REHANA PULLIAM [facility] REC#: [id number] PT STATUS: REG ER : 1965 PHYSICIAN: ALMAZ HUTCHINSON MD ADMIT DATE: 05/19/20/ER Signed Date of Exam:05/19/20 CHEST 1 VIEW, AP/PA ONLY INDICATION: Epigastric pain. Comparison made with prior examination 11/09/2019. FINDINGS: The heart size, mediastinal configuration, and pulmonary vascularity are within normal limits. There is no pleural effusion, pneumothorax, or pneumonia. The osseous structures are unremarkable. IMPRESSION: No acute cardiopulmonary abnormality. Dictated by: Dictated on workstation # [id number] Dict: 05/19/20 1014 Trans: 05/19/20 1022 [id number] Interpreted by: SUKUMAR RAGLAND MD Electronically signed by: SUKUMAR RAGLAND MD 05/19/20 1022 NAME: REHANA PULLIAM [facility] REC#: [id number] PT STATUS: REG ER : 1965 PHYSICIAN: ALE ACEVEDO APRN ADMIT DATE: 05/19/20/ER Draft Date of Exam:05/19/20 CT ABDOMEN/PELVIS W PROCEDURE: CT abdomen and pelvis with contrast. TECHNIQUE: Multiple contiguous axial images were obtained through the abdomen and pelvis after administration of intravenous contrast. Auto Exposure Controls were utilized during the CT exam to meet ALARA standards for radiation dose reduction. All CT scans use one or more of the following dose optimizing techniques: automated exposure control, MA and/or KvP adjustment based on patient size and exam type or iterative reconstruction. INDICATION: Mid abdominal pain. Correlation is made with prior CT from 11/09/2019. The lung bases are clear. No discrete liver mass is detected. Gallbladder is contracted. No biliary ductal dilatation is seen. There is significant inflammatory stranding surrounding the pancreatic head, body and tail consistent with acute pancreatitis. Pancreatic parenchyma appears to enhance homogeneously without evidence of necrosis. No well-formed fluid collection or pseudocyst formation is detected. Spleen is unremarkable. No adrenal mass is detected. Kidneys are unremarkable. Aorta is non-aneurysmal. Bowel loops are normal caliber. There is no obstruction. There is no free fluid or fluid collection. There are fat-containing inguinal hernias bilaterally. The bladder is unremarkable. IMPRESSION: 1. Findings consistent with acute pancreatitis. There are no findings to suggest pancreatic necrosis or pseudocyst formation. 2. No other significant abnormality is detected. Dictated on workstation # [id number] Dict: 05/19/20 1158 Trans: 05/19/20 1203 CV [id number] Interpreted by: BING MCMAHON MD Electronically signed by: Departure Communication (Admissions) Discussed my recommendation for admission to the hospital with him. He states he would like to avoid that given COVID, he would prefer to initially try treatment outpatient. Impression Primary Impression: Pancreatitis Qualified Codes: K85.20 - Alcohol induced acute pancreatitis without necrosis or infection Disposition: HOME, SELF-CARE Condition: Improved Departure-Patient Inst. Decision time for Depature: 12:09 Referrals: [facility] (PCP) Primary Care Physician EZEKIEL QUINTANA (Family) Primary Care Physician Patient Instructions: Pancreatitis Add. Discharge Instructions: . Clear liquids only for the next 48 hours. Pain and nausea medication as needed. Return to ER for any worsening. Follow-up with your doctor later this week for recheck. All discharge instructions reviewed with patient and/or family. Voiced understanding. Scripts Ondansetron (Ondansetron Odt) 4 Mg Tab.rapdis 8 MG PO Q6H PRN for NAUSEA/VOMITING, #20 TAB 0 Refills Prov: ALE ACEVEDO APRN 05/19/20 Oxycodone HCl/Acetaminophen (Percocet 5-325 mg Tablet) 1 Each Tablet 1 TAB PO Q4H PRN for PAIN-SEVERE (8-10) MDD 6 TABS for 7 Days, #30 TAB Prov: ALE ACEVEDO APRN 05/19/20 ALE ACEVEDO APRN May 19, 2020 10:36
[2020-05-19] MEDS ORDERED: NS 100 ML (IVPB) BAG IV ONE (10:45)
[2020-05-19] MEDS ORDERED: HOLD METFORMIN - RECEIVED CONTRAST 20 ML VIAL IV SCH (10:45)
[2020-05-19] MEDS ORDERED: IOHEXOL 350 MG/ML 100 ML (OMNIPAQUE 350) VIAL IV ONE (10:45)
[2020-05-19 11:43] LABS: LIPASE 3287 U/L (8-78)
[2020-05-19] MEDS ORDERED: KETOROLAC 30 MG/ML VIAL IVP ONE (12:00)
[2020-05-19] MEDS ORDERED: HYDROcodone/APAP 5 MG/325 MG (LORTAB) TAB PO ONE (12:00)
--- NOTE | 2020-05-19 12:04 | Diagnostic Imaging Report ---
PROCEDURE: CT abdomen and pelvis with contrast. TECHNIQUE: Multiple contiguous axial images were obtained through the abdomen and pelvis after administration of intravenous contrast. Auto Exposure Controls were utilized during the CT exam to meet ALARA standards for radiation dose reduction. All CT scans use one or more of the following dose optimizing techniques: automated exposure control, MA and/or KvP adjustment based on patient size and exam type or iterative reconstruction. INDICATION: Mid abdominal pain. Correlation is made with prior CT from 11/09/2019. The lung bases are clear. No discrete liver mass is detected. Gallbladder is contracted. No biliary ductal dilatation is seen. There is significant inflammatory stranding surrounding the pancreatic head, body and tail consistent with acute pancreatitis. Pancreatic parenchyma appears to enhance homogeneously without evidence of necrosis. No well-formed fluid collection or pseudocyst formation is detected. Spleen is unremarkable. No adrenal mass is detected. Kidneys are unremarkable. Aorta is non-aneurysmal. Bowel loops are normal caliber. There is no obstruction. There is no free fluid or fluid collection. There are fat-containing inguinal hernias bilaterally. The bladder is unremarkable. IMPRESSION: 1. Findings consistent with acute pancreatitis. There are no findings to suggest pancreatic necrosis or pseudocyst formation. 2. No other significant abnormality is detected. Dictated by: Dictated on workstation # [id number]
[2020-05-19] MEDS ORDERED: ONDA4TAB11 PO (12:10)
[2020-05-19] MEDS ORDERED: OXYC1TAB87 PO (12:10)
[2020-05-19 12:17] VITALS: BP 165/86
== END 2020-05-19 12:17 | disposition home or self-care (01) ==
LOC: EDUNIT# 09:29 → ER 09:30
DX: K85.90 Acute pancreatitis without necrosis or infection, unspecified (principal); K21.9 Gastro-esophageal reflux disease without esophagitis; E78.00 Pure hypercholesterolemia, unspecified; I10 Essential (primary) hypertension; F17.210 Nicotine dependence, cigarettes, uncomplicated; F41.9 Anxiety disorder, unspecified; G89.29 Other chronic pain; M54.9 Dorsalgia, unspecified; Z79.891 Long term (current) use of opiate analgesic
CPT/HCPCS: 71045; 74177; 80053; 83690; 83735; 83874; 84484; 85007; 85027; 85610; 85730; 93041; G0480; 36415; 80320; 93005

== ENCOUNTER 2020-09-19 13:54 | Emergency (ER) | payer SELFPAY ==
[~2020-09-19] VITALS: Ht 165 cm; Wt 63.0 kg
[~2020-09-19 13:54] MED LIST changes: +ONDA4TAB11 PO; +OXYC1TAB87 PO; +SERT-414 PO; -SERT100T8 PO
--- NOTE | 2020-09-19 14:29 | ED Abdominal Pain ---
General Chief Complaint: Abdominal/GI Problems Stated Complaint: ABD PAIN Source of Information: Patient Exam Limitations: No Limitations History of Present Illness Date Seen by Provider: Sep 19, 2020 Time Seen by Provider: 14:28 Initial Comments To ER with upper abdominal pain since Tuesday. History of pancreatitis greater than 6 months but less than 1 year ago. This feels similar. Has had nausea without vomiting. No diarrhea. This is related to alcohol use, he typically drinks 2-3 beers a day but this weekend he drank 6 beers on Tuesday and 8 beers on Tuesday. Timing/Duration: 4-5 Days Severity/Quality: Moderate Location: Epigastric Radiation: No Radiation Activities at Onset: None Associated Symptoms: Nausea/Vomiting Allergies and Home Medications Allergies Coded Allergies: No Known Drug Allergies (Unverified , 08/09/13) Home Medications Asenapine Maleate 10 Mg Tab.subl, 10 MG SL DAILY, (Reported) RECEIVED SAMPLES OF FIRST MONTH, HAS NOT BEEN ABLE TO GET PATIENT ASSISTANCE YET, HAS BEEN OUT FOR A FEW WEEKS. Atorvastatin Calcium 40 Mg Tablet, 40 MG PO DAILY, (Reported) LAST FILLED #30 04-18-19 Cefdinir 300 Mg Capsule, 300 MG PO BID Prescribed by: SOBIA SANCHEZ on 06/20/19 1150 Dicyclomine HCl 20 Mg Tablet, 20 MG PO QID, (Reported) Ferrous Sulfate 325 Mg Tablet, 325 MG PO BID, (Reported) LAST FILLED #55 02-20-19 Hydrocodone/Acetaminophen 1 Each Tablet, 1 TAB PO Q6H Prescribed by: NIKO BRAR on 11/09/192124 Hydrocodone/Acetaminophen 1 Each Tablet, 1 EACH PO Q6H PRN for PAIN-SEVERE (8- 10) Prescribed by: ALE ACEVEDO on 09/19/20 1520 Lactobacillus Acidophilus/Pect 1 Each Capsule, 2 EACH PO TIDWM Prescribed by: SOBIA SANCHEZ on 06/20/19 1150 Loperamide HCl 2 Mg Capsule, 2 MG PO NEEDED PRN for DIARRHEA Prescribed by: SOBIA SANCHEZ on 06/20/19 1150 Metoclopramide HCl 10 Mg Tablet, 10 MG PO TID, (Reported) Metoprolol Succinate 100 Mg Tab.er.24h, 100 MG PO DAILY, (Reported) Beverly-3/Dha/Epa/Fish Oil 1 Each Capsule, 1,000 MG PO BID, (Reported) Omeprazole 40 Mg Capsule.dr, 40 MG PO BID, (Reported) Ondansetron 4 Mg Tab.rapdis, 8 MG PO Q6H PRN for NAUSEA/VOMITING Prescribed by: ALE ACEVEDO on 05/19/20 1210 Ondansetron 8 Mg Tab.rapdis, 8 MG PO Q6H PRN for NAUSEA/VOMITING Prescribed by: ALE ACEVEDO on 09/19/20 1520 Ondansetron HCl 4 Mg Tablet, 4 MG PO BID, (Reported) Oxycodone HCl/Acetaminophen 1 Each Tablet, 1 TAB PO Q4H PRN for PAIN-SEVERE (8- 10) Prescribed by: ALE ACEVEDO on 05/19/20 1211 Sertraline HCl 100 Mg Tablet, 100 MG PO DAILY, (Reported) Tizanidine HCl 4 Mg Tablet, 4 MG PO BID PRN for MUSCLE SPASMS Prescribed by: SOBIA SANCHEZ on 06/20/19 1150 Topiramate 100 Mg Tablet, 100 MG PO BID, (Reported) Zolpidem Tartrate 5 Mg Tablet, 5 MG PO HS, (Reported) Patient Home Medication List Home Medication List Reviewed: Yes Review of Systems Review of Systems Constitutional: see HPI EENTM: No Symptoms Reported Respiratory: No Symptoms Reported Cardiovascular: No Symptoms Reported Gastrointestinal: See HPI, Abdominal Pain Genitourinary: No Symptoms Reported Musculoskeletal: no symptoms reported Skin: no symptoms reported Psychiatric/Neurological: No Symptoms Reported Endocrine: No Symptoms Reported Hematologic/Lymphatic: No Symptoms Reported Past Mtoispr-Rrdcvq-Sojhek Hx Patient Social History Alcohol Beverage of Choice: Beer, Harmon Type Used: Cigarettes 2nd Hand Smoke Exposure: Yes Recent Hopitalizations: No Immunizations Up To Date Tetanus Booster (TDap): Unknown PED Vaccines UTD: No Date of Pneumonia Vaccine: Jun 22, 2019 Seasonal Allergies Seasonal Allergies: Yes Past Medical History Surgeries: Yes (EGD 2006) Tonsillectomy Respiratory: Yes Pneumonia Currently Using CPAP: No Currently Using BIPAP: No Cardiac: Yes High Cholesterol, Hypertension Neurological: Yes (CHRONIC DAILY HEADACHES) Headaches /Migraines Reproductive Disorders: No Sexually Transmitted Disease: No HIV/AIDS: No Genitourinary: No Gastrointestinal: Yes Gastroesophageal Reflux, Pancreatitis, Chronic Diarrhea, Irritable Bowel Musculoskeletal: Yes (CHRONIC NECK/BACK PAIN ) Chronic Back Pain Endocrine: No HEENT: Yes (CHRONIC SINUS PROBLEMS) Cancer: No Psychosocial: Yes Anxiety Integumentary: No Blood Disorders: No Family Medical History No Pertinent Family Hx Physical Exam Vital Signs Vital Signs - First Documented 09/19/20 14:10 Temp 36.0 Pulse 115 Resp 16 B/P (MAP) 115/81 (92) Pulse Ox 96 O2 Delivery Room Air Capillary Refill : Height/Weight/BMI Height: 5'8.00" Weight: 165lbs. 0.2oz. 74.854191fl; 24.00 BMI Method:Estimated General Appearance: WD/WN, no apparent distress Respiratory: normal breath sounds, no respiratory distress, no accessory muscle use Cardiovascular: regular rate, rhythm, no murmur Gastrointestinal: normal bowel sounds, soft, tenderness Extremities: normal range of motion, non-tender Neurologic/Psychiatric: alert, normal mood/affect, oriented x 3 Skin: normal color, warm/dry Progress/Results/Core Measures Results/Orders Lab Results Laboratory Tests Test 09/19/20 14:26 09/19/20 14:53 Range/Units White Blood Count 12.3 H 4.3-11.0 10^3/uL Red Blood Count 4.88 4.30-5.52 10^6/uL Hemoglobin 15.8 13.3-17.7 g/dL Hematocrit 47 40-54 % Mean Corpuscular Volume 97 80-99 fL Mean Corpuscular Hemoglobin 32 25-34 pg Mean Corpuscular Hemoglobin Concent 33 32-36 g/dL Red Cell Distribution Width 13.0 10.0-14.5 % Platelet Count 262 130-400 10^3/uL Mean Platelet Volume 9.6 9.0-12.2 fL Immature Granulocyte % (Auto) 0 % Neutrophils (%) (Auto) 71 42-75 % Lymphocytes (%) (Auto) 20 12-44 % Monocytes (%) (Auto) 7 0-12 % Eosinophils (%) (Auto) 2 0-10 % Basophils (%) (Auto) 0 0-10 % Neutrophils # (Auto) 8.7 H 1.8-7.8 10^3/uL Lymphocytes # (Auto) 2.5 1.0-4.0 10^3/uL Monocytes # (Auto) 0.8 0.0-1.0 10^3/uL Eosinophils # (Auto) 0.2 0.0-0.3 10^3/uL Basophils # (Auto) 0.0 0.0-0.1 10^3/uL Immature Granulocyte # (Auto) 0.0 0.0-0.1 10^3/uL Prothrombin Time 14.5 12.2-14.7 SEC INR Comment 1.1 0.8-1.4 Sodium Level 135 135-145 MMOL/L Potassium Level 3.8 3.6-5.0 MMOL/L Chloride Level 106 98-107 MMOL/L Carbon Dioxide Level 15 L 21-32 MMOL/L Anion Gap 14 5-14 MMOL/L Blood Urea Nitrogen 16 7-18 MG/DL Creatinine 0.98 0.60-1.30 MG/DL Estimat Glomerular Filtration Rate > 60 BUN/Creatinine Ratio 16 Glucose Level 92 70-105 MG/DL Calcium Level 9.4 8.5-10.1 MG/DL Corrected Calcium 9.1 8.5-10.1 MG/DL Total Bilirubin 0.3 0.1-1.0 MG/DL Aspartate Amino Transf (AST/SGOT) 19 5-34 U/L Alanine Aminotransferase (ALT/SGPT) 16 0-55 U/L Alkaline Phosphatase 91 40-136 U/L Total Protein 8.1 6.4-8.2 GM/DL Albumin 4.4 3.2-4.5 GM/DL Lipase 488 H 8-78 U/L Urine Color YELLOW Urine Clarity CLEAR Urine pH 5.5 5-9 Urine Specific [place] >=1.030 1.016-1.022 Urine Protein 1+ H NEGATIVE Urine Glucose (UA) NEGATIVE NEGATIVE Urine Ketones 1+ H NEGATIVE Urine Nitrite NEGATIVE NEGATIVE Urine Bilirubin 2+ H NEGATIVE Urine Urobilinogen 0.2 < = 1.0 MG/DL Urine Leukocyte Esterase NEGATIVE NEGATIVE Urine RBC (Auto) 2+ H NEGATIVE Urine RBC 10-25 H /HPF Urine WBC RARE /HPF Urine Squamous Epithelial Cells RARE /HPF Urine Crystals NONE /LPF Urine Bacteria TRACE /HPF Urine Casts PRESENT /LPF Urine Hyaline Casts >50 H /LPF Urine Mucus NEGATIVE /LPF Urine Culture Indicated NO My Orders Orders - ALE ACEVEDO APRN Cbc With Automated Diff (09/19/20 14:26) Comprehensive Metabolic Panel (09/19/20 14:26) Protime With Inr (09/19/20 14:26) Ct Abdomen/Pelvis W (09/19/20 14:26) Ed Iv/Invasive Line Start (09/19/20 14:26) Lipase (09/19/20 14:26) Fentanyl Injection (Sublimaze Injection (09/19/20 14:30) Ondansetron Injection (Zofran Injectio (09/19/20 14:30) Ns Iv 1000 Ml (Sodium Chloride 0.9%) (09/19/20 14:30) Iohexol Injection (Omnipaque 350 Mg/Ml 1 (09/19/20 15:00) Received Contrast (Hold Metformin- Contr (09/19/20 15:00) Ns (Ivpb) (Sodium Chloride 0.9% Ivpb Bag (09/19/20 15:00) Medications Given in ED Current Medications Medications Dose Ordered Sig/Bernard Route Start Time Stop Time Status Last Admin Dose Admin Fentanyl Citrate 75 mcg ONCE ONCE IVP 09/19/20 14:30 09/19/20 14:31 DC 09/19/20 14:38 75 MCG Iohexol 100 ml ONCE ONCE IV 09/19/20 15:00 09/19/20 15:01 DC 09/19/20 15:21 100 ML Ondansetron HCl 4 mg ONCE ONCE IVP 09/19/20 14:30 09/19/20 14:31 DC 09/19/20 14:38 4 MG Sodium Chloride 100 ml ONCE ONCE IV 09/19/20 15:00 09/19/20 15:01 DC 09/19/20 15:22 100 ML Vital Signs/I&O 09/19/20 14:10 Temp 36.0 Pulse 115 Resp 16 B/P (MAP) 115/81 (92) Pulse Ox 96 O2 Delivery Room Air Diagnostic Imaging Diagonstic Imaging: CT Comments NAME: REHANA PULLIAM Lorraine [facility] REC#: [id number] PT STATUS: REG ER : 1965 PHYSICIAN: ALE ACEVEDO APRN ADMIT DATE: 09/19/20/ER Draft Date of Exam:09/19/20 CT ABDOMEN/PELVIS W PROCEDURE: CT abdomen and pelvis with contrast. TECHNIQUE: Multiple contiguous axial images were obtained through the abdomen and pelvis after administration of intravenous contrast. Auto Exposure Controls were utilized during the CT exam to meet ALARA standards for radiation dose reduction. All CT scans use one or more of the following dose optimizing techniques: automated exposure control, MA and/or KvP adjustment based on patient size and exam type or iterative reconstruction. INDICATION: Pain, diarrhea. COMPARISON: 05/19/2020. FINDINGS: There is stranding of the peripancreatic fat, correlate with pancreatic enzymes as acute pancreatitis could not be excluded. This, however, is substantially improved when compared to the study of 05/19/2020. There is some mild mucosal hyperemia and borderline bowel wall thickening in the transverse colon and proximal descending colon which may be secondary to pancreatitis or reflect a component of colitis superimposed. No bowel obstruction or perforation. The gallbladder is distended but contains no identifiable stone. The bile ducts are nondilated. The spleen and adrenals are negative. There is no acute fluid collection. No abdominopelvic ascites. There is no appendicitis. Unobstructed urinary tracts appear normal. IMPRESSION: 1. Mild peripancreatic edemas, early or mild pancreatitis not excluded. 2. An element of colitis of the transverse and proximal descending left colon may be present but no obstruction, perforation or abscess. 3. Hydropic gallbladder without bile duct dilatation or radiopaque stone. Dictated on workstation # [id number] Dict: 09/19/20 1522 Trans: 09/19/20 1548 [facility] [id number] Interpreted by: CHUCKIE MELGOZA Electronically signed by: Departure Impression Primary Impression: Pancreatitis Qualified Codes: K85.20 - Alcohol induced acute pancreatitis without necrosis or infection Disposition: 01 HOME, SELF-CARE Condition: Stable Departure-Patient Inst. Decision time for Depature: 15:18 Referrals: [facility] [place] Primary Care Physician EZEKIEL QUINTANA (Family) Primary Care Physician Patient Instructions: Pancreatitis Add. Discharge Instructions: 1. Clear liquids for the next 48 hours. Avoid all alcohol. Nausea medication as needed. Pain medication as directed. Return to ER for any concerns. All discharge instructions reviewed with patient and/or family. Voiced understanding. Scripts Hydrocodone/Acetaminophen (Hydrocodone-Acetamin 7.5-325) 1 Each Tablet 1 EACH PO Q6H PRN for PAIN-SEVERE (8-10), #20 TAB Prov: ALE ACEVEDO ATHLETIC COACH 09/19/20 Ondansetron (Ondansetron Odt) 8 Mg Tab.rapdis 8 MG PO Q6H PRN for NAUSEA/VOMITING, #14 TAB Prov: ALE ACEVEDO APRN 09/19/20 ALE ACEVEDO APRN Sep 19, 2020 14:29
[2020-09-19] MEDS ORDERED: NS IV 1000 ML 1,000 ML IV SCH (14:30)
[2020-09-19] MEDS ORDERED: fentaNYL INJECTION 100 MCG/2 ML AMP IVP ONE (14:30)
[2020-09-19] MEDS ORDERED: ONDANSETRON 4 MG/2 ML (SDV) Z0FRAN IVP ONE (14:30)
[2020-09-19 14:33] LABS: BASOPHILS % (AUTO) 0 % (0-10); EOSINOPHILS # (AUTO) 0.2 10^3/uL (0.0-0.3); EOSINOPHILS % (AUTO) 2 % (0-10); HEMATOCRIT 47 % (40-54); HEMOGLOBIN 15.8 g/dL (13.3-17.7); LYMPHOCYTES # (AUTO) 2.5 10^3/uL (1.0-4.0); LYMPHOCYTES % (AUTO) 20 % (12-44); MEAN CORPUSCULAR HEMOGLOBIN 32 pg (25-34); MEAN CORPUSCULAR HGB CONC 33 g/dL (32-36); MEAN CORPUSCULAR VOLUME 97 fL (80-99); MEAN PLATELET VOLUME 9.6 fL (9.0-12.2); MONOCYTES # (AUTO) 0.8 10^3/uL (0.0-1.0); MONOCYTES % (AUTO) 7 % (0-12); NEUTROPHILS # (AUTO) 8.7 10^3/uL (1.8-7.8); NEUTROPHILS % (AUTO) 71 % (42-75); PLATELET COUNT 262 10^3/uL (130-400); WHITE BLOOD COUNT 12.3 10^3/uL (4.3-11.0)
[2020-09-19 14:42] LABS: ALBUMIN 4.4 GM/DL (3.2-4.5)
[2020-09-19 14:43] LABS: CHLORIDE 106 MMOL/L (98-107); POTASSIUM 3.8 MMOL/L (3.6-5.0); SODIUM 135 MMOL/L (135-145)
[2020-09-19 14:44] LABS: CALCIUM 9.4 MG/DL (8.5-10.1)
[2020-09-19 14:45] LABS: GLUCOSE 92 MG/DL (70-105); TOTAL PROTEIN 8.1 GM/DL (6.4-8.2)
[2020-09-19 14:46] LABS: CARBON DIOXIDE 15 MMOL/L (21-32); INR 1.1 (0.8-1.4); PROTHROMBIN TIME PATIENT 14.5 SEC (12.2-14.7)
[2020-09-19 14:47] LABS: BILIRUBIN,TOTAL 0.3 MG/DL (0.1-1.0)
[2020-09-19 14:48] LABS: ALKALINE PHOSPHATASE 91 U/L (40-136)
[2020-09-19 14:49] LABS: CREATININE SERUM 0.98 MG/DL (0.60-1.30); GFR ESTIMATED > 60
[2020-09-19 14:50] LABS: BUN/CREATININE RATIO 16
[2020-09-19 14:52] LABS: ALANINE AMINOTRANSFERASE 16 U/L (0-55); LIPASE 488 U/L (8-78)
[2020-09-19 14:59] LABS: CLARITY,URINE CLEAR; COLOR,URINE YELLOW; GLUCOSE, URINE (UA) NEGATIVE (NEGATIVE); KETONES,URINE 1+ (NEGATIVE); LEUKOCYTE ESTERASE ,URINE NEGATIVE (NEGATIVE); NITRITE,URINE NEGATIVE (NEGATIVE); PH,URINE 5.5 (5-9); PROTEIN,URINE 1+ (NEGATIVE)
[2020-09-19] MEDS ORDERED: NS 100 ML (IVPB) BAG IV ONE (15:00)
[2020-09-19] MEDS ORDERED: HOLD METFORMIN - RECEIVED CONTRAST 20 ML VIAL IV SCH (15:00)
[2020-09-19] MEDS ORDERED: IOHEXOL 350 MG/ML 100 ML (OMNIPAQUE 350) VIAL IV ONE (15:00)
[2020-09-19 15:08] LABS: BACTERIA,URINE TRACE /HPF; BILIRUBIN,URINE 2+ (NEGATIVE); HYALINE CASTS, URINE >50 /LPF; SQUAMOUS EPITHELIAL CELL,UR RARE /HPF; WBC,URINE RARE /HPF
[2020-09-19] MEDS ORDERED: ONDA8TAB13 PO (15:20)
[2020-09-19] MEDS ORDERED: HYDR-3817 PO (15:20)
--- NOTE | 2020-09-19 15:49 | Diagnostic Imaging Report ---
PROCEDURE: CT abdomen and pelvis with contrast. TECHNIQUE: Multiple contiguous axial images were obtained through the abdomen and pelvis after administration of intravenous contrast. Auto Exposure Controls were utilized during the CT exam to meet ALARA standards for radiation dose reduction. All CT scans use one or more of the following dose optimizing techniques: automated exposure control, MA and/or KvP adjustment based on patient size and exam type or iterative reconstruction. INDICATION: Pain, diarrhea. COMPARISON: 05/19/2020. FINDINGS: There is stranding of the peripancreatic fat, correlate with pancreatic enzymes as acute pancreatitis could not be excluded. This, however, is substantially improved when compared to the study of 05/19/2020. There is some mild mucosal hyperemia and borderline bowel wall thickening in the transverse colon and proximal descending colon which may be secondary to pancreatitis or reflect a component of colitis superimposed. No bowel obstruction or perforation. The gallbladder is distended but contains no identifiable stone. The bile ducts are nondilated. The spleen and adrenals are negative. There is no acute fluid collection. No abdominopelvic ascites. There is no appendicitis. Unobstructed urinary tracts appear normal. IMPRESSION: 1. Mild peripancreatic edemas, early or mild pancreatitis not excluded. 2. An element of colitis of the transverse and proximal descending left colon may be present but no obstruction, perforation or abscess. 3. Hydropic gallbladder without bile duct dilatation or radiopaque stone. Dictated by: Dictated on workstation # [id number]
[2020-09-19 15:58] VITALS: BP 121/79
== END 2020-09-19 15:58 | disposition home or self-care (01) ==
LOC: EDUNIT# 13:54 → ER 13:56
DX: K85.90 Acute pancreatitis without necrosis or infection, unspecified (principal); F41.9 Anxiety disorder, unspecified; E78.00 Pure hypercholesterolemia, unspecified; I10 Essential (primary) hypertension; K21.9 Gastro-esophageal reflux disease without esophagitis; G89.29 Other chronic pain; M54.9 Dorsalgia, unspecified; Z77.22 Contact with and (suspected) exposure to environmental tobacco smoke (acute) (chronic); Z79.891 Long term (current) use of opiate analgesic
CPT/HCPCS: 36415; 74177; 80053; 81000; 83690; 85025; 85610

== ENCOUNTER → 2020-12-29 | Outpatient (CLI) | payer SELFPAY ==
[~2020-12-29] MED LIST changes: +HYDR-3817 PO; +ONDA8TAB13 PO
--- NOTE | 2020-12-29 12:37 | Diagnostic Imaging Report ---
PROCEDURE: CT sinuses without contrast TECHNIQUE: Multiple contiguous axial images were obtained through the sinuses without the use of intravenous contrast. Coronal and sagittal reformations were then performed. Auto Exposure Controls were utilized during the CT exam to meet ALARA standards for radiation dose reduction. INDICATION: Chronic sinusitis, headache, drainage. CORRELATION STUDY: None FINDINGS: There is complete opacification and expansion of the right maxillary sinus. Superior medial wall of the maxillary sinus extends into the nasal cavity. Ostiomeatal complex obstructed. The left maxillary sinus is well pneumatized and clear. Ostiomeatal complexes are unremarkable. Trace mucosal thickening and/or fluid along the left frontal sinus. Sphenoid sinuses are clear. There is mild mucosal thickening in a few ethmoid air cells. Mild rightward curvature of the nasal septum with mildly prominent nasal spur. There is presence of rather extensive dental caries of the teeth. Some areas of periapical lucency are present present. There does appear to be perhaps slight disruption along the floor of the right maxillary sinus at the apex of one of these lucencies. Mastoid air cells and middle ear cavities clear. There is soft tissue opacification of the deep right external auditory canal with likely cerumen. IMPRESSION: 1. Complete opacification with expanded appearance about the right maxillary sinus. Could reflect underlying mucous retention cyst and/or polyp. Possibly this represents a chronic sinusitis even perhaps from underlying odontogenic source not excluded. 2. Trace mucosal thickening of the left frontal sinus and a few ethmoid air cells. 3. Extensive dental caries underlying periodontal disease. Dictated by: Dictated on workstation # [id number]
== END ==
LOC: RAD 11:45
PROVIDERS: ATTEND Plastic Surgery Plastic Surgery Within the Head and Neck
DX: J32.0 Chronic maxillary sinusitis (principal); K02.9 Dental caries, unspecified
CPT/HCPCS: 70486

== ENCOUNTER 2022-02-04 05:36 | Outpatient (CLI) | payer OTHER ==
[~2022-02-04] VITALS: Ht 162.4 cm; Wt 68.2 kg
[~2022-02-04 05:36] MED LIST changes: +DICY20TA PO; -DICY20TA10 PO; -OMEP40CA27 PO; +OMEP40CA6 PO; +TIZA-186 PO; -TIZA4TAB4 PO
[2022-02-09] MEDS ORDERED: AMOX500T2 PO (10:28)
== END 2022-02-09 10:38 | disposition home or self-care (01) ==
LOC: PREOP 05:36
PROVIDERS: ATTEND Surgery
DX: Z01.818 Encounter for other preprocedural examination (principal)

== ENCOUNTER 2022-02-11 08:30 | Day surgery (SDC) | payer OTHER ==
[~2022-02-11] VITALS: Ht 162.4 cm; Wt 68.2 kg
[2022-02-11] VITALS (12 sets, daily range): BP systolic 122–158; BP diastolic 72–98
[~2022-02-11 08:30] MED LIST changes: +AMOX500T2 PO
[2022-02-11] MEDS ORDERED: ceFAZolin 2 GM IV Premixed 50 ML IV ONE (09:00)
[2022-02-11] MEDS ORDERED: LACTATED RINGERS 1,000 ML IV PRN (09:00)
--- NOTE | 2022-02-11 09:21 | Progress Note-Pre Operative ---
Pre-Operative Progress Note H&P Reviewed The H&P was reviewed, patient examined and no changes noted. Date Seen by Provider: Feb 11, 2022 Time Seen by Provider: 09:20 Date H&P Reviewed: Feb 11, 2022 Time H&P Reviewed: 09:15 Pre-Operative Diagnosis: Chronic acalculous cholecystitis LILIANA RIVERS APRN Feb 11, 2022 09:21
[2022-02-11] MEDS ORDERED: GLYCOPYRROLATE 0.2 MG/ML (ROBINUL) 2 ML VIAL ONE (09:23)
[2022-02-11] MEDS ORDERED: proPOfol 200 MG/20 ML (DIPRIVAN) VIAL IV ONE (09:23)
[2022-02-11] MEDS ORDERED: MIDAZOLAM 2 MG/2 ML (VERSED) VIAL ONE (09:23)
[2022-02-11] MEDS ORDERED: ONDANSETRON 4 MG/2 ML (SDV) Z0FRAN ONE (09:23)
[2022-02-11] MEDS ORDERED: fentaNYL INJ 100 MCG/2 ML AMP ONE (09:23)
[2022-02-11] MEDS ORDERED: LIDOCAINE PF 2% 5 ML (XYLOCAINE) VIAL ONE (09:23)
[2022-02-11] MEDS ORDERED: NEOSTIGMINE (BLOXIVERZ ) 1 MG/1ML 10 ML VIAL ONE (09:24)
[2022-02-11] MEDS ORDERED: ROCURONIUM 50 MG/5 ML (ZEMURON) VIAL IV ONE (09:24)
[2022-02-11] MEDS ORDERED: HYDR-3817 PO (09:26)
--- NOTE | 2022-02-11 09:27 | Discharge Inst-Surgical ---
D/C Lap Instructions-KIDO Reconcile Patient Problems Problems Reviewed?: Yes New, Converted, or Re-Newed RX: RX on Chart Follow Up Appt in 2 weeks Activity as tolerated No driving for 24 hours No driving while on pain medications Incentive Spirometry use every 2 hours while awake Regular Diet Symptoms to Report: Fever over 101 degree F, Nausea/Vomiting Infection Signs and Symptoms to report: Increased redness, Foul odor of wound, Increased drainage Bathing instructions: May shower Operative Area Clean/Dry; Keep incision clean/dry If any problems/questions: Contact your physician or go to Emergency Room LILIANA RIVERS APRN Feb 11, 2022 09:27
[2022-02-11] MEDS ORDERED: morphine INJ 10 MG/ML 1ML (SYR OR VIAL) IVP PRN (09:30)
[2022-02-11] MEDS ORDERED: ACETAMINOPHEN 325 MG TABLET PO PRN (09:30)
[2022-02-11] MEDS ORDERED: HYDROcodone/APAP 5 MG/325 MG (LORTAB) TAB PO ONE (09:30)
[2022-02-11] MEDS ORDERED: ONDANSETRON 4 MG/2 ML (SDV) Z0FRAN IVP PRN ×2 (09:30→12:00)
[2022-02-11] MEDS ORDERED: LIDOCAINE/EPI 1%-1:100,000 (XYLOCAINE) 20ML ONE (10:15)
[2022-02-11] MEDS ORDERED: SEVOFLURANE (ULTANE) 15 ML INHAL SOLN ONE (11:50)
[2022-02-11] MEDS ORDERED: HYDROmorphone 2 MG/ML VIAL (DILAUDID) IV ONE (12:00)
[2022-02-11] MEDS ORDERED: morphine INJ 10 MG/ML 1ML (SYR OR VIAL) IVP ONE (12:00)
--- NOTE | 2022-02-11 14:16 | Progress Note-Post Operative ---
Post-Operative Progess Note Surgeon (s)/Job Press Feeder (s) Surgeon JADA COPELAND MD Job Press Feeder: none Pre-Operative Diagnosis Chronic acalculous cholecystitis Post-Operative Diagnosis same Procedure & Operative Findings Date of Procedure 02/11/22 Procedure Performed/Findings laparoscopic choecystectomy Anesthesia Type get Estimated Blood Loss Estimated blood loss (mL): minimal Specimens/Packing Specimens Removed gallbladder JADA COPELAND MD Feb 11, 2022 14:16
--- NOTE | 2022-02-11 14:21 | Anesthesia-General Post-Op ---
General Patient Condition Mental Status/LOC: Same as Preop Cardiovascular: Satisfactory Nausea/Vomiting: Absent Respiratory: Satisfactory Pain: Controlled Complications: Absent Post Op Complications Complications None Follow Up Care/Instructions Patient Instructions None needed. Anesthesia/Patient Condition Patient Condition Patient is doing well, no complaints, stable vital signs, no apparent adverse anesthesia problems. No complications reported per nursing. JESSICA VAZQUEZ DO Feb 11, 2022 14:21
--- NOTE | 2022-02-11 22:37 | OPERATIVE REPORT ---
DATE OF SERVICE: 02/11/2022 ATTENDING PRIMARY CARE PHYSICIAN: Dr. Norberto Osorio. PREOPERATIVE DIAGNOSIS: Symptomatic chronic acalculous cholecystitis. POSTOPERATIVE DIAGNOSIS: Symptomatic chronic acalculous cholecystitis. PROCEDURE: Laparoscopic cholecystectomy. SURGEON: Jada Copeland MD. OIL WELL LOGGING ENGINEER: Paul Thorpe APRN. ANESTHESIA: General endotracheal. ESTIMATED BLOOD LOSS: Minimal. FINDINGS: Symptomatic chronic acalculous cholecystitis. DISPOSITION: The patient tolerated the procedure well. INDICATIONS: The patient is a 56-year-old male who has had issues with nausea and vomiting as well as diarrhea and abdominal bloating usually after eating meals. He states that some foods made this worse than others. He also underwent EGD and colonoscopy and was also found to be H. pylori positive and was treated with the proper antibiotic regimen. Despite this, he continued to have symptoms. A CT scan was performed, which did show gallbladder wall thickening, which was also confirmed by ultrasonography. DESCRIPTION OF PROCEDURE: The patient was brought to the operating room, laid supine on the table. After adequate IV pain and sedative medications and general endotracheal intubation, the abdomen was prepped and draped in standard surgical fashion. A 0.5% Marcaine with epinephrine was then used to anesthetize the overlying skin in the left upper abdominal quadrant. A transverse skin incision made using 15 blade and an 0 silk suture was applied to the medial aspect incision for retraction. The Veress needle placed and the abdomen was insufflated to 15 mmHg pressure. The Veress needle removed and a 5 mm XL trocar placed followed by a 5 mm 45-degree angle laparoscope visualizing the peritoneal cavity. A 4-quadrant abdominal exploration was performed. There was a distended gallbladder as well as gallbladder wall thickening. Under direct visualization, we then proceeded to place a supraumbilical 10 mm port after the skin and peritoneal lining were anesthetized using 0.5% Marcaine with epinephrine and a transverse skin incision made using 15 blade. In a similar fashion, a right upper abdominal quadrant 5 mm port was placed. The fundus of the gallbladder was then retracted anteriorly and superiorly. The patient was then placed in reverse Trendelenburg position as well as plane right side up, left side down. The hepatoduodenal ligament was then dissected using blunt dissection as well as electrocautery using the hook instrument as well as a [place] dissector. The entire critical view of safety was identified including the triangle of Calot as well as the cystic duct and artery as only two structures going into the gallbladder as well as the cystic plate behind the proximal gallbladder. A timeout was then taken, and the cystic duct and artery were then clipped proximally and distally and cut with EndoShears. The gallbladder was then dissected off the liver bed using cautery on hook instrument with visualization of good hemostasis as well as no leaking ducts of Luschka. The gallbladder was removed through the 10 mm port site using an EndoCatch bag. The fascia and peritoneum to the 10 mm port site were then closed under direct visualization using a Desmond-Ruth device and 0 Vicryl suture. The abdomen was desufflated and remaining ports removed. All skin incisions were closed using 4-0 Monocryl running subcuticular sutures. Wounds were then cleaned and covered with Dermabond. The patient tolerated the procedure well. We will start IV normal pain medication as well as a clear liquid diet. Once he is tolerating clears, has good pain control with oral pain medications, ambulating well, we will discharge him home where he will be instructed to do no heavy lifting or exertion for the next two weeks. Job ID: [id number] DocumentID: [id number] Dictated Date: 02/11/2022 11:38:44 Operating Room Surgical Technician Date: 02/11/2022 22:36:58 Dictated By: JADA COPELAND MD
== END 2022-02-11 14:00 | disposition home or self-care (01) ==
LOC: SDC 08:30
PROVIDERS: ATTEND Surgery
DX: K81.1 Chronic cholecystitis (principal); Z87.891 Personal history of nicotine dependence
CPT/HCPCS: 87081; 88304

== ENCOUNTER → 2022-12-02 | Outpatient (CLI) | payer OTHER ==
--- NOTE | 2022-12-02 10:14 | Diagnostic Imaging Report ---
PROCEDURE: MR imaging of the brain without contrast. TECHNIQUE: Multiplanar, multisequence MR imaging of the brain was performed without contrast. INDICATION: Chronic migraines. COMPARISON: CT head 06/18/2019. FINDINGS: Minimal nonspecific T2 hyperintensities in the supratentorial white matter are age appropriate. No restricted water diffusion. No hemosiderin deposition or evidence of intracranial hemorrhage. Normal morphology including the major midline structures, sella, posterior fossa and cerebellar pontine angle. Normal intracranial flow voids. No hydrocephalus or extra-axial fluid collections. The orbits are negative. Mild mucosal thickening in the right maxillary sinus and ethmoid sinus. Mastoids are clear. Normal bone marrow signal. IMPRESSION: 1. Age-appropriate MRI of the brain. No acute findings. 2. Mild paranasal sinus mucosal thickening without air-fluid levels. Dictated by: Dictated on workstation # [id number]
== END ==
LOC: RAD 07:54
PROVIDERS: ATTEND Pediatrics
DX: J34.89 Other specified disorders of nose and nasal sinuses (principal); G44.52 New daily persistent headache (NDPH)
CPT/HCPCS: 70551